=== PATIENT | female | born 1960 | race Caucasian/White ===

== ENCOUNTER 2019-02-18 07:53 | Observation (INO) ==
[2019-02-18] MEDS ORDERED: KEFZOL 1 GM/D5W 2 GM/100 ML IVPB ONE (08:21)
[2019-02-18] MEDS ORDERED: LR 1,000 ML ONE ×2 (08:21→15:02)
[2019-02-18] MEDS ORDERED: HUMULIN R SUBQ ONE (08:49)
[2019-02-18] MEDS ORDERED: HUMULIN R ONE ×2 (09:00→10:43)
[2019-02-18] MEDS ORDERED: DIPRIVAN 1% ONE (11:06)
[2019-02-18] MEDS ORDERED: XYLOCAINE-MPF 2% ONE (11:06)
[2019-02-18] MEDS ORDERED: ROBINUL ONE (11:06)
[2019-02-18] MEDS ORDERED: NS 1,000 ML ONE ×2 (12:03→12:39)
[2019-02-18] MEDS ORDERED: MARCAINE 0.25% PF/EPI 1:200,000 ONE (12:03)
[2019-02-18] MEDS ORDERED: HEPARIN ONE ×2 (12:03→12:39)
[2019-02-18] MEDS ORDERED: TORADOL ONE (13:07)
[2019-02-18] MEDS ORDERED: ZEMURON ONE (13:07)
[2019-02-18] MEDS ORDERED: OFIRMEV 1000 MG/ISOTONIC SOLN 1,000 MG/100 ML BOTTLE ONE (13:07)
[2019-02-18] MEDS ORDERED: DECADRON ONE (13:07)
[2019-02-18] MEDS ORDERED: ZOFRAN ONE (13:07)
[2019-02-18] MEDS ORDERED: EPHEDRINE ONE (13:08)
[2019-02-18] MEDS ORDERED: HEPARIN (DOSE) ONE (13:16)
[2019-02-18] MEDS ORDERED: VENTOLIN HFA ONE (13:26)
[2019-02-18] MEDS ORDERED: BRIDION ONE ×2 (13:33)
[2019-02-18 14:15] LABS: URINE SOURCE CATH
[2019-02-18 14:21] LABS: BILIRUBIN URINE NEGATIVE (NEGATIVE); BLOOD URINE SMALL (NEGATIVE); COLOR YELLOW; GLUCOSE URINE >1000 mg/dL (NEGATIVE); KETONE URINE NEGATIVE (NEGATIVE); LEUKOCYTES URINE NEGATIVE (NEGATIVE); NITRITE URINE NEGATIVE (NEGATIVE); PROTEIN URINE 600 mg/dL (NEGATIVE); SP GRAVITY URINE 1.012; TURBIDITY URINE HAZY (CLEAR); UROBILINOGEN URINE NORMAL (NORMAL)
[2019-02-18 14:22] LABS: UR EPITHELIAL CELLS >10 /HPF (<10); URINE BACTERIA NEGATIVE /HPF; URINE RBC <10 /HPF (<10); URINE WBC <10 /HPF (<10)
[2019-02-18] MEDS ORDERED: D50W SYRINGE IV ONE ×2 (14:45)
[2019-02-18] MEDS ORDERED: DILAUDID ONE (15:02)
[2019-02-18] MEDS ORDERED: PNEUMOVAX 23 IM ONE (17:15)
[2019-02-18] MEDS ORDERED: LR 1,000 ML IV SCH (17:15)
[2019-02-18] MEDS ORDERED: ZOFRAN IV PRN (17:15)
[2019-02-18] MEDS: NORCO-5 PO PRN ×2 (17:50→22:51)
[2019-02-18] MEDS: NICODERM PATCH TD SCH (18:56)
--- NOTE | 2019-02-18 20:06 | OPERATIVE NOTE ---
PROCEDURE DATE: 02/18/2019 PREOPERATIVE DIAGNOSIS: Left lower extremity peripheral vascular disease at the superficial femoral artery level. POSTOP DIAGNOSIS: Left lower extremity peripheral vascular disease at the superficial femoral artery level. PROCEDURES PERFORMED: 1. Percutaneous arteriogram of the left lower extremity. 2. Percutaneous atherectomy of the distal superficial femoral artery. SURGEON: Joel Santana MD. LIFT DRIVER: Dr. Wylie. Dr. Wylie assisted with the entirety of the case. His presence was crucial for the completion of the case. ANESTHESIA: General endotracheal. OPERATIVE FINDINGS: Short-segment disease noted just at the superficial femoral artery, passed over the femur in the distal aspect. COMPLICATIONS: There was a left groin hematoma, but no active bleeding. ESTIMATED BLOOD LOSS: 40 mL. BRIEF HISTORY: A 59-year-old female with past medical history of diabetes and smoking who had peripheral vascular disease with rest pain and claudication. It was felt she would benefit from a percutaneous intervention. The risks, benefits, and alternatives were discussed. The risks, including but not limited to bleeding, infection, risk of hematoma, risk of artery injury, risks of anesthesia, risk of inability to stent, were discussed, and all questions answered. DESCRIPTION OF PROCEDURE: After informed consent was obtained, patient was brought to the operative theater, transferred to the operative table, placed in supine position. General endotracheal anesthesia was then performed without complication. A formal time-out was then performed confirming patient, date, procedure. All were in agreement at that time to the left leg. The left leg and the right groin were prepped and draped in sterile fashion. After the time- out, we used ultrasound to identify the right common femoral vein superior to the bifurcation of the profunda and the superficial femoral artery. We were able to cannulate it under local anesthetic and ultrasound guidance, and passed a wire. We shot fluoro images, seeing the wire go all the way down to the tibial vessels. We initially placed a 6[place] sheath. Contrast study showed flow, but there was a stenosis noted at the distal superficial femoral artery. We then placed a guidewire and exchanged the 6-[place] catheter for a 7[place], and then put the arthrectomy device down, took several passes and shot a completion arteriogram which showed significant improvement in the flow. At this point, the catheter and sheath became kinked in the groin. We tried multiple passes to try to get the balloon past this, but were unable to. Myself and Dr. Wylie tried several times, but were unsuccessful. Given this we felt that we might cause more injury, and we had successfully treated the area, so we decided to remove everything and hold pressure. She was developing a hematoma in her left groin. It was not pulsatile. After attempting to place a Mynx 2 closure device, which was then unsuccessful, we removed the sheath and the wire and held pressure for 15 minutes. At the completion of the 15 minutes, there was no active bleeding. The hematoma was stable, and the patient had a sterile dressing and a pressure dressing applied. We will watch her overnight and keep her flat for 6 hours. The family was updated about the hematoma. cc: Joel Santana MD
[2019-02-18] MEDS: HUMALOG SUBQ SCH (23:17)
[2019-02-19] MEDS: HUMALOG SUBQ SCH ×3 (02:34→10:56)
[2019-02-19] MEDS: NORCO-5 PO PRN ×2 (03:23→09:36)
[2019-02-19 07:23] VITALS: BP 163/73
[2019-02-19] MEDS ORDERED: PLAVIX PO SCH (09:00)
[2019-02-19] MEDS ORDERED: ASPIRIN PO SCH (09:00)
[2019-02-19] MEDS ORDERED: NEURONTIN PO SCH (09:00)
[2019-02-19] MEDS ORDERED: PERIDEX MT SCH (09:00)
[2019-02-19] MEDS: NICODERM PATCH TD SCH (09:36)
--- NOTE | 2019-02-19 19:23 | DISCHARGE SUMMARY ---
ADMISSION DATE: 02/18/2019 DISCHARGE DATE: 02/19/2019 ADMITTING DIAGNOSIS: Ischemic left toes. DISCHARGE DIAGNOSIS: Ischemic left toes. PRINCIPAL PROCEDURE: Atherectomy of left distal superficial femoral artery per Dr. Santana on 02/18/2019. DISCHARGE DISABILITY: Full. DISCHARGE MEDICATIONS: She is to return to her home medications. Will make sure that she has prescriptions for a baby aspirin and Plavix daily. She was encouraged to quit smoking. DISCHARGE DIET: Diabetic diet. DISCHARGE DISPOSITION: She is to return to see Dr. Santana next week in our outpatient offices. HOSPITAL COURSE: Ms. Lizette Barrett is a 59-year-old white female patient Dr. Jimenes who has developed ischemic toes involving her left foot and also an open wound involving the lateral aspect of her left heel. It was noted that she had peripheral vascular disease which included her superficial femoral artery on the left and she was admitted and underwent atherectomy of her left superficial femoral artery per Dr. Santana 02/18/2019. This was complicated by left groin hematoma and she was admitted overnight for observation. On postop day 1 there was no expanding of her left groin hematoma and she had a palpable left dorsalis pedis pulse and a warm foot. She will be discharged under the care of her family with followup with Dr. Santana. She is to return to her home medications. We will add aspirin and Plavix per Dr. Santana and I have encouraged her to quit smoking. She knows to contact us with any problems. cc: MD Joel Nye MD
== END 2019-02-19 11:02 | disposition home or self-care (01) ==
LOC: OPS 07:53 → PAT 07:53 → 4N 17:04 → INTOOBSV 17:04
PROVIDERS: ADMIT Surgery; ATTEND Surgery

== ENCOUNTER 2019-05-03 10:12 | Observation (INO) ==
[2019-05-03] MEDS ORDERED: DUONEB (A & A) INH ONE (10:20)
--- NOTE | 2019-05-03 10:33 | PROVIDER DOCUMENTATION ---
HPI-General Adult - General Chief Complaint: Shortness of Breath Stated Complaint: SOB Time Seen by Provider: 05/03/19 10:18 Source: patient Allergies/Adverse Reactions: Patient Allergies Allergy/AdvReac Type Severity Reaction Status Date / Time No Known Allergies Allergy Verified 05/03/19 11:21 Home Medications: Home Medication List Medication Instructions Recorded Confirmed Last Taken Type Insulin Lispro [Humalog Kwikpen 10 - 15 unit SQ DIRECTED 09/25/18 02/15/19 04/30/19 History U-100] Aspirin 81 mg PO QHS 03/12/19 03/12/19 05/01/19 History Clopidogrel Bisulfate [Clopidogrel] 75 mg PO DAILY 03/12/19 03/12/19 05/02/19 History Collagenase Clostridium Oint 1 applicatn TOP BID 03/12/19 03/12/19 05/02/19 History [Santyl Oint] Gabapentin [Neurontin] 600 mg PO QHS 03/12/19 03/12/19 05/02/19 History Levothyroxine [Synthroid] 75 mcg PO QAM 03/12/19 03/12/19 04/12/19 History Ondansetron HCl 4 mg PO/SL Q4H PRN PRN 03/12/19 03/12/19 Unknown History Simvastatin 40 mg PO DAILY 03/12/19 03/12/19 05/02/19 History - History of Present Illness -Gen Adult Nature of Presenting Problems: This is a 59yo female who presents with CC of shortness of breath. The patient reports onset of 1-2 weeks. She has tried to use albuterol at home. She has had minimal sputum production. She does report recent hospitalization last month for COPD Location of Pain/Injury: reports: chest Onset/Duration: reports: last week (1-2 week duration) Timing: reports: still present Modifying Factors: improves with: lying down (worse with laying down) Associated Symptoms: reports: other (swelling). denies: cough, fever/chills Review of Systems - Adult - REVIEW OF SYSTEMS - ADULT Constitutional: denies: fever Eyes: denies: eye pain Ears, Nose, Mouth & Throat: reports: other (minimal moucous production) Cardiovascular: reports: other. denies: chest pain Respiratory: reports: shortness of breath. denies: excessive sputum production Gastrointestinal: denies: abdominal pain Genitourinary: denies: flank pain Musculoskeletal: reports: joint swelling Integumentary: reports: other (chronic ulcer) Neurological: denies: headache/migraines Psychiatric: denies: alcohol/drug dependence (smoker, no alcohol or drugs) Hematologic/Lymphatic: reports: other (bruising after starting plavix) Past History - Adult - PAST MEDICAL HISTORY-ADULT Review of Records: reports: Old Records Reviewed Major Childhood Illnesses: reports: denies history Cardiovascular: reports: HTN, hyperlipidemia Respiratory: reports: sleep apnea Gastrointestinal: reports: IBS, other (chronic diarrhea) Genitourinary: reports: denies history Endocrine/Immune: reports: Diabetes Other Conditions: reports: denies history - PRIOR SURGERIES/PROCEDURES Surgical/Procedure History: reports: cholecystectomy, hernia repair, other (D&C) - IMMUNIZATION STATUS Childhood Immunizations: See Nurse Assessment Flu Vaccine: See Nurse Assessment - FAMILY HISTORY Family History: cancer (pancreatic), other (CAD) - SOCIAL HISTORY Smoking: other (1ppd smoker) Substance Use: none/never Alcohol Use Frequency: never Physical Exam-General - CONSTITUTIONAL General Appearance: appears well, alert - HEAD, EARS, NOSE, MOUTH & THROAT HENMT: normocephalic/atraumatic, moist mucous membranes - NECK Neck: normal inspection - RESPIRATORY Respiratory: crackles (bilateral lower lobe crackles noted) - CARDIOVASCULAR Cardiovascular: tachycardia, other (1+ Lower extremity edema bilaterally) - GASTROINTESTINAL (ABDOMEN) Abdominal Exam: soft. negative: tenderness - SKIN Integumentary: other (ulcer noted on the left foot, no purulence, mild tenderness ot palpation) Progress - PLAN OF CARE/RESULTS Progress/Plan/Lab Results: Vital Signs - 8 hr 05/03/19 10:16 Temperature 97.8 F Pulse Rate 101 H Respiratory Rate 19 Blood Pressure 145/83 O2 Sat by Pulse Oximetry 94 L Orders Category Date Time Status Saline Loc NOW Care 05/03/19 10:18 Active CHEST-2 VIEWS [RAD] Stat Exams 05/03/19 10:19 Taken CBC WITH ELECTRONIC DIFF [HEME] Stat Lab 05/03/19 10:18 Uncollected CK PROFILE [SP CHEM] Stat Lab 05/03/19 10:18 Uncollected COMPREHENSIVE METABOLIC PANEL [CHEM] Stat Lab 05/03/19 10:18 Uncollected PRO B-NATRIURETIC PEPTIDE Stat Lab 05/03/19 10:19 Ordered TROPONIN T Stat Lab 05/03/19 10:19 Uncollected URINALYSIS W/POSS RFLX CULT [URINALYSIS] Stat Lab 05/03/19 10:19 Uncollected Albuterol 2.5MG/Ipratrop 0.5MG [Duoneb (A & A)] Med 05/03/19 10:20 Discontin ued 3 ml INH NOW ONE Aerosol Treatments Routine Oth 05/03/19 10:20 Active Aerosol Treatments Stat Oth 05/03/19 10:20 Active EKG [EKG] Stat Ther 05/03/19 10:19 Ordered Result Diagrams: 05/03/19 11:30 05/03/19 11:30 - REASSESSMENT Reassessment #1 Status: unchanged (Patient still short of breath. CXR showing pulmonary effusion. Labs showing elevated BNP and elevated glucose. 10U insulin given, and 40mg IV lasix given. Discussed with hospitalist who have accepted the patient for admission.) Departure - Departure Date of Disposition Decision: 05/03/19 Time of Disposition Decision: 14:33 DIAGNOSIS: Hyperglycemia, Shortness of breath Pulmonary edema Qualifiers: Chronicity: acute Qualified Code(s): J81.0 - Acute pulmonary edema Disposition: ADMITTED INPATIENT 09 Certified Medical Emergency: Emergent Condition: Good Referrals and Follow-Ups: Joslyn Jimenes MD [Primary Care Provider] - - Critical Care Note This patient required my direct & personal management of CC.: No Attestation - Physician/ CLOTILDE Attestation Patient care was provided by Advanced Practice Provider:: No The physician spent face to face time with patient:: Yes Advanced Practice Provider documentation review:: Supervising physician onsite and consulted in the evaluation and care of this patient. The physician did have a face to face encounter with the patient.
--- NOTE | 2019-05-03 10:39 | Diag Imaging Result Doc PS360 ---
EXAM: CHEST-2 VIEWS INDICATION: SOB TECHNIQUE: 2 views COMPARISON: 03/13/2019 FINDINGS: There is a small right pleural effusion with adjacent atelectasis and/or infiltrate. The small nodular density near the right lung apex is stable. The central vasculature appears mildly prominent suggesting mild pulmonary venous congestion. The heart appears borderline prominent. IMPRESSION: Suggestion of mild pulmonary venous congestion with a small right effusion and adjacent right basilar atelectasis and/or infiltrate. Electronically signed by Dre Delgadillo 05/03/2019 10:37 AM
--- NOTE | 2019-05-03 10:43 | EKG Report ---
Test Performed on : 05/03/2019 10:21:15 AM Test Reason : sob, chest pain Blood Pressure : / mmHG Vent. Rate : 098 BPM Atrial Rate : 098 BPM P-R Int : 146 ms QRS Dur : 092 ms QT Int : 380 ms P-R-T Axes : 042 019 081 degrees QTc Int : 485 ms Normal sinus rhythm. Cannot rule out Anterior infarct , age undetermined T wave abnormality, consider lateral ischemia Abnormal ECG When compared with ECG of 11-MAR-2019 21:22, (Unconfirmed) Minimal criteria for Anterior infarct are now present Nonspecific T wave abnormality, worse in Inferior leads Unconfirmed Result
[2019-05-03 11:41] LABS: BASO# 0.04 X1000 (0.0-0.2); BASO% 0.5 % (0.0-0.8); EOS# 0.37 X1000 (0.0-0.7); EOS% 5.1 % (0.0-10.0); HEMATOCRIT 36.3 % (37.0-47.0); HEMOGLOBIN 12.8 g/dL (12.0-16.0); LYMPH% 26.1 % (20.5-51.1); MCH 29.4 PG (27-31); MCHC 35.3 g/dL (33-37); MCV 83.4 FL (81-99); MONO# 0.38 X1000 (0.11-0.59); MONO% 5.2 % (1.7-9.3); MPV 10.3 FL (7.4-10.4); NEUT# 4.59 X1000 (1.4-6.5); NEUT% 63.1 % (42.2-75.2); PLT 221 X1000 (130-400); RBC 4.35 XMIL (4.2-5.4); RDW 13.2 % (11.5-14.5); WBC 7.28 X1000 (4.8-10.8)
[2019-05-03 12:03] LABS: AGAP 13; ALB/GLOB RATIO 1.2; ALBUMIN 3.3 g/dL (3.5-5.0); ALKALINE PHOSPHATASE 71 U/L (32-104); BUN 17 mg/dL (8-22); CALCIUM 8.8 mg/dL (8.8-10.2); CHLORIDE 102 mmol/L (98-107); CK PROFILE 60 U/L (24-173); COSMO 308; CREATININE 0.8 mg/dL (0.5-0.9); ESTIMATED GFR > 60; GOT 10 U/L (10-30); GPT 8 U/L (10-36); POTASSIUM 3.9 mmol/L (3.5-5.1); SODIUM 140 mmol/L (136-145); TCO2 25 mmol/L (25-35)
[2019-05-03 12:26] LABS: GLUCOSE 583 mg/dL (70-104)
[2019-05-03] MEDS ORDERED: HUMULIN R SUBQ ONE (12:46)
[2019-05-03 13:15] LABS: URINE SOURCE CLEAN CATCH
[2019-05-03 13:19] LABS: BILIRUBIN URINE NEGATIVE (NEGATIVE); BLOOD URINE SMALL (NEGATIVE); COLOR YELLOW; GLUCOSE URINE >1000 mg/dL (NEGATIVE); KETONE URINE NEGATIVE (NEGATIVE); LEUKOCYTES URINE NEGATIVE (NEGATIVE); NITRITE URINE NEGATIVE (NEGATIVE); PH URINE 6.5; PROTEIN URINE 600 mg/dL (NEGATIVE); SP GRAVITY URINE 1.025; TURBIDITY URINE CLEAR (CLEAR); UROBILINOGEN URINE NORMAL (NORMAL)
[2019-05-03 13:20] LABS: UR EPITHELIAL CELLS <10 /HPF (<10); URINE BACTERIA NEGATIVE /HPF; URINE RBC <10 /HPF (<10); URINE WBC <10 /HPF (<10)
[2019-05-03] MEDS ORDERED: LASIX IV ONE (14:05)
[2019-05-03] MEDS ORDERED: ZOFRAN IV PRN (14:49)
[2019-05-03] MEDS ORDERED: TYLENOL PO PRN (14:49)
[2019-05-03] MEDS: DUONEB (A & A) INH SCH ×2 (15:45→21:23)
--- NOTE | 2019-05-03 16:30 | Diag Imaging Result Doc PS360 ---
EXAM: CT ANGIOGRM PULMONARY ARTERIES 05/03/2019 HISTORY: sob TECHNIQUE: This exam was performed using automated exposure control, adjustment of mA or kV according to patient size, and/or use of iterative reconstruction technique. COMMENT: 3-D MIPS were performed. The current study is compared with the previous examination of 03/11/2019. There are bilateral pleural effusions. This was not the case on the previous study. There are no filling defects in the pulmonary arteries. The aorta is normal in caliber without evidence of dissection. There are some calcifications in the left anterior descending artery. There is compressive atelectasis in both lower lobes and the right middle lobe. There is a pulmonary nodule in the right upper lobe on image 29 measuring a centimeter in diameter. This is not changed significantly since the previous study. There are spondylotic changes present in the thoracic spine. There is an old fracture of the left fifth anterior rib. IMPRESSION: Bilateral pleural effusions. No evidence of pulmonary emboli. Bibasilar atelectasis versus pneumonia. Electronically signed by Shan Piper 05/03/2019 4:27 PM
[2019-05-03] MEDS: HUMULIN R SUBQ SCH ×2 (17:51→22:32)
[2019-05-03] MEDS: LASIX IV SCH (18:04)
--- NOTE | 2019-05-03 18:21 | HISTORY AND PHYSICAL ---
HISTORY OF PRESENT ILLNESS: Ms. Barrett is a 59-year-old, patient Dr. Joslyn Jimenes, presented and states for 2 weeks now she has had progressive shortness of breath, increased dyspnea on exertion, increased orthopnea, increased swelling in her lower extremities. She denies fever, chills. Denies any squeezing chest pain. Maybe occasional palpitation but no prolonged tachycardia that she appreciated. This is a 59-year-old female with a history of diabetes mellitus type 2, peripheral vascular disease, COPD, ongoing tobacco use, presented to the emergency department after a 2-week history of worsening shortness of breath and increased dyspnea. PAST SURGICAL HISTORY: He has had hernia repair and cholecystectomy. ALLERGIES: No known drug allergies. SOCIAL HISTORY: A 40+ pack year history of smoking. No history of alcohol or illicit drugs. FAMILY HISTORY: Positive for coronary artery disease in mother and father. REVIEW OF SYSTEMS: General: No weight gain or loss. No fever or chills that she remembers. HEENT: No change in visual or hearing acuity. Denies any sore throat. Neck: Denies any neck pain or adenopathy appreciated. Respiratory: As above. Cardiovascular: No chest pain or tachy palpitation. GI and : No gross hematuria or dysuria. Musculoskeletal/Neurologic: No focal complaints. Endocrinologic/Hematologic: No significant history. PHYSICAL EXAMINATION: GENERAL: Well-developed, well-nourished white female, alert and oriented x3. VITAL SIGNS: Temperature 98.1 degrees, pulse 90, respirations 20, blood pressure 142/64. HEENT: Pupils are equal and round. LUNGS: Clear in the upper lung hammonds. She has decreased breath sounds in both bases. IMAGING: Chest x-ray: Mild pulmonary venous congestion. Small right effusion and adjacent right basilar atelectasis or questionable infiltrate. Pulmonary arteriogram was done. CT angiogram: Bilateral pleural effusions. No evidence of pulmonary emboli. Bibasilar atelectasis versus pneumonia. In looking back, she has had an echocardiogram on 03/12/2019. Very mild mitral regurgitation. Aortic valve trileaflet, opened normally. Peak gradient of the aortic valve was 13 mmHg. Tricuspid valve with no evidence of structural abnormality. Pulmonic valve was not well demonstrated. Normal left ventricular dimension. Estimated ejection fraction was 55%. No regional wall motion abnormalities. Left atrium and right atrium and right ventricle were in normal size. No pericardial disease. Echocardiogram was done on 03/12/2019. LAB: White count 7,280, hematocrit 36, platelet count 221,000. Sodium 140, potassium 3.9, chloride 102, bicarb 25, BUN 17, creatinine 0.8. Blood sugar was 583, calcium is 8.8, AST 10, ALT was 8. ProBNP was 7,338. Troponin was 0.032 and 0.061 in sequence. Albumin is 3.3. ASSESSMENT AND PLAN: 1. Pulmonary venous hypertension. She denies any chest pain. There is an elevation in her troponin. CK was unremarkable. Her proBNP was 7,338, so we will try and diurese. We will follow serial cardiac enzymes. Check her T4, TSH, B12, and folate. Repeat another chest x- ray in the morning. 2. She has no history of left ventricular dysfunction. She had an echo not too long ago. 3. Underlying chronic obstructive pulmonary disease. Aware. 4. Bilateral small pleural effusions and some atelectasis. We will try some incentive spirometry. 5. Diabetes mellitus type 2. Sugars are high. No sign of acidosis. Put her on a sliding scale. Could not rule out pneumonia or infiltrate. So at this time I am going to put her on Lasix 40 mg q.12, put her on a sliding scale. Repeat another chest x-ray in the morning. cc: Judd Kenny MD
[2019-05-03 20:53] LABS: HEMOGLOBIN A1C 11.4 % (4.8-6.0)
[2019-05-04] MEDS: DUONEB (A & A) INH SCH ×3 (03:41→15:25)
[2019-05-04] MEDS: LASIX IV SCH (05:23)
[2019-05-04 06:24] LABS: HEMATOCRIT 33.5 % (37.0-47.0); HEMOGLOBIN 11.5 g/dL (12.0-16.0); LYMPH% 28.4 % (20.5-51.1); MCHC 34.3 g/dL (33-37); MCV 84.4 FL (81-99); MPV 10.4 FL (7.4-10.4); NEUT% 54.1 % (42.2-75.2); PLT 241 X1000 (130-400); RBC 3.97 XMIL (4.2-5.4); RDW 13.4 % (11.5-14.5); WBC 8.71 X1000 (4.8-10.8)
[2019-05-04 06:25] LABS: BASO# 0.04 X1000 (0.0-0.2); BASO% 0.5 % (0.0-0.8); EOS# 0.86 X1000 (0.0-0.7); EOS% 9.9 % (0.0-10.0); IMM GRAN# 0.02 X1000 (0.0-0.04); IMM GRAN% 0.2 % (0.0-0.5); LYMPH# 2.47 X1000 (1.2-3.4); MONO% 6.9 % (1.7-9.3); NEUT# 4.72 X1000 (1.4-6.5)
[2019-05-04 06:26] LABS: INR 1.06; PROTIME 13.9 Seconds (11.0-16.0)
[2019-05-04 06:27] LABS: PTT 26.7 Seconds (22.3-41.8)
[2019-05-04] MEDS: HUMULIN R SUBQ SCH ×2 (06:42→10:46)
[2019-05-04 07:03] LABS: FREE T4 1.02 ng/dL (0.93-1.70)
[2019-05-04 07:07] LABS: TSH 7.17 uIUmL (0.27-4.20)
[2019-05-04 07:13] LABS: AGAP 10; ALB/GLOB RATIO 1.3; ALBUMIN 2.9 g/dL (3.5-5.0); ALKALINE PHOSPHATASE 63 U/L (32-104); BUN 22 mg/dL (8-22); CALCIUM 8.2 mg/dL (8.8-10.2); CHLORIDE 97 mmol/L (98-107); COSMO 284; CREATININE 0.9 mg/dL (0.5-0.9); ESTIMATED GFR > 60; GLUCOSE 360 mg/dL (70-104); GOT 10 U/L (10-30); GPT 7 U/L (10-36); MAGNESIUM 1.6 mg/dL (1.5-2.7); SODIUM 133 mmol/L (136-145); TCO2 26 mmol/L (25-35); TOTAL BILIRUBIN 0.54 mg/dL (0.20-1.00); TOTAL PROTEIN 5.2 g/dL (6.3-8.3)
--- NOTE | 2019-05-04 07:32 | EKG Report ---
Test Performed on : 05/04/2019 07:25:00 AM Test Reason : chest pain Blood Pressure : / mmHG Vent. Rate : 078 BPM Atrial Rate : 078 BPM P-R Int : 148 ms QRS Dur : 098 ms QT Int : 376 ms P-R-T Axes : 039 018 221 degrees QTc Int : 428 ms Normal sinus rhythm. Nonspecific T wave abnormality Abnormal ECG When compared with ECG of 03-MAY-2019 10:21, (Unconfirmed) QT has shortened Confirmed by Deborah SUMMERS, Jaciel Mondragon ([id number]) on 05/04/2019 8:45:20 AM
--- NOTE | 2019-05-04 08:16 | Diag Imaging Result Doc PS360 ---
CHEST-2 VIEWS - 05/04/2019 INDICATION: copd, pulmonary venous htn. COMPARISON: 05/03/2019 FINDINGS: There has been increase in size of the small to moderate right basilar pleural effusion. Stable small left pleural effusion. Stable cardiomegaly and pulmonary vascular congestion. No significant edema. IMPRESSION: Worsening small to moderate right basilar pleural effusion. Otherwise no change. Electronically signed by Sinan Mann 05/04/2019 8:14 AM
[2019-05-04 12:49] VITALS: BP 133/57
--- NOTE | 2019-05-04 13:51 | DISCHARGE SUMMARY ---
ADMISSION DATE: 05/03/2019 DISCHARGE DATE: 05/04/2019 HISTORY OF PRESENT ILLNESS: A patient of Dr. Joslyn Jimenes. A 59-year-old who presented. States, 2 weeks, she has had progressive shortness of breath, increased dyspnea on exertion, increased orthopnea, increased swelling of the lower extremities. Denies any fevers. Denies any squeezing chest pain. Maybe occasional palpitations but no prolonged tachycardia was appreciated. PAST MEDICAL HISTORY: Has a history of diabetes mellitus type 2, peripheral vascular disease, COPD, ongoing tobacco use. HOSPITAL COURSE: Presented to the emergency department with a 2-week history of worsening shortness of breath and increased dyspnea. Admitted with pulmonary venous hypertension, which was minimal. We did diurese her a little bit. X-rays are consistent with COPD. She did have mild elevation in troponin but no evidence of chest pain. No sign of coronary ischemia. Her troponin was 0.079, her CK was 55. Chest x-ray suggested mild pulmonary venous congestion, small right effusion, adjacent right bibasilar atelectasis. Did not see any sign of infiltrates. On followup chest x-ray the next morning, there was worsening small, moderate right basilar effusion, otherwise no change. Was breathing more comfortably. EKG with poor R-wave progression but with sinus rhythm. Did not see any suspicious ST-segment changes. The patient was wanting to go home. I want her to get followup with her primary care physician and a followup chest x-ray as well to follow up on that right pleural effusion. She appears to have underlying COPD. We will discharge her on aspirin 81 mg a day, Plavix 75 mg a day, Neurontin 600 mg at bedtime. She will continue her Humalog KwikPen as she has been doing, Synthroid 75 mcg a day. She has ondansetron 4 mg sublingual q.4 hours p.r.n. nausea and simvastatin 40 mg at bedtime. I am going to put her on 40 mg of Lasix daily. I will give her some supplement of potassium of Klor-Con 40 mEq daily. She is adamant on wanting to go home. I do want her to follow up with her primary care physician, who is Dr. Joslyn Jimenes, to follow up on that pleural effusion, for followup on her chest x-ray. cc: Judd Kenny MD
== END 2019-05-04 15:54 | disposition home or self-care (01) ==
LOC: ED 10:12 → 4N 10:13 → INTOOBSV 10:13 → 4N 15:22
PROVIDERS: ATTEND Emergency Medicine

== ENCOUNTER 2019-05-26 03:04 | Inpatient (IN) ==
[2019-05-26] MEDS ORDERED: DUONEB (A & A) INH ONE (03:31)
[2019-05-26] MEDS ORDERED: TESSALON PO ONE (03:31)
[2019-05-26] MEDS ORDERED: SOLU-MEDROL IV ONE (03:31)
[2019-05-26 04:12] LABS: BASO# 0.04 X1000 (0.0-0.2); BASO% 0.5 % (0.0-0.8); EOS# 0.57 X1000 (0.0-0.7); EOS% 6.5 % (0.0-10.0); HEMATOCRIT 32.8 % (37.0-47.0); HEMOGLOBIN 11.1 g/dL (12.0-16.0); LYMPH# 1.45 X1000 (1.2-3.4); LYMPH% 16.6 % (20.5-51.1); MCH 28.8 PG (27-31); MCHC 33.8 g/dL (33-37); MONO# 0.54 X1000 (0.11-0.59); MONO% 6.2 % (1.7-9.3); NEUT# 6.16 X1000 (1.4-6.5); NEUT% 70.2 % (42.2-75.2); PLT 296 X1000 (130-400); RBC 3.86 XMIL (4.2-5.4); RDW 12.2 % (11.5-14.5); WBC 8.76 X1000 (4.8-10.8)
[2019-05-26 04:17] LABS: URINE SOURCE CLEAN CATCH
[2019-05-26 04:18] LABS: BILIRUBIN URINE NEGATIVE (NEGATIVE); BLOOD URINE SMALL (NEGATIVE); COLOR YELLOW; GLUCOSE URINE >1000 mg/dL (NEGATIVE); KETONE URINE NEGATIVE (NEGATIVE); LEUKOCYTES URINE NEGATIVE (NEGATIVE); NITRITE URINE NEGATIVE (NEGATIVE); PH URINE 6.5; PROTEIN URINE 600 mg/dL (NEGATIVE); SP GRAVITY URINE 1.026; TURBIDITY URINE CLEAR (CLEAR); UROBILINOGEN URINE NORMAL (NORMAL)
[2019-05-26 04:36] LABS: UR EPITHELIAL CELLS <10 /HPF (<10); URINE BACTERIA NEGATIVE /HPF; URINE WBC <10 /HPF (<10)
[2019-05-26 04:37] LABS: URINE CASTS NONE SEEN; URINE CRYSTALS NONE SEEN; URINE SMALL ROUND CELLS NONE SEEN; URINE YEAST PRESENT
--- NOTE | 2019-05-26 04:55 | Diag Imaging Result Doc PS360 ---
EXAM: CHEST-1 VIEW HISTORY: cough, sob TECHNIQUE: Chest single view COMPARISON: 05/20/2019 FINDINGS: Worsening right basilar infiltrate. Mild cardiomegaly with pulmonary edema. Right basilar atelectasis. IMPRESSION: Worsening right basilar infiltrates with mild pulmonary edema. Electronically signed by Rasta Murphy 05/26/2019 4:53 AM
[2019-05-26 05:04] LABS: ALB/GLOB RATIO 0.9; ALBUMIN 2.9 g/dL (3.5-5.0); CALCIUM 8.7 mg/dL (8.8-10.2); CREATININE 1.1 mg/dL (0.5-0.9); POTASSIUM 3.8 mmol/L (3.5-5.1); TOTAL BILIRUBIN 0.48 mg/dL (0.20-1.00); TOTAL PROTEIN 6.1 g/dL (6.3-8.3)
[2019-05-26] MEDS ORDERED: VANCOMYCIN 1 GM/NS 1 GM/250 ML IVPB IV ONE (05:13)
[2019-05-26] MEDS ORDERED: ZOSYN 3.375 GM in NS 50 ML IV ONE (05:13)
[2019-05-26] MEDS ORDERED: NS 1,000 ML IV ONE (05:14)
--- NOTE | 2019-05-26 05:17 | EKG Report ---
Test Performed on : 05/26/2019 03:09:57 AM Test Reason : SOB Blood Pressure : / mmHG Vent. Rate : 103 BPM Atrial Rate : 103 BPM P-R Int : 136 ms QRS Dur : 094 ms QT Int : 370 ms P-R-T Axes : 043 022 092 degrees QTc Int : 484 ms Sinus tachycardia. Cannot rule out Anterior infarct , age undetermined Abnormal ECG When compared with ECG of 20-MAY-2019 20:34, (Unconfirmed) Minimal criteria for Anterior infarct are now present ST no longer elevated in Inferior leads QT has lengthened Unconfirmed Result
[2019-05-26] MEDS ORDERED: LASIX IV ONE (05:25)
[2019-05-26] MEDS ORDERED: HUMALOG IV ONE (05:26)
--- NOTE | 2019-05-26 05:28 | PROVIDER DOCUMENTATION ---
HPI-General Adult - General Chief Complaint: Shortness of Breath Stated Complaint: SOB Time Seen by Provider: 05/26/19 03:26 Source: patient Allergies/Adverse Reactions: Patient Allergies Allergy/AdvReac Type Severity Reaction Status Date / Time No Known Allergies Allergy Verified 05/20/19 21:12 Home Medications: Home Medication List Medication Instructions Recorded Confirmed Last Taken Type Insulin Lispro [Humalog Kwikpen 10 - 15 unit SQ DIRECTED 09/25/18 05/20/19 04/30/19 History U-100] Aspirin 81 mg PO QHS 03/12/19 05/20/19 05/01/19 History 81 mg Clopidogrel Bisulfate [Clopidogrel] 75 mg PO HS 03/12/19 05/20/19 05/02/19 21:00 History 75 mg Collagenase Clostridium Oint 1 applicatn TOP DAILY 03/12/19 05/20/19 05/02/19 17 :00 History [Santyl Oint] 1 Gabapentin [Neurontin] 600 mg PO QHS 03/12/19 05/20/19 05/02/19 21:00 History 600 mg Levothyroxine [Synthroid] 75 mcg PO HS 03/12/19 05/20/19 05/02/19 21:00 History 75 mcg Ondansetron HCl 4 mg PO/SL Q4H PRN PRN 03/12/19 05/20/19 Unknown History Simvastatin 40 mg PO HS 03/12/19 05/20/19 05/02/19 21:00 History 40 mg Potassium Chloride [Klor-Con M20] 20 meq PO BID 30 Days #60 05/04/19 05/20/19 Unknown Rx tab.er.prt Furosemide [Lasix] 40 mg PO DAILY PRN 05/20/19 05/20/19 Unknown History Furosemide [Lasix] 80 mg PO DAILY #30 tab 05/21/19 Unknown Rx - History of Present Illness -Gen Adult Nature of Presenting Problems: Pt presents with cough and sob, worsening over the last 3 days, pmh of CHF and COPD, pt still smoking, pt denies f/c, pineda, cp, ap, n/v/d. Pt is lying in bed in no acute distress. Location of Pain/Injury: reports: none Pain Radiation: reports: no radiation Quality of Pain: reports: none Severity: reports: moderate Onset/Duration: reports: 3 days ago Timing: reports: still present Context/Activities at Onset: reports: none Modifying Factors: improves with: nothing Associated Symptoms: reports: cough, shortness of breath Similar Symptoms Previously?: Yes Recently seen or treated by another doctor?: No Review of Systems - Adult - REVIEW OF SYSTEMS - ADULT Constitutional: reports: no symptoms reported Eyes: reports: no symptoms reported Ears, Nose, Mouth & Throat: reports: no symptoms reported Cardiovascular: reports: no symptoms reported Respiratory: reports: see HPI Gastrointestinal: reports: no symptoms reported Genitourinary: reports: no symptoms reported Musculoskeletal: reports: no symptoms reported Integumentary: reports: no symptoms reported Neurological: reports: no symptoms reported Psychiatric: reports: no symptoms reported Endocrine: reports: no symptoms reported Hematologic/Lymphatic: reports: no symptoms reported Allergic/Immunologic: reports: no symptoms reported All Other Systems: Reviewed and Negative Past History - Adult - PAST MEDICAL HISTORY-ADULT Review of Records: reports: Old Records Reviewed, Nursing Assessment Review, Medications Reviewed, Social history reviewed & non-contributory. Major Childhood Illnesses: reports: denies history Cardiovascular: reports: HTN, hyperlipidemia Respiratory: reports: sleep apnea Gastrointestinal: reports: IBS, other (chronic diarrhea) Genitourinary: reports: denies history Musculoskeletal: reports: denies history Neurological: reports: denies history Psychiatric: reports: denies history Endocrine/Immune: reports: denies history, Diabetes Other Conditions: reports: denies history - PRIOR SURGERIES/PROCEDURES Surgical/Procedure History: reports: cholecystectomy, hernia repair, other (D&C) - IMMUNIZATION STATUS Childhood Immunizations: See Nurse Assessment Flu Vaccine: See Nurse Assessment - FAMILY HISTORY Family History: cancer (pancreatic), other (CAD) Physical Exam-General - PHYSICAL EXAM-ADULT Initial Vital Signs Reviewed: Yes - CONSTITUTIONAL General Appearance: appears well - EYES Eyes: PERRL/EOMI - HEAD, EARS, NOSE, MOUTH & THROAT HENMT: normal ENT inspection - NECK Neck: non-tender, full range of motion, normal inspection - RESPIRATORY Respiratory: no respiratory distress, no accessory muscle use, crackles - CARDIOVASCULAR Cardiovascular: regular rate, rhythm - GASTROINTESTINAL (ABDOMEN) Abdominal Exam: non tender, soft - LYMPHATIC Lymphatic: no adenopathy - MUSCULOSKELETAL Back Exam: normal inspection Extremity: normal range of motion - SKIN Integumentary: normal color - NEUROLOGIC Neurologic: grossly normal - PSYCHIATRIC Psych/Mental Status: normal mood/affect Progress - PLAN OF CARE/RESULTS Progress/Plan/Lab Results: Vital Signs - 8 hr 05/26/19 03:10 05/26/19 04:57 Temperature 98.2 F Pulse Rate 103 H 91 H Respiratory Rate 20 22 Blood Pressure 152/91 O2 Sat by Pulse Oximetry 95 94 L Laboratory Results - last 24 hr 05/26/19 05/26/19 05/26/19 03:43 03:43 03:43 WBC 8.76 RBC 3.86 L Hgb 11.1 L Hct 32.8 L MCV 85.0 MCH 28.8 MCHC 33.8 RDW Std Deviation 12.2 Plt Count 296 MPV 11.0 H Immature Gran % (Auto) 0.0 Neut % (Auto) 70.2 Lymph % (Auto) 16.6 L [place] % (Auto) 6.2 Eos % (Auto) 6.5 Baso % (Auto) 0.5 Immature Gran # (Auto) 0.00 Neut # (Auto) 6.16 Lymph # (Auto) 1.45 [place] # (Auto) 0.54 Eos # (Auto) 0.57 Baso # (Auto) 0.04 Sodium 138 Potassium 3.8 Chloride 98 Carbon Dioxide 25 Anion Gap 15 BUN 17 Creatinine 1.1 H Estimated GFR/1.73 m2 51 BUN/Creatinine Ratio 15 Glucose 564 H* Calculated Osmolality 303 Calcium 8.7 L Total Bilirubin 0.48 AST 11 ALT 8 L Alkaline Phosphatase 79 Troponin T Ifn-I-Gscfwhvqxnx Pept 4826 H Total Protein 6.1 L Albumin 2.9 L Globulin 3.2 Albumin/Globulin Ratio 0.9 Urine Source Urine Color Urine Turbidity Urine pH Ur Specific [place] Urine Protein Ur Glucose (Stick) Ur Ketones (Stick) Urine Blood Urine Nitrite Urine Bilirubin Urobilinogen Dipstick Urine Leukocytes Urine WBC (Auto) Urine RBC (Auto) U Epithel Cells (Auto) Urine Bacteria (Auto) Urine Crystals Small Round Cells Urine Casts Urine Yeast-like Cells 05/26/19 05/26/19 03:43 04:07 WBC RBC Hgb Hct MCV MCH MCHC RDW Std Deviation Plt Count MPV Immature Gran % (Auto) Neut % (Auto) Lymph % (Auto) [place] % (Auto) Eos % (Auto) Baso % (Auto) Immature Gran # (Auto) Neut # (Auto) Lymph # (Auto) [place] # (Auto) Eos # (Auto) Baso # (Auto) Sodium Potassium Chloride Carbon Dioxide Anion Gap BUN Creatinine Estimated GFR/1.73 m2 BUN/Creatinine Ratio Glucose Calculated Osmolality Calcium Total Bilirubin AST ALT Alkaline Phosphatase Troponin T 0.026 Thb-D-Ydoryomfqlb Pept Total Protein Albumin Globulin Albumin/Globulin Ratio Urine Source CLEAN CATCH Urine Color YELLOW Urine Turbidity CLEAR Urine pH 6.5 Ur Specific [place] 1.026 Urine Protein 600 A Ur Glucose (Stick) >1000 A Ur Ketones (Stick) NEGATIVE Urine Blood SMALL A Urine Nitrite NEGATIVE Urine Bilirubin NEGATIVE Urobilinogen Dipstick NORMAL Urine Leukocytes NEGATIVE Urine WBC (Auto) <10 Urine RBC (Auto) 10-20 A U Epithel Cells (Auto) <10 Urine Bacteria (Auto) NEGATIVE Urine Crystals NONE SEEN Small Round Cells NONE SEEN Urine Casts NONE SEEN Urine Yeast-like Cells PRESENT Orders Category Date Time Status cxr [CHEST-1 VIEW] [RAD] Stat Exams 05/26/19 03:31 Completed BLOOD CULTURE [BLDCUL] Stat Lab 05/26/19 03:43 Results CBC WITH ELECTRONIC DIFF [HEME] Stat Lab 05/26/19 03:43 Completed COMPREHENSIVE METABOLIC PANEL [CHEM] Stat Lab 05/26/19 03:43 Completed PRO B-NATRIURETIC PEPTIDE Stat Lab 05/26/19 03:43 Completed TROPONIN T Stat Lab 05/26/19 03:43 Completed UA NIMS W/REFLEX CULT [URINALYSIS] Stat Lab 05/26/19 04:07 Completed URINE MANUAL MICROSCOPIC [URINALYSIS] Stat Lab 05/26/19 04:07 Completed 0.9% Sodium Chloride Inj [Ns] 1,000 ml Med 05/26/19 05:14 Active IV 999 mls/hr Albuterol 2.5MG/Ipratrop 0.5MG [Duoneb (A & A)] Med 05/26/19 03:31 Discontinued 3 ml INH NOW ONE Benzonatate [Tessalon] Med 05/26/19 03:31 Discontinued 200 mg PO NOW ONE Methylprednisolone Sod Succ [Solu-Medrol] Med 05/26/19 03:31 Discontinued 125 mg IV NOW ONE Piperacillin/Tazobactam [Zosyn] 3.375 gm Med 05/26/19 05:13 Active 0.9% Sodium Chloride Inj [Ns] 50 ml IV NOW Vancomycin 1 gm/Ns Med 05/26/19 05:13 Active 1 gm in 250 ml IV NOW Aerosol Treatments Routine Oth 05/26/19 03:31 Completed Aerosol Treatments Stat Oth 05/26/19 03:31 Completed EKG [EKG] Stat Ther 05/26/19 03:05 Draft Result Diagrams: 05/26/19 03:43 05/26/19 03:43 Departure - Departure Date of Disposition Decision: 05/26/19 Time of Disposition Decision: 05:26 DIAGNOSIS: CHF (congestive heart failure) Qualifiers: Heart failure type: unspecified Heart failure chronicity: acute on chronic Qualified Code(s): I50.9 - Heart failure, unspecified Pneumonia Qualifiers: Pneumonia type: due to unspecified organism Laterality: right Lung location: lower lobe of lung Qualified Code(s): J18.1 - Lobar pneumonia, unspecified organism DKA (diabetic ketoacidoses) Qualifiers: Diabetes mellitus type: type 2 Diabetes mellitus complication detail: without coma Qualified Code(s): E11.10 - Type 2 diabetes mellitus with ketoacidosis without coma Disposition: ADMITTED INPATIENT 09 Certified Medical Emergency: Emergent Condition: Stable Referrals and Follow-Ups: Joslyn Jimenes MD [Primary Care Provider] - - Critical Care Note This patient required my direct & personal management of CC.: Yes Total Time (mins): 38 Critical Care Statement: This patient required my direct personal management to treat or rule out processes, the absence of which, could potentiallly result in sudden, clinically significant life or limb threatening deterioration. Attestation - Physician/ CLOTILDE Attestation Patient care was provided by Advanced Practice Provider:: No The physician spent face to face time with patient:: Yes Advanced Practice Provider documentation review:: Supervising physician onsite and consulted in the evaluation and care of this patient. The physician did have a face to face encounter with the patient.
[2019-05-26] MEDS ORDERED: CARDIZEM IV ONE (06:35)
[2019-05-26] MEDS ORDERED: CARDIZEM 125 MG/D5W 125 MG/125 ML IVPB IV SCH (06:45)
--- NOTE | 2019-05-26 06:51 | HISTORY AND PHYSICAL ---
CHIEF COMPLAINT: Shortness of breath and cough. HISTORY OF PRESENT ILLNESS: Ms. Barrett is a 59-year-old female who was recently admitted to our service on 05/03. She was just discharged on 05/04. She was given Lasix to take outpatient for congestive heart failure. The patient states that she forgot to take it so she has not taken it since the time of her discharge. She later confessed that she does not have a lot of energy when she takes it so she is having trouble coping with taking it. She continues to smoke almost a pack a day. She has a past medical history such as diabetes mellitus type 2, peripheral vascular disease, COPD. The patient has been counseled on smoking cessation as well as the need to change her lifestyle habits before she ends up on oxygen at home. At any rate, last night at 8:00, her shortness of breath had gotten progressively worse so she came in. She had a worsening right basilar infiltrate, mild cardiomegaly with pulmonary edema. She will be treated for hospital- acquired pneumonia and placed inpatient. PAST MEDICAL HISTORY: See HPI. PREVIOUS SURGICAL HISTORY: Hernia repair and cholecystectomy. SOCIAL HISTORY: 40 pack year smoker. She is down just below a pack a day. No alcohol or illicit drugs. FAMILY HISTORY: Positive for coronary artery disease in mother and father. Mother also had congestive heart failure and father had pancreatic cancer. ALLERGIES: No known drug allergies. HOME MEDICATIONS: 1. Lasix 40 mg p.o. daily. 2. Potassium chloride 20 mEq b.i.d. 3. Humalog sliding scale insulin. 4. Plavix 75 mg daily. 5. Aspirin 81 mg daily. 6. Santyl ointment. 7. Levothyroxine 75 mcg daily. 8. Simvastatin 40 mg daily. 9. Zofran p.r.n. 10.Neurontin 600 mg at bedtime. REVIEW OF SYSTEMS: Fourteen point review of systems conducted with the patient. Pertinent positives listed above in the HPI. She also complained of orthopnea, PND, dyspnea on exertion and at rest as well as cough which was more of a dry cough until today when she started producing sputum. All other systems were reviewed and found to be negative. PHYSICAL EXAMINATION: VITAL SIGNS: Temp 98.2 degrees, pulse 91, respirations 22, blood pressure 152/91, oxygen saturation 95% on 2 liters nasal cannula. GENERAL: 59-year-old female who looks older than her stated age lying in the ER stretcher. She is alert and oriented x3, answers all questions appropriately. HEENT: Head is atraumatic, normocephalic. Pupils equal, round and reactive to light. Extraocular eye movements intact. Sclerae anicteric. Conjunctivae mildly pale. Oral mucosa is moist. NECK: Supple. No JVD. No thyromegaly. Trachea is midline. No cervical lymphadenopathy. CARDIAC: S1, S2 appreciated. No murmurs, gallops, rubs. LUNGS: Coarse crepitations noted scattered throughout bilateral air hammonds, worse in the right. Decreased bilaterally, prolonged expiratory phase, no wheeze. Symmetric rise and fall of respirations. ABDOMEN: Soft, nondistended, nontender. Bowel sounds present in all 4 quadrants. Normoactive. No pulsatile masses. No organomegaly. EXTREMITIES: No cyanosis, clubbing or edema. 2+ pedal pulses bilaterally. GENITOURINARY: No bladder distention. The patient voids. Otherwise deferred. NEUROLOGICAL: Alert and oriented x3. No focal motor deficits. Otherwise nonfocal examination. DIAGNOSTIC DATA: Chest x-ray shows worsening right basilar infiltrate with mild pulmonary edema and mild cardiomegaly. EKG shows sinus tachycardia, rate of 103. LABORATORY DATA: WBC 8.76, hemoglobin 11.1, hematocrit 32.8, platelet count 296,000. Sodium 138, potassium 3.8, chloride 98, carbon dioxide 25, BUN 17, creatinine 1.1, glucose 564. ProBNP 4,826. Urine greater than 1000 glucose. ASSESSMENT AND PLAN: 1. CHF with exacerbation. Patient confessed that she was not taking her Lasix at home. We will start IV Lasix and I told the patient about the importance of taking her medication or she will have to keep returning to the hospital. Strict I's and O's. 2. Hospital-acquired pneumonia. We will treat Zosyn and vancomycin. Blood cultures. DuoNeb. She was given a dose of steroids in the emergency room. We will not continue steroids at this point. 3. COPD with exacerbation secondary to 1 and 2. Please see above. 4. Diabetes mellitus with hyperglycemia. She is insulin dependent. This is poorly controlled. Check hemoglobin A1c. Sliding scale insulin with fingerstick blood sugar. We will restart her long-acting insulin. 5. Hypertension. Continue home medications. 6. Hyperlipidemia. Continue home medications. Further recommendations per patient's clinical course. Dictated by RY Phan for Gladis Villalobos MD cc: RY Phan MD Kathy J. Sparacino, MD I performed and supervised exam and plan of care of this patient at bedside with [employer]. ZULEYKA
[2019-05-26] MEDS ORDERED: TYLENOL PO PRN (07:09)
[2019-05-26] MEDS ORDERED: VANCOMYCIN IV PER PHARMACY MISC SCH (07:09)
[2019-05-26] MEDS ORDERED: ZOFRAN IV PRN (07:09)
[2019-05-26] MEDS ORDERED: LANTUS INSULIN SUBQ ONE (07:09)
[2019-05-26] MEDS ORDERED: LOVENOX SUBQ SCH (07:09)
[2019-05-26] MEDS: DUONEB (A & A) INH SCH ×5 (08:00→23:25)
[2019-05-26] MEDS: HUMALOG SUBQ SCH ×7 (08:06→20:54)
[2019-05-26] MEDS: LASIX IV SCH ×2 (08:07→19:36)
--- NOTE | 2019-05-26 08:44 | EKG Report ---
Test Performed on : 05/26/2019 06:22:39 AM Test Reason : HEART RACING Blood Pressure : / mmHG Vent. Rate : 144 BPM Atrial Rate : 105 BPM P-R Int : 000 ms QRS Dur : 094 ms QT Int : 334 ms P-R-T Axes : 000 048 167 degrees QTc Int : 517 ms Atrial fibrillation. with rapid ventricular response. Cannot rule out Anterior infarct (cited on or before 26-MAY-2019) Abnormal ECG When compared with ECG of 26-MAY-2019 03:09, (Unconfirmed) Atrial fibrillation. has replaced Sinus rhythm. Unconfirmed Result
[2019-05-26] MEDS: MAXIPIME 2 GM in NS 100 ML IV SCH ×2 (09:37→19:36)
[2019-05-26] MEDS ORDERED: VANCOMYCIN 1,350 MG in NS 250 ML IV ONE (10:00)
[2019-05-26] MEDS ORDERED: LANOXIN PO ONE (10:32)
[2019-05-26] MEDS: PREDNISONE PO SCH (11:00)
[2019-05-26 11:09] LABS: ALLEN TEST NO; BE -0.5 mmoll (-3.0-3.0); BLOOD TYPE ARTERIAL; HCO3-(ACT) 24.4 mmoll (20.0-26.0); METHB 1.5 % (0.0-1.5); MODALITY CANNULA; O2(CT) 16.9 mL/dL (15.0-23.0); O2HB 91.7 % (95.0-99.0); PCO2(98.6) 34 mmHg (35-45); PO2(98.6) 64 mmHg (60-100); SAMPLE BLOOD; SAO2 94.7 % (95.0-100.0); THB 13.1 g/dL (11.5-17.4); pH(98.6) 7.44 (7.35-7.45)
[2019-05-26] MEDS ORDERED: HUMALOG SUBQ SCH (11:13)
[2019-05-26] MEDS: SANTYL OINT TOP SCH ×2 (11:22→13:54)
[2019-05-26] MEDS ORDERED: BETAPACE PO SCH (12:00)
[2019-05-26 12:37] LABS: HEMOGLOBIN A1C 12.1 % (4.8-6.0)
--- NOTE | 2019-05-26 13:20 | PROGRESS NOTE ---
DATE: 05/26/2019 SUBJECTIVE: This morning Ms. Barrett refers to still having some residual shortness of breath. She was admitted yesterday because of progressively worsening shortness of breath. Ms. Barrett was discharged from this hospital on 05/04/2019, just about 3 weeks ago, because of shortness of breath. Since then, she has been seen one time at the ER about a week ago for the same worsening shortness of breath. Upon presenting this time, she was found to be slightly tachycardic. She was saturating normal at some point, but then she became hypoxemic. A chest x-ray that was done seems to suggest worsening right basilar infiltrate with mild pulmonary edema. This morning she refers to have still shortness of breath, but seems to be doing a little better. OBJECTIVE: Vital signs: Blood pressure is 98/72, pulse of 132, respiration is 28, temperature 97.1 degrees. General: Ms. Barrett is a 59-year-old female. She is in bed, did not seem to be in any distress. Mucosa is pink and moist. Anicteric. Acyanotic. Neck: Supple. Some trace of JVD bilateral. Chest: Air entry is bilaterally reduced. There is diffuse crackles in posterior lung hammonds bilaterally. Cardiovascular: Irregularly irregular but no murmurs. Abdomen: Soft, nontender. Bowel sounds present. There is an old infraumbilical surgical scar. There is also some laparoscopic scars on anterior abdominal wall. Extremities: No pedal edema. Distal pulses are present. [employer]: Patient is awake, alert, and oriented. There is no focal neurological deficit. LABORATORY DATA: WBC is 8.79, hemoglobin is 11.1, platelet count is normal. Chemistry is also within normal range except for creatinine which is 1.1. Glucose was 564. Review of A1c from of last month was 11.4, bicarb was 25 on admission. DIAGNOSTIC STUDIES: A chest x-ray did show worsening bibasilar infiltrate with worsening pulmonary edema. A CAT scan which was done on the of last month did show bilateral pleural effusions. ASSESSMENT: 1. Dyspnea on presentation associated with hypoxemic respiratory failure. We think this is all related to pulmonary edema and pleural effusions, presumably from diastolic heart failure. The patient continues to be on supplemental oxygen and will continue using diuretic therapy. 2. Pulmonary edema with bilateral infiltrate concerning for pneumonia. Patient is on diuretic therapy and also on antimicrobial therapy. 3. Congestive heart failure, presumably with preserved ejection fraction. Patient had an echocardiogram February of this year which showed an ejection fraction of 55%. There was not any other abnormality. 4. Atrial fibrillation with rapid ventricular response. This is presumably new onset. Although Ms. Barrett refers that she has had palpitations in the past for the past one year. The patient is currently on Cardizem drip. She is still tachycardic so will give her one time dose of digoxin and consult cardiology. The patient is diabetic. She has congestive heart failure. She is also vasculopath and she is female, which makes her CHADSD2/VASC score at least 3 to 4. She definitely needs to be on anticoagulation. She was on aspirin and clopidogrel because of her vasculopath. We will discontinue the clopidogrel and add Eliquis and await for Cardiology's further recommendations on that regard. 5. History of peripheral vascular disease status post percutaneous arteriogram of the left lower extremity and percutaneous atherectomy of the distal superficial femoral. This was done on 02/18/[address] Santana. The patient is unremarkable. The patient is asymptomatic from that surgery. 6. Severe uncontrolled diabetes mellitus with presenting glucose level of 564. We are going to continue insulin management. 7. Normocytic anemia. We will check her iron status. cc: Ridge Alvarado MD
--- NOTE | 2019-05-26 14:15 | EKG Report ---
Test Performed on : 05/26/2019 2:04:32 PM Test Reason : betapace initiation Blood Pressure : / mmHG Vent. Rate : 083 BPM Atrial Rate : 241 BPM P-R Int : 000 ms QRS Dur : 096 ms QT Int : 370 ms P-R-T Axes : 000 036 207 degrees QTc Int : 434 ms Atrial fibrillation. Cannot rule out Anterior infarct (cited on or before 26-MAY-2019) Abnormal ECG When compared with ECG of 26-MAY-2019 06:22, (Unconfirmed) Vent. rate has decreased BY 61 BPM Confirmed by Abhishek Carbajal MD ([id number]) on 05/27/2019 7:00:18 AM
--- NOTE | 2019-05-26 14:15 | CARDIOLOGY CONSULTATION ---
DATE: 05/26/2019 CHIEF COMPLAINT ON PRESENTATION: Shortness of breath as well as a cough. HISTORY OF PRESENT ILLNESS: Ms. Barrett is a 59-year-old white female with a history of diabetes, as well as diastolic failure. The patient has been noncompliant with her Lasix at home. She reports that her shortness of breath has been waxing and waning, and essentially present for the last 4 months. The most recent bout got worse yesterday after she ate a sandwich from [employer]. Likely, this was an excessive sodium load. In addition, the patient continues to smoke upwards of a pack a day. This morning, she had the onset of heart racing, as well as an regular heartbeat. She was noted to be in rapid atrial fibrillation, which appears to be a new diagnosis for her. PAST MEDICAL HISTORY: Significant for: 1. Diabetes. Most recent A1c was above 11. The patient is noncompliant with multiple therapies. 2. History of hypertension. 3. Hyperlipidemia. 4. Peripheral vascular disease. 5. Diastolic heart failure. Her most recent echocardiogram was performed in 02/2019. This demonstrated an ejection fraction of 55%, otherwise relatively unremarkable study. SOCIAL HISTORY: The patient continues to smoke. No alcohol or illicit drugs. FAMILY HISTORY: Significant for coronary disease in both mother and father. REVIEW OF SYSTEMS: A 10-system review of systems is negative, except for those things mentioned in the HPI. PHYSICAL EXAMINATION: Vital Signs: She is afebrile. Most recent heart rates are in the low 100s. Blood pressure 108/70. General: She is in no acute distress. HEENT: Oropharynx is moist. Poor dentition. Eye examination shows pink conjunctivae. White sclerae. Neck: No obvious thyromegaly or thyroid tenderness. Cardiovascular: She sounds to be in an irregularly irregular rhythm. She is in rapid atrial fibrillation by telemetry monitoring. Extremities: She has no lower extremity edema. She has weakly palpable pulses in bilateral lower extremities that are warm and well perfused. Chest: Rales in the right base, as well as increased breath sounds. Chest x-ray shows a worsening right basilar infiltrate, as well as some pulmonary edema. Abdomen: Soft, nontender, nondistended. She has no obvious organomegaly. Skin: Warm and dry throughout. PERTINENT DATA: Her EKG on 05/26/2019 at 6:22 shows rapid atrial fibrillation, rate of 144. QTc on that study was 517. Her prior EKG that was reviewed by me showed sinus tachycardia, rate of 103. Her QTc on that study was 484. On 3 out of 4 of the QTc calculators, her actual corrected QTc was around 440 millisecond. Her previous EKG on 05/20/2019 had a QTc of 428, and was noted to be in sinus. Her laboratory data shows a white count of 8.7, hematocrit 32, platelet count is 296,000. Her sodium is 138, potassium 3.8, BUN 17, creatinine is 1.1, her glucose was 564. Her proBNP is 4826. Her albumin is 2.9. ASSESSMENT: Ms. Barrett is a 59-year-old female with new-onset atrial fibrillation, who presents with pneumonia as well. PLAN: I will place her on sotalol 80 mg b.i.d. Her QTc again was around 440 milliseconds by 3 out of 4 of the QTc calculations. We will check an EKG today, as well as with each dose of sotalol. She will likely need to be in the hospital for 48 hours during this dosing. This would include two doses today and two doses tomorrow. I will check an echocardiogram in the morning. TSH is currently pending, but was slightly elevated in April with a normal free T4. She is on a diltiazem infusion, and I would likely continue some sort of oral calcium channel milagros, such as diltiazem as an outpatient. She is on apixaban per the primary team, as well as aspirin with her history of peripheral vascular disease. Notably, she had a minimal troponin elevation on a previous hospitalization in early April. I would likely evaluate her with a nuclear scan, which could be done as an outpatient considering her history of tobacco use, diabetes, and peripheral vascular disease. cc: Nilson Hoang MD
[2019-05-26] MEDS ORDERED: MAGNESIUM SULFATE 2 GM/S.W.I. 2 GM/50 ML IVPB IV ONE (15:01)
--- NOTE | 2019-05-26 16:57 | EKG Report ---
Test Performed on : 05/26/2019 4:49:06 PM Test Reason : rhythm change Blood Pressure : / mmHG Vent. Rate : 062 BPM Atrial Rate : 062 BPM P-R Int : 172 ms QRS Dur : 090 ms QT Int : 474 ms P-R-T Axes : 037 031 056 degrees QTc Int : 481 ms Normal sinus rhythm. Prolonged QT Abnormal ECG When compared with ECG of 26-MAY-2019 14:04, (Unconfirmed) Sinus rhythm. has replaced Atrial fibrillation. Nonspecific T wave abnormality no longer evident in Inferior leads Confirmed by Abhishek Carbajal MD ([id number]) on 05/27/2019 7:00:44 AM
[2019-05-26] MEDS: ZOFRAN IV PRN (17:58)
[2019-05-26] MEDS: LIPITOR PO SCH (20:55)
[2019-05-26] MEDS: ELIQUIS PO SCH (20:56)
[2019-05-26] MEDS: ASPIRIN PO SCH (20:56)
[2019-05-26] MEDS: SYNTHROID PO SCH (20:56)
[2019-05-26] MEDS: NEURONTIN PO SCH (20:56)
[2019-05-26] MEDS: BETAPACE PO SCH (20:56)
[2019-05-26] MEDS ORDERED: PLAVIX PO SCH (21:00)
[2019-05-26] MEDS ORDERED: ZOCOR PO SCH (21:00)
[2019-05-26] MEDS ORDERED: SYNTHROID PO SCH (21:00)
--- NOTE | 2019-05-27 03:38 | EKG Report ---
Test Performed on : 05/26/2019 9:24:16 PM Test Reason : afib Blood Pressure : / mmHG Vent. Rate : 068 BPM Atrial Rate : 068 BPM P-R Int : 154 ms QRS Dur : 094 ms QT Int : 438 ms P-R-T Axes : 046 033 061 degrees QTc Int : 465 ms Normal sinus rhythm. Nonspecific T wave abnormality Prolonged QT Abnormal ECG When compared with ECG of 26-MAY-2019 16:49, (Unconfirmed) Nonspecific T wave abnormality, worse in Lateral leads Confirmed by Solomon SUMMERS, Abhishek Mondragon ([id number]) on 05/27/2019 7:01:05 AM
[2019-05-27 06:27] LABS: BASO# 0.01 X1000 (0.0-0.2); BASO% 0.1 % (0.0-0.8); EOS# 0.01 X1000 (0.0-0.7); EOS% 0.1 % (0.0-10.0); HEMOGLOBIN 10.7 g/dL (12.0-16.0); IMM GRAN# 0.04 X1000 (0.0-0.04); IMM GRAN% 0.3 % (0.0-0.5); LYMPH# 1.48 X1000 (1.2-3.4); LYMPH% 11.1 % (20.5-51.1); MCH 28.4 PG (27-31); MCHC 33.4 g/dL (33-37); MCV 84.9 FL (81-99); MONO# 0.57 X1000 (0.11-0.59); MONO% 4.3 % (1.7-9.3); MPV 11.3 FL (7.4-10.4); NEUT# 11.22 X1000 (1.4-6.5); NEUT% 84.1 % (42.2-75.2); PLT 351 X1000 (130-400); RBC 3.77 XMIL (4.2-5.4); RDW 12.6 % (11.5-14.5); WBC 13.33 X1000 (4.8-10.8)
[2019-05-27] MEDS: HUMALOG SUBQ SCH ×7 (06:43→21:43)
[2019-05-27 06:55] LABS: FERRITIN 462 ng/mL (13-150)
[2019-05-27 06:57] LABS: CALCIUM 9.1 mg/dL (8.8-10.2); MAGNESIUM 2.2 mg/dL (1.5-2.7); POTASSIUM 4.6 mmol/L (3.5-5.1)
--- NOTE | 2019-05-27 07:08 | EKG Report ---
Test Performed on : 05/27/2019 06:13:34 AM Test Reason : afib Blood Pressure : / mmHG Vent. Rate : 065 BPM Atrial Rate : 065 BPM P-R Int : 156 ms QRS Dur : 088 ms QT Int : 482 ms P-R-T Axes : 066 049 065 degrees QTc Int : 501 ms Normal sinus rhythm. Prolonged QT Abnormal ECG When compared with ECG of 26-MAY-2019 21:24, (Unconfirmed) Nonspecific T wave abnormality no longer evident in Lateral leads Confirmed by Solomon SUMMERS, Abhishek Mondragon ([id number]) on 05/29/2019 9:00:14 AM
[2019-05-27 07:17] LABS: IRON SATURATION 25 %; TIBC 173 ug/dL; TOTAL IRON 43 ug/dL (49-151); UNBOUND IRON 130 ug/dL (112-346)
[2019-05-27] MEDS: DUONEB (A & A) INH SCH ×5 (07:33→23:06)
[2019-05-27] MEDS: MAXIPIME 2 GM in NS 100 ML IV SCH ×2 (08:38→21:43)
[2019-05-27] MEDS: BETAPACE PO SCH (08:38)
[2019-05-27] MEDS: ELIQUIS PO SCH ×2 (08:38→21:43)
[2019-05-27] MEDS: PREDNISONE PO SCH (08:38)
[2019-05-27] MEDS: LASIX IV SCH (08:38)
[2019-05-27] MEDS ORDERED: LANTUS INSULIN SUBQ SCH (09:00)
--- NOTE | 2019-05-27 09:58 | EKG Report ---
Test Performed on : 05/27/2019 09:02:05 AM Test Reason : BETAPACE GIVEN Blood Pressure : / mmHG Vent. Rate : 062 BPM Atrial Rate : 062 BPM P-R Int : 152 ms QRS Dur : 088 ms QT Int : 480 ms P-R-T Axes : 084 063 080 degrees QTc Int : 487 ms Normal sinus rhythm. Nonspecific T wave abnormality Prolonged QT Abnormal ECG When compared with ECG of 27-MAY-2019 06:13, (Unconfirmed) No significant change was found Confirmed by Solomon SUMMERS, Abhishek Mondragon ([id number]) on 05/29/2019 9:00:28 AM
[2019-05-27] MEDS ORDERED: VANCOMYCIN 1 GM/NS 1 GM/250 ML IVPB IV SCH (10:00)
--- NOTE | 2019-05-27 10:02 | Diag Imaging Result Doc PS360 ---
EXAM: CHEST-2 VIEWS HISTORY: CHF PNA TECHNIQUE: Chest two views COMPARISON: 05/26/2019 FINDINGS: Moderate-sized right pleural effusion with small left pleural effusion. There is right basilar atelectasis and infiltrates. The heart is prominent. Mild decreased pulmonary edema. IMPRESSION: Mixed areas of improvement and worsening. Electronically signed by Rasta Murphy 05/27/2019 9:59 AM
[2019-05-27] MEDS: SANTYL OINT TOP SCH (10:58)
[2019-05-27] MEDS: FOLIC ACID PO SCH (12:42)
[2019-05-27] MEDS: ZYVOX 600 MG/D5W 600 MG/300 ML IVPB IV SCH (12:42)
--- NOTE | 2019-05-27 13:40 | ECHO REPORT ---
ORDER DATE: 05/27/2019 INTERPRETING PHYSICIAN: Dr. Kurtis Pleitez ECHOCARDIOGRAPHIC MEASUREMENTS: 1. Interventricular septum: 1.1 cm. 2. Posterior wall: 1.1 cm. 3. Diastolic diameter: 4.9 cm. 4. Left atrium: 4.0 cm. 5. Aortic root: 2.5 cm. SUMMARY OF THE 2-DIMENSIONAL IMAGIN. Aortic valve leaflets are trileaflet. 2. Mitral valve was normal. There is mitral annular calcification. 3. There is left atrial enlargement. 4. Tricuspid valve was normal. Peak velocity across the tricuspid valve was 2.5 m/sec. 5. Pulmonary artery systolic pressure of 35 to 40 mmHg. 6. There is mild mitral regurgitation. 7. Pulmonic valve was normal. 8. Left ventricular cavity size was normal. There is anteroseptal hypokinesis. Estimated ejection fraction of 40%. There is grade 2-3 diastolic dysfunction. 9. There is no aortic stenosis or regurgitation. 10. There is trace anterior echo-free space suggestive of pericardial effusion. There is no obvious intracardiac mass or thrombus seen. cc: MD Nilson Pressley MD
--- NOTE | 2019-05-27 13:46 | PROGRESS NOTE ---
DATE: 05/27/2019 SUBJECTIVE: Today Ms. Barrett refers to be doing a lot better. I saw her. She was actually off nasal cannula oxygen. OBJECTIVE: Vital signs: Blood pressure is 131/78, pulse of 63, respiration is 18, temperature is 97.5 degrees. Patient was saturating 96%. General: Ms. Barrett is a 59-year-old female. She was in bed, does not seem to be in any distress. Mucosa is pink and moist. Anicteric. Acyanotic. Neck: Supple. Chest: Air entry was bilaterally reduced. There are still some crackles in the posterior lung hammonds, but no wheezing. Cardiovascular: Regular rate and rhythm. There were no murmurs. Abdomen: Soft, distended, but nontender. There is an old infraumbilical surgical scar. There are also a few laparoscopic scars on the anterior abdominal wall. Extremities: No pedal edema. The left ankle was in sterile dressing. 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 There is no focal neurological deficit. LABORATORY DATA: WBC is 13.33, hemoglobin is 10.7, platelet count of 350,000. Chemistry is also reviewed. Glucose is down to 239. Creatinine is 3.0. Patient's iron studies are within normal range. Folate is 7.5. Patient's TSH is 1.91. Current I's and O's: Urine output was 600. She is currently negative balance of 100. The patient was able to consume about 100% of her meals. IMAGING STUDIES: A chest x-ray this morning continues to show moderate sized right pleural effusion with small left pleural effusion. The right basilar atelectasis and infiltrates. There is mild decrease in the pulmonary edema. CURRENT MEDICATIONS: Have all been reviewed. ASSESSMENT: 1. Acute hypoxemic respiratory failure on presentation, improved. We think it was due to pulmonary edema, pleural effusion with superimposed pneumonia. 2. Congestive heart failure, presumed to be due to preserved ejection fraction. 3. Atrial fibrillation with rapid ventricular response. Patient has been started on sotalol. She is currently in sinus. 4. History of peripheral vascular disease status post percutaneous arteriogram of the left lower extremity and percutaneous atherectomy of the distal superficial femoral artery. 5. Severe uncontrolled diabetes mellitus on presentation, A1c of 12.1. Patient is on insulin regimen. Glucose levels are a lot better. 6. Normocytic anemia due to anemia of chronic disease with underlying folate deficiency. 7. Acute kidney injury. Patient's creatinine has jumped from 1.1 on admission to 2.0. We are going to do urine studies. We will also order renal ultrasound. Of note, Ms. Barrett was on vancomycin, which has been discontinued, and her IV Lasix has also been switched to p.o. She did not have any contrast studies. cc: Ridge Alvarado MD
--- NOTE | 2019-05-27 15:25 | Diag Imaging Result Doc PS360 ---
US RENAL 2 (RETROPER) COMPLETE - 05/27/2019 INDICATION: zeinab/arf TECHNIQUE: COMPARISON: CT from 03/04/2019 FINDINGS: The kidneys are normal. There is no hydronephrosis. Normal renal sizes. The right kidney measures 10.5 x 5 x 5.8 cm. The left kidney measures 13.4 x 5 x 5.3 cm. The urinary bladder is collapsed. IMPRESSION: Negative exam. Electronically signed by Sinan Mann 05/27/2019 3:23 PM
[2019-05-27 18:03] LABS: UR CREAT RANDOM 55.3 mg/dL (11-20)
[2019-05-27] MEDS: LOPRESSOR PO SCH (21:42)
[2019-05-27] MEDS: NEURONTIN PO SCH (21:42)
[2019-05-27] MEDS: LIPITOR PO SCH (21:42)
[2019-05-27] MEDS: ASPIRIN PO SCH (21:42)
[2019-05-27] MEDS: SYNTHROID PO SCH (21:42)
[2019-05-28] MEDS: ZYVOX 600 MG/D5W 600 MG/300 ML IVPB IV SCH ×2 (01:09→11:58)
--- NOTE | 2019-05-28 06:25 | EKG Report ---
Test Performed on : 05/28/2019 05:53:37 AM Test Reason : afib Blood Pressure : / mmHG Vent. Rate : 063 BPM Atrial Rate : 063 BPM P-R Int : 160 ms QRS Dur : 096 ms QT Int : 444 ms P-R-T Axes : 064 038 034 degrees QTc Int : 454 ms Normal sinus rhythm. Nonspecific T wave abnormality Abnormal ECG When compared with ECG of 27-MAY-2019 09:02, (Unconfirmed) Nonspecific T wave abnormality now evident in Inferior leads Confirmed by Solomon SUMMERS, Abhishek Mondragon ([id number]) on 05/31/2019 7:39:13 AM
[2019-05-28] MEDS: HUMALOG SUBQ SCH ×7 (06:38→21:30)
[2019-05-28 07:38] LABS: CALCIUM 9.3 mg/dL (8.8-10.2); CREATININE 2.4 mg/dL (0.5-0.9); MAGNESIUM 2.3 mg/dL (1.5-2.7); POTASSIUM 4.5 mmol/L (3.5-5.1)
[2019-05-28] MEDS: DUONEB (A & A) INH SCH ×5 (07:58→22:57)
[2019-05-28] MEDS: FOLIC ACID PO SCH (08:43)
[2019-05-28] MEDS: LOPRESSOR PO SCH ×2 (08:43→20:00)
[2019-05-28] MEDS: PREDNISONE PO SCH (08:43)
[2019-05-28] MEDS: ELIQUIS PO SCH ×2 (08:43→20:01)
[2019-05-28] MEDS: LANTUS INSULIN SUBQ SCH (08:44)
[2019-05-28] MEDS: MAXIPIME 2 GM in NS 100 ML IV SCH ×2 (08:46→20:01)
[2019-05-28] MEDS: SANTYL OINT TOP SCH (08:47)
[2019-05-28] MEDS ORDERED: LASIX PO SCH (09:00)
--- NOTE | 2019-05-28 11:32 | CARDIOLOGY PROGRESS NOTE ---
DATE: 05/28/2019 CHIEF COMPLAINT: Cough, shortness of breath. SUBJECTIVE: Ms. Barrett is feeling somewhat better. She is still coughing up some purulent sputum. Her rhythm remains sinus. EKG done this morning shows normal sinus rhythm, rate is 63 beats per minute, QTC is 454 milliseconds. There is a nonspecific ST change in the precordial leads V1 and V2 with somewhat poor R wave progression, nonspecific T wave flattening and low voltage. Her chest x-ray from yesterday showed mixed areas of improvement and worsening on the moderate size right pleural effusion and small left pleural effusion. OBJECTIVE: She is not having any fever at this time. Her temperature is 98.1. Blood pressure is 140/86, respirations 18, pulse 64. She is awake, alert, in no distress. HEENT: Unremarkable. Chest: Diminished breath sounds in the right lung with dullness to percussion. There is egophony and tubular sounds at the right base consistent with atelectasis/pleural effusion/consolidation. Heart sounds are regular and rhythmic. I do not hear rub, gallop or murmur. Abdomen is nontender, soft. Extremities showed good pulses. No peripheral edema. Neurologic: Follows commands. Moves all 4 extremities. DIAGNOSTIC DATA: Blood work from this morning showed sodium 135, potassium 4.5, BUN is 50, creatinine 2.4. Troponins have been 0.026, 0.071, 0.049, and 0.051. BUN is 50, and creatinine is 2.4, indicating acute renal dysfunction. Her hemoglobin A1c was 12.1%, indicating poor control of her diabetes mellitus. Iron levels were okay. IMPRESSION: 1. The patient presents with seemingly right lower lobe pneumonia plus pleural effusion. 2. Abnormal EKG. 3. Paroxysmal atrial fibrillation. 4. Left ventricular systolic dysfunction, ejection fraction 40%. 5. Suspect coronary atherosclerosis based on extensive coronary calcification noted on CT of the chest performed previously. 6. The patient has congestive heart failure, systolic heart failure. 7. History of tobacco use. 8. Poorly controlled diabetes mellitus type 2. RECOMMENDATIONS: At this time, we will continue beta blockers as instructed by Dr. Pleitez, along with diuretics and anticoagulants. The patient really needs to quit smoking. She needs to be followed very closely by Pulmonary because she might need a bronchoscopy or a thoracentesis for diagnostic purposes at some point. This is a patient with an increased risk for pulmonary neoplasm. We will follow her along. cc: Alexander Hernandez MD
--- NOTE | 2019-05-28 15:39 | PROGRESS NOTE ---
DATE: 05/28/2019 SUBJECTIVE: This morning Ms. Barrett refers to be doing well. She did not have any complaints except that she said she was hungry and she did not get enough food. OBJECTIVE: Vitals: Blood pressure is 126/76, pulse of 59, respiration is 18, temperature 97.7 degrees, patient was saturating 95% in room air. General: Ms. Barrett 59-year-old female she was in bed no distress. Mucosa is pink and moist. Anicteric, acyanotic. Neck: Supple. Chest: Good entry bilateral. No wheezing. No rhonchi. Few crackles posterior. Cardiovascular: Regular rate and rhythm. No murmurs, no rubs, no gallops. Abdomen: Soft, nontender. Bowel sounds were present. There is an old infraumbilical surgical scar and a few laparoscopic scar on the anterior abdominal wall. Extremities: No pedal edema. The left ankle was in a sterile dressing. OFFICE NURSE: Patient was awake, alert and oriented. Patient I's and O's urine output was 1300. She is currently negative balance of 770. LABORATORY DATA: Has been reviewed, creatinine continues to go up, is currently 2.4. A renal ultrasound which was done yesterday is negative for any renal disease. ASSESSMENT: 1. Acute hypoxemic respiratory failure on presentation improved . 2. Congestive heart failure with systolic dysfunction, ejection fraction of 40% associated with anteroseptal hypokinesis. 3. Acute kidney injury. Creatinine continues to go up, patient currently does not really seems to be congestive so I will discontinue the Lasix, the vancomycin yesterday has also been discontinued. 4. Suspected ischemic heart disease. Patient echocardiogram shows anteroseptal hypokinesis which is concerning for coronary artery disease. The patient will be either stress or will have a left heart catheterization Thursday. 5. Severe uncontrolled diabetes mellitus with A1c of 12.1. Patient continues to be hyperglycemic. I have gone up on her insulin. 6. Normocytic anemia secondary to anemia of chronic disease with underlying folate deficiency. 7. History of peripheral vascular disease status post left lower extremity percutaneous atherectomy of the distal superficial femoral artery. 8. Atrial fibrillation, rapid ventricular response on presentation. Patient has been started on sotalol she is currently in sinus . So in general Ms. Barrett seems to be fairly stable. She does not look congestive any longer so I have discontinued her Lasix. Her creatinine continues to climb. Her ultrasound was unremarkable and her urine analysis seems to suggest that is intrarenal. I think this probably either when patient went into atrial fibrillation, RVR or medication related acute tubular necrosis. We going to continue to observe, continue to follow up on her renal function. We will avoid any nephrotoxin and will keep a very close eye on her hydration status. Cardiology is on board. cc: Ridge Alvarado MD MTDD
[2019-05-28] MEDS: SYNTHROID PO SCH (20:00)
[2019-05-28] MEDS: NEURONTIN PO SCH (20:01)
[2019-05-28] MEDS: LIPITOR PO SCH (20:01)
[2019-05-28] MEDS: ASPIRIN PO SCH (20:01)
--- NOTE | 2019-05-28 22:06 | EKG Report ---
Test Performed on : 05/28/2019 9:32:38 PM Test Reason : afib Blood Pressure : / mmHG Vent. Rate : 062 BPM Atrial Rate : 062 BPM P-R Int : 146 ms QRS Dur : 082 ms QT Int : 438 ms P-R-T Axes : 061 032 -30 degrees QTc Int : 444 ms Normal sinus rhythm. Nonspecific T wave abnormality Abnormal ECG When compared with ECG of 28-MAY-2019 05:53, (Unconfirmed) No significant change was found Confirmed by Solomon SUMMERS, Abhishek Mondragon ([id number]) on 05/29/2019 9:01:06 AM
[2019-05-29] MEDS: ZYVOX 600 MG/D5W 600 MG/300 ML IVPB IV SCH ×3 (00:11→23:41)
[2019-05-29] MEDS: HUMALOG SUBQ SCH ×7 (06:09→20:40)
--- NOTE | 2019-05-29 07:31 | Diag Imaging Result Doc PS360 ---
CHEST-PORTABLE - 05/29/2019 INDICATION: dyspnea COMPARISON: 05/27/2019 FINDINGS: Stable small to moderate right basilar pleural effusion. Stable cardiomegaly and pulmonary vascular congestion. There is worsening, hazy edema and possibly trace effusion at the left lung base. IMPRESSION: Worsening aeration of the left lung base. Electronically signed by Sinan Mann 05/29/2019 7:28 AM
[2019-05-29] MEDS: DUONEB (A & A) INH SCH ×5 (07:36→23:21)
[2019-05-29] MEDS: LANTUS INSULIN SUBQ SCH (09:00)
[2019-05-29 09:37] LABS: CALCIUM 8.9 mg/dL (8.8-10.2); CREATININE 2.2 mg/dL (0.5-0.9); POTASSIUM 4.2 mmol/L (3.5-5.1)
[2019-05-29] MEDS: PREDNISONE PO SCH (10:04)
[2019-05-29] MEDS: MAXIPIME 2 GM in NS 100 ML IV SCH ×2 (10:04→20:17)
[2019-05-29] MEDS: ELIQUIS PO SCH ×2 (10:04→20:17)
[2019-05-29] MEDS: FOLIC ACID PO SCH (10:04)
[2019-05-29] MEDS: LOPRESSOR PO SCH ×2 (10:04→20:17)
[2019-05-29] MEDS: SANTYL OINT TOP SCH (10:05)
--- NOTE | 2019-05-29 10:44 | PROGRESS NOTE ---
DATE: 05/29/2019 SUBJECTIVE: This morning, Ms. Barrett refers to be doing well. She says she had an accident trying to get to the restroom. Ms. Barrett is known to also have IBS and has had diarrhea all her life. OBJECTIVE: Vital Signs: Blood pressure is 117/55, pulse of 64, respirations are 16, temperature is 97.8 degrees, the patient was saturating 98%. General Examination: Ms. Barrett is a 59-year- old, female. She was in bed. She is not in any distress. HEENT: Mucosa is pink and moist. Anicteric. Acyanotic. Neck: Supple. Chest: Air entry was bilaterally reduced. There are tubular breath sounds in the right posterior lung. There are also crackles in the left. Cardiovascular: Regular rate and rhythm. No murmurs, no rubs, no gallops. GI: Abdomen is soft, nontender. There is an old infraumbilical surgical scar and a few laparoscopic scars on the anterior abdominal wall. Extremities: No pedal edema. COLLECTION SUPERVISOR: The patient is awake, alert, and oriented. Is and Os: Urine output was 875. The patient has a total negative balance of 1242. She has been tolerating her meals well. The patient's current medications have all also been reviewed and no changes. Laboratory Data: No CBC for today. Chemistry is fairly unremarkable except for creatinine of 2.2, BUN is 56. ASSESSMENT: 1. Acute hypoxemic respiratory failure on presentation, improved. 2. Congestive heart failure with systolic dysfunction, ejection fraction of 40% associated with some anteroseptal hypokinesis. Patient is being worked up for possible ischemic heart disease. Cardiology is on board. There is a plan for a stress test tomorrow and then go from there. 3. Acute kidney injury. Creatinine seems to have peaked. We will continue to follow this. Lasix and vancomycin have been discontinued. The patient is making adequate urine. 4. Severe uncontrolled diabetes mellitus on presentation with an A1c of 12.1. Patient is on insulin regimen. We will continue to titrate this for better glycemic control. 5. History of peripheral vascular disease, status post left lower extremity percutaneous atherectomy of the distal superficial femoral artery, noted. 6. Atrial fibrillation with rapid ventricular response on presentation, currently rate controlled on sotalol. 7. Normocytic anemia secondary to anemia of chronic disease. 8. Folate deficiency. We will continue to replace. PLAN: In general, I think Ms. Barrett seems to be doing well. Her creatinine seems to have peaked and it is slightly lower today. We are going to continue to follow this tomorrow. She looks euvolemic. Her Lasix and vancomycin have been discontinued. A chest x-ray continues to show some moderate right basilar pleural effusion and some congestion in the lungs. We will continue with her current antimicrobial coverage. Re-evaluate her in the morning. We will also repeat all her urine studies tomorrow morning. cc: Ridge Alvarado MD
--- NOTE | 2019-05-29 10:55 | CARDIOLOGY PROGRESS NOTE ---
DATE: 05/29/2019 CHIEF COMPLAINT: Shortness of breath, cough. SUBJECTIVE: Ms. Barrett has continued to have bouts of coughing, and she is expectorating thick brownish phlegm. Chest x-ray done today shows the presence of a persistent opacity at the right base, fluid and atelectasis. She is also having some effusion in the left base. OBJECTIVE: Vital signs: Today, blood pressure is 117/55, pulse 64, respirations 16, temperature 97.8. The patient is awake, alert, in no distress. HEENT is unremarkable. Chest shows dullness to percussion at the right base with I to E voice changes, egophony at the level of the right base, and tubular sounds. That is consistent with consolidation and effusion. The heart sounds are regular and rhythmic. I do not hear a gallop or murmur. Abdomen is nontender, soft. No masses. No hepatomegaly. Extremities show good pulses, no peripheral edema. Neurologic: Follows commands. Moves all 4 extremities. DIAGNOSTIC DATA: Blood work shows sodium 137, potassium 4.2, BUN is 56, creatinine 2.2. IMPRESSION: 1. The patient has right lower lobe pneumonia and effusion. 2. Paroxysmal atrial fibrillation. 3. Congestive heart failure, systolic dysfunction. Ejection fraction 40%. This is probably chronic. 4. The patient is likely to have significant coronary heart disease. She has extensive coronary atherosclerosis on the CT of the chest. 5. Tobacco user. 6. Poorly controlled diabetes mellitus with a hemoglobin A1c that was greater than 12%. 7. Chronic kidney disease. RECOMMENDATIONS: At this time, the patient will continue present therapy with antibiotics. Additional diagnosis is chronic kidney disease. This makes her prognosis more guarded. At some point, the patient needs to be investigated for possible neoplasm of the lung. cc: Alexander Hernandez MD
--- NOTE | 2019-05-29 12:01 | EKG Report ---
Test Performed on : 05/29/2019 10:42:58 AM Test Reason : afib Blood Pressure : / mmHG Vent. Rate : 060 BPM Atrial Rate : 060 BPM P-R Int : 148 ms QRS Dur : 088 ms QT Int : 454 ms P-R-T Axes : 058 019 -51 degrees QTc Int : 454 ms Normal sinus rhythm. Nonspecific T wave abnormality Abnormal ECG When compared with ECG of 28-MAY-2019 21:32, No significant change was found Confirmed by Solomon SUMMERS, Abhishek Mondragon ([id number]) on 05/30/2019 9:04:58 AM
[2019-05-29] MEDS: ZOFRAN IV PRN (12:08)
[2019-05-29] MEDS: ASPIRIN PO SCH (20:17)
[2019-05-29] MEDS: LIPITOR PO SCH (20:17)
[2019-05-29] MEDS: NEURONTIN PO SCH (20:17)
[2019-05-29] MEDS: SYNTHROID PO SCH (20:18)
--- NOTE | 2019-05-30 00:06 | EKG Report ---
Test Performed on : 05/29/2019 9:13:29 PM Test Reason : afib Blood Pressure : / mmHG Vent. Rate : 064 BPM Atrial Rate : 064 BPM P-R Int : 148 ms QRS Dur : 086 ms QT Int : 440 ms P-R-T Axes : 054 029 -72 degrees QTc Int : 453 ms Normal sinus rhythm. Nonspecific ST and T wave abnormality Abnormal ECG When compared with ECG of 29-MAY-2019 10:42, (Unconfirmed) No significant change was found Confirmed by Solomon SUMMERS, Abhishek Mondragon ([id number]) on 05/30/2019 9:05:00 AM
[2019-05-30] MEDS: HUMALOG SUBQ SCH ×7 (06:05→21:09)
[2019-05-30 06:13] LABS: EOS% 0.7 % (0.0-10.0); HEMATOCRIT 36.1 % (37.0-47.0); IMM GRAN# 0.08 X1000 (0.0-0.04); IMM GRAN% 0.6 % (0.0-0.5); LYMPH% 12.1 % (20.5-51.1); MCH 28.3 PG (27-31); MCHC 33.2 g/dL (33-37); MCV 85.1 FL (81-99); MONO% 6.4 % (1.7-9.3); MPV 10.7 FL (7.4-10.4); NEUT# 11.29 X1000 (1.4-6.5); NEUT% 80.2 % (42.2-75.2); PLT 409 X1000 (130-400); RBC 4.24 XMIL (4.2-5.4); RDW 12.8 % (11.5-14.5); WBC 14.07 X1000 (4.8-10.8)
[2019-05-30 06:47] LABS: ALBUMIN 2.7 g/dL (3.5-5.0); CALCIUM 9.1 mg/dL (8.8-10.2); CREATININE 2.6 mg/dL (0.5-0.9); PHOSPHORUS 4.4 mg/dL (2.7-4.5); POTASSIUM 5.5 mmol/L (3.5-5.1)
[2019-05-30] MEDS: DUONEB (A & A) INH SCH ×5 (07:43→23:30)
[2019-05-30] MEDS: FOLIC ACID PO SCH (08:14)
[2019-05-30] MEDS: ELIQUIS PO SCH ×2 (08:15→21:10)
[2019-05-30] MEDS: MAXIPIME 2 GM in NS 100 ML IV SCH ×2 (08:15→21:10)
[2019-05-30] MEDS: LANTUS INSULIN SUBQ SCH (08:16)
[2019-05-30] MEDS: LOPRESSOR PO SCH ×2 (08:16→21:10)
--- NOTE | 2019-05-30 08:53 | Diag Imaging Result Doc PS360 ---
CHEST-2 VIEWS - 05/30/2019 INDICATION: hypoxia COMPARISON: 05/29/2019 FINDINGS: There has been improved aeration of the right middle lobe. Stable significant opacification of the right lower lobe. Stable small right basilar pleural effusion. The left lung remains clear. Heart size remains top normal. Stable small nodular opacity in the right upper lobe. IMPRESSION: Improved aeration of the right lung base. Electronically signed by Sinan Mann 05/30/2019 8:51 AM
[2019-05-30] MEDS: SANTYL OINT TOP SCH (10:00)
[2019-05-30] MEDS: ZYVOX 600 MG/D5W 600 MG/300 ML IVPB IV SCH (12:45)
[2019-05-30] MEDS: LOKELMA POWDER PACKET PO SCH (12:45)
[2019-05-30] MEDS: ALBUMIN 25% IV SCH (15:07)
--- NOTE | 2019-05-30 18:51 | CARDIOLOGY PROGRESS NOTE ---
DATE: 05/30/2019 SUBJECTIVE: Ms. Barrett denied any shortness of breath or chest pain. She has had rare intermittent palpitations. OBJECTIVE: PHYSICAL EXAMINATION: Vital signs: Afebrile. Heart rate 65, blood pressure 140/73. Generally: She is in no acute distress. Cardiovascular: She sounds to be in a regular rate and rhythm. She has no murmurs. She has no S3. No lower extremity edema. Chest sounds clear bilaterally. PERTINENT DATA: White count 14, hematocrit 36, platelet count is 409,000. Sodium 136, potassium 5.5. Her BUN is 60. Creatinine is 2.6 which has steadily been rising since the . ASSESSMENT: Ms. Barrett is a 59-year-old female who had earlier some atrial fibrillation and is being treated for pneumonia and now has acute kidney insufficiency. PLAN: We will continue with Toprol for the time being. She seems to be tolerating this dose presently. She is on apixaban 5 mg b.i.d. Notably, she had a reduced ejection fraction based on echocardiogram on the 4th. Her ejection fraction on that study was 40%. She is getting a resting study today. She will need some sort of complete ischemic evaluation in the near future. We will base that on improvement in her renal function hopefully. cc: Nilson Hoang MD
--- NOTE | 2019-05-30 19:51 | PROGRESS NOTE ---
DATE: 05/30/2019 ADDENDUM REPORT: Ms. Barrett is Day 4 admission. She denies any chest pain. She still has some intermittent watery stools from her history of IBS. She has undergone a Lexiscan this morning, and we are pending the official result. I have reviewed her labs and current medication profile. OUR WORKING DIAGNOSES: 1. Acute hypoxemic respiratory failure on presentation. This is resolved. 2. Congestive heart failure with systolic dysfunction, ejection fraction of 40% associated with anteroseptal hypokinesis. This is suggestive of ischemic cardiomyopathy. The patient underwent Lexiscan myocardial scan today. We are pending the report. 3. Acute kidney injury. The patient is slightly oliguric. Presumed ATN. Creatinine continues to go up. Vancomycin has been withheld as well as the furosemide. The patient is also being given albumin, and Nephrology has been consulted. 4. Severe uncontrolled diabetes mellitus on presentation. A1c of 12.1. Patient is on insulin regimen. 5. History of peripheral vascular disease status post recent atherectomy of the distal superficial femoral artery on the left by Surgery. 6. Atrial fibrillation with rapid ventricular response on presentation. Currently rate and rhythm controlled on sotalol. 7. Normocytic anemia due to chronic disease. 8. Folic acid deficiency. So in general, Ms. Barrett underwent myocardial perfusion scan today. We waiting on the official report. She is also going to be seen by Nephrology. she is suspected to have coronary artery disease with ischemic heart disease. If the myocardial perfusion scan is positive, an angiogram will need to be done, which is probably going to compromise the kidney some more so we will follow up with further recommendations from both Cardiology and Nephrology. Please refer to the details of the progress note which was written up by the medical student. cc: Ridge Alvarado MD MTDD
--- NOTE | 2019-05-30 21:05 | NEPHROLOGY CONSULTATION ---
DATE: 05/30/2019 REASON FOR CONSULTATION: Acute kidney injury. HISTORY OF PRESENT ILLNESS: Ms. Barrett is a 59-year-old white female with a history of diabetes, hypertension, peripheral vascular disease, COPD, and ongoing tobacco use. She has baseline creatinine 1.1 on presentation. She states she came to the hospital because of shortness of breath. When asked, she stated she has been short of breath for a year and has a cough and gets cold, but denies overt chills. She states she has been losing weight progressively over a year as well. No fevers or chills. No sputum production. She states her shortness of breath finally got severe enough that she sought attention in the emergency room. She has also been complaining of dizziness. Again, on presentation her creatinine was 1.1, but has risen progressively to 2.6 today. She was treated initially with diuretic therapy and was in negative fluid balance. This strategy was adjusted in the last 24 hours such that she is now overall positive 900 mL. Despite this, her BUN and creatinine continued to rise and we were consulted. She has not received any overtly nephrotoxic medications. She received a single dose of vanc/Zosyn. She has not been hypotensive. She does have known retinopathy and peripheral neuropathy. PAST MEDICAL HISTORY: As above. HOME MEDICATIONS: Include insulin, clopidogrel, aspirin, collagenase, levothyroxine, simvastatin, gabapentin, potassium chloride, furosemide. ALLERGIES: None. SOCIAL HISTORY: As above. FAMILY HISTORY: Otherwise noncontributory. REVIEW OF SYSTEMS: Otherwise noncontributory. PHYSICAL EXAMINATION: Vital Signs: Blood pressure 149/89, heart rate 63, respirations 15, afebrile. Generally: She is a chronically ill-appearing, middle-aged woman, in no acute distress. Skin: Warm and dry. Conjunctivae are pink and moist. Pupils are equal and round. Neck: Neck veins are distended with hepatojugular reflux. PMI is difficult to palpate. Heart: Regular with S4. No S3. No murmurs. Lungs: Have equal excursion equal breath sounds. No crackles or wheezes. Abdomen: Soft, nontender. Bowel sounds present. No organomegaly or masses. Extremities: Have no edema, clubbing or cyanosis. Neurologic: Nonfocal. IMPRESSION: Acute kidney injury. Likely acute tubular necrosis. Urine FENA was greater than 1%. She does have heavy proteinuria by her initial dipstick, but I expect this is related to underlying diabetic nephropathy as opposed to some acute kidney disease. Chart review finds heavy proteinuria for 2 years. PLAN: I have reviewed her medications and no adjustments are required at this time. She has been through imaging with a renal ultrasound. No obstruction. cc: Darrel Jaime MD
[2019-05-30] MEDS: ASPIRIN PO SCH (21:10)
[2019-05-30] MEDS: SYNTHROID PO SCH (21:10)
[2019-05-30] MEDS: NEURONTIN PO SCH (21:10)
[2019-05-30] MEDS: LIPITOR PO SCH (21:10)
[2019-05-31] MEDS: ZYVOX 600 MG/D5W 600 MG/300 ML IVPB IV SCH ×2 (00:13→13:48)
[2019-05-31] MEDS: ZOFRAN IV PRN ×2 (01:26→21:34)
[2019-05-31 06:12] LABS: HEMATOCRIT 36.8 % (37.0-47.0); HEMOGLOBIN 12.3 g/dL (12.0-16.0); MCHC 33.4 g/dL (33-37); MCV 86.8 FL (81-99); MPV 10.6 FL (7.4-10.4); RBC 4.24 XMIL (4.2-5.4); RDW 13.2 % (11.5-14.5); WBC 15.8 X1000 (4.8-10.8)
[2019-05-31 06:34] LABS: ALBUMIN 3.3 g/dL (3.5-5.0)
[2019-05-31] MEDS: HUMALOG SUBQ SCH ×7 (06:56→21:35)
[2019-05-31 07:09] LABS: POTASSIUM 4.8 mmol/L (3.5-5.1)
[2019-05-31 07:20] LABS: CALCIUM 8.2 mg/dL (8.8-10.2); CREATININE 2.5 mg/dL (0.5-0.9); MAGNESIUM 1.9 mg/dL (1.5-2.7); PHOSPHORUS 4.1 mg/dL (2.7-4.5); TOTAL BILIRUBIN 0.23 mg/dL (0.20-1.00); TOTAL PROTEIN 6.1 g/dL (6.3-8.3)
[2019-05-31 07:22] LABS: ALB/GLOB RATIO 1.2
[2019-05-31] MEDS: DUONEB (A & A) INH SCH ×5 (07:50→23:37)
[2019-05-31] MEDS: ELIQUIS PO SCH ×2 (09:38→20:58)
[2019-05-31] MEDS: LOPRESSOR PO SCH ×2 (09:38→20:58)
[2019-05-31] MEDS: LANTUS INSULIN SUBQ SCH (09:38)
[2019-05-31] MEDS: FOLIC ACID PO SCH (09:38)
[2019-05-31] MEDS: MAXIPIME 2 GM in NS 100 ML IV SCH ×2 (09:38→20:58)
[2019-05-31] MEDS: LOTRIMIN 1% CREAM TOP SCH ×2 (10:13→23:07)
[2019-05-31] MEDS: ALBUMIN 25% IV SCH (10:13)
--- NOTE | 2019-05-31 10:56 | PROGRESS NOTE ---
DATE: 05/31/2019 SUBJECTIVE: The patient seems to be feeling better. She denies chest pain. They did a resting stress test that showed some abnormalities. I do not think they are going to do today anymore cardiac ischemic workup, probably tomorrow or as an outpatient. She seems to be making more urine now. Nephrology Department on board. I will just monitor. OBJECTIVE: Vital Signs: Temperature 98 degrees, pulse 66, respiratory rate 18, blood pressure 104/71, oxygen saturation 96 on room air. HEENT: Head normocephalic, no trauma. PERRLA. Neck: Supple. No JVD. No masses. Central trachea. Chest: Some crepitus at the right base, mild rales. Abdomen: Soft, nontender, nondistended. No hepatosplenomegaly. Extremities: No edema, no clubbing, no cyanosis. Neurological examination: The patient is aware, alert and oriented x3. No focal deficits. LABORATORY: WBC 15.8, hemoglobin 12.3, hematocrit 36.8, platelets 372. Sodium 139, potassium 4.8, chloride 105, bicarbonate 20. BUN 58, creatinine 2.5, glucose 225, calcium 8.2, albumin 3.3. ASSESSMENT AND PLAN: 1. Acute hypoxemic respiratory failure on presentation. This is better likely due to pulmonary edema and right lower lobe pneumonia. For now we will continue with the antibiotics. She seems to be feeling better. 2. Right lower lobe pneumonia. Continue with antibiotics. 3. Oral thrush. I have started this patient on nystatin. 4. Congestive heart failure with systolic dysfunction. It looks like her ejection fraction is around 40%, associated with anteroseptal hypokinesis. Ischemic workup has been done. She does have some changes in the resting stress test. I will wait for Cardiology recommendations. 5. Acute kidney injury. Her urine output seems to be more stable. Nephrology Department on board. I will continue with same management. I will avoid nephrotoxic medication. 6. Suspected ischemic heart disease, as above. 7. Severe uncontrolled type 2 diabetes with a hemoglobin A1c of 12.1. I explained to the patient that she needs to try to control her blood sugar. Otherwise, she will have more problems with heart disease and all the disease is related with diabetes. She seems to understand. She is getting Lantus 35 units daily; she did not receive it yesterday, so I will monitor this patient today. She is also receiving Humalog subcutaneously with food. 8. Normocytic anemia secondary to chronic disease and underlying folate deficiency. Aware. 9. History of peripheral vascular disease, status post left lower extremity percutaneous atherectomy of the distal superficial femoral artery. 10. Atrial fibrillation with rapid ventricular response on presentation. Patient has been started on sotalol. She is currently in sinus rhythm and anticoagulation. cc: Durga Donahue MD
[2019-05-31] MEDS: LOKELMA POWDER PACKET PO SCH (12:08)
[2019-05-31] MEDS: MYCOSTATIN SUSP PO SCH ×3 (13:48→20:58)
--- NOTE | 2019-05-31 16:50 | CARDIOLOGY PROGRESS NOTE ---
DATE: 05/31/2019 SUBJECTIVE: Ms. Barrett reports some fatigue today and sleepiness. She has not had any pain complaints. No breathing difficulties. OBJECTIVE: Vital signs: Afebrile. Heart rate 72, blood pressure 135/73. General: She is in no acute distress. Cardiovascular: She sounds to be in a regular rate and rhythm. No murmurs. No S3. She has no lower extremity edema. Chest: Exam sounds clear bilaterally. No increased work of breathing. Abdomen: Soft, nontender. PERTINENT DATA: Sodium is 139, potassium 4.8, BUN 58, creatinine 2.5, yesterday it was 60 and 2.6. Her potassium yesterday was 5.5. ASSESSMENT: Ms. Barrett is a 59-year-old female who presented with pneumonia and had an episode of atrial fibrillation which since has converted to sinus. She has been found to have a new reduced EF with a defect on rest scanning. In addition, she has developed acute kidney injury. PLAN: At this point, we will try to adjust medications. She is already on a beta-milagros. We will try to add in some Isordil and hydralazine in the next 24 hours. She will likely need completion of an ischemia evaluation in the near future and I would try to pursue cardiac cath for that. We would like her kidney function to recover before we do so. This potentially could be done as an outpatient. On review of Dr. Jaime's note, it appears there was a concern for possible ATN causing the acute kidney injury on an underlying diabetic nephropathy. She is not on any MALENA inhibitors or ARBs presently. She is on appropriately dosed apixaban for her atrial fibrillation. cc: Nilson Hoang MD
[2019-05-31] MEDS: SANTYL OINT TOP SCH ×2 (16:55→23:06)
[2019-05-31] MEDS: ISORDIL PO SCH (16:55)
--- NOTE | 2019-05-31 17:01 | NEPHROLOGY PROGRESS NOTE ---
DATE: 05/31/2019 Subjective: patient is lying in bed and no acute distress complains of feeling sick. Objective: vital signs 97.8 foot pressure 130/79 heart rate 68 respirations 15 99% oxygen saturation on nasal cannula at 4 L General: ill appearing white female lying in bed in no acute distress. Skin: No rash or lesions HEENT: atraumatic, normocephalic. conjunctiva pink, equal round and reactive, white clusters in oral cavity Neck: supple, JVD with positive hepatojugular reflex. Cardiovascular: Irregular with an S4, no murmur or gallop noted Lungs: Clear with Bilateral diminished bases. Abdomen: soft, nontender with normoactive bowel sounds Extremities: 2+ edema, no clubbing or cyanosis Labs: WBC 15.8, RBC 4.24, hemoglobin 12.3, hematocrit 36.8, platelet count 372, sodium 139, potassium 4.8, chloride 105, carbon dioxide 20, and 915, BUN 38, creatinine 2.5, calcium 8.2, phosphorus 4.1, magnesium 1.9, albumin 3.3, intake 300, output 200 Impression: 1. Acute kidney injury. Likely acute tubular necrosis. Modestly improved BUN and Creatinine. Continue current plan. 2. Electrolytes. In target. 3.acid base balance. In target. 4. Anemia. In target. 5. Volume status. Euvolemic on exam. cc: Darrel Jaime MD [facility]
[2019-05-31] MEDS: LIPITOR PO SCH (20:58)
[2019-05-31] MEDS: SYNTHROID PO SCH (20:58)
[2019-05-31] MEDS: ASPIRIN PO SCH (20:58)
[2019-05-31] MEDS: NEURONTIN PO SCH (20:58)
[2019-06-01] MEDS: ZYVOX 600 MG/D5W 600 MG/300 ML IVPB IV SCH ×2 (00:14→13:57)
[2019-06-01 05:58] LABS: HEMATOCRIT 34.6 % (37.0-47.0); HEMOGLOBIN 11.2 g/dL (12.0-16.0); MCH 29.3 PG (27-31); MCHC 32.4 g/dL (33-37); MCV 90.6 FL (81-99); MPV 10.4 FL (7.4-10.4); RBC 3.82 XMIL (4.2-5.4); RDW 13.5 % (11.5-14.5); WBC 20.42 X1000 (4.8-10.8)
[2019-06-01 06:17] LABS: ALBUMIN 3.4 g/dL (3.5-5.0); CALCIUM 8.9 mg/dL (8.8-10.2); CREATININE 2.4 mg/dL (0.5-0.9); PHOSPHORUS 4.5 mg/dL (2.7-4.5); POTASSIUM 4.1 mmol/L (3.5-5.1)
[2019-06-01] MEDS: HUMALOG SUBQ SCH ×6 (06:27→18:20)
[2019-06-01] MEDS: DUONEB (A & A) INH SCH ×5 (07:48→23:34)
[2019-06-01] MEDS: ELIQUIS PO SCH (09:14)
[2019-06-01] MEDS: FOLIC ACID PO SCH (09:14)
[2019-06-01] MEDS: LOPRESSOR PO SCH ×2 (09:14→21:12)
[2019-06-01] MEDS: LOTRIMIN 1% CREAM TOP SCH (09:15)
[2019-06-01] MEDS: ISORDIL PO SCH ×3 (09:15→18:17)
[2019-06-01] MEDS: LANTUS INSULIN SUBQ SCH (09:15)
[2019-06-01] MEDS: MAXIPIME 2 GM in NS 100 ML IV SCH ×2 (09:15→21:14)
[2019-06-01] MEDS: MYCOSTATIN SUSP PO SCH ×4 (09:15→21:13)
--- NOTE | 2019-06-01 09:34 | PROGRESS NOTE ---
DATE: 06/01/2019 SUBJECTIVE: This patient is complaining of generalized weakness. She is not complaining of chest pain or shortness of breath. Urine output seems to be better compared with yesterday, BUN and creatinine about the same though, blood sugar better. Leukocyte count increased but vital signs are stable, no fever, no chills, no cough at this moment. I have requested a new chest x-ray, and I will monitor the white blood cell count. She has been on antibiotics, cefepime and Zyvox, and I will continue with that. If tomorrow the white blood cell count is still high, probably will need to rotate the medications and get Infectious Disease Department on board. OBJECTIVE: Vital Signs: Temperature 98.1, pulse 75, respiratory rate 14, blood pressure 143/65, oxygen saturation 99 on 3 L of nasal cannula. HEENT: Head normocephalic. No trauma. PERRLA. Neck: Supple. No JVD. No masses. Central trachea. Chest: Some crepitus at the right base, mild rales. Abdomen: Soft, nontender, nondistended. No hepatosplenomegaly. Extremities: No edema, no clubbing, no cyanosis. Neurological examination: This patient today is alert. She is oriented x3. She does have generalized weakness but no focal deficits. LABORATORY: WBC 20.4, hemoglobin 11.2, hematocrit 34.6, platelet 230. Sodium 144, potassium 4.1, chloride 109, bicarbonate 20, BUN 58, creatinine 2.4, glucose 146, calcium 8.9, phosphorus 4.5. ASSESSMENT AND PLAN: 1. Acute hypoxemic respiratory failure on presentation, this is better, likely due to pulmonary edema and right lower lobe pneumonia. I will continue with antibiotics. White blood cell count increased but she is feeling better. 2. Right lower lobe pneumonia with elevated white blood cell count. We will monitor for now. I will get a new set of x-rays. If the white blood cell count continues to increase, probably will need to get Infectious Disease Department evaluation. 3. Oral thrush. Continue with nystatin. 4. Congestive heart failure with systolic dysfunction, ejection fraction around 40% associated with anteroseptal hypokinesis. Cardiology Department following this patient closely. Probably this patient will need a cardiac catheterization but given her kidney dysfunction they will hold it for now and probably they will do it as an outpatient. 5. Acute kidney injury. Her urine output seems to be improving, blood urea nitrogen and creatinine about the same compared with yesterday though. We will avoid nephrotoxic medications. Nephrology Department on board. Likely this is related to acute tubular necrosis. 6. Suspected ischemic heart disease, as above. 7. Severe uncontrolled type 2 diabetes with a hemoglobin A1c of 12.1. We have started this patient on Lantus and now her blood sugar seems to be more stable. We will monitor this patient closely. 8. Normocytic anemia secondary to chronic disease and underlying folate deficiency. Aware. 9. History of peripheral vascular disease, status post left lower extremity percutaneous atherectomy of the distal superficial femoral artery. 10.Atrial fibrillation with rapid ventricular response on presentation. The patient has been started on sotalol. She is currently in sinus rhythm and anticoagulation. The patient seems to be stable. White blood cell count has been increasing, today is 20. I will get a new x-ray. If the white blood cell continues to increase, probably will need to get Infectious Disease Department on board. She is not complaining of cough. She is not having fever or chills. cc: Durga Donahue MD
--- NOTE | 2019-06-01 10:36 | Diag Imaging Result Doc PS360 ---
EXAM: CHEST-2 VIEWS INDICATION: hypoxia TECHNIQUE: 2 views COMPARISON: 05/30/2019 FINDINGS: The right pleural fluid collection has increased somewhat in size during the interval and is a moderate-sized effusion now. There is increased right basilar atelectasis and/or infiltrate. The left lung is clear. Cardiac silhouette is stable. IMPRESSION: Increase in right pleural effusion and adjacent atelectasis and/or infiltrate. Electronically signed by Dre Delgadillo 06/01/2019 10:34 AM
[2019-06-01] MEDS ORDERED: LOKELMA POWDER PACKET PO ONE ×2 (12:00→14:00)
[2019-06-01] MEDS: ALBUMIN 25% IV SCH (12:11)
--- NOTE | 2019-06-01 13:43 | NEPHROLOGY PROGRESS NOTE ---
DATE: 06/01/2019 Subjective: patient lying in bed resting no acute distress complains of not feeling any better. Objective: Vital signs temperature 98.1, pulse rate 75, respirations 14, blood pressure 143/65, 99% 3L NC General: ill appearing white female lying in bed and no acute distress. Skin: no rash relations. Multiple scattered bruises to upper extremities. HEENT: atraumatic, normocephalic. Conjunctiva are pink, equal round and reactive, white clusters in oral cavity. Neck: Supple, JVD with positive Hepatojugular reflex. Cardiovascular: regular rate and rhythm with an S4, no gallop or murmur noted. Respiratory: crackles noted to interior of the right chest. Diminished bases bilaterally. Abdomen: soft nontender nondistended positive bowel sounds. Extremities: No edema, clubbing or : non observed Neurologic: drowsy, aroused to verbal stimuli, oriented to person, place, and time. Labs: WBC 20.4, RBC 3.8, hemoglobin 11.2, hematocrit 34.6, platelet count 330, sodium 144, potassium 4.1, chloride 109, carbon dioxide 20, BUN 58, creatinine 2.4, calcium 8.9, phosphorus 4.5, total protein 3.4, intake 1580, outtake 1700 Impression: Acute kidney injury likely due to acute tubular necrosis. Improved BUN and creatinine. Does not meet requirements for acute dialysis. Continue current plan. Electrolytes. In target. Acid-base balance. In target. Anemia. Stable. cc: Darrel Jaime MD [facility]
[2019-06-01] MEDS: APRESOLINE PO SCH ×2 (13:57→18:17)
[2019-06-01] MEDS: LOKELMA POWDER PACKET PO SCH (14:14)
[2019-06-01] MEDS: SANTYL OINT TOP SCH (18:35)
[2019-06-01] MEDS: CALMOSEPTINE OINTMENT TOP PRN (18:43)
[2019-06-01] MEDS: LIPITOR PO SCH (21:12)
[2019-06-01] MEDS: ASPIRIN PO SCH (21:12)
[2019-06-01] MEDS: SYNTHROID PO SCH (21:12)
[2019-06-01] MEDS: NEURONTIN PO SCH (21:12)
[2019-06-01] MEDS: LOVENOX SUBQ SCH (21:13)
[2019-06-02] MEDS: ZYVOX 600 MG/D5W 600 MG/300 ML IVPB IV SCH ×3 (02:14→23:43)
[2019-06-02] MEDS: HUMALOG SUBQ SCH ×8 (02:30→20:16)
[2019-06-02] MEDS: LOTRIMIN 1% CREAM TOP SCH ×2 (02:35→10:37)
[2019-06-02] MEDS: DUONEB (A & A) INH SCH ×5 (07:47→23:16)
--- NOTE | 2019-06-02 08:24 | Diag Imaging Result Document ---
PROCEDURE NAME: MYOCARDIAL PERFU SCAN, REST - 05/30/2019 RESTING SESTAMIBI INTERPRETATION: SUMMARY: The patient was administered 27.8 mCi of technetium-99m sestamibi, after which resting cardiac images were obtained. SPECT images were reconstructed in the short, horizontal long, and vertical long axes. Review of these images demonstrated a moderate to severe defect in uptake in the basal and mid inferolateral wall of left ventricle. Gated images demonstrate relative hypokinesis of the inferolateral wall of the left ventricle with calculated left ventricular ejection fraction 37%. CONCLUSIONS: Abnormal resting sestamibi images demonstrating moderate to severe perfusion defect in the basal and mid inferolateral wall with corresponding hypokinesis. Calculated left ventricular ejection fraction 37%. Clinical correlation recommended. cc: MD Shira Pierce PA
[2019-06-02 08:29] LABS: BASO# 0.02 X1000 (0.0-0.2); BASO% 0.1 % (0.0-0.8); EOS% 4.9 % (0.0-10.0); HEMATOCRIT 32.6 % (37.0-47.0); HEMOGLOBIN 10.7 g/dL (12.0-16.0); IMM GRAN# 0.05 X1000 (0.0-0.04); IMM GRAN% 0.3 % (0.0-0.5); LYMPH# 1.69 X1000 (1.2-3.4); LYMPH% 11.8 % (20.5-51.1); MCH 28.5 PG (27-31); MCHC 32.8 g/dL (33-37); MCV 86.7 FL (81-99); MONO# 0.68 X1000 (0.11-0.59); MONO% 4.8 % (1.7-9.3); MPV 10.5 FL (7.4-10.4); NEUT# 11.15 X1000 (1.4-6.5); NEUT% 78.1 % (42.2-75.2); PLT 302 X1000 (130-400); RBC 3.76 XMIL (4.2-5.4); RDW 13.1 % (11.5-14.5); WBC 14.29 X1000 (4.8-10.8)
[2019-06-02 08:59] LABS: ALB/GLOB RATIO 1.4; ALBUMIN 3.7 g/dL (3.5-5.0); CALCIUM 9.2 mg/dL (8.8-10.2); CALCIUM 9.3 mg/dL (8.8-10.2); CREATININE 2.4 mg/dL (0.5-0.9); PHOSPHORUS 4.5 mg/dL (2.7-4.5); PHOSPHORUS 4.7 mg/dL (2.7-4.5); POTASSIUM 3.8 mmol/L (3.5-5.1); TOTAL BILIRUBIN 0.41 mg/dL (0.20-1.00); TOTAL PROTEIN 6.3 g/dL (6.3-8.3)
[2019-06-02] MEDS: MYCOSTATIN SUSP PO SCH ×4 (10:28→20:15)
[2019-06-02] MEDS: ISORDIL PO SCH ×3 (10:28→17:27)
[2019-06-02] MEDS: FOLIC ACID PO SCH (10:28)
[2019-06-02] MEDS: LANTUS INSULIN SUBQ SCH (10:29)
[2019-06-02] MEDS: LOPRESSOR PO SCH ×2 (10:29→20:14)
[2019-06-02] MEDS: APRESOLINE PO SCH ×3 (10:29→17:25)
[2019-06-02] MEDS: MAXIPIME 2 GM in NS 100 ML IV SCH ×2 (10:36→20:15)
[2019-06-02] MEDS: SANTYL OINT TOP SCH (10:37)
--- NOTE | 2019-06-02 11:35 | NEPHROLOGY PROGRESS NOTE ---
DATE: 06/02/2019 Subjective: patient lying in bed resting, no acute distress, denies shortness of breath, chest pain, nausea and vomiting, orthopnea, changes in appetite, morning sickness, and increased weakness. Objective: Vital signs. temperature 97.6, pulse 77, respirations 19, blood pressure 140/63, 94% on room air. General: middle aged white female lying in bed in no acute distress. Skin: no rash relations. Multiple scattered bruises to upper extremities. HEENT: atraumatic, normocephalic. Conjunctiva are pink, equal round and reactive. Neck: Supple, JVD with positive Hepatojugular reflex. Cardiovascular: regular rate and rhythm with an S4, no gallop or murmur noted. Respiratory: crackles noted to upper anterior right chest. Diminished bases bilaterally. Abdomen: soft nontender nondistended, positive bowel sounds. Extremities: No edema, clubbing or cyanosis. : non observed Neurologic: alert, oriented to person, place, and time. Labs: WBC 20.4, RBC 3.8, hemoglobin 11.2, hematocrit 34.6, platelet count 330, sodium 144, potassium 4.1, chloride 109, carbon dioxide 20, BUN 58, creatinine 2.4, calcium 8.9, phosphorus 4.5, total protein 3.4, intake 1580, outtake 1700 Impression: Acute kidney injury likely due to ischemic acute tubular necrosis. Creatinine 2.4 today. No significant change. If she is otherwise ready for discharge, then she can follow up with us in the office in two weeks. Electrolytes. In target. Acid-base balance. In target. Anemia. Stable. cc: Darrel Jaime MD [facility]
--- NOTE | 2019-06-02 16:13 | PROGRESS NOTE ---
DATE: 06/02/2019 SUBJECTIVE: The patient states that she is still feeling short of breath. She also states that she feels weak and has no appetite. OBJECTIVE: Vital signs: Temperature 98 degrees, blood pressure 129/61, heart rate 78, respirations 19, O2 saturation 98% on 2 L nasal cannula. Intake and Output: Intake 2.3 L, output 300. General: This is a chronically ill-appearing elderly female sitting up in bed in no acute distress. Head: Normocephalic atraumatic. Heart: S1, S2 normal. Regular rate and rhythm. Lungs: Diminished breath sounds at the bases. No wheezing. Abdomen: Positive bowel sounds, soft, nontender, nondistended. Extremities: No edema, no cyanosis, no calf tenderness. Neurologic: The patient is alert and oriented x4. LABORATORY: Sodium 145, potassium 4, chloride 108, CO2 23, BUN 55, creatinine 2.4, glucose 150. White blood cell count 14, hemoglobin 10, hematocrit 32, platelets 302,000. AST 19, ALT 21, alkaline phosphatase 61. ASSESSMENT AND PLAN: 1. Acute hypoxemic respiratory failure. Multifactorial. The patient has heart failure, pneumonia and a pleural effusion. 2. Pneumonia. We will check a procalcitonin level. Will also continue with broad-spectrum antibiotics. So far, the blood cultures are negative. We will also order a sputum Gram stain and culture. Continue with bronchodilator therapy. Will also consult with the web methods developer. 3. Right pleural effusion. Will consult with the web methods developer since the pleural effusion has increased in size. 4. Right upper lobe lung nodule. Aware. 5. Acute kidney injury. Unchanged. Management as per the lens edger. 6. Leukocytosis. Improved. Continue with antibiotic therapy. 7. Acute systolic congestive heart failure exacerbation. The patient continues to have pulmonary edema on x-ray. We will defer to the purchaser regarding diuretic therapy. 8. Abnormal stress test. Cardiology is following for an eventual ischemic workup once the patient's renal function stabilizes. 9. Cardiomyopathy. The patient has an ejection fraction of 40%. Continue on the current cardiac medications. 10. Tobacco dependence. The patient has been counseled about smoking cessation. 11. Diabetes mellitus type 2. Continue on Lantus and sliding scale insulin. 12. Hypothyroidism. Continue on Synthroid. 13. Deep vein thrombosis prophylaxis. The patient is currently on full dose Lovenox. cc: Jacy Siddiqui MD [facility]
[2019-06-02] MEDS: CULTURELLE PO SCH (20:14)
[2019-06-02] MEDS: LIPITOR PO SCH (20:14)
[2019-06-02] MEDS: NEURONTIN PO SCH (20:14)
[2019-06-02] MEDS: SYNTHROID PO SCH (20:15)
[2019-06-02] MEDS: LOVENOX SUBQ SCH (20:15)
[2019-06-02] MEDS: ASPIRIN PO SCH (20:15)
[2019-06-03 04:50] LABS: ALLEN TEST YES; BE -2.9 mmoll (-3.0-3.0); BLOOD TYPE ARTERIAL; HCO3-(ACT) 22.6 mmoll (20.0-26.0); O2(CT) 11.9 mL/dL (15.0-23.0); O2HB 94.8 % (95.0-99.0); PCO2(98.6) 37 mmHg (35-45); PO2(98.6) 68 mmHg (60-100); SAMPLE BLOOD; SAO2 97.2 % (95.0-100.0); THB 8.9 g/dL (11.5-17.4); pH(98.6) 7.38 (7.35-7.45)
[2019-06-03 04:52] LABS: MODALITY CANNULA
[2019-06-03] MEDS: HUMALOG SUBQ SCH ×7 (06:23→20:07)
--- NOTE | 2019-06-03 06:29 | Diag Imaging Result Doc PS360 ---
EXAM: CHEST-1 VIEW HISTORY: dyspnea/pulmonary edema TECHNIQUE: Chest single view COMPARISON: 06/01/2019 FINDINGS: There is a small to moderate-sized right-sided pleural effusion with associated atelectasis. There may be an underlying infiltrate in the right base as well. Heart is mildly enlarged. Left lung remains clear. IMPRESSION: No interval improvement. Electronically signed by Rasta Murphy 06/03/2019 6:27 AM
[2019-06-03] MEDS: LOTRIMIN 1% CREAM TOP SCH ×3 (06:31→20:15)
[2019-06-03 07:31] LABS: HEMOGLOBIN 9.8 g/dL (12.0-16.0); MCH 28.7 PG (27-31); MCHC 32.7 g/dL (33-37); MCV 87.7 FL (81-99); MPV 9.9 FL (7.4-10.4); RBC 3.42 XMIL (4.2-5.4); RDW 13.3 % (11.5-14.5); WBC 13.06 X1000 (4.8-10.8)
[2019-06-03] MEDS: DUONEB (A & A) INH SCH ×5 (07:44→23:09)
[2019-06-03 08:02] LABS: ALBUMIN 3.4 g/dL (3.5-5.0); CALCIUM 8.7 mg/dL (8.8-10.2); CREATININE 2.5 mg/dL (0.5-0.9); PHOSPHORUS 3.9 mg/dL (2.7-4.5); POTASSIUM 3.9 mmol/L (3.5-5.1)
[2019-06-03] MEDS: CULTURELLE PO SCH ×2 (09:00→20:15)
[2019-06-03] MEDS: LOPRESSOR PO SCH ×2 (09:00→20:06)
[2019-06-03] MEDS: MAXIPIME 2 GM in NS 100 ML IV SCH (09:00)
[2019-06-03] MEDS: APRESOLINE PO SCH ×3 (09:00→16:21)
[2019-06-03] MEDS: FOLIC ACID PO SCH (09:00)
[2019-06-03] MEDS: MYCOSTATIN SUSP PO SCH ×4 (09:00→20:07)
[2019-06-03] MEDS: ISORDIL PO SCH ×3 (09:00→16:21)
--- NOTE | 2019-06-03 10:20 | Diag Imaging Result Doc PS360 ---
CT THORAX W/O CONTRAST - 06/03/2019 INDICATION: pneumonia/pleural effusion COMPARISON: Chest x-rays 06/03/2019 and 06/01/2019 FINDINGS: There is a small to moderate right and trace left pleural effusion. The right pleural effusion measures about 2.9 cm in depth. The left pleural effusion measures about 5 mm in depth. There is mild cardiomegaly. There is a trace pericardial effusion. There are cholecystectomy clips. No definite abnormality in the upper abdomen. There is moderate nonspecific diffuse mediastinal lymphadenopathy. The largest node is in the subcarinal fossa. This node measures about 26 x 16 mm. There is significant consolidation of the basilar portion of the right lower lobe. There is some patchy infiltrate in the right middle lobe as well. There is interstitial pulmonary edema in the lung bases. There are moderate degenerative changes of the spine. No acute or suspicious bony lesion. There is an old healing rib fracture at the anterior right fifth rib, definitely at least four weeks old. IMPRESSION: 1. Small to moderate right and trace left pleural effusions. 2. Interstitial pulmonary edema. Cardiomegaly. 3. Significant consolidation of the right lower lobe. Patchy infiltrate in the right middle lobe. 4. Nonspecific mediastinal lymphadenopathy. This exam was performed using automated exposure control, adjustment of mA or kV according to patient size, and/or use of iterative reconstruction technique Electronically signed by Sinna Mann 06/03/2019 10:17 AM
[2019-06-03] MEDS ORDERED: GAMUNEX-C 10% IV ONE (11:00)
[2019-06-03] MEDS: LANTUS INSULIN SUBQ SCH (11:32)
[2019-06-03] MEDS: SANTYL OINT TOP SCH (11:35)
[2019-06-03] MEDS: ZYVOX 600 MG/D5W 600 MG/300 ML IVPB IV SCH (14:45)
[2019-06-03] MEDS: LEVAQUIN 250 MG/D5W 250 MG/50 ML IVPB IV SCH (14:50)
[2019-06-03] MEDS: MERREM 1 GM in NS 50 ML IV SCH (14:50)
--- NOTE | 2019-06-03 15:31 | INFECTIOUS DISEASE CONSULT REP ---
DATE: 06/03/2019 CONCLUSION: The patient has a worsening of a right lung pneumonia despite receiving appropriate antibiotic therapy. The patient also has an immunoglobulin deficiency which has been treated during this admission. RECOMMENDATIONS: I have discontinued cefepime and put the patient on meropenem. I have also added Levaquin. As mentioned above, the patient already has received IVIG for her immunoglobulin deficiency. DISCUSSION: The patient has been dyspneic, especially dyspneic on exertion for the past 2 to 3 months. She is not bringing up any sputum and she has not noticed if she is coughing up any blood. Her studies thus far show a CBC with a white count of 13,060, hemoglobin 9.8, platelet count 247,000. Chest x-ray shows worsening of pulmonary edema and worsening of the patient's right lower lobe infiltrate. Renal ultrasound shows no abnormalities. Echocardiogram shows no vegetations. CT scan of the chest shows pulmonary edema, right lower lobe consolidation, and a right middle lobe infiltrate. The patient's IgG level was 448, IgA was 264. Creatinine is 2.5. GFR is 20. Arterial blood gases show a pH of 7.38, a PO2 of 68, and a pCO2 of 37. Stool for Clostridium difficile was negative. 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 She delivered 2 of her children by C- section. PAST MEDICAL HISTORY/REVIEW OF SYSTEMS: Head eyes, ears, nose and throat: She does not have any problem hearing or seeing. She is not complaining of any pain in her mouth. Neck: No stiffness. Respiratory: See present illness. GI: The patient says she has irritable bowel syndrome and she sometimes has diarrhea and other times constipation. Cardiac: No chest pain or palpitations. : No dysuria or flank pain. Bones, joints and muscles: No swollen joints and no muscle aching. Integument: No rashes. PREVIOUS HOSPITALIZATIONS AND OPERATIONS: She has had 1 labor and delivery and 2 C-sections. She also has had hernia repair twice and she also had cholecystectomy. She has had surgery on her left leg to improve the blood supply. MEDICAL HISTORY: Positive for diabetes mellitus, peripheral vascular disease, COPD due to cigarette smoking, hyperlipidemia, hypothyroidism, irritable bowel syndrome. The patient also has an immunoglobulin deficiency. INFECTIOUS DISEASE HISTORY: Positive for urinary tract infection and sinusitis. Negative for pneumonia up until this admission. FAMILY HISTORY: Positive for hypertension, myocardial infarction, stroke, coronary artery disease, congestive heart failure and pancreatic cancer. SOCIAL HISTORY: [place]/ she is a . She has dogs for a pet. She smokes cigarettes, but she does not drink alcoholic beverages or abuse drugs. 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 ALLERGIES: Her chart lists no known drug allergies. MEDICATIONS: Her medications taken at home include the following: Clopidogrel, Lasix, Neurontin, insulin, Synthroid and simvastatin. PHYSICAL EXAMINATION: Vital Signs: Temperature is 98.6 degrees, pulse 72, respirations 16, blood pressure 136/69. The patient weighs 162 pounds. General: This is a somewhat ill-appearing, middle-aged female. She is in no acute distress. Head, eyes, ears, nose, and throat: She can hear my spoken words and see near objects. I did not see any white patches in her mouth. Her sinuses were not tender. Neck: No meningismus. Thorax: No increased AP diameter of the chest. Lungs: There were right lower lobe rales; the left lung was clear. Cardiovascular: Heart rate is regular. Abdomen: Soft, nontender. Neurologic: The patient is awake. She can move her extremities. There is no tremor. Her sensation is intact to touch. Her memory as regarding her medical history was intact. Integument: No rash noted. Thank you for the consult. cc: Bong Maldonado MD
--- NOTE | 2019-06-03 16:22 | CARDIOLOGY PROGRESS NOTE ---
DATE: 06/03/2019 SUBJECTIVE: Ms. Barrett has no complaints today. She thinks her breathing has improved a little bit. PHYSICAL EXAMINATION: Vital Signs: She is afebrile. Heart rate 72, blood pressure 136/69. General: She is in no acute distress. Cardiovascular: She sounds to be in a regular rate and rhythm. She has no murmurs. She has no S3. She has no lower extremity edema. Chest Exam: Notable for diminished breath sounds in the right base with rales noted. Her chest CT demonstrates a small to moderate right and trace left pleural effusion. Significant consolidation in the right lower lobe with patchy infiltrates in the right middle lobe. LABORATORY DATA: Demonstrates white count of 13, hematocrit of 30, platelet count of 247. Her BUN and creatinine are 52 and 2.5 which has been relatively stable over the last several days. ASSESSMENT: Ms. Barrett is a 59-year-old female, who presented with a pneumonia converted into atrial fibrillation. Subsequently has been found to have a reduced ejection fraction with wall motion abnormalities, as well as acute kidney injury. PLAN: We are titrating her Isordil and hydralazine. I have increased her Isordil to 10 mg t.i.d. We will continue on the hydralazine. She is on metoprolol at 50 b.i.d. She is maintaining sinus rhythm and presently is on Lovenox once a day given that her GFR is 20. At some point, she can likely be transitioned over to apixaban, but given the appearance of her CT, I would want her on something a little bit more flexible in case some sort of procedure needs to be done such as bronchoscopy or potentially thoracentesis. She will likely need a cardiac catheterization, but this could be done as an outpatient and certainly needs to await improvement in her pneumonia, as well as renal insufficiency. cc: Nilson Hoang MD
--- NOTE | 2019-06-03 17:09 | NEPHROLOGY PROGRESS NOTE ---
DATE: 06/03/2019 SUBJECTIVE: She states she is feeling better, hoping for discharge. No shortness of breath, nausea, vomiting. OBJECTIVE: Vital Signs: Blood pressure 136/69, heart rate 72, respirations 16, afebrile. General: No acute distress. Skin: Warm and dry. Neck: Neck veins not appreciated. Heart: Regular. Lungs: Equal. No crackles. Abdomen: Soft, nontender. Bowel sounds present. Extremities: No edema. IMPRESSION: Acute kidney injury. BUN and creatinine remain roughly the same. Asymptomatic. No indication for renal replacement therapy. Okay for discharge home at any point from my perspective when it is appropriate for his primary diagnosis. cc: Darrel Jaime MD
--- NOTE | 2019-06-03 19:59 | PROGRESS NOTE ---
DATE: 06/03/2019 SUBJECTIVE: The patient is resting comfortably in bed. She states that she has slight shortness of breath. OBJECTIVE: Vital Signs: Temperature 98.1 degrees, blood pressure 139/69, heart rate 78, respirations 20, O2 saturation 97% on 2 L nasal cannula. Intake 700, output 450. General: This is a chronically ill-appearing elderly female sitting up in bed in no acute distress. Heart: S1, S2. Normal. Lungs: Coarse breath sounds in the right lung field. No wheezing. Abdomen: Positive bowel sounds. Soft, nontender, nondistended. Extremities: No edema, no cyanosis. Neurologic: The patient is alert and oriented x4. LABORATORY DATA: White blood cell count 13, hemoglobin 9.8, hematocrit 30, platelets 247,000, sodium 140, potassium 3.9, chloride 108, CO2 20, BUN 52, creatinine 2.5, glucose 186, calcium 8.7. ASSESSMENT AND PLAN: 1. Acute hypoxemic respiratory failure. Multifactorial. The patient has pneumonia and a moderate size right-sided pleural effusion. 2. Pneumonia. The patient's antibiotics have been adjusted by Dr. Maldonado. Continue with bronchodilator therapy and supplemental oxygen. 3. Right pleural effusion. We will continue to monitor closely. 4. Mediastinal lymphadenopathy. We will monitor this closely. The patient will likely need repeat imaging once her infection has resolved. We will await further recommendations from the silo painter. 5. Right upper lobe lung nodule. Aware. 6. Acute kidney injury. Stable. Nephrology is following. 7. Chronic systolic congestive heart failure. Aware. 8. Abnormal stress test. The patient will require an ischemic workup as outpatient. 9. Cardiomyopathy. Aware. Continue on the current cardiac medications. 10. Immunoglobulin deficiency. The patient received IVIG today. 11. Diabetes mellitus type 2. Continue on Lantus and sliding scale insulin. 12. Tobacco dependence. The patient has been counseled about smoking cessation. 13. Hypothyroidism. Continue on Synthroid. 14. Deep vein thrombosis prophylaxis. The patient is currently on full dose Lovenox. cc: Jacy Siddiqui MD [facility]
[2019-06-03] MEDS: LIPITOR PO SCH (20:06)
[2019-06-03] MEDS: NEURONTIN PO SCH (20:06)
[2019-06-03] MEDS: LOVENOX SUBQ SCH (20:06)
[2019-06-03] MEDS: SYNTHROID PO SCH (20:07)
[2019-06-03] MEDS: ASPIRIN PO SCH (20:07)
--- NOTE | 2019-06-03 20:30 | PULMONOLOGY CONSULTATION ---
DATE: 06/03/2019 REQUESTING CLINICIAN: Dr. Siddiqui. REASON FOR CONSULTATION: Pneumonia with mediastinal adenopathy and effusion. HISTORY OF PRESENT ILLNESS: Ms. Barrett is a 59-year-old white female with ongoing tobacco history, diabetes with poorly controlled blood glucoses and a hemoglobin A1c of 12, who presented to the hospital 05/26/2019 with shortness of breath and cough. The patient was afebrile and white blood count was normal, but she subsequently developed leukocytosis, which has persisted during this hospitalization. An echocardiogram was performed during this hospitalization, which revealed an ejection fraction of 40% with diastolic dysfunction. She did undergo a myocardial perfusion scan which confirmed an ejection fraction of 37%, along with moderate to severe perfusion defects in the basal and mid inferolateral schwarz. Her hospital course has been further complicated by atrial fibrillation with acute renal insufficiency. CT scan of the thorax performed today reveals small to moderate right-sided effusion, trace left-sided pleural effusion, pulmonary edema, cardiomegaly and infiltrates in the right lower lobe and right middle lobe. PAST MEDICAL HISTORY: Problem list: 1. COPD with ongoing tobacco use. 2. Diabetes mellitus with poor glucose control. 3. Peripheral vascular disease. 4. Ischemic heart disease as per above. 5. Dyslipidemia. 6. Hypothyroidism. SOCIAL HISTORY: The patient continues to smoke as per above. She denies alcohol use. She has not been working since November. FAMILY HISTORY: Positive for strokes, coronary artery disease, hypertension, and pancreatic cancer. REVIEW OF SYSTEMS: Notable for cough, shortness of breath and fatigue. PHYSICAL EXAMINATION: Physical exam reveals an obese white female resting comfortably in no distress. She has a slightly flat affect. She has been afebrile for the last 24 hours. Blood pressure 139/69, heart rate 78, respiratory rate 20, oxygen saturation 97% on 2 L per nasal cannula.HEENT: Pupils are equal and reactive. Oropharynx is clear. Neck is supple. Chest reveals occasional rhonchi bilaterally with decreased breath sounds, right base. Cardiac exam: S1, S2 with irregular rhythm. Abdomen is obese and soft. Extremities reveal trace edema. LABORATORY DATA: IgG level is significantly reduced at 448. Hemoglobin A1c is elevated at 12.1. White blood count 13.06, hemoglobin 9.8, platelet count 247,000. Sodium 140, potassium 3.0, chloride 108, bicarbonate 20, BUN 52, creatinine 2.5. IMPRESSION: A 59-year-old with: 1. Right middle lobe and right lower lobe pneumonia. 2. Small to moderate right-sided effusion with tiny left-sided effusion. 3. Ischemic cardiomyopathy. 4. Immunoglobulin deficiency. 5. Acute hypoxemic respiratory failure. 6. Ongoing tobacco use. DISCUSSION: A 59-year-old with problems outlined above. The patient does have a small to moderate effusion with nonspecific mediastinal adenopathy (I forgot to add mediastinal adenopathy to her problem list above). I suspect the adenopathy is related to her pneumonia. The patient will likely require a prolonged course of antibiotics, given her poorly controlled diabetes along with significant immunoglobulin deficiency. She is currently on anticoagulation and has renal insufficiency, making a thoracentesis increased risk. She currently does not have significant pleurisy to suggest current effusion represents an empyema. At this juncture, would continue to follow her pleural effusion. RECOMMENDATIONS: 1. Agree with current antibiotic regimen outlined by Dr. Bong Maldonado. 2. Agree with immunoglobulin replacement. 3. Encourage better glucose control. 4. Encourage the patient to stop smoking. 5. Initiate incentive spirometry. 6. Recommend mobilization of this patient. She should be out of the bed in a chair and moving with physical therapy. cc: Roc Garcia MD
[2019-06-04] MEDS: MERREM 1 GM in NS 50 ML IV SCH ×2 (00:33→17:01)
[2019-06-04] MEDS: ZYVOX 600 MG/D5W 600 MG/300 ML IVPB IV SCH ×2 (01:09→13:04)
[2019-06-04] MEDS: HUMALOG SUBQ SCH ×8 (06:12→21:02)
[2019-06-04 06:39] LABS: HEMATOCRIT 29.7 % (37.0-47.0); HEMOGLOBIN 9.6 g/dL (12.0-16.0); MCH 28.1 PG (27-31); MCHC 32.3 g/dL (33-37); MCV 86.8 FL (81-99); MPV 10.1 FL (7.4-10.4); RBC 3.42 XMIL (4.2-5.4); RDW 13.1 % (11.5-14.5); WBC 9.85 X1000 (4.8-10.8)
[2019-06-04 06:50] LABS: ALBUMIN 3.4 g/dL (3.5-5.0); CALCIUM 8.9 mg/dL (8.8-10.2); CREATININE 2.6 mg/dL (0.5-0.9); POTASSIUM 3.8 mmol/L (3.5-5.1)
[2019-06-04] MEDS: DUONEB (A & A) INH SCH ×5 (07:59→22:50)
[2019-06-04] MEDS: ISORDIL PO SCH ×3 (09:19→17:08)
[2019-06-04] MEDS: FOLIC ACID PO SCH (09:19)
[2019-06-04] MEDS: MYCOSTATIN SUSP PO SCH ×4 (09:19→21:00)
[2019-06-04] MEDS: CULTURELLE PO SCH ×2 (09:19→21:01)
[2019-06-04] MEDS: APRESOLINE PO SCH ×3 (09:19→17:08)
[2019-06-04] MEDS: LOPRESSOR PO SCH ×2 (09:20→21:01)
[2019-06-04] MEDS: SANTYL OINT TOP SCH (10:05)
[2019-06-04] MEDS: LANTUS INSULIN SUBQ SCH (10:05)
[2019-06-04] MEDS: LOTRIMIN 1% CREAM TOP SCH ×2 (10:05→21:02)
[2019-06-04 12:21] LABS: URINE SOURCE VOIDED
[2019-06-04 12:29] LABS: BILIRUBIN URINE NEGATIVE (NEGATIVE); BLOOD URINE MODERATE (NEGATIVE); COLOR YELLOW; GLUCOSE URINE 100 mg/dL (NEGATIVE); KETONE URINE TRACE mg/dL (NEGATIVE); LEUKOCYTES URINE NEGATIVE (NEGATIVE); NITRITE URINE NEGATIVE (NEGATIVE); PROTEIN URINE 600 mg/dL (NEGATIVE); SP GRAVITY URINE 1.014; TURBIDITY URINE HAZY (CLEAR); UROBILINOGEN URINE NORMAL (NORMAL)
[2019-06-04 12:30] LABS: UR EPITHELIAL CELLS <10 /HPF (<10); URINE BACTERIA NEGATIVE /HPF
[2019-06-04 12:40] LABS: UR CREAT RANDOM 52.1 mg/dL (11-20)
[2019-06-04 12:50] LABS: UR PROT RANDOM 482.2 mg/dL
--- NOTE | 2019-06-04 15:23 | Diag Imaging Result Doc PS360 ---
EXAM: CHEST-1 VIEW INDICATION: pneumonia/pleural effusion TECHNIQUE: One view COMPARISON: 06/03/2019 FINDINGS: The moderate-sized right pleural effusion with adjacent atelectasis and/or infiltrate is approximately stable in size. No new consolidation is identified. Cardiac silhouette is stable. IMPRESSION: Approximately stable chest. Electronically signed by Dre Delgadillo 06/04/2019 3:20 PM
[2019-06-04] MEDS: LEVAQUIN 250 MG/D5W 250 MG/50 ML IVPB IV SCH (17:08)
--- NOTE | 2019-06-04 17:19 | PULMONOLOGY PROGRESS NOTE ---
DATE: 06/04/2019 SUBJECTIVE: The patient is in bed. She reports she has not yet got out of bed today. She has not yet been initiated on incentive spirometry. OBJECTIVE: The patient has been afebrile for the last 24 hours. Blood pressure 148/73, heart rate 78, respiratory rate 20, O2 saturation 98% on 2 L per nasal cannula.HEENT: Pupils are equal and reactive. Oropharynx appears clear. Neck: Supple. Chest: Reveals decreased breath sounds right base. Cardiac: S1-S2. Abdomen: Soft. Extremities: Without edema. LABORATORIES: White blood count is 9.85, hemoglobin 9.6, platelet count 23,0000. Sodium 138, potassium 3.8, chloride 107, bicarbonate 21, BUN 50, creatinine 2.6. IMPRESSION: A 59-year-old with 1. Right middle lobe and right lower lobe pneumonia. 2. Small to moderate right-sided pleural effusion. 3. Ischemic cardiomyopathy. 4. Immunoglobulin deficiency. 5. Acute hypoxemic respiratory failure. 6. Nicotine addiction with ongoing tobacco use. RECOMMENDATIONS: 1. Continue current antibiotic regimen. Her leukocytosis is now resolved. 2. Continue to monitor and replace immunoglobulin as necessary. 3. Encourage patient to get out of bed and ambulate. 4. Initiate incentive spirometry. 5. Consider thoracentesis daily if pleural effusion increase in size, she develops significant right-sided chest pain or she has evidence of clinical decline. cc: Roc Garcia MD
--- NOTE | 2019-06-04 18:22 | PROGRESS NOTE ---
DATE: 06/04/2019 SUBJECTIVE: The patient complains of shortness of breath. She states that she feels like she has fluid on her abdomen. OBJECTIVE: Vital Signs: Temperature 98.4 degrees, blood pressure 120/54, heart rate 76, respirations 20, O2 saturation is 98% on 2 L nasal cannula. Intake 1.2 L, output 250. General: This is a chronically ill-appearing, elderly female, lying in bed in no acute distress. Head: Normocephalic, atraumatic. Heart: S1, S2 normal. Regular rate and rhythm. Lungs: Diminished breath sounds in the right lung field. No wheezing. No rales. Abdomen: Positive bowel sounds. Soft, obese. Extremities: No edema. No cyanosis. No calf tenderness. Neurologic: The patient is alert and oriented x3. LABORATORY AND DIAGNOSTIC DATA: White blood cell count 9.8, hemoglobin 9.6, hematocrit 29, platelets 230,000. Sodium 139, potassium 3.8, chloride 107, CO2 of 21, BUN 50, creatinine 2.6, glucose 176, calcium 8.9, phosphorus 4. Chest x-ray reveals a moderate-size right pleural effusion and an infiltrate. ASSESSMENT AND PLAN: 1. Acute hypoxemic respiratory failure. Multifactorial. Continue to treat the underlying conditions. 2. Right lobe pneumonia. Continue with antibiotic therapy. 3. Moderate right pleural effusion. Continue to monitor closely for improvement. 4. Mediastinal lymphadenopathy. Continue to monitor closely. The patient will likely require a repeat CT scan once her pneumonia has resolved. 5. Acute kidney injury on chronic kidney disease. The creatinine is slowly rising. Management as per the mill manager. 6. Chronic systolic congestive heart failure. Aware. 7. Abnormal stress test. The air cargo agent plans to do an ischemic workup as outpatient. 8. Immunoglobulin deficiency. The patient received IVIG yesterday. 9. Diabetes mellitus type 2. Continue on Lantus and sliding scale insulin. 10. Tobacco dependence. The patient has been counseled about smoking cessation. 11. Hypothyroidism. Continue on Synthroid. 12. Deep vein thrombosis prophylaxis. Continue on Lovenox. 13. Continue with physical therapy. cc: Jacy Siddiqui MD [facility]
[2019-06-04] MEDS: ZOFRAN IV PRN (18:27)
[2019-06-04] MEDS ORDERED: IMODIUM PO ONE (18:33)
[2019-06-04] MEDS: ASPIRIN PO SCH (21:01)
[2019-06-04] MEDS: NEURONTIN PO SCH (21:01)
[2019-06-04] MEDS: SYNTHROID PO SCH (21:01)
[2019-06-04] MEDS: LIPITOR PO SCH (21:01)
[2019-06-04] MEDS: LOVENOX SUBQ SCH (21:01)
[2019-06-05] MEDS: MERREM 1 GM in NS 50 ML IV SCH ×2 (00:34→14:16)
[2019-06-05] MEDS: ZYVOX 600 MG/D5W 600 MG/300 ML IVPB IV SCH ×2 (01:04→12:14)
[2019-06-05] MEDS: HUMALOG SUBQ SCH ×7 (06:38→20:44)
[2019-06-05 06:49] LABS: ALBUMIN 3.3 g/dL (3.5-5.0); CALCIUM 8.6 mg/dL (8.8-10.2); CREATININE 2.5 mg/dL (0.5-0.9); PHOSPHORUS 3.9 mg/dL (2.7-4.5); POTASSIUM 4.3 mmol/L (3.5-5.1)
[2019-06-05 07:01] LABS: HEMATOCRIT 28.1 % (37.0-47.0); HEMOGLOBIN 9.3 g/dL (12.0-16.0); MCH 29.1 PG (27-31); MCHC 33.1 g/dL (33-37); MCV 87.8 FL (81-99); MPV 10.1 FL (7.4-10.4); RBC 3.2 XMIL (4.2-5.4); RDW 13.1 % (11.5-14.5); WBC 9.49 X1000 (4.8-10.8)
[2019-06-05] MEDS: DUONEB (A & A) INH SCH ×5 (07:49→22:32)
[2019-06-05] MEDS: MYCOSTATIN SUSP PO SCH ×4 (08:16→20:47)
[2019-06-05] MEDS: FOLIC ACID PO SCH (08:16)
[2019-06-05] MEDS: ISORDIL PO SCH ×3 (08:16→16:10)
[2019-06-05] MEDS: APRESOLINE PO SCH ×3 (08:16→16:10)
[2019-06-05] MEDS: LOPRESSOR PO SCH ×2 (08:16→20:46)
[2019-06-05] MEDS: CULTURELLE PO SCH ×2 (08:16→20:45)
[2019-06-05] MEDS: LANTUS INSULIN SUBQ SCH (08:17)
[2019-06-05] MEDS: LOTRIMIN 1% CREAM TOP SCH ×2 (08:17→20:48)
[2019-06-05] MEDS: SANTYL OINT TOP SCH (08:17)
[2019-06-05] MEDS: LEVAQUIN 250 MG/D5W 250 MG/50 ML IVPB IV SCH (14:15)
--- NOTE | 2019-06-05 14:24 | PROGRESS NOTE ---
DATE: 06/05/2019 SUBJECTIVE: The patient states that she feels a little bit better today. No acute events noted overnight. OBJECTIVE: Vital Signs: Temperature 98.4 degrees, blood pressure 125/67, heart rate 76, respirations 18, O2 saturation is 98% on 2 L nasal cannula. Intake 540, output 750. General: This is a chronically ill-appearing, elderly female, lying in bed in no acute distress. HEENT: Head normocephalic, atraumatic. Heart: S1, S2 normal. Regular rate and rhythm. Lungs: Diminished breath sounds in the right lung field. Equal air. No wheezing. No rales. Abdomen: Positive bowel sounds. Soft, nontender, nondistended. Extremities: No edema. No cyanosis. Neurologic: The patient is alert and oriented x4. LABORATORY DATA: White blood cell count 9.4, hemoglobin 9.3, hematocrit 28, platelets 189,000. Sodium 140, potassium 4.3, chloride 106, CO2 of 21, BUN 49, creatinine 2.5, glucose 201. ASSESSMENT AND PLAN: 1. Acute hypoxemic respiratory failure. Multifactorial. Continue to treat the underlying pneumonia. 2. Right lobe pneumonia. Continue with antibiotics, bronchodilator therapy, and supplemental oxygen. 3. Moderate right pleural effusion. Continue to monitor closely. 4. Mediastinal lymphadenopathy. Aware. The patient will require repeat imaging once her infection has resolved. Pulmonary is following. 5. Acute kidney injury. Unchanged. Nephrology is following. 6. Chronic systolic congestive heart failure. Aware. 7. Abnormal stress test. The patient will likely undergo an ischemic workup as outpatient. 8. Immunoglobulin deficiency. The patient received intravenous immunoglobulin on Thursday. 9. Diabetes mellitus type 2. Continue on Lantus and sliding scale insulin. 10. Tobacco dependence. The patient has been counseled about smoking cessation. 11. Hypothyroidism. Continue on Synthroid. 12. Deep vein thrombosis prophylaxis. Continue on Lovenox. 13. Continue with physical therapy. 14. Disposition. Will order a home oxygen evaluation to see if the patient will require home oxygen. cc: Jacy Siddiqui MD [facility]
--- NOTE | 2019-06-05 17:20 | PULMONOLOGY PROGRESS NOTE ---
DATE: 06/05/2019 SUBJECTIVE: The patient is awake, alert, and conversant. She reports minimal sputum production. OBJECTIVE: Vital Signs: The patient has been afebrile for the last 24 hours. BP 125/67, heart rate 76, respiratory rate 16, oxygen saturation 98% on nasal cannula, which has been decreased to 2 L per minute. HEENT: Pupils are equal and reactive. Oropharynx appears clear. Neck: Supple. Chest: Reveals diminished breath sounds bilaterally, but more prominent at the right base. Cardiac: S1, S2. Abdomen: Soft. Extremities: Reveal trace edema. LABORATORIES: White blood count 9.49, hemoglobin 9.3, platelet count 189,000. Sodium 140, potassium 4.3, chloride 106, bicarbonate 21, BUN 49, creatinine 2.5. IMPRESSION: A 59-year-old with: 1. Right middle lobe and right lower lobe pneumonia. 2. [id number] right-sided pleural effusion. 3. Ischemic cardiomyopathy. 4. Acute hypoxemic respiratory failure. 5. Immunoglobulin deficiency status post replacement. 6. Nicotine addiction with ongoing tobacco use. PLAN: 1. Continue current antibiotic regimen. Consider oral antibiotic if okay with Infectious Disease. 2. Continue bronchodilators and bronchial hygiene and mobilize as tolerated. 3. Two-view chest x-ray tomorrow. cc: Roc Garcia MD
[2019-06-05] MEDS: ASPIRIN PO SCH (20:45)
[2019-06-05] MEDS: LIPITOR PO SCH (20:46)
[2019-06-05] MEDS: LOVENOX SUBQ SCH (20:47)
[2019-06-05] MEDS: NEURONTIN PO SCH (20:47)
[2019-06-05] MEDS: SYNTHROID PO SCH (20:47)
[2019-06-06] MEDS: MERREM 1 GM in NS 50 ML IV SCH ×2 (01:16→13:13)
[2019-06-06] MEDS: HUMALOG SUBQ SCH ×6 (06:04→16:21)
[2019-06-06] MEDS: DUONEB (A & A) INH SCH ×5 (07:46→23:10)
[2019-06-06 07:51] LABS: HEMATOCRIT 30.7 % (37.0-47.0); HEMOGLOBIN 9.7 g/dL (12.0-16.0); MCH 27.7 PG (27-31); MCHC 31.6 g/dL (33-37); MCV 87.7 FL (81-99); MPV 10.1 FL (7.4-10.4); RBC 3.5 XMIL (4.2-5.4); RDW 13.2 % (11.5-14.5); WBC 9.1 X1000 (4.8-10.8)
[2019-06-06] MEDS ORDERED: LASIX PO ONE (08:04)
[2019-06-06 08:13] LABS: ALBUMIN 3.5 g/dL (3.5-5.0); CALCIUM 9.6 mg/dL (8.8-10.2); MAGNESIUM 1.9 mg/dL (1.5-2.7); PHOSPHORUS 3.5 mg/dL (2.7-4.5); POTASSIUM 4.5 mmol/L (3.5-5.1)
--- NOTE | 2019-06-06 08:44 | NEPHROLOGY PROGRESS NOTE ---
DATE: 06/06/2019 Subjective: patient lying in bed resting. Complains of orthopnea and nausea. Objective: Vital signs. temperature 98.0, pulse 75, respiration 16, blood pressure 116/52, 02 sat 98% on 2 L nasal cannula. General: middle aged white female lying in bed in no acute distress. Skin: no rash relations. Multiple scattered bruises to upper extremities. HEENT: atraumatic, normocephalic. Conjunctiva are pink, equal round and reactive. Neck: Supple, JVD with positive Hepatojugular reflex. Cardiovascular: regular rate and rhythm, no gallop or murmur noted. Respiratory: right lower lobe diminished. Abdomen: soft nontender nondistended, positive bowel sounds. Extremities: No edema, clubbing or cyanosis. : non observed Neurologic: alert, oriented to person, place, and time. Labs: WBC 9.1, RBC 3.5, hemoglobin 9.7, hematocrit 30.7, platelet count 183, sodium 141, potassium 4.5, chloride 107, carbon dioxide 23, anion gap 11, BUN 50, creatinine 3.0, calcium 9.6, phosphorus 3.5, magnesium 1.9, albumin 3.5. Input 750/ output 500. Impression: Acute kidney injury likely due to ischemic acute tubular necrosis, baseline creatinine 1.1 with a History of heavy proteinuria likely due to diabetes. Creatinine 3.0 today. If she is discharging today, we will follow up with her in the office closely. Electrolytes. In target. Acid-base balance. In target. Anemia. Stable Volume status. Above target. We will give her a one time dose of Lasix 80 mg PO. IMPRESSION: Acute kidney injury overlying chronic kidney disease. She has stage I chronic kidney disease with heavy proteinuria at baseline. Her creatinine is up today to 3.0. I believe she has acute tubular necrosis that has been slow to resolve. She appears mildly volume expanded today and we will give a single dose of IV Lasix. If she is discharged then we will follow her carefully in the office. She does not meet criteria for dialysis. She has been counseled about the severity of her illness and slow recovery. cc: Darrel Jaime MD [facility]
[2019-06-06] MEDS ORDERED: LEVEMIR SUBQ SCH (09:00)
--- NOTE | 2019-06-06 09:40 | Diag Imaging Result Doc PS360 ---
EXAM: CHEST-2 VIEWS HISTORY: abnormal exam TECHNIQUE: Chest two views COMPARISON: 06/04/2019 FINDINGS: There is a moderate-sized right pleural effusion which remains. There are infiltrates and atelectasis in the right lung base. Pulmonary edema is less pronounced. Heart remains mildly enlarged. IMPRESSION: Mild interval improvement. Electronically signed by Rasta Murphy 06/06/2019 9:38 AM
[2019-06-06] MEDS: FOLIC ACID PO SCH (10:07)
[2019-06-06] MEDS: ISORDIL PO SCH ×3 (10:07→16:25)
[2019-06-06] MEDS: APRESOLINE PO SCH ×3 (10:07→16:24)
[2019-06-06] MEDS: LOPRESSOR PO SCH ×2 (10:07→21:19)
[2019-06-06] MEDS: CULTURELLE PO SCH ×2 (10:07→21:19)
[2019-06-06] MEDS: MYCOSTATIN SUSP PO SCH ×4 (10:07→21:19)
[2019-06-06] MEDS: LOTRIMIN 1% CREAM TOP SCH (10:10)
[2019-06-06] MEDS: SANTYL OINT TOP SCH (10:11)
[2019-06-06] MEDS: LANTUS INSULIN SUBQ SCH (10:22)
[2019-06-06] MEDS: ZYVOX 600 MG/D5W 600 MG/300 ML IVPB IV SCH ×2 (13:13)
[2019-06-06] MEDS: LEVAQUIN 250 MG/D5W 250 MG/50 ML IVPB IV SCH (13:13)
--- NOTE | 2019-06-06 14:25 | PROGRESS NOTE ---
DATE: 06/06/2019 SUBJECTIVE: This patient states that she is feeling a little bit better today. She is not complaining of shortness of breath or chest pain. Her creatinine looks a bit worse today. Nephrology Department already evaluated this patient. She received a dose of Lasix x1 today order by Nephrology Department. X-ray showed a mild interval improvement. Pulmonary Department following this patient closely as well as Infectious Disease Department. OBJECTIVE: Vital Signs: Temperature 98.3 degrees, pulse 74, respiratory rate 19, blood pressure 131/87, oxygen saturation 95% on room air. HEENT: Head normocephalic, no trauma, PERRLA. Neck: Supple. No JVD. No masses. Central trachea. Chest: Decreased breath sounds at the bases, especially in the right lung field. Some crepitus at the bases as well. Abdomen: Soft, nontender, nondistended. Positive bowel sounds. Extremities: No edema, no clubbing, no cyanosis. Neurological: The patient is alert, she is oriented x3. No focal deficits. LABORATORY: WBC 9.1, hemoglobin 9.7, hematocrit 30.7, platelets 183,000. Sodium 141, potassium 4.5, chloride 107, bicarbonate 23, BUN 50, creatinine 3, glucose 118, calcium 9.6, magnesium 1.9. ASSESSMENT AND PLAN: 1. Acute hypoxemic respiratory failure, multifactorial. Continue treating her pneumonia and pleural effusion. 2. Right lower lobe pneumonia. Continue with antibiotics, bronchodilator therapy and supplemental oxygen, Pulmonary Department on board. 3. Moderate right pleural effusion. Continue to monitor, continue with diuresis. 4. Mediastinal lymphadenopathy, aware. The patient will require repeat imaging once her infection has resolved. Pulmonary and Infectious Disease Department on board. 5. Acute kidney injury, creatinine increased from 2.5 to 3 compared with yesterday. She had received a dose of Lasix today per Nephrology Department. 1. Chronic systolic CHF, aware. Continue with same management for now. 2. Abnormal stress test. The patient will likely undergo an ischemic workup as an outpatient. 3. Immunoglobulin deficiency. This patient already received IVIG a few days ago, last 06/03/2019. 4. Type 2 diabetes. Continue with same management. 5. Tobacco abuse. This patient has been highly advised against tobacco use. I will continue with daily cessation education. 6. Hypothyroidism. Continue with Synthroid. 7. Deep vein thrombosis prophylaxis with Lovenox. 8. Generalized weakness and physical deconditioning. Continue physical therapy. cc: Durga Donahue MD
[2019-06-06] MEDS: ZOFRAN IV PRN (15:49)
--- NOTE | 2019-06-06 17:46 | INFECTIOUS DISEASE PROGRESS NO ---
DATE: 06/06/2019 PRESENT ILLNESS: Ms. Barrett is being treated for right-sided pneumonia. There is also an immunoglobulin deficiency. MEDICATIONS: She is on day 3 of Levaquin 250 mg IV every 24 hours and meropenem 1 g IV every 12 hours. The patient has received a dose of IVIG on this admission. PHYSICAL EXAMINATION: Vital Signs: Temperature is 97.7 degrees, pulse rate 80, respiratory rate 12, blood pressure 112/53, O2 saturation 99% on room air. General: Ms. Barrett is a middle-aged obese female. She is lying on her left lateral side currently in no acute distress. HEENT: Atraumatic, normocephalic. Oral mucous membranes are pink and moist. Conjunctivae are pale. Neck: Supple. Trachea is midline. Cardiovascular: Heart rate and rhythm are regular. Normal sinus rhythm on the monitor. Respiratory: Lung sounds have some bilateral rhonchi noted. Diminished in the bases. No work of breathing is noted. Abdomen: Soft, obese and nontender. Bowel sounds are active. Neurologic: She is awake, alert, oriented, and able to move around in the bed independently. Integumentary: Skin is warm and dry. LABORATORY AND X-RAY: Today her white count is 9.1, hemoglobin 9.7, platelet count 183,000. Creatinine is 3, GFR is 16. Chest x-ray today shows infiltrates and atelectasis in the right lung base with mild interval improvement. ASSESSMENT AND PLAN: Ms. Barrett is being treated for right-sided pneumonia. She is on day 3 of meropenem and Levaquin which we will continue. She has been on Zyvox previously without any improvements, and she also complains of nausea from the Zyvox.. We will discontinue Zyvox at this point. She is having intermittent issues with nausea and having to take nausea medication so we will continue the Levaquin in the IV form. The Levaquin and meropenem are both dosed based on her renal insufficiency. These plans have been discussed with and recommended by Dr. Maldonado. COMORBIDITIES: For Ms. Barrett include cigarette smoking with COPD, diabetes mellitus, peripheral vascular disease, and immunoglobulin deficiency. Dictated by RY Espana for Bong Maldonado MD cc: Bong Maldonado MD [facility]
--- NOTE | 2019-06-06 20:48 | PULMONOLOGY PROGRESS NOTE ---
DATE: 06/06/2019 SUBJECTIVE: The patient is awake, alert, and conversant. She reports she feels a little bit better. She denies significant sputum production. OBJECTIVE: Vital Signs: The patient has been afebrile for the last 24 hours. Blood pressure 112/53, heart rate 80, respiratory rate 12, oxygen saturation 99% on room air. HEENT: Pupils are equal and reactive. Oropharynx is clear. Neck: Is supple. Chest: Reveals good air entry with slight decreased breath sounds right base. Cardiac exam: S1-S2. Abdomen: Is soft. Extremities: Are without edema. LABORATORIES: Chest x-ray reveals decreased effusion and decreased infiltrate at the right base. White blood count normal at 9.1, hemoglobin 9.7, platelet count 183,000. Sodium 141, potassium 4.5, chloride 107, bicarbonate 23, BUN 50, creatinine 3.0. IMPRESSION: A 59-year-old with 1. Right middle lobe and right lower lobe pneumonia. 2. Immunoglobulin deficiency. 3. Small to moderate right-sided effusion. 4. Ischemic cardiomyopathy. 5. Nicotine addiction with ongoing tobacco use. DISCUSSION: A 59-year-old with problems outlined above. With antibiotics, bronchial hygiene, and immunoglobulin, the patient appears to be improving clinically and radiographically. PLAN: 1. Continue current antibiotic regimen. Additional management per Infectious Disease. 2. Continue bronchodilators. 3. Encourage smoking cessation. cc: Roc Garcia MD
[2019-06-06] MEDS: ASPIRIN PO SCH (21:19)
[2019-06-06] MEDS: NEURONTIN PO SCH (21:19)
[2019-06-06] MEDS: LIPITOR PO SCH (21:19)
[2019-06-06] MEDS: SYNTHROID PO SCH (21:19)
[2019-06-06] MEDS: LOVENOX SUBQ SCH (21:19)
[2019-06-07] MEDS: LOTRIMIN 1% CREAM TOP SCH ×3 (00:06→22:07)
[2019-06-07] MEDS: HUMALOG SUBQ SCH ×8 (00:06→22:09)
[2019-06-07] MEDS: MERREM 1 GM in NS 50 ML IV SCH ×2 (02:20→14:27)
[2019-06-07 07:10] LABS: BASO# 0.04 X1000 (0.0-0.2); BASO% 0.6 % (0.0-0.8); EOS# 0.56 X1000 (0.0-0.7); EOS% 8.3 % (0.0-10.0); HEMATOCRIT 28.9 % (37.0-47.0); HEMOGLOBIN 9.2 g/dL (12.0-16.0); LYMPH# 1.85 X1000 (1.2-3.4); LYMPH% 27.4 % (20.5-51.1); MCH 27.7 PG (27-31); MCHC 31.8 g/dL (33-37); MONO# 0.39 X1000 (0.11-0.59); MONO% 5.8 % (1.7-9.3); MPV 9.8 FL (7.4-10.4); NEUT# 3.92 X1000 (1.4-6.5); NEUT% 57.9 % (42.2-75.2); PLT 146 X1000 (130-400); RBC 3.32 XMIL (4.2-5.4); RDW 13.2 % (11.5-14.5); WBC 6.76 X1000 (4.8-10.8)
[2019-06-07 07:38] LABS: CALCIUM 8.9 mg/dL (8.8-10.2); CREATININE 2.9 mg/dL (0.5-0.9); POTASSIUM 4.7 mmol/L (3.5-5.1)
[2019-06-07] MEDS: DUONEB (A & A) INH SCH ×5 (08:11→23:42)
--- NOTE | 2019-06-07 09:43 | NEPHROLOGY PROGRESS NOTE ---
DATE: 06/07/2019 Subjective: patient resting in bed. Aroused to verbal stimuli. Complains of orthopnea, otherwise denies shortness of breath, nausea vomiting, change in appetite. Objective: Vital signs. Temperature 98.0, pulse 77, respirations 20, blood pressure 120/59, 02 sat 93% on 2 L nasal cannula. General: middle aged white female lying in bed in no acute distress. Skin: no rash or lesions. Multiple scattered bruises to upper extremities. HEENT: atraumatic, normocephalic. Conjunctiva are pink, equal round and reactive. Mucous membranes moist. Neck: Supple, JVD with positive Hepatojugular reflex. Cardiovascular: S1, S2, S4 appreciated. regular rate and rhythm, no murmurs or gallops. Respiratory: clear bilateral upper airways with right lower lobe diminished. Abdomen: soft nontender nondistended, positive bowel sounds. Extremities: No edema, clubbing or cyanosis. : non observed Neurologic: alert, oriented to person, place, and time. Labs: WBC 6.76, RBC 3.32, hemoglobin 9.2, hematocrit 28.9, platelet count 146, sodium 139, potassium 4.7, chloride 106, carbon dioxide 23, and I get 10, BUN 50, creatinine 2.9, estimated GFR 17, calcium 8.9. Input 480, output 800. Impression: Acute kidney injury likely due to ischemic acute tubular necrosis, baseline creatinine 1.1 with a History of heavy proteinuria likely due to diabetes. Her Creatinine has waxed and waned with a peak of 3.0. Slow to improve. Creatinine 2.9 today. If she is discharging today, we will follow up with her in the office closely. Electrolytes. In target. Acid-base balance. In target. Anemia. Stable Volume status. Above target. Minimal response to lasix yesterday. She does have a significant right pleural effusion but minimal pulmonary edema. She is in negative fluid balance today so we will hold further diuretics today. cc: Darrel Jaime MD MTDD
[2019-06-07] MEDS: ISORDIL PO SCH ×3 (10:14→18:18)
[2019-06-07] MEDS: MYCOSTATIN SUSP PO SCH ×4 (10:14→22:10)
[2019-06-07] MEDS: LOPRESSOR PO SCH ×2 (10:14→22:09)
[2019-06-07] MEDS: APRESOLINE PO SCH ×3 (10:14→18:24)
[2019-06-07] MEDS: CULTURELLE PO SCH ×2 (10:14→22:09)
[2019-06-07] MEDS: FOLIC ACID PO SCH (10:14)
[2019-06-07] MEDS: LANTUS INSULIN SUBQ SCH (10:17)
[2019-06-07] MEDS: LEVAQUIN 250 MG/D5W 250 MG/50 ML IVPB IV SCH (14:27)
[2019-06-07] MEDS: ZOFRAN IV PRN (14:41)
--- NOTE | 2019-06-07 15:12 | PROGRESS NOTE ---
DATE: 06/07/2019 SUBJECTIVE: This patient is feeling about the same compared with yesterday. She is complaining of generalized weakness. Kidney function is about the same compared with yesterday. It is documented a liter out today already. She received Lasix yesterday. OBJECTIVE: Vital Signs: Temperature 98 degrees, pulse 85, respiratory rate 18, blood pressure 133/64, oxygen saturation 92 on 2 L of nasal cannula. HEENT: Head normocephalic. No trauma. PERRLA. Neck: Supple. No JVD. No masses. Central trachea. Chest: Decreased breath sounds at the bases, especially in the right lung field. Some crepitus at the bases as well. Abdomen: Soft, nontender, nondistended. Positive bowel sounds. Extremities: No edema. No clubbing. No cyanosis. Neurological: This patient is alert. She is oriented x3. No focal deficits, but generalized weakness. LABORATORY: WBC 6.7, hemoglobin 9.2, hematocrit 28.9, platelet 146,000. Sodium 139, potassium 4.7, chloride 106, bicarbonate 23, BUN 50, creatinine 2.9, glucose 91, calcium 8.9. ASSESSMENT AND PLAN: 1. Acute hypoxemic respiratory failure, multifactorial. Continue treatment for pneumonia and pleural effusion. 2. Right lower lobe pneumonia. Continue with antibiotics per Infectious Disease Department, bronchodilator therapy, and oxygen supplementation. 3. Moderate right pleural effusion. Continue to monitor. 4. Mediastinal lymphadenopathy. Aware. The patient will require repeat imaging once her infection has resolved. Pulmonary and Infectious Disease Department on board. 5. Acute kidney injury. BUN and creatinine are about the same compared with yesterday. Nephrology Department on board. 6. Chronic systolic congestive heart failure. Aware. Continue with the same management for now. 7. Abnormal stress test. This patient will likely undergo an ischemic workup as an outpatient. 8. Immunoglobulin deficiency. She already received IVIG on 06/03/2019. 9. Type 2 diabetes. Continue with the same management. 10. Tobacco abuse. This patient has been highly advised against tobacco use. I will continue with daily cessation education. 11. Hypothyroidism. Continue with Synthroid. 12. Deep vein thrombosis prophylaxis with Lovenox. 13. Generalized weakness. Continue with physical therapy. 14. Overall this patient seems to be stable but she is still getting antibiotics and treatment by subspecialties. Once Nephrology Department, Pulmonary Department, and Infectious Disease Department are okay to send this patient home, she will be discharged. cc: Durga Donahue MD
--- NOTE | 2019-06-07 15:49 | INFECTIOUS DISEASE PROGRESS NO ---
DATE: 06/07/2019 PRESENT ILLNESS: Ms. Barrett has a right-sided pneumonia and immunoglobulin deficiency. MEDICATIONS: Today is day 4 of treatment with Levaquin 250 mg IV every 24 hours and meropenem 1 g IV every 12 hours as renally modified doses. PHYSICAL EXAMINATION: Vital Signs: Temperature is 98.1 degrees, pulse rate 85, respiratory rate 20, blood pressure 123/61, O2 saturation 96% on 2 L nasal cannula. General: This is a chronically ill-appearing, middle-aged female. She is lying in bed currently in no acute distress. HEENT: Atraumatic, normocephalic. Oral mucous membranes are pink and moist. Conjunctivae are pale. Neck: Supple. Trachea is midline. Cardiovascular: Heart rate and rhythm are regular. Normal sinus rhythm on the monitor. Respiratory: Lung sounds with some anterior wheezes in the upper lobes and bilateral rales posteriorly diminished in the bases. No current work of breathing is noted. She does complain of occasional bouts of shortness of breath with exertion. Abdomen: Soft, obese, nontender. Bowel sounds are active. Neurologic: She is awake, alert, oriented, and able to move around in the room independently. Integumentary: Skin is warm, dry and intact. LABORATORY AND X-RAY: Today her white count is 6.76, hemoglobin 9.2, platelet count 146,000. Creatinine 2.9, GFR 17. No imaging reports today. ASSESSMENT AND PLAN: Ms Barrett is being treated for pneumonia and is receiving day 4 of meropenem and Levaquin intravenous which have been renally dosed. We will continue these medications as ordered and continue the IV form of Levaquin due to patient's continued complaint of periods of nausea. We will go ahead and get some blood work and a chest x- ray in the department, in the morning. We will plan on rechecking her immunoglobulin levels in 6 to 8 weeks on an outpatient basis to determine if she will need chronic IVIG replacement. These plans have been discussed with and recommended by Dr. Maldonado. COMORBIDITIES: Include cigarette smoking with COPD, peripheral vascular disease, diabetes mellitus and an immunoglobulin deficiency. Dictated by RY Espan[place] for Bong Maldonado MD cc: Bong Maldonado MD [facility]
--- NOTE | 2019-06-07 20:07 | PULMONOLOGY PROGRESS NOTE ---
DATE: 06/07/2019 SUBJECTIVE: The patient is awake and alert. She reports she has been ambulating short distances. She has a dry cough. OBJECTIVE: The patient has been afebrile for the last 24 hours. Blood pressure 123/61, heart rate 85, respiratory rate 20, oxygen saturation 96% on 2 L per nasal cannula.HEENT: Pupils are equal and reactive. Oropharynx appears clear. Neck is supple. Chest reveals decreased breath sounds, right base. Cardiac exam: S1, S2. Abdomen is soft and obese. Extremities reveal trace edema. LABORATORY DATA: White blood count 6.76, hemoglobin 9.2, platelet count 146,000. Sodium 139, potassium 4.7, chloride 106, bicarbonate 23, BUN 50, creatinine 2.9. IMPRESSION: 1. Right middle lobe and right lower lobe pneumonia. 2. Immunoglobulin deficiency. 3. Ischemic cardiomyopathy. 4. Small to moderate right-sided effusion. 5. Nicotine addiction with ongoing tobacco use. PLAN: 1. Continue current antibiotic regimen. Consider oral outpatient regimen if clinically feasible. 2. Continue bronchodilators. 3. Encourage smoking cessation. 4. Chest x-ray tomorrow. cc: Roc Garcia MD
[2019-06-07] MEDS: LIPITOR PO SCH (22:09)
[2019-06-07] MEDS: ASPIRIN PO SCH (22:09)
[2019-06-07] MEDS: SYNTHROID PO SCH (22:09)
[2019-06-07] MEDS: LOVENOX SUBQ SCH (22:09)
[2019-06-07] MEDS: NEURONTIN PO SCH (22:09)
[2019-06-07] MEDS: SANTYL OINT TOP SCH (22:14)
[2019-06-08] MEDS: MERREM 1 GM in NS 50 ML IV SCH ×2 (00:46→14:22)
[2019-06-08] MEDS: HUMALOG SUBQ SCH ×6 (06:30→18:16)
[2019-06-08 07:30] LABS: BASO# 0.03 X1000 (0.0-0.2); BASO% 0.5 % (0.0-0.8); EOS# 0.51 X1000 (0.0-0.7); EOS% 8.9 % (0.0-10.0); HEMOGLOBIN 9.7 g/dL (12.0-16.0); LYMPH# 1.84 X1000 (1.2-3.4); LYMPH% 32.1 % (20.5-51.1); MCHC 32.3 g/dL (33-37); MCV 86.5 FL (81-99); MONO# 0.36 X1000 (0.11-0.59); MONO% 6.3 % (1.7-9.3); MPV 9.9 FL (7.4-10.4); NEUT# 2.99 X1000 (1.4-6.5); NEUT% 52.2 % (42.2-75.2); PLT 114 X1000 (130-400); RBC 3.47 XMIL (4.2-5.4); RDW 13.2 % (11.5-14.5); WBC 5.73 X1000 (4.8-10.8)
[2019-06-08] MEDS: DUONEB (A & A) INH SCH ×3 (07:50→16:41)
[2019-06-08 07:57] LABS: ALBUMIN 3.6 g/dL (3.5-5.0); CALCIUM 9.4 mg/dL (8.8-10.2); CREATININE 2.7 mg/dL (0.5-0.9); POTASSIUM 4.4 mmol/L (3.5-5.1)
--- NOTE | 2019-06-08 08:16 | Diag Imaging Result Doc PS360 ---
EXAM: CHEST-2 VIEWS INDICATION: pneumonia TECHNIQUE: 2 views COMPARISON: 06/06/2019 FINDINGS: Right pleural effusion appears slightly smaller than the previous study. This may be due to differences in inspiration, however. There is slightly better aeration of the right lung base. There is a stable right upper lobe pulmonary nodule. No new consolidation is identified. Cardiac silhouette is stable. IMPRESSION: Interval slight improvement. Electronically signed by Dre Delgadillo 06/08/2019 8:13 AM
[2019-06-08] MEDS: CULTURELLE PO SCH (08:51)
[2019-06-08] MEDS: LOPRESSOR PO SCH (08:51)
[2019-06-08] MEDS: APRESOLINE PO SCH ×3 (08:51→18:16)
[2019-06-08] MEDS: LANTUS INSULIN SUBQ SCH (08:52)
[2019-06-08] MEDS: FOLIC ACID PO SCH (08:52)
[2019-06-08] MEDS: ISORDIL PO SCH ×3 (08:52→18:16)
[2019-06-08] MEDS: LOTRIMIN 1% CREAM TOP SCH (08:52)
[2019-06-08] MEDS: MYCOSTATIN SUSP PO SCH ×3 (08:52→18:16)
[2019-06-08] MEDS: SANTYL OINT TOP SCH (08:55)
[2019-06-08] MEDS: CALMOSEPTINE OINTMENT TOP PRN (08:55)
--- NOTE | 2019-06-08 12:34 | NEPHROLOGY PROGRESS NOTE ---
DATE: 06/08/2019 TIME SEEN: 0655. SUBJECTIVE: Ms. Barrett is resting quietly in bed. States that she is feeling well today. No specific complaints. LABORATORY DATA: Sodium 143, potassium 4.4, chloride 105, CO2 of 26, BUN 52, creatinine 2.7, glucose 108, her anion gap is 12, calcium 9.4, phosphorus 4, albumin 3.6. White count 5.73, hemoglobin 9.7, hematocrit 30, platelet count 114,000. OBJECTIVE: Most Recent Vital Signs: Blood pressure 134/56, heart rate 80, respirations 18, last temp 97.6 degrees. She is on room air. Last recorded saturation 95%. She has had 0 recorded in. She has had 1000 out to void. General: This is a 59-year-old white female, resting quietly in bed. She appears chronically ill. No acute distress. Skin: Warm and dry. HEENT: Normocephalic, atraumatic. Conjunctiva is pale. She has VIVIAN. Mucous membranes are dry. Neck: Supple. Trachea midline. She has positive JVD at the 6 cm florencia. Cardiovascular: Regular rate and rhythm. S4 is present. Lungs: Clear to auscultation bilaterally. Equal excursion. She is currently on room air. Abdomen: Round, soft, nontender. Positive bowel sounds. Genitourinary: The patient has been voiding. Requested that she keep strict I's and O's with the assistance with the nurses. Extremities: She has no lower extremity edema, though she does have some swelling to her facial/neck area and to her upper thighs/mid hip region. Neurological: Alert and oriented x3. ASSESSMENT AND PLAN: 1. Acute kidney injury on chronic kidney disease stage 2. The patient does have a history of heavy proteinuria, more than likely related to her diabetes. She continues with swelling. BUN and creatinine are stable at 52, and creatinine down to 2.7 from 2.9. Continues to improve over the last several days. We have requested that she keep strict intake and output. 2. Fluid volume overload. The patient does have swelling today, possibly secondary to nephrotic range proteinuria. We will give her 200 mg of Lasix intravenously x1, and will continue to monitor with followup in our office on discharge. 3. Electrolytes and acid-base balance. These are acceptable. 4. Anemia. This is low, but stable. 5. Pneumonia. The patient remains on renal dosed antibiotics. I would like to thank you for allowing us to follow with this patient. Dictated by RY Goff for Darrel Jaime MD cc: RY Goff MD [facility]
--- NOTE | 2019-06-08 14:12 | PROGRESS NOTE ---
DATE: 06/08/2019 SUBJECTIVE: This patient is lying comfortably in bed. She feels tired, but she has been working with physical therapy. Her creatinine is a little bit better compared with yesterday. Nephrology Department will give her a dose of Lasix, 200 mg x1. She does have proteinuria and swelling. I had a conversation with Dr. Maldonado, Infectious Disease Department, and he will evaluate the x-ray today and the lab work to see if we need to continue with the same management or change the treatment. OBJECTIVE: Vital Signs: Temperature 98.1 degrees, pulse 79 respiratory rate 16, blood pressure 140/67, oxygen saturation 99 on 2 L of nasal cannula. HEENT: Head normocephalic, no trauma. PERRLA. Neck: Supple. No JVD. No masses. Central trachea. Chest: Decreased breath sounds at the bases, especially the right lung field. Some crepitus. Abdomen: Soft, nontender, nondistended. Positive bowel sounds. Extremities: Some edema. No clubbing, no cyanosis. Neurological: The patient is alert. She is oriented x3. No focal deficit, but generalized weakness. LABORATORY: WBC 5.7, hemoglobin 9.7, hematocrit 30, platelets 114,000. Sodium 143, potassium 4.4, chloride 105, bicarbonate 26, BUN 52, creatinine 2.7, glucose 108, calcium 9.4, albumin 3.6. ASSESSMENT AND PLAN: 1. Acute hypoxemic respiratory failure, multifactorial. Continue treatment for pneumonia and pleural effusion. 2. Right lower lobe pneumonia. Continue with antibiotics per Infectious Disease Department, bronchodilator therapy, and oxygen supplementation. 3. Moderate right pleural effusion. Continue to monitor. 4. Mediastinal lymphadenopathy, aware. This patient will require repeat imaging once her infection has resolved. Pulmonary Department and Infectious Disease Department on board. 5. Acute kidney injury. This seems to be a little bit better. Nephrology Department on board. She will receive 200 mg of Lasix today. 6. Chronic systolic congestive heart failure, aware. Continue with same management for now. Abnormal stress test. This patient will likely undergo an ischemic workup as an outpatient. 7. Immunoglobulin deficiency. She already received IVIG on 06/03/2019. 8. Type 2 diabetes continue with same management. 9. Tobacco abuse. This patient has been highly advised against tobacco use. I will continue with daily cessation education. 10. Hypothyroidism. Continue with Synthroid. 11. Deep vein thrombosis prophylaxis. She has been placed on Lovenox once a day by Cardiology Department. I will discuss with them because this patient has been having some thrombocytopenia, and probably we need to stop it. I will monitor this for 1 more day, but I will discuss with them. 12. Generalized weakness. Continue physical therapy. 13. Thrombocytopenia. I will discuss with Cardiology Department for the possibility of stopping Lovenox. I will monitor the platelet count closely. Overall, this patient seems to be stable, but today she will receive 200 mg of Lasix x1. Infectious Disease Department will evaluate this patient today to decide if this patient needs to continue with the same treatment or if it has to be changed. cc: Durga Donahue MD
[2019-06-08 14:18] VITALS: BP 118/59
[2019-06-08] MEDS: LEVAQUIN 250 MG/D5W 250 MG/50 ML IVPB IV SCH (14:22)
[2019-06-08] MEDS: LASIX IV ONE ×2 (15:26→15:27)
--- NOTE | 2019-06-08 15:43 | INFECTIOUS DISEASE PROGRESS NO ---
DATE: 06/08/2019 PRESENT ILLNESS: Ms. Barrett is being treated for a right-sided pneumonia and immunoglobulin deficiency. MEDICATIONS: Today is day 5 of IV Levaquin 250 mg every 24 hours and meropenem 1 g every 12 hours. These are renally modified doses. PHYSICAL EXAMINATION: Vital Signs: Temperature is 98.3 degrees, pulse rate 77, respiratory rate 16, blood pressure 118/59, O2 saturation is 97% on 2 L nasal cannula. General: This is a chronically ill-appearing, middle-aged female. She is lying in bed, currently in no acute distress. HEENT: Atraumatic, normocephalic. Oral mucous membranes are pink and moist. Conjunctivae are pale. Neck: Supple. Trachea is midline. Cardiovascular: Heart rate and rhythm are regular. Normal sinus rhythm on the monitor. Respiratory: Lung sounds are clear in the upper lobes. Diminished in the bases. No work of breathing is noted. Abdomen: Soft, obese, nontender. Bowel sounds are active. Integumentary: Skin is warm, dry, and intact. Neurologic: She is awake, alert, oriented, and able to move around independently in the room. LABORATORY AND X-RAY: Today her white count is 5.73, hemoglobin 9.7, platelet count 114,000. Creatinine is 2.7. GFR is 18. Chest x-ray done this morning shows slight interval improvement with a right pleural effusion that is slightly smaller and better aeration of the right lung base. There is no new consolidation. ASSESSMENT AND PLAN: Ms. Barrett is being treated for pneumonia and is very anxious to go home. I have talked with Dr. Jaime and he is fine with sending her home at this point, to follow up in 2 weeks with fluid restriction which I have reiterated with the patient. As far as we are concerned, we will send her home on Levaquin at a renally modified dose of 250 mg daily for 10 days and we will then see her back in the office and repeat a chest x-ray. The prescription for Levaquin has been put on the front of the patient's chart. Side effects of Levaquin including rash, diarrhea, seizure, and tendon rupture have been reviewed with the patient. We will plan on following up on her immunoglobulin levels in 6 to 8 weeks as well. She has been instructed to call for any of these. These plans have been discussed with and recommended by Dr. Maldonado. COMORBIDITIES: For Ms. Barrett include acute kidney injury on chronic kidney disease, cigarette smoking with COPD, peripheral vascular disease, diabetes mellitus, and immunoglobulin deficiency. Dictated by RY Espan[place] for Bong Maldonado MD cc: Bong Maldonado MD [facility]
--- NOTE | 2019-06-09 05:22 | DISCHARGE SUMMARY ---
ADMISSION DATE: 05/26/2019 DISCHARGE DATE: 06/08/2019 DISCHARGE DIAGNOSES: 1. Acute hypoxemic respiratory failure. 2. Right lower lobe pneumonia. 3. Mild to moderate right pleural effusion. 4. Mediastinal lymphadenopathy. 5. Acute kidney injury. 6. Chronic systolic congestive heart failure. 7. Abnormal stress test. 8. Immunoglobulin deficiency. 9. Type 2 diabetes. 10. Tobacco abuse. 11. Hypothyroidism. 12. Thrombocytopenia. 13. Generalized weakness. 14. Atrial fibrillation with rapid ventricular response. 15. Peripheral vascular disease, status post percutaneous arteriogram of the left lower extremity and percutaneous atherectomy of the distal superficial femoral. PROCEDURES PERFORMED: 1. Chest x-ray dated 05/26/2019. Impression: Worsening right basilar infiltrates with mild pulmonary edema. 2. Chest x-ray dated 05/27/2019. Impression: Mixed areas of improvement and worsening. 3. Echocardiogram dated 05/27/2019. Left ventricular cavitary size is normal. There is an anteroseptal hypokinesis. Estimated ejection fraction 40%. There is grade 2-3 diastolic dysfunction with a pulmonary artery systolic pressure of 35 to 40 mmHg. There is a trace pericardial effusion. 4. Renal ultrasound dated 05/27/2019. Impression: Negative exam. 5. Chest x-ray dated 05/29/2019. Impression: Worsening aeration of the left lung base. 6. Chest x-ray dated 05/30/2019. Impression: Improved aeration of the right lung base. Stress test dated 05/30/2019. Conclusions: Abnormal resting images demonstrating [id number] perfusion defect in the basal and mid inferolateral wall with corresponding hypokinesis, calculated left ventricular ejection fraction 37%. Clinical correlation recommended. 7. Chest x-ray dated 06/01/2019. Impression: Increase in the right pleural effusion and atelectasis and/or infiltrate. 8. Chest x-ray dated 06/03/2019. Impression: No interval improvement. 9. CT scan of the chest dated 06/03/2019. Impression: Small to moderate right and trace left pleural effusion, interstitial pulmonary edema, cardiomegaly, significant consolidation of the right lower lobe, patchy infiltrate in the right middle lobe, nonspecific mediastinal lymphadenopathy. 10. Chest x-ray dated 06/04/2019. Impression: Stable chest. No changes. 11. Chest x-ray dated 06/06/2019. Impression: Mild interval improvement. 12. Chest x-ray dated 06/08/2018. Impression: Interval to slight improvement CONSULTATIONS: 1. Cardiology Department Dr. Nilson Hoang. 2. Nephrology Department Dr. Jaime. 3. Infectious Disease Department Dr. Bong Maldonado. 4. Pulmonary Department Dr. Roc Garcia. HOSPITAL COURSE: A 59-year-old female, who was recently admitted to our service on 05/03/2019 and discharged on 05/04/2019. Now, she was readmitted on 05/26/2019. When she was discharged for the first time, she was given Lasix to take as an outpatient for CHF. As per the patient, she forgot to take it after her discharge, but then she confessed that she does not have a lot of energy when she takes the medication so she was having trouble taking it. She continues to smoke almost a pack a day. Past medical history of diabetes, peripheral vascular disease, and COPD. The patient has been counseled on smoking cessation, and also the need to change her lifestyle habits. She presented with shortness of breath and cough that has been getting worse basically since the night before admission. She has worsening right basilar infiltrate with cardiomegaly and pulmonary edema. She was admitted due to pneumonia. She had an hypoxemic respiratory failure on presentation and pulmonary edema. She was placed on antibiotics. We used diuretic therapy. Apparently, she started having also some atrial fibrillation with RVR, which we believed was new although apparently she has been having some palpitations for the past year or so. She was placed on a Cardizem drip. Also, she was placed on anticoagulation. She has a history of peripheral vascular disease status post percutaneous arteriogram of the left lower extremity and percutaneous atherectomy of the distal superficial femoral that was done on 02/18/[address] Santana. Also, her diabetes was uncontrolled with a presenting glucose level of 564. Cardiology Department was consulted. We did a new echocardiogram that showed some pericardial effusion and ejection fraction of 40%, diastolic dysfunction, and increase in the pulmonary arterial pressure. Also, we did a stress test that basically was abnormal showing [id number] perfusion defect in the basal and mid inferolateral wall with corresponding hypokinesis. The calculated left ventricular ejection fraction was 37% and, like I mentioned before, she was already placed on blood thinners. Cardiology Department readjusted her medications. Her kidney function started to deteriorate and Nephrology Department got on board. Renal ultrasound without any abnormality. Probably, this patient had an acute tubular necrosis. At this moment, she has been using diuretics which were stopped. They have been used sometimes by Nephrology Department, but nothing for a couple of days. We did a CT scan that showed small-to- moderate right pleural effusion, interstitial pulmonary edema, and significant consolidation of the right lower lobe. Pulmonary Department and Infectious Disease Department were consulted, and they have been following this patient closely. Infectious Disease Department has been taking care of the antibiotics. Also, because of this patient's weakness we started physical therapy. We suggested to send this patient to a rehab center but she wants to go home. Today, this patient is feeling better, although she is feeling tired. I discussed the case with the subspecialties. She will be discharged today, but she will need to follow up closely with all the subspecialties including Cardiology, Nephrology, Pulmonology Department and Infectious Disease Department. Likely, this patient will need to do an ischemic workup, and ischemic workup as an outpatient probably a cardiac catheterization. Nephrology Department has recommended fluid restriction at home, and this has been placed in the instructions. She will go home with antibiotics, Levaquin for 10 more days. Then, at the end of the treatment she will be seen by Dr. Maldonado as an outpatient. I personally talked to Dr. Garcia and he wants to see this patient in 7 to 10 days at the office. She will need to call for an appointment. Cardiology Department has recommended to continue with Eliquis full dose 5 mg twice a day given her age and her weight even though her kidney function is not that good. Continue with Plavix as well, but no aspirin which has been stopped. The patient seems to be stable today. We will send her home, and she needs to follow up with all of these subspecialties closely. PHYSICAL EXAMINATION: Vital Signs: Temperature 98.3 degrees, pulse 77, respiratory rate 16, blood pressure 118/59, and oxygen saturation 97% on 2 L of nasal cannula. HEENT: Head normocephalic. No trauma. PERRLA. Neck: Supple. No JVD. No masses. Central trachea. Chest: Decreased breath sounds at the right base with some crepitus and rhonchi. Abdomen: Soft, nontender, and nondistended. No hepatosplenomegaly. Extremities: No edema. No clubbing. No cyanosis. Neurological: The patient is alert and oriented x3. No focal deficits but some generalized weakness. LABORATORY: WBC 5.7, hemoglobin 9.7, hematocrit 30, and platelet count 114,000. Sodium 143, potassium 4.4, chloride 105, bicarbonate 26, BUN 52, creatinine 2.7, glucose 108, calcium 9.4, and albumin 3.6. DISCHARGE MEDICATIONS: 1. Eliquis 5 mg p.o. b.i.d. 2. Plavix 75 mg p.o. daily. 3. Santal 1 application daily. 4. Folic Acid 1 mg p.o. daily. 5. Gabapentin 200 mg p.o. at bedtime. 6. Hydralazine 10 mg p.o. t.i.d. 7. Lantus 35 units subcutaneous daily. 8. Isosorbide dinitrate 10 mg p.o. t.i.d. 9. Culturelle 1 tablet p.o. b.i.d. 10. Levofloxacin 250 mg p.o. daily. 11. Levothyroxine 75 mcg p.o. at bedtime. 12. Metoprolol 50 mg p.o. b.i.d. 13. Simvastatin 40 mg p.o. at bedtime. TIME SPENT: Time discharging this patient 40 minutes. cc: Durga Donahue MD
== END 2019-06-08 18:18 | disposition home health service (06) | DRG 291 ==
LOC: ED 03:04 → SUATTDRO 05:44 → 2N 05:44 → 3N 06-01 10:31
PROVIDERS: ATTEND Internal Medicine

== ENCOUNTER 2019-06-24 10:59 | Inpatient (IN) ==
[2019-06-24] MEDS ORDERED: ZOFRAN IV ONE (11:13)
[2019-06-24] MEDS ORDERED: NS 1,000 ML IV ONE (11:13)
[2019-06-24 11:36] LABS: BASO# 0.06 X1000 (0.0-0.2); BASO% 0.7 % (0.0-0.8); EOS# 1.02 X1000 (0.0-0.7); EOS% 11.7 % (0.0-10.0); HEMATOCRIT 30.7 % (37.0-47.0); IMM GRAN# 0.03 X1000 (0.0-0.04); IMM GRAN% 0.3 % (0.0-0.5); LYMPH# 1.56 X1000 (1.2-3.4); LYMPH% 17.9 % (20.5-51.1); MCH 27.7 PG (27-31); MCHC 32.6 g/dL (33-37); MONO# 0.51 X1000 (0.11-0.59); MONO% 5.8 % (1.7-9.3); MPV 9.8 FL (7.4-10.4); NEUT# 5.55 X1000 (1.4-6.5); NEUT% 63.6 % (42.2-75.2); PLT 332 X1000 (130-400); RBC 3.61 XMIL (4.2-5.4); WBC 8.73 X1000 (4.8-10.8)
[2019-06-24 11:44] LABS: URINE SOURCE CLEAN CATCH
[2019-06-24 11:47] LABS: BILIRUBIN URINE NEGATIVE (NEGATIVE); BLOOD URINE SMALL (NEGATIVE); COLOR YELLOW; GLUCOSE URINE 300 mg/dL (NEGATIVE); KETONE URINE NEGATIVE (NEGATIVE); LEUKOCYTES URINE LARGE (NEGATIVE); NITRITE URINE NEGATIVE (NEGATIVE); PH URINE 6.5; PROTEIN URINE 300 mg/dL (NEGATIVE); SP GRAVITY URINE 1.009; TURBIDITY URINE TURBID (CLEAR); UROBILINOGEN URINE NORMAL (NORMAL)
[2019-06-24 11:54] LABS: ALB/GLOB RATIO 1.2; ALBUMIN 3.1 g/dL (3.5-5.0); CALCIUM 8.4 mg/dL (8.8-10.2); CREATININE 1.8 mg/dL (0.5-0.9); MAGNESIUM 1.3 mg/dL (1.5-2.7); POTASSIUM 3.3 mmol/L (3.5-5.1); TOTAL BILIRUBIN 0.86 mg/dL (0.20-1.00); TOTAL PROTEIN 5.7 g/dL (6.3-8.3)
[2019-06-24 11:59] LABS: UR EPITHELIAL CELLS <10 /HPF (<10); URINE BACTERIA 4+ /HPF; URINE WBC TNTC /HPF (<10)
[2019-06-24 12:00] LABS: URINE YEAST PRESENT
[2019-06-24] MEDS ORDERED: POTASSIUM CHLORIDE 10% LIQUID PO ONE (13:34)
[2019-06-24] MEDS ORDERED: MAGNESIUM SULFATE 4 GM/S.W.I. 4 GM/100 ML IVPB IV ONE (13:34)
[2019-06-24] MEDS ORDERED: ROCEPHIN 1 GM in NS 50 ML IV ONE (13:34)
[2019-06-24] MEDS ORDERED: TYLENOL PO PRN (14:45)
[2019-06-24] MEDS: APRESOLINE PO SCH (16:36)
[2019-06-24] MEDS: ISORDIL PO SCH (16:36)
[2019-06-24] MEDS: NS 1,000 ML IV SCH (16:36)
[2019-06-24] MEDS: ZOFRAN IV PRN ×2 (17:19→22:10)
--- NOTE | 2019-06-24 18:06 | HISTORY AND PHYSICAL ---
PRIMARY CARE PROVIDER: RY Cristina. Insurance Commissioner,Dr. Nilson Hoang. Infectious Disease, Dr. Bong Maldonado. CHIEF COMPLAINT: Nausea, vomiting, diarrhea, and weakness. HISTORY OF PRESENT ILLNESS: Ms. Barrett is a 59-year-old female who was recently admitted to our service on 05/26/2019 and discharged on 06/08/2019 for acute hypoxemic respiratory failure and a right lower lobe pneumonia and right pleural effusion, who came into the ED stating she has been having nausea, vomiting, alternating constipation and diarrhea since her discharge. She reports that she is trying to take her home medications, but does not take them regularly. She also reports that she is not taking half the medications that she was discharged on, nor is she taking them at the correct times. Workup in the ED showed hypomagnesium, hypokalemia and acute kidney injury and urinary tract infection for which she will be admitted to the hospital and do a social service physical therapy for possible rehab placement. I do think it is important to note that over 2 years ago she lost both her and her father. She may have some depression issues going on and may need started on some kind a antidepressant or speak with Bashir Delatorre for evaluation and recommendations. PAST MEDICAL HISTORY: 1. Diabetes mellitus type 2. 2. Peripheral vascular disease. 3. COPD. 4. Tobacco use. 5. Systolic congestive heart failure. 6. Immunoglobulin deficiency. 7. Diabetes mellitus type 2. 8. Hypothyroidism. 9. Atrial fibrillation. 10. Peripheral vascular disease. PAST SURGICAL HISTORY: 1. Percutaneous arteriogram of the left lower extremity with percutaneous arthrectomy and distal superficial femoral. 2. Hernia repair. 3. Cholecystectomy. SOCIAL HISTORY: Forty pack year smoking history. No alcohol or illicit drug use. She lives with her son and [id number]. FAMILY HISTORY: Positive for coronary artery disease in mother and father. Mother also had congestive heart failure and a father with pancreatic cancer. ALLERGIES: No known drug allergies. HOME MEDICATIONS: The last known home medications that she was discharged on: 1. Eliquis 5 mg p.o. b.i.d. 2. Plavix 75 mg p.o. b.i.d. 3. Santal 1 application topical daily. 4. Folic acid 1 mg p.o. daily. 5. Gabapentin 200 mg p.o. at bedtime. 6. Hydralazine 10 mg p.o. t.i.d. 7. Lantus subcu daily. 8. Isosorbide dinitrate 10 mg p.o. t.i.d. 9. Culturelle 1 tablet p.o. b.i.d. 10. Levothyroxine 75 mcg p.o. at bedtime. 11. Metoprolol 50 mg p.o. b.i.d. 12. Simvastatin 40 mg p.o. at bedtime. REVIEW OF SYSTEMS: Twelve-point review of systems completely negative except for those mentioned in HPI. PHYSICAL EXAMINATION: VITAL SIGNS: Temperature is 98 degrees, heart rate 73, respirations 18, blood pressure 147/73, O2 is 98% on room air. GENERAL: Ms. Barrett is a 59-year-old female who looks chronically ill and older than her stated age, lying in the ER stretcher in no acute distress. HEENT: Atraumatic, normocephalic. PERRL. NECK: Supple. Trachea midline. No JVD noted. CARDIOVASCULAR: S1, S2 appreciated. No murmurs, gallops, or rubs noted. RESPIRATORY: Lung sounds clear bilaterally. ABDOMEN: Soft, nontender, nondistended. Positive bowel sounds 4 quadrants. EXTREMITIES: No clubbing, no cyanosis. NEUROLOGIC: She is awake, alert, oriented. No focal deficits noted. DIAGNOSTIC DATA: White count 8, hemoglobin and hematocrit 10 and 30, platelet count is 332,000. Sodium 142, potassium 3.2, BUN 20, creatinine 1.8, blood glucose is 282, amylase 16, lipase 12. Urine 4+ bacteria, too numerous to count WBCs, large leukocytes, negative for nitrites. ASSESSMENT AND PLAN: 1. Urinary tract infection. We will continue with IV Rocephin. 2. Hypomagnesium, hypokalemia. We will replenish electrolytes and recheck at 1700 hours. 3. Acute kidney injury. We will continue with gentle hydration. 4. Nausea, vomiting, and diarrhea. We will continue with antiemetics. 5. Generalized weakness and physical deconditioning. We will consult Physical therapy as well as Animal Ecologist for possible rehab placement. 6. Chronic systolic congestive heart failure, does not appear to be in exacerbation at this time. We will continue with home medications. 7. Hypothyroidism. Continue Synthroid. 8. Atrial fibrillation history. 9. Chronic obstructive pulmonary disease. Continue p.r.n. bronchodilators. 10. Tobacco use and abuse. Will need continued education on smoking cessation as well as the means to quit. 11. Further recommendation to follow physician evaluation, laboratory and diagnostic data. Dictated by RY Morgan for Jacy Siddiqui MD cc: MD Tereso Bolanos CRNP
[2019-06-24 18:32] LABS: MAGNESIUM 1.2 mg/dL (1.5-2.7); POTASSIUM 3.2 mmol/L (3.5-5.1)
[2019-06-24] MEDS ORDERED: SYNTHROID PO SCH (21:00)
[2019-06-24] MEDS: NEURONTIN PO SCH (22:11)
[2019-06-24] MEDS: LOPRESSOR PO SCH (22:11)
[2019-06-24] MEDS: CULTURELLE PO SCH (22:11)
[2019-06-24] MEDS: ELIQUIS PO SCH (22:11)
[2019-06-24] MEDS: ZOCOR PO SCH (22:12)
[2019-06-24] MEDS: LOTRIMIN 1% CREAM TOP SCH (22:15)
[2019-06-25] MEDS: NS 1,000 ML IV SCH (06:09)
[2019-06-25 07:59] LABS: BASO# 0.04 X1000 (0.0-0.2); BASO% 0.5 % (0.0-0.8); EOS# 1.38 X1000 (0.0-0.7); EOS% 17.6 % (0.0-10.0); HEMATOCRIT 29.5 % (37.0-47.0); HEMOGLOBIN 9.2 g/dL (12.0-16.0); LYMPH# 2.36 X1000 (1.2-3.4); LYMPH% 30.1 % (20.5-51.1); MCH 27.1 PG (27-31); MCHC 31.2 g/dL (33-37); MONO# 0.62 X1000 (0.11-0.59); MONO% 7.9 % (1.7-9.3); NEUT# 3.43 X1000 (1.4-6.5); NEUT% 43.9 % (42.2-75.2); PLT 303 X1000 (130-400); RBC 3.39 XMIL (4.2-5.4); RDW 14.4 % (11.5-14.5); WBC 7.83 X1000 (4.8-10.8)
[2019-06-25 08:23] LABS: ALB/GLOB RATIO 1.1; ALBUMIN 2.9 g/dL (3.5-5.0); CALCIUM 7.8 mg/dL (8.8-10.2); CREATININE 1.9 mg/dL (0.5-0.9); MAGNESIUM 1.3 mg/dL (1.5-2.7); POTASSIUM 3.4 mmol/L (3.5-5.1); TOTAL BILIRUBIN 0.93 mg/dL (0.20-1.00); TOTAL PROTEIN 5.5 g/dL (6.3-8.3)
[2019-06-25] MEDS: D5W 1,000 ML IV SCH ×2 (09:37→22:26)
[2019-06-25] MEDS: LOTRIMIN 1% CREAM TOP SCH ×2 (09:39→22:33)
[2019-06-25] MEDS: ISORDIL PO SCH ×3 (09:40→17:42)
[2019-06-25] MEDS: LOPRESSOR PO SCH ×2 (09:40→22:25)
[2019-06-25] MEDS: FOLIC ACID PO SCH (09:40)
[2019-06-25] MEDS: APRESOLINE PO SCH ×3 (09:40→17:42)
[2019-06-25] MEDS: CULTURELLE PO SCH ×2 (09:40→22:25)
[2019-06-25] MEDS: LANTUS INSULIN SUBQ SCH (09:42)
[2019-06-25] MEDS: ELIQUIS PO SCH ×2 (09:42→22:26)
[2019-06-25] MEDS: PLAVIX PO SCH (09:42)
[2019-06-25] MEDS: SANTYL OINT TOP SCH (11:48)
[2019-06-25] MEDS: ROCEPHIN 1 GM in NS 50 ML IV SCH (13:32)
[2019-06-25] MEDS ORDERED: CALMOSEPTINE OINTMENT TOP PRN (13:52)
[2019-06-25] MEDS: ZOFRAN IV PRN ×2 (15:10→21:20)
[2019-06-25] MEDS: HUMULIN R SUBQ SCH ×2 (15:46→22:26)
[2019-06-25] MEDS ORDERED: KLOR-CON PO ONE (18:14)
[2019-06-25] MEDS ORDERED: MAGNESIUM SULFATE 4 GM/S.W.I. 4 GM/100 ML IVPB IV ONE (18:14)
[2019-06-25] MEDS ORDERED: SODIUM CHLORIDE 0.9% INJ SCH (18:30)
--- NOTE | 2019-06-25 18:40 | PROGRESS NOTE ---
DATE: 06/25/2019 SUBJECTIVE: The patient is resting comfortably in bed. She complains of nausea, but no vomiting. She also reports intermittent episodes of diarrhea. OBJECTIVE: Vital Signs: Temperature 98 degrees, blood pressure 131/61, heart rate 70, respirations 19, O2 saturation is 99% on room air. General: This is an elderly female sitting up in bed in no acute distress. Heart: S1, S2 normal. Regular rate and rhythm. Lungs: Equal air entry bilaterally. No wheezing. No rales. Abdomen: Positive bowel sounds. Soft, nontender, nondistended. Extremities: No edema. No cyanosis. Neurologic: The patient is alert and oriented x3. LABORATORY DATA: Sodium 148, potassium 3.4, chloride 108, CO2 of 27, BUN 16, creatinine 1.9, glucose 130, magnesium 1.3. ASSESSMENT AND PLAN: 1. Nausea with abdominal pain and diarrhea. The patient may have gastroenteritis. We will continue with gentle IV fluid hydration and will replace the patient's electrolytes. 2. Urinary tract infection. Continue on Rocephin. We will await the results of the urine culture. 3. Hypomagnesemia. We will replace the patient's magnesium. 4. Hypokalemia. We will replace the patient's potassium. 5. Hypernatremia. We will switch the patient to D5W and monitor closely. 6. Diabetes mellitus type 2. The patient is on sliding-scale insulin. 7. Chronic kidney disease. Stable. We will continue to monitor closely while hospitalized. 8. Chronic systolic congestive heart failure. We will monitor the patient's volume status closely. 9. Deep vein thrombosis prophylaxis. We will start the patient on heparin. cc: Jacy Siddiqui MD [facility]
[2019-06-25] MEDS: ZOCOR PO SCH (22:25)
[2019-06-25] MEDS: NEURONTIN PO SCH (22:26)
[2019-06-26] MEDS: PROTONIX IV SCH (06:19)
[2019-06-26] MEDS: SYNTHROID PO SCH (06:20)
[2019-06-26] MEDS: HUMULIN R SUBQ SCH ×4 (07:10→21:28)
[2019-06-26 08:06] LABS: HEMATOCRIT 28.6 % (37.0-47.0); HEMOGLOBIN 9.2 g/dL (12.0-16.0); MCH 27.8 PG (27-31); MCHC 32.2 g/dL (33-37); MCV 86.4 FL (81-99); MPV 9.8 FL (7.4-10.4); RBC 3.31 XMIL (4.2-5.4); RDW 14.4 % (11.5-14.5); WBC 7.48 X1000 (4.8-10.8)
[2019-06-26 08:24] LABS: ALBUMIN 2.9 g/dL (3.5-5.0); CALCIUM 8.3 mg/dL (8.8-10.2); CREATININE 2.1 mg/dL (0.5-0.9); POTASSIUM 4.1 mmol/L (3.5-5.1)
[2019-06-26] MEDS: LANTUS INSULIN SUBQ SCH (08:48)
[2019-06-26] MEDS: FOLIC ACID PO SCH (08:49)
[2019-06-26] MEDS: APRESOLINE PO SCH (08:49)
[2019-06-26] MEDS: CULTURELLE PO SCH ×2 (08:49→21:26)
[2019-06-26] MEDS: LOPRESSOR PO SCH ×2 (08:50→21:26)
[2019-06-26] MEDS: ELIQUIS PO SCH ×2 (08:50→21:26)
[2019-06-26] MEDS: ISORDIL PO SCH ×3 (08:51→18:57)
[2019-06-26] MEDS: PLAVIX PO SCH (08:52)
[2019-06-26] MEDS: SANTYL OINT TOP SCH (09:23)
[2019-06-26] MEDS: LOTRIMIN 1% CREAM TOP SCH ×2 (09:23→22:08)
[2019-06-26] MEDS: ZOFRAN IV PRN (09:23)
--- NOTE | 2019-06-26 09:40 | Diag Imaging Result Doc PS360 ---
EXAM: ABDOMEN FLAT/UPRIGHT 06/26/2019 HISTORY: abdominal pain/nausea TECHNIQUE: AP portable flat and upright COMMENT: There is some stool and gas in the colon without evidence of dilatation. There is some retained gastric contents. There has been previous cholecystectomy. The small bowel is not distended. There is no evidence of organomegaly or mass. There is apparent pleural effusion on the right and the possibility of atelectasis or pneumonia in the right lower lobe cannot be excluded. IMPRESSION: Nonspecific abdomen. Right lower lobe atelectasis versus pneumonia with pleural effusion. Electronically signed by Shan Piper 06/26/2019 9:37 AM
[2019-06-26] MEDS: NS 1,000 ML IV SCH ×2 (12:19→23:52)
[2019-06-26 12:54] LABS: UR CREAT RANDOM 55.9 mg/dL (11-20); UR PROT RANDOM 238.2 mg/dL
[2019-06-26] MEDS: ANTIVERT PO SCH ×2 (14:49→18:57)
[2019-06-26] MEDS: ROCEPHIN 1 GM in NS 50 ML IV SCH (14:49)
--- NOTE | 2019-06-26 16:25 | Diag Imaging Result Doc PS360 ---
EXAM: CT HEAD W/O CONTRAST 06/26/2019 HISTORY: encephalopathy/vertigo TECHNIQUE: This exam was performed using automated exposure control, adjustment of mA or kV according to patient size, and/or use of iterative reconstruction technique. COMMENT: There are lucencies present in the posterior right cerebellar hemisphere. There is a small lacune in the left caudate nucleus. There is no evidence of mass effect or bleed. No abnormal extra-axial fluid collections are present. The calvarium is intact. The paranasal sinuses are clear. There are no previous studies available for comparison. IMPRESSION: Subacute or chronic infarctions in the right cerebellar hemisphere. Left caudate lacunar lesion. Electronically signed by Shan Piper 06/26/2019 4:22 PM
--- NOTE | 2019-06-26 16:45 | Diag Imaging Result Doc PS360 ---
EXAM: CT THORAX W/O CONTRAST 06/26/2019 HISTORY: pneumonia TECHNIQUE: This exam was performed using automated exposure control, adjustment of mA or kV according to patient size, and/or use of iterative reconstruction technique. COMMENT: The current study is compared with the previous examination of 06/03/2019. There are bilateral pleural effusions which were also present previously with the right being larger than the left. There is a small pericardial effusion which is also similar in appearance. There is some subcutaneous edema which was present previously as well. There is considerable atelectasis in the right lower lobe. The possibility of pneumonia cannot be excluded. There is less apparent atelectasis in the right middle and upper lobes compared to the previous exam. The nodule in the right upper lobe which was present previously is again noted measuring almost 10 mm in AP dimension. This has not changed significantly. There is some improvement in the atelectasis in the left lower lobe as well. There is aorticopulmonary window and paratracheal adenopathy which is stable in appearance. The appearance of the visualized skeleton is unchanged. IMPRESSION: Slightly improved atelectasis as described. Large right pleural effusion with atelectasis versus pneumonia in the right lower lobe. Electronically signed by Shan Piper 06/26/2019 4:43 PM
[2019-06-26] MEDS ORDERED: ASPIRIN PO SCH (17:15)
--- NOTE | 2019-06-26 17:58 | PROGRESS NOTE ---
DATE: 06/26/2019 SUBJECTIVE: The patient complains of a vertigo sensation whenever she stands. She feels like the room is spinning and then she starts to feel nauseated. OBJECTIVE: Vital Signs: Temperature 97.9 degrees, blood pressure 121/61, heart rate 86, respirations 17, O2 saturation is 96% on room air. General: This is a chronically ill-appearing, elderly female lying in bed, in no acute distress. Heart: S1, S2. Normal. Lungs: Diminished breath sounds in the right lung field. No wheezing. No rales. Abdomen: Positive bowel sounds. Soft, nontender, nondistended. Extremities: No edema. No cyanosis. Neurologic: The patient is alert and oriented x3. The patient is off balance when trying to ambulate. LABS: White blood cell count 7.4, hemoglobin 9.2, hematocrit 28, platelets 292,000. Sodium 137, potassium 4.1, chloride 103, CO2 23, BUN 20, creatinine 2.1, glucose 167, phosphorus 4, magnesium 2.3, albumin 2.9. IMAGIN. Head CT shows a subacute or chronic infarction in the right cerebellar hemisphere. Left caudate lacunar infarct lesion. 2. Chest CT shows improved atelectasis. Large right pleural effusion with atelectasis versus pneumonia in the right lower lobe. ASSESSMENT AND PLAN: 1. Subacute infarct involving the right cerebellar hemisphere. This may explain why the patient is dizzy and having balance issues. The patient is already on Plavix, Eliquis and a statin. We will consult with the neurologist for further recommendations. We will also consult with physical therapy. Will also order a carotid doppler. 2. Abdominal pain with nausea. The abdominal x-ray was unremarkable. The patient reports that she has IBS. Will consult with GI. Continue with IV fluids. 3. Urinary tract infection secondary to Escherichia coli. Continue on Rocephin. 4. Hypothyroidism. Continue on Synthroid. 5. Insulin-dependent diabetes mellitus. Continue on Lantus and sliding scale insulin. 6. IRIS on Chronic kidney disease. The BUN and Cr are rising. The FENa is less than 1. We will continue with gentle IV fluid hydration. 7. Right pleural effusion. Stable. 8. Right upper lobe nodule. Aware. The patient will need to follow up with a pulmonary physician as outpatient to follow the nodule. 9. Mediastinal lymphadenopathy. Aware. Continue to follow. 10. Cardiomyopathy with EF of 40%. Aware. 11. Deep vein thrombosis prophylaxis. The patient is on Eliquis. cc: Jacy Siddiqui MD MTDD
[2019-06-26] MEDS: NEURONTIN PO SCH (21:26)
[2019-06-26] MEDS: LIPITOR PO SCH (21:27)
[2019-06-27] MEDS: HUMULIN R SUBQ SCH ×4 (06:09→21:37)
[2019-06-27] MEDS: PROTONIX IV SCH (06:10)
[2019-06-27] MEDS: SYNTHROID PO SCH (06:10)
[2019-06-27 07:45] LABS: HEMATOCRIT 26.3 % (37.0-47.0); HEMOGLOBIN 8.5 g/dL (12.0-16.0); MCH 28.2 PG (27-31); MCHC 32.3 g/dL (33-37); MCV 87.4 FL (81-99); MPV 10.3 FL (7.4-10.4); RBC 3.01 XMIL (4.2-5.4); RDW 14.4 % (11.5-14.5); WBC 7.72 X1000 (4.8-10.8)
[2019-06-27 07:56] LABS: CHOLESTEROL 109 mg/dL (0-200); HDL 28 mg/dL (45-65); LDL 52 mg/dL; TRIGLYCERIDES 145 mg/dL (35-135); VLDL 29 mg/dL
[2019-06-27 08:02] LABS: ALBUMIN 2.9 g/dL (3.5-5.0); CALCIUM 8.3 mg/dL (8.8-10.2); CREATININE 2.2 mg/dL (0.5-0.9); PHOSPHORUS 4.3 mg/dL (2.7-4.5); POTASSIUM 4.7 mmol/L (3.5-5.1)
[2019-06-27] MEDS: LANTUS INSULIN SUBQ SCH (09:30)
[2019-06-27] MEDS: FOLIC ACID PO SCH (09:30)
[2019-06-27] MEDS: ANTIVERT PO SCH ×3 (09:30→17:36)
[2019-06-27] MEDS: ISORDIL PO SCH ×3 (09:30→17:36)
[2019-06-27] MEDS: ELIQUIS PO SCH ×2 (09:30→21:37)
[2019-06-27] MEDS: CULTURELLE PO SCH ×2 (09:30→21:37)
[2019-06-27] MEDS: LOPRESSOR PO SCH ×2 (09:31→21:37)
[2019-06-27] MEDS: PLAVIX PO SCH (09:31)
[2019-06-27] MEDS: LOTRIMIN 1% CREAM TOP SCH ×2 (09:31→21:37)
[2019-06-27] MEDS: SANTYL OINT TOP SCH (11:58)
--- NOTE | 2019-06-27 12:06 | Diag Imaging Result Doc PS360 ---
MRI BRAIN W/O CONTRAST - 06/27/2019 INDICATION: Acute CVA COMPARISON: Head CT 06/26/2019 FINDINGS: There is multifocal increased signal in the right cerebellar hemisphere on the T2 and FLAIR weighted images. This is somewhat dark on the T1-weighted images. These areas are bright on the diffusion images, but there is no corresponding hypointense signal on the ADC map. No intracranial mass or hemorrhage. Tiny old lacunar in the left caudate head. Remainder of the brain remains normal. IMPRESSION: Questionable restricted diffusion within the right cerebellar hemisphere. Extensive edema of the cerebellum here. The differential diagnosis includes recent stroke, or cerebritis. Recommend MRI brain with contrast only for further evaluation. Electronically signed by Sinan Mann 06/27/2019 12:04 PM
[2019-06-27] MEDS: ROCEPHIN 1 GM in NS 50 ML IV SCH (13:46)
[2019-06-27] MEDS: NS 1,000 ML IV SCH (13:48)
--- NOTE | 2019-06-27 14:33 | GASTROENTEROLOGY CONSULTATION ---
DATE: 06/27/2019 REASON FOR CONSULT: Abdominal pain and nausea. HISTORY OF PRESENT ILLNESS: Ms. Barrett 59-year-old female was admitted recently to the hospital on May 26 and was discharged on June 08 for acute hypoxemic respiratory failure and right lower lobe pneumonia with right pleural effusion. She presented to the ER on Thursday morning with nausea, vomiting, and complained that whatever she eats makes her throws up. She had dizziness, but denied any fever,chills, or shortness of breath. She mentioned feeling constipated and did not have a bowel movement since Thursday, but last night she had some soft liquid bowel movements. She had denied noticing any blood in the stools or in her emesis. PAST MEDICAL HISTORY: Diabetes type 2, peripheral vascular disease, COPD, congestive heart failure, history of tobacco use, immunoglobulin deficiency, hypothyroidism, atrial fibrillation. PAST SURGICAL HISTORY: Two C sections, gallbladder surgery, hernia repair, and percutaneous arteriogram of the left lower extremity with percutaneous atherectomy with distal superficial hernia. ALLERGIES: No known drug allergies. SOCIAL HISTORY: She has denied any alcohol or illicit drug use. She is a . She has 3 kids. Lives with her son. She mentioned that she was smoking in the past more than a pack a day. Now she has reduced less than a half pack per day. FAMILY HISTORY: Father had pancreatic cancer and CAD, mother had congestive heart failure and CAD. HOME MEDICATIONS: Synthroid 75 mcg daily, simvastatin 40 mg at bedtime, Neurontin 600 mg at bedtime, hydralazine 10 mg 3 times a day, isosorbide 10 mg 3 times a day, Lopressor 50 mg twice a day, Eliquis 5 mg twice a day, folic acid 1 mg daily, Lantus 35 units subcutaneous daily, and Santyl ointment 1 application daily. REVIEW OF SYSTEMS: As per HPI. Otherwise, 12 point review of system is negative. PHYSICAL EXAMINATION: Vital Signs: Temperature 97.9 degrees, pulse 67, respirations 16, blood pressure 104/47, oxygen saturation 97% on room air. The patient's weight is 150 pounds. BMI is 33.8 kg/m2. General: She is alert, oriented x3, and in no acute distress. HEENT: Pale conjunctivae. No icterus. PERRL. Neck: Supple. Lungs: Clear to auscultation in the anterior hammonds. Cardiovascular: Regular rate and rhythm. Abdomen: Soft, obese, nontender, distended. Active bowel sounds in all 4 quadrants. Extremities: No clubbing. No cyanosis. No edema. Pedal pulses 2+, present bilaterally. Neurologic: She is alert oriented x3. Nonfocal. Cranial nerves 2-12 grossly intact. LABORATORY: WBC 7.72, RBC 3.01, hemoglobin 8.5, hematocrit 26.3, platelet count 262,000. Sodium 140, potassium 4.7, chloride 106, carbon dioxide 24, anion gap 10, BUN 25, creatinine 2.2, calcium 8.3, phosphorus 4.3. Urinalysis on 06/2019 showed protein, glucose, leukocytes, large amount, small amount of blood in the urine. C-diff toxin assay was negative, Urine culture showed E-coli and gram negative greta. A brain MRI showed that there is questionable restricted diffusion within the right cerebral hemisphere, extensive edema of the cerebellum. Differential diagnosis would include recent stroke or cerebritis. Recommended MRI of the brain with contrast for further evaluation. Chest CT showed slightly improved atelectasis, large right pleural effusions and atelectasis versus pneumonia in the right lower lobe. Head CT showed subacute or chronic infarctions of the right cerebral hemisphere, left caudate lacunar lesions. Abdominal x-ray showed nonspecific abdomen, right lower lobe atelectasis, and pneumonia with pleural effusions. IMPRESSIONS: 1. Abdominal pain. 2. Nausea, vomiting. 3. Anemia. 4. Diabetes. 5. Cardiomegaly. 6. Cerebrovascular accident. 7. Dizziness. 8. Obesity BMI 33.8 kg/m2 PLAN: The patient is currently on Eliquis and Plavix, so we will hold off doing the EGD but if the symptoms continue, we will plan to do an EGD either inpatient or outpatient. She will need to hold antiplatelet agents and anticoagulation for few days before the procedure. The patient is on Protonix 40 mg IV daily. She is receiving IV fluids, 75 ml/hr of normal saline. She is on antibiotic Maxipine. Her diabetes is managed by insulin Humulin and Lantus per PCP. The patient is also on Culturelle 1 mg p.o. daily, antiemetic, Zofran for her nausea and vomiting. Patient's H & H was 8.5 and 26.3. We will continue to monitor her CBC, BMP, We will continue to follow the plan of care per PCP and ID. Counseled to quit smoking, trying to keep good control of diabetes and trying to loose weight. This plan was discussed with Dr. Rose. Thank you for your consult. Please call us with any further questions or concerns. Dictated by RY Melo for Kyler Rose MD cc: Kyler Rose MD I have seen and examined the patient myself and I agree with the above plan of care. I have discussed the above plan of care with the patient and all questions were answered. Please call us with any further questions. ZULEYKA
--- NOTE | 2019-06-27 16:40 | CONSULTATION ---
DATE OF CONSULTATION: 06/27/2019 HISTORY OF PRESENT ILLNESS: Ms. Barrett is 59 years old and she reports feeling dizzy with unsteady gait, tendency to fall, bumping into things, mostly towards her left. This has been going on for a few weeks and may be improved in recent days. She has not had unconsciousness, altered awareness, significant headache. She has not noticed definite vision disturbance. Past history is remarkable for hypertension, diabetes mellitus, dyslipidemia, cigarette smoking. She reports she stopped smoking cigarettes when she had pneumonia a few weeks ago. She admits she does not take her prescribed medicines as directed on a regular basis. Workup includes imaging. Noncontrast CT showed evidence of right cerebellar and left caudate infarction. Brain MRI without contrast today shows some restricted diffusion without definite ADC correlate in the right cerebellar hemisphere. Lab has showed blood sugars 100 to 200s. She has mild hypocalcemia, and she had hypomagnesemia, which has corrected. Creatinine is up to 2.2 and BUN 25 today. She has been afebrile. Heart rate has ranged 60s to 80s. Systolic blood pressures were initially 140s to 150s, recently 100 to 120s. PHYSICAL EXAMINATION: On exam, Ms. Barrett is awake, alert, attentive. She seems appropriate. Speech is not dysarthric. Language function is intact on bedside testing. Memory is good. Head and neck are unremarkable. She has full visual hammonds tested grossly by confrontational finger counting. Extraocular movements are full. Facial motility is symmetric. Gag is intact. Tongue is midline. Hearing seems good. Shoulder shrug is equal. She has good power symmetrically in the arms and legs. Limb tone is symmetric. She did well on [id number] testing with the left hand and had a little bit of trouble with right [id number]-prdd. She did well on clwe-jq-rhot testing bilaterally. She has a stocking pattern of sensory loss to pinprick and light touch testing. Responses on proprioception testing at the great toe MTP joint were a little bit more equivocal on the right than the left. Reflexes are trace at the ankles, 1+ symmetrically at the wrists. Plantar response is silent bilaterally. I did not test her gait. IMPRESSION: 1. Imaging evidence of subacute right cerebellar infarction with minimal right hemiataxia as the only clinical finding. 2. She has clinical evidence of peripheral neuropathy, presumed diabetic neuropathy. 3. Risk factors for cerebrovascular ischemic problems including hypertension, dyslipidemia, diabetes mellitus, and cigarette smoking. 4. Admitted history of medical noncompliance. PLAN: I encouraged her to stay off cigarettes, to take her medicines as directed, and to be aggressive with management of her risk factors. Although this is a posterior circulation event, I think it would be reasonable to obtain a carotid ultrasound for completeness. In light of her relatively young age, echocardiogram would also be reasonable, but neither carotid or cardiac echocardiogram is urgent. I do not think we need to add antiplatelet medicine to her Eliquis. Physical therapy may provide some benefit. Thanks for asking Neurology to see Ms. Barrett. cc: MD ZULEYKA Paiz III
[2019-06-27] MEDS: MAXIPIME 1 GM in NS 50 ML IV SCH (17:36)
--- NOTE | 2019-06-27 18:22 | Diag Imaging Result Doc PS360 ---
US RENAL 2 (RETROPER) COMPLETE - 06/27/2019 INDICATION: acute kidney injury on ckd TECHNIQUE: COMPARISON: 05/27/2019 FINDINGS: The kidneys and urinary bladder are normal. Renal sizes remain normal. IMPRESSION: Negative exam. Electronically signed by Sinan Mann 06/27/2019 6:20 PM
[2019-06-27] MEDS: LIPITOR PO SCH (21:37)
[2019-06-27] MEDS: NEURONTIN PO SCH (21:37)
[2019-06-28] MEDS: MAXIPIME 1 GM in NS 50 ML IV SCH ×2 (04:45→17:15)
--- NOTE | 2019-06-28 05:17 | PROGRESS NOTE ---
DATE: 06/27/2019 SUBJECTIVE: The patient states that she is still having diarrhea. She states that she feels dizzy when she tries to stand up and walk. OBJECTIVE: Vital Signs: Temperature 98.2 degrees, blood pressure 121/65, heart rate 67, respirations 14, O2 saturation 97% on room air. Intake 1.3 L, output 600. General: This is a chronically ill-appearing, elderly female sitting at the edge of the bed in no acute distress. Heart: S1, S2 normal. Regular rate and rhythm. Lungs: Clear to auscultation bilaterally. Diminished breath sounds in the right lung field. Abdomen: Positive bowel sounds. Soft, nontender, nondistended. Extremities: No edema, no cyanosis, no calf tenderness. Neurologic: The patient is alert and oriented x4. LABS: White blood cell count 7.7, hemoglobin 8.5, hematocrit 26, platelets 262,000. Sodium 140, potassium 4.7, chloride 106, CO2 24, BUN 25, creatinine 2.2, glucose 156, albumin 2.9. Brain MRI reveals right cerebellar stroke. ASSESSMENT AND PLAN: 1. Subacute right cerebellar infarction. A carotid duplex study has been done. Will await the results. Will continue with physical therapy and occupational therapy. The patient is on Eliquis and Lipitor. 2. Acute kidney injury on chronic kidney disease. The patient's BUN and creatinine are slowly rising. The patient remains on intravenous fluids. Will await further recommendations from the pipeline superintendent. We will avoid nephrotoxic agents. 3. Urinary tract infection, secondary to Escherichia coli. Continue with antibiotic therapy. 4. Paratracheal adenopathy. Aware. 5. Large right pleural effusion. The patient is not requiring supplemental oxygen and she denies having any shortness of breath. We will continue to monitor this closely. 6. Possible right lower lobe pneumonia. The patient is currently on antibiotic therapy. We will order a chest x-ray to be done tomorrow. 7. Abdominal pain with diarrhea. Stool for Clostridium difficile has been checked and it is negative. GI is following. 8. Cardiomyopathy. Aware. We will monitor the patient's volume status closely. 9. Right upper lobe lung nodule. Aware. The patient will follow up as outpatient. 10. Insulin-dependent diabetes mellitus. Continue on Lantus and sliding scale insulin. 11. Hypothyroidism. Continue on Synthroid. 12. Deep vein thrombosis prophylaxis. The patient is currently on Eliquis. cc: Jacy Siddiqui MD MTDD
[2019-06-28] MEDS: NS 1,000 ML IV SCH ×2 (06:06→17:15)
[2019-06-28] MEDS: HUMULIN R SUBQ SCH ×3 (06:07→16:17)
[2019-06-28] MEDS ORDERED: INSULIN PEN NEEDLES ONE (06:36)
[2019-06-28] MEDS: SYNTHROID PO SCH (06:39)
[2019-06-28] MEDS: PROTONIX IV SCH (06:39)
[2019-06-28 07:05] LABS: BASO# 0.06 X1000 (0.0-0.2); BASO% 0.8 % (0.0-0.8); EOS# 1.25 X1000 (0.0-0.7); EOS% 16.8 % (0.0-10.0); HEMATOCRIT 28.8 % (37.0-47.0); HEMOGLOBIN 8.8 g/dL (12.0-16.0); IMM GRAN# 0.02 X1000 (0.0-0.04); IMM GRAN% 0.3 % (0.0-0.5); LYMPH# 2.33 X1000 (1.2-3.4); LYMPH% 31.4 % (20.5-51.1); MCH 27.1 PG (27-31); MCHC 30.6 g/dL (33-37); MCV 88.6 FL (81-99); MONO# 0.68 X1000 (0.11-0.59); MONO% 9.2 % (1.7-9.3); MPV 10.3 FL (7.4-10.4); NEUT# 3.09 X1000 (1.4-6.5); NEUT% 41.5 % (42.2-75.2); PLT 268 X1000 (130-400); RBC 3.25 XMIL (4.2-5.4); RDW 14.3 % (11.5-14.5); WBC 7.43 X1000 (4.8-10.8)
[2019-06-28 07:28] LABS: CALCIUM 8.2 mg/dL (8.8-10.2); PHOSPHORUS 4.3 mg/dL (2.7-4.5); POTASSIUM 5.3 mmol/L (3.5-5.1)
--- NOTE | 2019-06-28 09:25 | PROGRESS NOTE ---
DATE: 06/28/2019 Ms. Barrett said she had a pretty good night. She presented with nausea, vomiting, diarrhea, and weakness. This was on 06/24/2019. She is followed by RY Cristina, log getter is Dr. Nilson Hoang, and infectious disease is Dr. Maldonado. A 59-year-old who was recently admitted to our service on 05/26/2019 and discharged on 06/08/2019 for acute hypoxemic respiratory failure, right lower lobe pneumonia, and right pleural effusion. She came to the emergency room stating she has been having nausea, vomiting, alternating with constipation and diarrhea since discharge. She was trying to take her home medications but did not take them regularly. Reports not taking half the medications she was discharged on and not at the correct times. In the emergency room, she had hypomagnesemia, hypokalemia, and acute kidney injury, a urinary tract infection for which she was admitted to the hospital, and social service for possible rehab placement. Over 2 years ago, she lost both her and her father, and had some depression. Was at [facility] for a time. PAST MEDICAL HISTORY: 1. Diabetes mellitus type 2. 2. Peripheral vascular disease. 3. COPD. 4. Tobacco use. 5. Systolic congestive heart failure. 6. Immunoglobulin deficiency. 7. Diabetes mellitus type 2. 8. Hypothyroidism. 9. Atrial fibrillation. PAST SURGICAL HISTORY: 1. Percutaneous arteriogram of the left lower extremity, percutaneous arthrectomy of the distal superficial femoral. 2. Hernia repair. 3. Cholecystectomy. PROBLEM LIST: 1. Admitted with urinary tract infection and started on IV Rocephin. 2. Hypomagnesemia and hypokalemia, supplemented both magnesium and potassium. 3. Acute kidney injury. Continue IV hydration. 4. Nausea, vomiting, and diarrhea, treated with antiemetics and fluid. 5. General weakness, physical deconditioning. Looking for help with physical therapy and rehab placement. 6. Chronic systolic congestive heart failure. She did not appear to be in exacerbation when she was admitted. 7. Hypothyroidism. Continued her Synthroid. 8. Atrial fibrillation. 9. COPD. OBJECTIVE: Today on exam, she says she is breathing better. Feels comfortable. Temperature 98.6 degrees, pulse 70, respirations 16, blood pressure 109/52. Pupils are equal and round. Lungs are clear in all lung hammonds. Cardiovascular Examination: Regular rhythm and rate without murmur or S3. Abdomen is soft. Skin is warm and dry. Urine output is 1200 mL. Blood sugar 110, 158, and 80. ASSESSMENT AND PLAN: 1. Dr. Singh had evaluated. [place] imaging evidence of subacute right cerebellar infarction with minimal right hemiataxia. She has clinical evidence of peripheral neuropathy. Suspect this is diabetic neuropathy and of course risk factors for cerebrovascular ischemia, hypertension, dyslipidemia, diabetes mellitus, and cigarettes. Continue current therapy, occupational therapy. She is on Eliquis and Lipitor. Carotid duplex study has been done. I do not know if it has been read yet. 2. Acute kidney injury on top of chronic kidney disease. BUN and creatinine are slowly rising. Continue intravenous fluids. Creatinine was 2.0, BUN was 29 today which is slightly higher than yesterday. 3. Urinary tract infection, Escherichia coli, on ceftriaxone. 4. Peritracheal adenopathy. Aware. 5. Large right pleural effusion. Continue supplemental oxygen. Denies feeling short of breath. 6. Possible right lower lobe pneumonia, currently on antibiotics. Followup chest x-ray. I think she is getting an x-ray today. 7. Abdominal pain and diarrhea. Stool for Clostridium difficile was checked and it was negative. Gastroenterology is following. 8. Cardiomyopathy with systolic congestive heart failure. 9. Right upper lobe lung nodule. Follow up with a recheck as an outpatient. 10. Diabetes mellitus type 2. Put on insulin. Insulin-dependent. 11. Hypothyroidism. Continue present Synthroid. cc: Judd Kenny MD
--- NOTE | 2019-06-28 09:28 | Diag Imaging Result Doc PS360 ---
CHEST-2 VIEWS - 06/28/2019 INDICATION: pneumonia/pleural effusion COMPARISON: 06/12/2019 FINDINGS: There is a small to moderate right basilar pleural effusion. There is cardiomegaly and pulmonary vascular congestion. There is some infiltrate in the right lung base as well. IMPRESSION: Overall little change from prior. Electronically signed by Sinan Mann 06/28/2019 9:26 AM
[2019-06-28] MEDS: LANTUS INSULIN SUBQ SCH ×2 (09:45→11:14)
[2019-06-28] MEDS: CULTURELLE PO SCH ×2 (09:45→21:23)
[2019-06-28] MEDS: LOPRESSOR PO SCH ×2 (09:45→21:23)
[2019-06-28] MEDS: ISORDIL PO SCH ×3 (09:45→17:15)
[2019-06-28] MEDS: ANTIVERT PO SCH ×3 (09:45→17:15)
[2019-06-28] MEDS: PLAVIX PO SCH (09:45)
[2019-06-28] MEDS: ELIQUIS PO SCH ×2 (09:45→21:23)
[2019-06-28] MEDS: FOLIC ACID PO SCH (09:45)
[2019-06-28] MEDS: LOTRIMIN 1% CREAM TOP SCH ×2 (09:46→21:44)
[2019-06-28] MEDS: SANTYL OINT TOP SCH (09:46)
[2019-06-28 13:51] LABS: URINE SOURCE CLEAN CATCH
[2019-06-28 13:55] LABS: BILIRUBIN URINE NEGATIVE (NEGATIVE); BLOOD URINE NEGATIVE (NEGATIVE); COLOR STRAW; GLUCOSE URINE TRACE mg/dL (NEGATIVE); KETONE URINE NEGATIVE (NEGATIVE); LEUKOCYTES URINE NEGATIVE (NEGATIVE); NITRITE URINE NEGATIVE (NEGATIVE); PROTEIN URINE 200 mg/dL (NEGATIVE); SP GRAVITY URINE 1.009; TURBIDITY URINE CLEAR (CLEAR); UR EPITHELIAL CELLS <10 /HPF (<10); URINE BACTERIA NEGATIVE /HPF; URINE RBC <10 /HPF (<10); URINE WBC <10 /HPF (<10); UROBILINOGEN URINE NORMAL (NORMAL)
[2019-06-28 14:09] LABS: UR CREAT RANDOM 32.1 mg/dL (11-20); UR PROT RANDOM 136.3 mg/dL
--- NOTE | 2019-06-28 19:09 | GASTROENTEROLOGY PROGRESS NOTE ---
DATE: 06/28/2019 SUBJECTIVE: Ms. Barrett is a 59-year-old female, who was resting in bed, family at the bedside. She said she had vomited yesterday, but today, she denied any nausea, vomiting or abdominal pain. OBJECTIVE: Vital Signs: Temperature 98.2 degrees, pulse 69, respirations 20, blood pressure 123/64, oxygen saturation 98% on room air. The patient's weight is 150 pounds, BMI is 33.8 kg/m2. General: She is alert, oriented x3, and in no acute distress. HEENT: Pale conjunctivae. No icterus. Neck: Supple. Lungs: Clear to auscultation in the anterior hammonds. Cardiovascular: Regular rate and rhythm. Abdomen: Soft, obese, nontender, nondistended. Active bowel sounds heard in all 4 quadrants. Extremities: No clubbing no cyanosis, edema. Pedal pulses 2+ present bilaterally. Neurologic: She is alert, oriented x3. DIAGNOSTIC STUDIES: WBC is 7.43, RBC 3.25, hemoglobin 8.8, hematocrit 28.8, platelet count is 288,000. Sodium 144, potassium 5.3, chloride 110, carbon dioxide 26, anion gap 8, BUN 29, creatinine 2.0. Chest x-ray showed overall little changes from the prior. Renal ultrasound showed negative exam. IMPRESSION AND PLAN: 1. Abdominal pain. 2. Nausea/vomiting. 3. Anemia. 4. UTI 5. CVA PLAN: The patient is currently on Eliquis and Plavix. We will hold off doing the EGD, but if the symptoms worsen, we will plan to do an EGD either inpatient or outpatient. She will need to hold anticoagulants and antiplatelet agents for a few days before the procedure. The patient is on Protonix IV daily. She is receiving IV fluids 75 mL/h. She is also on antibiotic Maxipime. Her diabetes is managed by insulin, Humulin and Lantus per PCP. The patient is also on Culturelle daily, antiemetic Zofran for nausea and vomiting. Today her hemoglobin was 8.8 and hematocrit 28.8. It has been trending upward slightly. We will continue to monitor her CBCs and BMPs and follow the plan of care per PCP. The patient would need to follow up with Dr. Monroy when she is discharged from the hospital. We have discussed the risks of smoking and advised patient to quit smoking, to monitor and control her diabetes. We have also discussed the risk of obesity and advised her to lose weight and follow a healthy diet plan. This plan was discussed with Dr. Ramesh. Please call us for any further questions or concerns. Dictated by RY Melo for Vick Ramesh MD Physician Attestation I have seen and examined the patient. I have discussed and reviewed the the note by Shira RAZA and agree with findings and plan as documented. In brief, Ms. Peters is a 59 year old woman with h/o PUD (diagnosed 09/[address] Monroy) who presented with N/V, abdominal pain found to have E coli UTI and CVA. She denies ongoing N/V, abdominal pain. No constipation, diarrhea, rectal bleeding, or melena. Recommend continue PPI once daily. Will sign off. Patient should follow-up with Dr. Monroy 1-2 weeks after discharge. [facility]
[2019-06-28] MEDS: NEURONTIN PO SCH (21:23)
[2019-06-28] MEDS: LIPITOR PO SCH (21:23)
[2019-06-29] MEDS: HUMULIN R SUBQ SCH ×5 (03:43→20:49)
[2019-06-29] MEDS: NS 1,000 ML IV SCH (03:44)
[2019-06-29] MEDS: MAXIPIME 1 GM in NS 50 ML IV SCH ×2 (03:44→18:02)
[2019-06-29] MEDS: PROTONIX IV SCH (06:14)
[2019-06-29] MEDS: SYNTHROID PO SCH (06:15)
[2019-06-29 07:54] LABS: BASO# 0.05 X1000 (0.0-0.2); BASO% 0.7 % (0.0-0.8); EOS# 1.21 X1000 (0.0-0.7); EOS% 16.3 % (0.0-10.0); HEMATOCRIT 28.4 % (37.0-47.0); HEMOGLOBIN 8.8 g/dL (12.0-16.0); IMM GRAN# 0.02 X1000 (0.0-0.04); IMM GRAN% 0.3 % (0.0-0.5); LYMPH# 2.07 X1000 (1.2-3.4); LYMPH% 27.9 % (20.5-51.1); MCH 27.4 PG (27-31); MCV 88.5 FL (81-99); MONO# 0.52 X1000 (0.11-0.59); MPV 10.6 FL (7.4-10.4); NEUT# 3.55 X1000 (1.4-6.5); NEUT% 47.8 % (42.2-75.2); PLT 242 X1000 (130-400); RBC 3.21 XMIL (4.2-5.4); RDW 14.2 % (11.5-14.5); WBC 7.42 X1000 (4.8-10.8)
[2019-06-29] MEDS: FOLIC ACID PO SCH (10:03)
[2019-06-29] MEDS: ISORDIL PO SCH ×3 (10:03→18:03)
[2019-06-29] MEDS: SANTYL OINT TOP SCH (10:03)
[2019-06-29] MEDS: LOPRESSOR PO SCH ×2 (10:03→20:49)
[2019-06-29] MEDS: ELIQUIS PO SCH ×2 (10:03→20:49)
[2019-06-29] MEDS: CULTURELLE PO SCH ×2 (10:03→20:49)
[2019-06-29] MEDS: ANTIVERT PO SCH ×3 (10:03→18:03)
[2019-06-29] MEDS: PLAVIX PO SCH (10:03)
[2019-06-29] MEDS: LOTRIMIN 1% CREAM TOP SCH ×2 (10:04→20:50)
[2019-06-29] MEDS: LANTUS INSULIN SUBQ SCH (10:04)
--- NOTE | 2019-06-29 10:18 | PROGRESS NOTE ---
DATE: 06/29/2019 Ms. Barrett reports she is still pretty weak. She would like to try and go to rehab. OBJECTIVE: Vital Signs: She remains afebrile, temperature 98.6 degrees, pulse 70, respirations 20, blood pressure 130/67. HEENT: Pupils are equal and round. Lungs: Are clear in all lung hammonds. Cardiovascular: Regular rhythm and rate without murmur or S3. Abdomen: Is soft. Skin: Is warm and dry. Urine output is 3500 mL. ASSESSMENT AND PLAN: 1. Abdominal pain, nausea and vomiting. She is currently on Eliquis and Plavix, so holding off on doing the EGD, but if symptoms worsen the plan is EGD as an outpatient. Would need to hold anticoagulants for a few days. The patient is on Protonix IV, getting IV fluids. She is on antibiotic, Maxipime. 2. Admitted with urinary tract infection, on Maxipime at this time. 3. Hypomagnesemia, hypokalemia, has been supplemented. 4. Acute kidney injury. Continue IV hydration. 5. General weakness and deconditioning. 6. Congestive heart failure. Her volume status appears to have improved, her compensation improved and she is wanting to go to rehab. She has a history of paroxysmal atrial fibrillation and has a history of hypothyroidism. So continue current medications. She is getting physical therapy and we will look to see if we can find a rehab bed for her. cc: Judd Kenny MD
--- NOTE | 2019-06-29 14:33 | NEPHROLOGY PROGRESS NOTE ---
DATE: 06/29/2019 Chief complaint: I was bouncing off the schwarz at home. HPI: Mrs. Barrett is a 59-year-old female with a past medical history of diabetes, hypertension, peripheral vascular disease, and chronic kidney disease. She was recently hospitalized for pneumonia, acute kidney injury, and acute hypoxemic respiratory failure. She has been home for about a week when she developed worsening shortness of breath and syncope. She admits to not taking her home medications. In ED workup she had hypomagnesemia, hypokalemia, bacteria in her urine, and evidence of acute kidney injury. She was admitted for evaluation and has been in the hospital for four days. During this time her creatinine has gone from 1.8 on admission to a max of 2.2. She denies fever, chills, nausea and vomiting, or chest pain at this time. Past medical history: diabetes mellitus type two, peripheral vascular disease, COPD, systolic congestive heart failure, immunoglobulin deficiency, hypothyroidism, atrial fibrillation, peripheral vascular disease. Past surgical history: percutaneous arteriogram of the left lower extremity with percutaneous atherectomy and distal superficial femoral, hernia repair, cholecystectomy. Social history: she lives with her son and [id number], she has a 40 pack year smoking history. Denies any alcohol or illicit drug use. Family history: Mother was positive for congestive heart failure and coronary artery disease and father had coronary artery disease and pancreatic cancer. Allergies: none Home medications: Eliquis, Plavix, folic acid, gabapentin, hydralazine, Lantus, isosorbide, culturelle, levothyroxine, metoprolol, Simvastatin. Review of systems: neurological: Denies altered mental status and confusion. Eyes: denies blurriness, dryness, or change in visual acuity. ENT: denies tinnitus or change in hearing but positive for syncope. Integumentary: denies color change, rash or itch. Respiratory: admits to shortness of breath on exertion, denies orthopnea. Denies productive cough. Cardiovascular: denies palpitations or chest pain. GI: denies constipation and feelings of fullness, decreased appetite, or nausea or vomiting. Denies abdominal distention. : denies any color change amount or odor in urine. Endocrine: denies excessive thirst or hunger. Musculoskeletal: denies any extremity pain or general malaise. Labs: WBC 7.43, hemoglobin 8.8, hematocrit 28.8, platelet count to 68, sodium 144, potassium 5.3, chloride 110, carbon dioxide 26, and I get eight, BUN 29, creatinine 2.0, calcium 8.2, magnesium 4.3, intake 1060, output 600. urine electrolytes: osmolality 209, creatinine 55.9, total protein to 38.2, sodium 31. Imaging: CT thorax without contrast shows impression of slightly improved atelectasis as described, large right pleural effusion with atelectasis versus pneumonia in the right lower lobe. MRI brain without contrast impression questionable restricted diffusion within the right cerebellar hemisphere. Extensive Edema of the cerebellum. Differential diagnosis include recent stroke, or cerebritis. Normal renal ultrasound. Physical exam: Vitals. Temperature 98.6, pulse 71, respirations 16, blood pressure 109/52, 02 sat 98% on room air. General: Chronic ill female lying in bed in no acute distress HEENT: Normocephalic, atraumatic. Trachea midline. Pupils equal and reactive to light. Coated tongue. Skin: warm, dry and intact. Yeast rash noted to breast folds. Neck: Supple, No JVD appreciated. Cardiovascular: S1, S2, no murmurs or gallops. Respiratory: right anterior crackles Abdomen: soft, obese, non tender, non distended. Bowel sounds present. No organomegaly. : non-inspected. Extremities: no clubbing or cyanosis. 1+ pitting Edema to bilateral lower extremities with trace upper edema. Neurological: alert and oriented to person, place, and place. Assessment and plan: Acute on chronic kidney disease. Likely related to recent acute tubular necrosis. Baseline creatinine around 1, but she was discharged with a creatinine of 1.7 from previous injury last month. Yesterday it was down to 2.0. Encouraged 2-3 quart oral intake. Urine electrolytes on 06/26 have FeNa score of 0.85%. We discontinued IVF based on exam. Electrolytes and acid base balance. Stable. Anemia. Stable cc: Darrel Jaime MD MTDD
--- NOTE | 2019-06-29 15:42 | Carotid Study ---
DATE: 06/27/2019 REFERRING PHYSICIAN: Jacy Siddiqui MD READING PHYSICIAN: Dr. Miranda. 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 INDICATIONS: History of carotid stenosis and dizziness. FINDINGS: There is no significant plaque, elevated velocities, or turbulent flow in either carotid system. There is antegrade 3 per flow bilaterally. INTERPRETATION: Normal carotid imaging study. The percent stenosis is 0 to 39 percent bilaterally. cc: MD Jacy Lou MD
[2019-06-29] MEDS: NEURONTIN PO SCH (20:49)
[2019-06-29] MEDS: LIPITOR PO SCH (20:50)
[2019-06-29] MEDS: DUONEB (A & A) INH PRN (22:54)
[2019-06-30] MEDS: DUONEB (A & A) INH PRN (03:10)
[2019-06-30] MEDS: MAXIPIME 1 GM in NS 50 ML IV SCH ×2 (05:07→16:38)
[2019-06-30] MEDS: HUMULIN R SUBQ SCH ×4 (06:08→20:23)
[2019-06-30] MEDS: SYNTHROID PO SCH (06:25)
[2019-06-30] MEDS: PROTONIX IV SCH (06:25)
[2019-06-30 07:34] LABS: HEMATOCRIT 30.8 % (37.0-47.0); HEMOGLOBIN 9.7 g/dL (12.0-16.0); MCH 27.9 PG (27-31); MCHC 31.5 g/dL (33-37); MCV 88.5 FL (81-99); MPV 10.7 FL (7.4-10.4); RBC 3.48 XMIL (4.2-5.4); RDW 14.4 % (11.5-14.5); WBC 10.94 X1000 (4.8-10.8)
--- NOTE | 2019-06-30 07:37 | Diag Imaging Result Doc PS360 ---
EXAM: CHEST-PORTABLE 06/30/2019 HISTORY: SOB TECHNIQUE: AP pelvis at 0038 COMMENT: There is a large pleural effusion on the right. There is alveolar opacification of the mid and lower lung field on the right and interstitial opacity is present in the left lower lung field. This is worse than on 06/28/2019. IMPRESSION: Worsening pulmonary edema and right pleural effusion. The possibility of pneumonia in the right middle and lower lobes cannot be excluded. Electronically signed by Shan Piper 06/30/2019 7:35 AM
[2019-06-30 07:54] LABS: ALBUMIN 3.7 g/dL (3.5-5.0); CALCIUM 9.4 mg/dL (8.8-10.2); CREATININE 1.8 mg/dL (0.5-0.9); PHOSPHORUS 4.2 mg/dL (2.7-4.5); POTASSIUM 4.7 mmol/L (3.5-5.1)
[2019-06-30] MEDS: LANTUS INSULIN SUBQ SCH (10:11)
[2019-06-30] MEDS: ANTIVERT PO SCH ×3 (10:12→16:38)
[2019-06-30] MEDS: FOLIC ACID PO SCH (10:13)
[2019-06-30] MEDS: ELIQUIS PO SCH ×2 (10:13→20:40)
[2019-06-30] MEDS: CULTURELLE PO SCH ×2 (10:13→20:40)
[2019-06-30] MEDS: ICAR-C PO SCH ×2 (10:14→20:40)
[2019-06-30] MEDS: LOPRESSOR PO SCH ×2 (10:14→20:40)
[2019-06-30] MEDS: ISORDIL PO SCH ×3 (10:14→16:38)
[2019-06-30] MEDS: PLAVIX PO SCH (10:15)
[2019-06-30] MEDS: SANTYL OINT TOP SCH (10:15)
[2019-06-30] MEDS: LOTRIMIN 1% CREAM TOP SCH ×2 (10:15→20:40)
[2019-06-30] MEDS: LASIX IV SCH ×2 (11:46→23:44)
[2019-06-30] MEDS: MIRALAX PO SCH ×2 (13:26→20:41)
--- NOTE | 2019-06-30 14:44 | NEPHROLOGY PROGRESS NOTE ---
DATE: 06/30/2019 Subjective: patient sitting up at the side of the bed. Complains of severe nausea and shortness of breath. Voice is having a restless night due to shortness of breath. Denies chest pain, fever, chills, and vomiting. Objective: vitals. Temperature 98.0, pulse 90, respirations 28, blood pressure 127/76, 02 sat 94% on 3 L nasal cannula. General: Chronic ill female lying in bed in no acute distress HEENT: Normocephalic, atraumatic. Trachea midline. Pupils equal and reactive to light. Coated tongue. Skin: pale, warm, dry and intact. Yeast rash noted to breast folds. Neck: Supple, No JVD appreciated. Cardiovascular: S1, S2, no murmurs or gallops. Respiratory: posterior right coarse crackle with a diminished right base. Abdomen: soft, obese, non tender, non distended. Bowel sounds present. No organomegaly. : non-inspected. Extremities: no clubbing or cyanosis. Trace edema to bilateral upper and lower extremities. Neurological: alert and oriented to person, place, and place. Labs: WBC 10.94, hemoglobin 9.7, hematocrit 30.8, platelet count to 73, sodium 142, potassium 4.7, chloride 105, carbon dioxide 22, anion gap 15, BUN 32, creatinine 1.8, intake 582, output 3800. Pulmonary edema. Impression: Acute on chronic kidney disease. Likely acute tubular necrosis. Creatinine improving, today it is 1.8. Shortness of breath. CHF based on exam and chest X-ray. We will order Lasix 40mg q12 and monitor her labs. Electrolytes and acid base balance. Stable. Anemia. Stable cc: Darrel Jaime MD [facility]
--- NOTE | 2019-06-30 16:43 | PROGRESS NOTE ---
DATE: 06/30/2019 SUBJECTIVE: Ms. Barrett said she does not feel good today, just a little bit nauseated, feels puny, not much appetite, and a hard time keeping food down. OBJECTIVE: Vital signs: Temp 98.2 degrees, pulse 72, respirations 20, blood pressure 111/56. HEENT: Pupils are equal and round. Lungs: Clear in all lung hammonds. Cardiovascular: Regular rhythm and rate without murmur or S3. Abdomen: Soft. Skin: Warm and dry. Urine output is 4,200 mL. LAB: Today hematocrit 30, hemoglobin 9.7, sodium 142, potassium 4.7, chloride 105, bicarb 22, BUN 32, creatinine 1.8. ASSESSMENT AND PLAN: 1. Acute on chronic kidney disease, likely acute tubular necrosis. Creatinine improved a little bit. She is short of breath. Based on exam, she has some pulmonary venous hypertension, so Lasix 40 mg q.12 has been ordered. Continue to follow electrolytes and acid base, which are stable at this point. Her chest x-ray showed worsening pulmonary edema and right pleural effusion. 2. Admitted with urinary tract infection. On Maxipime at this time. 3. Hypomagnesemia and hypokalemia have been supplemented. 4. Acute kidney injury. Continue IV hydration. 5. General weakness, deconditioning. 6. Pulmonary venous hypertension, congestive heart failure. The patient is getting Protonix IV. We have cut down the fluids. She is on Culturelle. Continue her Protonix. REVIEW OF ORDERS/MEDICATION: Lipitor 40 mg at bedtime, Neurontin 600 mg at bedtime, Tylenol 650 mg q.6 hours p.r.n., Eliquis 5 mg p.o. b.i.d., Plavix 75 mg a day, clotrimazole 1% topically b.i.d., folic acid 1 mg p.o. daily, Lasix 40 mg q.12, insulin glargine 15 units subcutaneous daily, iron carbonyl ascorbic acid 1 b.i.d., isosorbide dinitrate 10 mg t.i.d., lactobacillus rhamnosus 1 b.i.d., Synthroid 75 mcg a day, cefepime or Maxipime 1 g IV q.12, Antivert 12.5 mg p.o. t.i.d., Lopressor 50 mg b.i.d., Protonix 40 mg IV q.24 hours, MiraLAX [address] a day[address] Ramesh wants to hold off on doing an EGD, maybe as an outpatient as the patient is on anticoagulant and antiplatelet agents and the need to be off of this for a couple days for the procedure. So, continue present regimen. cc: Judd Kenny MD
--- NOTE | 2019-06-30 18:53 | GASTROENTEROLOGY PROGRESS NOTE ---
DATE: 06/30/2019 ATTENDING PHYSICIAN: Dr. Judd Kenny. PRIMARY CARE DOCTOR: R[facility] Cristina. SUBJECTIVE: Patient resting in bed. She complains of having abdominal discomfort and persistent nausea and having hard stools. She passed a hard stool today. OBJECTIVE: Vital Signs: Temperature 98, pulse of 90, respiratory rate 20, blood pressure 127/76, saturating 94% on 3 nasal cannula. Body weight of 156 pounds. BMI of 33.8 kg. General Appearance: Ms. Barrett is lying in bed in mild abdominal discomfort and having some nausea. HEENT: Positive pallor. No icterus. Neck: Supple. Abdomen: Protuberant. Mild distention noted. No rebound or guarding. Extremities: No cyanosis, clubbing. Neurologic: Alert, awake, oriented x3. LABS: Hemoglobin and hematocrit are 9.7 and 30.8, white count 10.94, platelet count of 273. Sodium is 140, potassium 4.7, chloride 105, bicarb 22, anion gap 15, BUN of 32, creatinine 1.8, glucose of 189. Calcium is 9.4, phosphorus 4.2, albumin 2.7. C difficile toxin and antigen from June 27 were negative. Urine culture showed E coli. IMPRESSION AND PLAN: 1. Abdominal pain. 2. Constipation. 3. Mild abdominal distention. 4. Nausea, persistent. 5. Anemia. 6. Urinary tract infection. 7. Cerebrovascular accident. RECOMMENDATIONS: 1. She is currently on Plavix and Eliquis for her history of CVA, so we will hold off on any kind of endoscopic intervention. Because of the constipation, I will start her on MiraLAX twice daily and hold for more than 3 bowel movements in 24 hours. She is continuing on Zofran as needed for nausea and vomiting. She has anemia. This needs to be investigated as an outpatient. She will need endoscopy and colonoscopy, once she can be safely off Eliquis and Plavix. She will follow with Dr. Monroy as an outpatient. 2. She is on Protonix once daily for GI prophylaxis and having persistent anemia and nausea. She is on cefepime for UTI. She has hypothyroidism. She is on levothyroxine. 3. We will sign off for now, and she will follow up with Dr. Monroy as outpatient. The above plan of care was discussed with the patient and all questions answered. Please call us with any further questions. cc: MD Kvng Devine MD Eric Crampsey, CRNP MTDD
[2019-06-30] MEDS: NEURONTIN PO SCH (20:40)
[2019-06-30] MEDS: LIPITOR PO SCH (20:40)
[2019-07-01] MEDS: MAXIPIME 1 GM in NS 50 ML IV SCH ×2 (03:44→16:43)
[2019-07-01] MEDS: HUMULIN R SUBQ SCH ×4 (06:23→21:48)
[2019-07-01] MEDS: PROTONIX IV SCH (06:24)
[2019-07-01] MEDS: SYNTHROID PO SCH (06:24)
[2019-07-01 08:22] LABS: CALCIUM 8.6 mg/dL (8.8-10.2); CREATININE 1.7 mg/dL (0.5-0.9); PHOSPHORUS 4.4 mg/dL (2.7-4.5); POTASSIUM 4.3 mmol/L (3.5-5.1)
--- NOTE | 2019-07-01 09:44 | PROGRESS NOTE ---
DATE: 07/01/2019 SUBJECTIVE: Ms. Barrett feels better today. She ate almost all of her breakfast. She was complaining of lower abdominal pain and shortness of breath yesterday. Did not see any objective evidence of shortness of breath and lungs were clear. This morning, lungs are clear. OBJECTIVE: Vital Signs: Temperature 98.5 degrees, pulse 63, respirations 19, blood pressure 123/60. HEENT: Pupils are equal and round. Lungs: Clear in all lung hammonds. Cardiovascular: Regular rate without murmur or S3. LABORATORY DATA: Blood sugars last three: 411, 140, 160. ASSESSMENT AND PLAN: 1. Acute on chronic kidney disease, likely acute tubular necrosis. Her labs from this morning, creatinine has come down to 1.7, so seems to be improving. Sodium 143, potassium 4.3, chloride 106 BUN 36, creatinine 1.7. 2. She has a history of cerebrovascular accident, is on Plavix and Eliquis. At this point, no plans for endoscopic intervention but may pursue as an outpatient. 3. History of cerebrovascular accident. No new neurologic changes. Plan is to get her catheter out and ambulate. At the present time, she is on cefepime 1 g IV q.12. Urine culture with Escherichia coli sensitive to cefepime has extended spectrum beta lactamase producing organism. So, continue cefepime. Clostridium difficile for antigen and for toxin was negative, so plan to ambulate and appears to be improving. cc: Judd Kenny MD
[2019-07-01] MEDS: MIRALAX PO SCH ×2 (10:22→21:45)
[2019-07-01] MEDS: CULTURELLE PO SCH ×2 (10:23→21:44)
[2019-07-01] MEDS: ICAR-C PO SCH ×2 (10:23→21:44)
[2019-07-01] MEDS: ISORDIL PO SCH ×3 (10:23→16:43)
[2019-07-01] MEDS: LOPRESSOR PO SCH ×2 (10:23→21:44)
[2019-07-01] MEDS: ELIQUIS PO SCH ×2 (10:24→21:44)
[2019-07-01] MEDS: LANTUS INSULIN SUBQ SCH (10:24)
[2019-07-01] MEDS: FOLIC ACID PO SCH (10:24)
[2019-07-01] MEDS: ANTIVERT PO SCH ×3 (10:24→16:43)
[2019-07-01] MEDS: PLAVIX PO SCH (10:28)
[2019-07-01] MEDS: LOTRIMIN 1% CREAM TOP SCH ×2 (10:28→21:45)
[2019-07-01] MEDS: SANTYL OINT TOP SCH (10:29)
[2019-07-01] MEDS: LASIX IV SCH (12:14)
--- NOTE | 2019-07-01 20:39 | NEPHROLOGY PROGRESS NOTE ---
DATE: 07/01/2019 SUBJECTIVE: She feels much better today. Sitting up in the chair. Shortness of breath has resolved. OBJECTIVE: Vital Signs: Blood pressure 128/72, heart rate 68, respirations 19, afebrile. Intake and output are incomplete. General: No acute distress. Skin: Warm and dry. Neck: Neck veins are not appreciated. Heart: Regular. Lungs: Equal. No wheezes today. Abdomen: Soft, nontender. Bowel sounds present. Extremities: No edema. IMPRESSION: Shortness of breath and wheezing. Chest x-ray suggested pulmonary edema. She was treated with diuretics on yesterday with improvement in her symptoms. I will continue her furosemide through the day today and then discontinue it. Reassess in the morning. cc: Darrel Jaime MD
[2019-07-01] MEDS: NEURONTIN PO SCH (21:44)
[2019-07-01] MEDS: LIPITOR PO SCH (21:44)
[2019-07-02] MEDS: PROTONIX IV SCH (06:03)
[2019-07-02] MEDS: LASIX IV SCH (06:03)
[2019-07-02] MEDS: MAXIPIME 1 GM in NS 50 ML IV SCH ×2 (06:03→17:57)
[2019-07-02] MEDS: HUMULIN R SUBQ SCH ×4 (06:04→21:10)
[2019-07-02] MEDS: SYNTHROID PO SCH (06:04)
[2019-07-02 07:18] LABS: CALCIUM 8.6 mg/dL (8.8-10.2); CREATININE 1.7 mg/dL (0.5-0.9); PHOSPHORUS 4.9 mg/dL (2.7-4.5); POTASSIUM 4.4 mmol/L (3.5-5.1)
[2019-07-02] MEDS: MIRALAX PO SCH ×2 (08:19→21:10)
[2019-07-02] MEDS: ISORDIL PO SCH ×3 (08:19→17:59)
[2019-07-02] MEDS: CULTURELLE PO SCH ×2 (08:19→21:11)
[2019-07-02] MEDS: ICAR-C PO SCH ×2 (08:19→21:11)
[2019-07-02] MEDS: LOPRESSOR PO SCH ×2 (08:19→21:11)
[2019-07-02] MEDS: LANTUS INSULIN SUBQ SCH (08:19)
[2019-07-02] MEDS: FOLIC ACID PO SCH (08:19)
[2019-07-02] MEDS: ELIQUIS PO SCH ×2 (08:19→21:11)
[2019-07-02] MEDS: PLAVIX PO SCH (08:19)
[2019-07-02] MEDS: ANTIVERT PO SCH ×3 (08:19→17:59)
[2019-07-02] MEDS: LOTRIMIN 1% CREAM TOP SCH ×2 (08:19→21:11)
[2019-07-02] MEDS: SANTYL OINT TOP SCH (08:20)
--- NOTE | 2019-07-02 10:03 | PROGRESS NOTE ---
DATE: 07/02/2019 Ms. Barrett is doing better, breathing is better. No pain. Dizziness is improved. OBJECTIVE: Vital Signs: Temp 98.1 degrees, pulse 66, respirations 14, blood pressure 117/57. HEENT: Pupils are equal and round. Lungs: Are clear in all lung hammonds. Cardiovascular: Regular rhythm and rate without murmur or S3. Abdomen: Is soft. Skin: Is warm and dry. Urine output is 1000 mL. ASSESSMENT AND PLAN: 1. Shortness of breath with wheezing. The chest x-ray suggested pulmonary edema. She has been getting diuretics and she is doing better, feeling better. Her kidney function has improved. Creatinine is down to 1.7 which is same as yesterday. Continue to diurese. 2. Diabetes mellitus type 2. Sugars under good control. 3. History of cerebrovascular accident. Hematocrit 30, hemoglobin 9.7. Review of current orders: She is on Neurontin 600 mg at bedtime, Eliquis 5 mg b.i.d., Plavix 75 mg a day, folic acid 1 mg daily, Lasix 40 mg IV q.12 continue that, iron carbonyl 1 b.i.d., Isordil 10 mg t.i.d., Synthroid 75 mcg daily, cefepime 1 g IV q.12, Lopressor 50 mg b.i.d., Protonix 40 mg IV q.24 hours, Protonix 40 mg IV q.24 hours, MiraLAX 17 g twice a day. cc: Judd Kenny MD
[2019-07-02] MEDS: LIPITOR PO SCH (21:11)
[2019-07-02] MEDS: NEURONTIN PO SCH (21:11)
[2019-07-03] MEDS: MAXIPIME 1 GM in NS 50 ML IV SCH ×2 (04:02→15:48)
[2019-07-03] MEDS: HUMULIN R SUBQ SCH ×4 (06:20→21:02)
[2019-07-03 07:24] LABS: ALBUMIN 3.1 g/dL (3.5-5.0); CREATININE 1.7 mg/dL (0.5-0.9); PHOSPHORUS 4.5 mg/dL (2.7-4.5); POTASSIUM 4.4 mmol/L (3.5-5.1)
[2019-07-03] MEDS: ELIQUIS PO SCH ×2 (09:12→21:03)
[2019-07-03] MEDS: ISORDIL PO SCH ×3 (09:12→18:15)
[2019-07-03] MEDS: FOLIC ACID PO SCH (09:12)
[2019-07-03] MEDS: SYNTHROID PO SCH (09:12)
[2019-07-03] MEDS: CULTURELLE PO SCH ×2 (09:12→21:03)
[2019-07-03] MEDS: MIRALAX PO SCH ×2 (09:12→21:01)
[2019-07-03] MEDS: ANTIVERT PO SCH ×3 (09:12→18:15)
[2019-07-03] MEDS: LOPRESSOR PO SCH ×2 (09:12→21:03)
[2019-07-03] MEDS: PROTONIX IV SCH (09:12)
[2019-07-03] MEDS: LOTRIMIN 1% CREAM TOP SCH (09:13)
[2019-07-03] MEDS: LANTUS INSULIN SUBQ SCH (09:13)
[2019-07-03] MEDS: SANTYL OINT TOP SCH (09:13)
[2019-07-03] MEDS: PLAVIX PO SCH (09:13)
[2019-07-03] MEDS: ICAR-C PO SCH ×2 (09:13→21:03)
[2019-07-03 13:05] LABS: CALCIUM 9.3 mg/dL (8.8-10.2)
--- NOTE | 2019-07-03 13:05 | PROGRESS NOTE ---
DATE: 07/03/2019 SUBJECTIVE: Ms. Barrett is feeling better. Breathing is comfortable. She is still having some vertigo but she would like to try and go home tomorrow. I think she would like to get home health. She was not approved for inpatient rehab. She is able to ambulate in the [place]men and doing fairly well. She is eating well. Her bowels are moving. OBJECTIVE: Temperature 98.2 degrees pulse 69, respirations 19, blood pressure 135/63. Pupils are equal and round. Lungs are clear in all lung hammonds. Cardiovascular Examination: Regular rhythm and rate without murmur or S3. Blood sugars 179, 189, 233. ASSESSMENT AND PLAN: 1. Shortness of breath with wheezing. X-ray suggested pulmonary edema. She is doing much better and has diuresed. Her kidney function is improving. 2. Acute kidney injury, suspect acute tubular necrosis. Creatinine has slowly dwindled down. It is down to 1.7. It stable. Originally, creatinine when she came in was 2.2. 3. Diabetes mellitus type 2. Sugar is under good control. 4. History of cerebrovascular accident. I do not see any new neurologic event. 5. Sounds like she has benign positional vertigo. She would like to go with home health and try and go home tomorrow. cc: Judd Kenny MD
[2019-07-03] MEDS: LIPITOR PO SCH (21:03)
[2019-07-03] MEDS: NEURONTIN PO SCH (21:03)
[2019-07-04] MEDS: HUMULIN R SUBQ SCH (05:40)
[2019-07-04 08:05] VITALS: BP 128/62
[2019-07-04 08:52] LABS: ALBUMIN 3.3 g/dL (3.5-5.0); CREATININE 1.5 mg/dL (0.5-0.9); PHOSPHORUS 4.2 mg/dL (2.7-4.5); POTASSIUM 4.2 mmol/L (3.5-5.1)
[2019-07-04] MEDS: SYNTHROID PO SCH (09:44)
[2019-07-04] MEDS: LOTRIMIN 1% CREAM TOP SCH (09:45)
[2019-07-04] MEDS: FOLIC ACID PO SCH (09:46)
[2019-07-04] MEDS: ANTIVERT PO SCH (09:46)
[2019-07-04] MEDS: CULTURELLE PO SCH (09:46)
[2019-07-04] MEDS: ELIQUIS PO SCH (09:47)
[2019-07-04] MEDS: MAXIPIME 1 GM in NS 50 ML IV SCH (09:47)
[2019-07-04] MEDS: ICAR-C PO SCH (09:47)
[2019-07-04] MEDS: MIRALAX PO SCH (09:47)
[2019-07-04] MEDS: LOPRESSOR PO SCH (09:47)
[2019-07-04] MEDS: LANTUS INSULIN SUBQ SCH (09:47)
[2019-07-04] MEDS: PLAVIX PO SCH (09:48)
[2019-07-04] MEDS: ISORDIL PO SCH (09:48)
[2019-07-04] MEDS: SANTYL OINT TOP SCH (09:49)
[2019-07-04] MEDS: PROTONIX IV SCH (09:49)
--- NOTE | 2019-07-04 11:05 | DISCHARGE SUMMARY ---
ADMISSION DATE: 06/24/2019 DISCHARGE DATE: 07/04/2019 HISTORY OF PRESENT ILLNESS: She is followed by R[facility] Cristina. This is a 59-year-old, female who was recently admitted to our service on 05/26/2019 and discharged on 06/08/2019 for acute hypoxemic respiratory failure, right lower lobe pneumonia, right pleural effusion. Came in the emergency room stating she has been nauseated, vomiting, and alternating constipation and diarrhea since her discharge. She reports she is trying to take her home medications but does not take them regularly, not having half her medications at discharge nor was she taking them at the correct times. In the emergency room, she had low magnesium, low potassium, acute kidney injury for which she is admitted to the hospital and appeared she had acute tubular necrosis. PAST MEDICAL HISTORY: 1. Diabetes mellitus type 2. 2. Peripheral vascular disease. 3. COPD. 4. Tobacco use. 5. Congestive heart failure. 6. Immunoglobulin deficiency. 7. Diabetes mellitus type 2. 8. Hypothyroidism. 9. Atrial fibrillation. 10. Peripheral vascular disease. ADMISSION DIAGNOSES: 1. Suspected urinary tract infection. 2. Low magnesium and potassium. 3. Acute kidney injury. 4. Nausea and vomiting. HOSPITAL COURSE: She was given some fluid, corrected the volume, and given potassium and magnesium. Dr. Jaime was following. [place] she had acute tubular necrosis. She also has a history of underlying atrial fibrillation and hypothyroidism. She showed steady improvement in renal function. Creatinine came down and it came down to 1.5 on the day of discharge. When she was admitted, she had a creatinine I think of 2 so felt she could go home. DISCHARGE MEDICATIONS: She will be on Lipitor 40 mg at bedtime, Plavix 75 mg a day. She takes Lotrimin cream, folic acid 1 mg daily, Neurontin 600 mg at bedtime, Lantus insulin 15 units daily, iron and vitamin C which is Icar-C 1 twice a day, Isordil 10 mg t.i.d., Culturelle 1 twice a day, Synthroid 75 mcg p.o. q.a.m., Antivert 12.5 mg t.i.d., Lopressor 50 mg b.i.d., MiraLAX 17 g a day, and Protonix 40 mg p.o. once a day. She will get followup with her primary care, which is RY Cristina. cc: Judd Kenny MD
--- NOTE | 2019-07-04 11:22 | NEPHROLOGY PROGRESS NOTE ---
DATE: 07/04/2019 Subjective: pt awake lying in bed. Complaints of dizziness when walking but says she is going home today. Objective: vitals. Temperature 98.5, pulse 67, respirations 18, blood pressure 129/63, 02 sat 98% on 2 L nasal cannula. General: Chronic ill female lying in bed in no acute distress HEENT: Normocephalic, atraumatic. Trachea midline. Pupils equal and reactive to light. Coated tongue. Skin: pale, warm, dry and intact. Yeast rash improved in bilateral breast folds. Neck: Supple, JVD with hepatojugular reflux Cardiovascular: S1, S2, no murmurs or gallops. Respiratory: scattered coarse rhonchi anteriorly Abdomen: soft, obese, non tender, non distended. Bowel sounds present. No organomegaly. : non-inspected. Extremities: no clubbing or cyanosis. Trace edema to bilateral upper and lower extremities. Neurological: alert and oriented to person, place, and place. Labs: sodium 140, potassium 4.2, chloride 101, carbon dioxide 25, anion gap 14, BUN 41, creatinine 1.5, intake 360, output 0. Impression: 1. Acute on chronic kidney disease. Likely acute tubular necrosis. Creatinine improving, Going home today. Will follow up in the office. 2. Electrolytes and acid base balance. Stable. 3. Anemia. Stable 4. Medications reviewed. cc: Darrel Jaime MD MTDD
[2019-07-05] MEDS ORDERED: PROTONIX PO SCH (07:00)
== END 2019-07-04 12:07 | disposition home health service (06) | DRG 682 ==
LOC: SUPCPDRO → ED 10:59 → EDIPHOLD 11:00 → SUATTDRO 11:00 → 3N 16:15
PROVIDERS: ATTEND Emergency Medicine

== ENCOUNTER 2019-09-29 11:55 | Inpatient (IN) ==
[2019-09-29] MEDS ORDERED: NS 1,000 ML IV ONE (12:26)
--- NOTE | 2019-09-29 12:55 | Diag Imaging Result Doc PS360 ---
CHEST-PORTABLE - 09/29/2019 INDICATION: WEAK COMPARISON: 08/16/2019 FINDINGS: There is a dense focal alveolar infiltrate in the lateral left midlung. There is cardiomegaly and pulmonary vascular congestion. The pulmonary vascularity is also rather indistinct suggesting mild interstitial pulmonary edema. There is a moderate right basilar pleural effusion, which has probably increased slightly since prior. No left-sided pleural effusion. IMPRESSION: 1. Congestive heart failure. 2. Slight increase in a chronic right basilar pleural effusion. 3. Focal infiltrate compatible with pneumonia in the left midlung. Electronically signed by Sinan Mann 09/29/2019 12:53 PM
[2019-09-29 12:56] LABS: BASO# 0.02 X1000 (0.0-0.2); BASO% 0.1 % (0.0-0.8); HEMATOCRIT 35.4 % (37.0-47.0); HEMOGLOBIN 11.4 g/dL (12.0-16.0); IMM GRAN# 0.08 X1000 (0.0-0.04); IMM GRAN% 0.5 % (0.0-0.5); LYMPH# 1.16 X1000 (1.2-3.4); LYMPH% 6.5 % (20.5-51.1); MCH 27.6 PG (27-31); MCHC 32.2 g/dL (33-37); MCV 85.7 FL (81-99); MONO# 1.12 X1000 (0.11-0.59); MONO% 6.3 % (1.7-9.3); MPV 11.3 FL (7.4-10.4); NEUT# 15.37 X1000 (1.4-6.5); NEUT% 86.6 % (42.2-75.2); PLT 223 X1000 (130-400); RBC 4.13 XMIL (4.2-5.4); RDW 14.2 % (11.5-14.5); WBC 17.75 X1000 (4.8-10.8)
[2019-09-29 13:17] LABS: AGAP 18; ALB/GLOB RATIO 0.7; ALBUMIN 2.7 g/dL (3.5-5.0); ALKALINE PHOSPHATASE 64 U/L (32-104); BUN 31 mg/dL (8-22); CALCIUM 8.8 mg/dL (8.8-10.2); CHLORIDE 94 mmol/L (98-107); COSMO 297; CREATININE 2.2 mg/dL (0.5-0.9); ESTIMATED GFR 23; GLUCOSE 394 mg/dL (70-104); GOT 16 U/L (10-30); GPT 13 U/L (10-36); POTASSIUM 3.4 mmol/L (3.5-5.1); SODIUM 137 mmol/L (136-145); TCO2 25 mmol/L (25-35); TOTAL BILIRUBIN 1.94 mg/dL (0.20-1.00); TOTAL PROTEIN 6.8 g/dL (6.3-8.3)
[2019-09-29 13:35] LABS: ALLEN TEST YES; BE 3.9 mmoll (-3.0-3.0); BLOOD TYPE ARTERIAL; HCO3-(ACT) 27.9 mmoll (20.0-26.0); METHB 1.1 % (0.0-1.5); MODALITY CANNULA; O2(CT) 13.5 mL/dL (15.0-23.0); O2HB 91.2 % (95.0-99.0); PCO2(98.6) 37 mmHg (35-45); PO2(98.6) 58 mmHg (60-100); SAMPLE BLOOD; SAO2 94.7 % (95.0-100.0); THB 10.5 g/dL (11.5-17.4); pH(98.6) 7.48 (7.35-7.45)
[2019-09-29 13:36] LABS: URINE SOURCE CATH
[2019-09-29 13:45] LABS: BILIRUBIN URINE SMALL (NEGATIVE); BLOOD URINE MODERATE (NEGATIVE); COLOR YELLOW; GLUCOSE URINE >1000 mg/dL (NEGATIVE); KETONE URINE TRACE mg/dL (NEGATIVE); LEUKOCYTES URINE NEGATIVE (NEGATIVE); NITRITE URINE NEGATIVE (NEGATIVE); PH URINE 6.5; PROTEIN URINE >600 mg/dL (NEGATIVE); SP GRAVITY URINE 1.029; TURBIDITY URINE HAZY (CLEAR); UROBILINOGEN URINE NORMAL (NORMAL)
[2019-09-29 13:48] LABS: ACETONE SERUM NEGATIVE (NEGATIVE)
[2019-09-29 13:48] LABS: UR EPITHELIAL CELLS >10 /HPF (<10); URINE BACTERIA NEGATIVE /HPF; URINE WBC 20-40 /HPF (<10)
[2019-09-29] MEDS ORDERED: ROCEPHIN 1 GM in NS 50 ML IV ONE (13:53)
[2019-09-29 13:54] LABS: URINE CASTS GRANULAR PRESENT
[2019-09-29] MEDS ORDERED: HUMULIN R SUBQ ONE (13:54)
[2019-09-29] MEDS ORDERED: TYLENOL PO PRN (14:20)
[2019-09-29 14:49] LABS: INR 1.48; PROTIME 18.2 Seconds (11.0-16.0)
--- NOTE | 2019-09-29 15:04 | EKG Report ---
Test Performed on : 09/29/2019 2:00:43 PM Test Reason : WEAK Blood Pressure : / mmHG Vent. Rate : 093 BPM Atrial Rate : 093 BPM P-R Int : 136 ms QRS Dur : 092 ms QT Int : 366 ms P-R-T Axes : 045 019 -41 degrees QTc Int : 455 ms Normal sinus rhythm. Low voltage QRS Cannot rule out Anterior infarct (cited on or before 11-JUN-2019) Abnormal ECG When compared with ECG of 16-AUG-2019 11:59, (Unconfirmed) Nonspecific T wave abnormality, worse in Lateral leads Unconfirmed Result
[2019-09-29] MEDS ORDERED: LASIX IV ONE (15:56)
[2019-09-29] MEDS: HUMALOG SUBQ SCH ×2 (16:14→21:01)
[2019-09-29 17:28] LABS: UR CREAT RANDOM 121.2 mg/dL (11-20)
[2019-09-29] MEDS: MAXIPIME 1 GM in NS 50 ML IV SCH (17:39)
[2019-09-29] MEDS: NS 1,000 ML IV SCH (17:43)
[2019-09-29] MEDS: ZYVOX 600 MG/D5W 600 MG/300 ML IVPB IV SCH (17:48)
[2019-09-29 19:34] LABS: BASO# 0.02 X1000 (0.0-0.2); BASO% 0.1 % (0.0-0.8); EOS# 0.01 X1000 (0.0-0.7); EOS% 0.1 % (0.0-10.0); HEMATOCRIT 30.6 % (37.0-47.0); HEMOGLOBIN 9.8 g/dL (12.0-16.0); IMM GRAN# 0.07 X1000 (0.0-0.04); IMM GRAN% 0.4 % (0.0-0.5); LYMPH% 8.2 % (20.5-51.1); MCH 27.8 PG (27-31); MCV 86.7 FL (81-99); MONO% 5.8 % (1.7-9.3); MPV 10.8 FL (7.4-10.4); NEUT# 14.62 X1000 (1.4-6.5); NEUT% 85.4 % (42.2-75.2); PLT 213 X1000 (130-400); RBC 3.53 XMIL (4.2-5.4); RDW 14.1 % (11.5-14.5); WBC 17.12 X1000 (4.8-10.8)
[2019-09-29 19:39] LABS: BANDS 2 % (0-1); LYMPHS 8 % (21-51); MONO 1 % (1-9); SEGS 89 % (42-75)
--- NOTE | 2019-09-29 20:01 | HISTORY AND PHYSICAL ---
ADDENDUM: SUBJECTIVE: I have seen and examined Ms. Barrett today in the emergency room. There was no family member at the bedside at the time of the encounter. Ms. Peters tells me that she has generalized weakness, extreme fatigue. She can barely help herself to sit up and she has tendency to be falling down and that is the main reason why she came to the hospital and this started about 4 days ago. Just about a week ago, she had seen her medical case manager and she was doing well. Ms. Barrett also follows up with Dr. Jaime, a road grader operator. She came to the emergency room today, was evaluated, and found to be slightly borderline blood pressure slightly elevated. Otherwise, her vitals for the most part looks fairly stable. PHYSICAL EXAM: HEENT: She looks remarkably dry on the mucous membrane. NECK: I did not see any JVD on the neck exam. CHEST: Air entry was bilaterally reduced. There was more dullness to percussion on the right posterior lung hammonds. There is some wet crackles on the left. CARDIOVASCULAR: Regular rate and rhythm. ABDOMEN: Soft. EXTREMITIES: Some trace edema on the right lower extremity. I did not see anything on the left. TELEGRAPH SERVICE RATER: Patient was awake, alert, and oriented. She looks remarkably weak and feeble. DIAGNOSTIC STUDIES: Her EKG this morning that was done today shows normal sinus rhythm, left normal axis, poor R-wave progression. No ST or T-waves abnormality. A chest x- ray shows congestive heart failure, slight increase on chronic right basilar effusion, focal infiltrate compatible with pneumonia. LABORATORY DATA: Has also been reviewed. WBC is up to 17.75, hemoglobin is 11.4, platelet count of 223,000. Chemistry is also reviewed. The patient is alkalotic with pH 7.48, pCO2 is 37, PaO2 of 58, bicarb is 25, lactate is 1.8. It was 2.7 early on. ASSESSMENT: 1. Generalized weakness with physical deconditioning, presumably from worsening underlying both cardiac and renal chronic disease; however, an acute infection cannot be completely ruled out. 2. Left focal mid lung infiltrate concerning for pneumonia. We started the patient on cefepime with Zyvox. 3. Clinical volume depletion. The patient's chest x-ray shows some congestion and she does have some mild edema on the right lower extremity. However, she looks remarkably dry otherwise. I do not see any congestion signs on her physical exams. I think she is probably third- spacing and she is currently remarkably intravascular depleted. We are going to gently hydrate her overnight and reassess her. 4. Acute on chronic renal failure. Creatinine is up to 2.2. Ms. Barrett tells me that her urine output has been remarkably reduced. I presume it is part of her generalized clinical volume depletion. We will see how it plays out over overnight. 5. Severe uncontrolled diabetes mellitus. The patient will be started on insulin regimen. 6. Hypomagnesemia. 7. Mildly elevated troponins. The patient denies any chest pain. I presume this is from hypoexcretion in a patient with renal disease versus demand mismatch. 8. History of coronary artery disease. Patient follows up with Dr. Nilson Hoang. 9. History of congestive heart failure, presumably from ischemic heart disease. PLAN: So, in general, we will withhold on her diuretics. We will admit her to PVC, strict intake and output. Gently hydrate her overnight. Re-evaluate her in the morning. Hopefully, get Cardiology and Nephrology to see her if still needed. Please refer to the details of the history and physical that has been dictated by the INSURANCE AGENCY OWNER in the chart. I have also discussed my findings and the plan with Ms. Barrett. cc: MD ZULEYKA Nieves
[2019-09-29] MEDS: LOPRESSOR PO SCH (20:59)
[2019-09-29] MEDS: LANTUS INSULIN SUBQ SCH (20:59)
[2019-09-29] MEDS: ZOCOR PO SCH (22:51)
[2019-09-29] MEDS: CULTURELLE PO SCH (22:51)
--- NOTE | 2019-09-29 23:58 | HISTORY AND PHYSICAL ---
PRIMARY CARE PROVIDER: RY Cristina CHIEF COMPLAINT: Weakness x4 days, productive cough. HISTORY OF PRESENT ILLNESS: Ms. Barrett is a 59-year-old female with past medical history of type 2 diabetes, peripheral vascular disease, COPD, tobacco use, systolic congestive heart failure, immunoglobulin deficiency, diabetes mellitus type 2, hypothyroidism, atrial fibrillation and peripheral vascular disease. She reports that she has been feeling weak for the past 4 days. She has had a productive cough with greenish sputum, wheezing this morning, no appetite. She reports a 10 to 15-pound weight gain in the last 2-3 weeks. Her urination has slowed. She voids about 3 times per day. She has been too weak to check her blood sugars or take any of her medications over these last 4 days, really too weak to sit up on her own. She reports an increase in her right lower extremity edema over the past 3 weeks as well. She did report that she was around her grandchildren who were diagnosed with type A flu last week; however, she denies any fever, chills, chest pain, shortness of breath, nausea, vomiting or diarrhea. Workup in the ED revealed an elevated white count, positive lactate. Chest x-ray revealed congestive heart failure and a slight increase in her chronic right basilar pleural effusion and a focal infiltrate compatible with pneumonia in the left midlung. She was given a 1 L fluid bolus, started on IV Rocephin. Given her history of heart failure, a proBNP was checked along with a troponin that was elevated. Her proBNP was greater than 35,000. She was given 1 dose of IV Lasix. She does have fine crackles in her right bases, although clinically she does appear to be dehydrated. She will gently be hydrated overnight. We will monitor closely on PVC for further treatment and evaluation. PAST MEDICAL HISTORY: Per HPI. PAST SURGICAL HISTORY: Percutaneous arteriogram of the left lower extremity with percutaneous atherectomy in distal superficial femoral; hernia repair; cholecystectomy. SOCIAL HISTORY: Forty-pack year history of smoking. No alcohol or illicit drug use. She lives with her son and [id number]. FAMILY HISTORY: Positive for coronary artery disease in mother and father. Mother also had congestive heart failure. Father with pancreatic cancer. ALLERGIES: No known drug allergies. MEDICATIONS: Home medications are being compiled. REVIEW OF SYSTEMS: Twelve-point review of systems completed and negative except for those mentioned in HPI. PHYSICAL EXAMINATION: VITAL SIGNS: Temperature 99.6 degrees, heart rate 95, respiratory rate 17, blood pressure 139/87, O2 is 92% on 2 L nasal cannula. GENERAL: Ms. Barrett is an ill-appearing 59-year-old female who is sitting up in the bed in no acute distress. HEENT: Atraumatic, normocephalic. PERRL. Mucous membranes are dry. NECK: Supple. Trachea midline. CARDIOVASCULAR: S1, S2 appreciated. No murmurs, gallops or rubs noted. PULMONARY: There are crackles in the left bases. Did not appreciate any rales or rhonchi. ABDOMEN: Soft, nontender, nondistended. There was some edema to her right lower extremity. There was no edema on her left lower extremity. NEUROLOGIC: No focal deficits noted. DIAGNOSTIC DATA: Chest x-ray shows congestive heart failure; increase in right pleural effusion and focal infiltrate in the mid left lung compatible with pneumonia. LABORATORY DATA: Pertinent: WBC 17, hemoglobin 11, platelet count is 223,000. Chemistry: Sodium 137, potassium 3.4, BUN 31, creatinine 2.2, blood glucose is 394, magnesium 1.3, total bilirubin 1.94. Troponin 122. ProBNP was greater than 35,000. Initial lactate was 2.7, repeat 1.8. Urinalysis was negative for bacteria, negative for nitrites, does show greater than 600 urine protein, which has been relevant on her urine studies. ASSESSMENT AND PLAN: 1. Left midlung pneumonia. The patient was initially given antibiotic with intravenous Rocephin. We will continue with cefepime and Zyvox, bronchodilators and aggressive pulmonary toilet. 2. Generalized weakness and physical deconditioning secondary to acute illness with pneumonia, as well as her underlying chronic conditions. 3. [id number] renal failure. She does report a decrease in her urine output. We will gently hydrate her overnight. She did receive a 1 L bolus. 4. Elevated troponins. We will continue to trend. The patient denies any chest pain. 5. Congestive heart failure history, [id number]. Her proBNP was greater than 35,000. Chest x-ray is evident of congestive heart failure and increase in her right pleural effusion. Intravenous Lasix 60 mg was given. She also had right lower extremity edema and reported weight gain of 10-15 pounds over the last 3 weeks. We will have to be careful with a balancing act of fluid volume overload and her clinical volume depletion. 6. Clinical fluid volume depletion. Patient does look dehydrated, so again we will gently hydrate her overnight, watch her for any fluid volume overload. She had been taken off her home Lasix by Nephrology; however, she states she does continue to take it at home on her own when she starts to gain weight, but she has not had it in several days per her report. 7. Hypomagnesemia. We will continue to monitor. 8. Hypokalemia. Continue to monitor. 9. Diabetes mellitus type 2 with hyperglycemia. We will continue on sliding scale with pattern blood sugars. 10. Chronic obstructive pulmonary disease, without exacerbation. 11. Further recommendation to follow physician evaluation, laboratory and diagnostic data. Dictated by RY Morgan for Ridge Alvarado MD cc: MD Tereso Nieves CRNP Peter Johnson, MD Reginald D. Gladish, MD
[2019-09-30] MEDS ORDERED: LEVOPHED 8 MG in D5 1/2 NS 250 ML IV SCH (01:30)
[2019-09-30] MEDS: MAXIPIME 1 GM in NS 50 ML IV SCH ×2 (05:25→17:22)
[2019-09-30] MEDS: ZYVOX 600 MG/D5W 600 MG/300 ML IVPB IV SCH ×2 (06:30→17:23)
--- NOTE | 2019-09-30 06:41 | Diag Imaging Result Doc PS360 ---
CHEST-PORTABLE - 09/30/2019 INDICATION: pna/chf/pl effusion COMPARISON: 09/29/2019 FINDINGS: There has been slight decrease in the density of the focal infiltrate in the lateral left lung compatible with pneumonia. Stable significant cardiomegaly and pulmonary vascular congestion. Stable small to moderate right pleural effusion. IMPRESSION: Minimal improvement from prior. Electronically signed by Sinan Mann 09/30/2019 6:39 AM
--- NOTE | 2019-09-30 07:50 | EKG Report ---
Test Performed on : 09/30/2019 07:34:08 AM Test Reason : Heart Failure Admission Blood Pressure : / mmHG Vent. Rate : 068 BPM Atrial Rate : 068 BPM P-R Int : 120 ms QRS Dur : 088 ms QT Int : 414 ms P-R-T Axes : 051 046 -17 degrees QTc Int : 440 ms Normal sinus rhythm. Low voltage QRS Cannot rule out Anterior infarct (cited on or before 11-JUN-2019) Abnormal ECG When compared with ECG of 29-SEP-2019 14:00, (Unconfirmed) Nonspecific T wave abnormality now evident in Anterior leads Nonspecific T wave abnormality no longer evident in Lateral leads Confirmed by Kwame SUMMERS, Parrish Cotter ([id number]) on 09/30/2019 4:36:02 PM
[2019-09-30] MEDS: APRESOLINE PO SCH ×3 (09:00→17:18)
[2019-09-30] MEDS: PLAVIX PO SCH (09:00)
[2019-09-30] MEDS: LOPRESSOR PO SCH ×2 (09:00→20:24)
[2019-09-30] MEDS: LANTUS INSULIN SUBQ SCH ×3 (09:00→20:22)
[2019-09-30 09:11] LABS: BASO# 0.03 X1000 (0.0-0.2); BASO% 0.2 % (0.0-0.8); EOS# 0.32 X1000 (0.0-0.7); EOS% 1.7 % (0.0-10.0); HEMATOCRIT 35.2 % (37.0-47.0); HEMOGLOBIN 11.1 g/dL (12.0-16.0); IMM GRAN# 0.05 X1000 (0.0-0.04); IMM GRAN% 0.3 % (0.0-0.5); LYMPH# 2.12 X1000 (1.2-3.4); LYMPH% 11.3 % (20.5-51.1); MCH 27.3 PG (27-31); MCHC 31.5 g/dL (33-37); MCV 86.7 FL (81-99); MONO# 1.04 X1000 (0.11-0.59); MONO% 5.5 % (1.7-9.3); MPV 10.8 FL (7.4-10.4); NEUT# 15.22 X1000 (1.4-6.5); PLT 316 X1000 (130-400); RBC 4.06 XMIL (4.2-5.4); RDW 14.2 % (11.5-14.5); WBC 18.78 X1000 (4.8-10.8)
[2019-09-30 09:28] LABS: ALB/GLOB RATIO 0.6; ALBUMIN 2.2 g/dL (3.5-5.0); CREATININE 2.5 mg/dL (0.5-0.9); POTASSIUM 3.5 mmol/L (3.5-5.1); TOTAL BILIRUBIN 0.69 mg/dL (0.20-1.00); TOTAL PROTEIN 5.9 g/dL (6.3-8.3)
[2019-09-30] MEDS: HUMALOG SUBQ SCH ×4 (09:51→20:21)
[2019-09-30] MEDS: SYNTHROID PO SCH (09:53)
[2019-09-30] MEDS: ASPIRIN EC PO SCH (09:53)
[2019-09-30] MEDS: ISORDIL PO SCH ×3 (09:58→17:23)
[2019-09-30] MEDS: CULTURELLE PO SCH ×2 (13:02→20:21)
[2019-09-30] MEDS: NS 1,000 ML IV SCH (13:49)
[2019-09-30] MEDS ORDERED: ALBUMIN 25% IV ONE (15:56)
--- NOTE | 2019-09-30 19:27 | PROGRESS NOTE ---
DATE: 09/30/2019 SUBJECTIVE: Today, Ms. Barrett refers to be doing a little better. She said she feels slightly stronger, but she still does not have enough strength to pull herself up. She has been fairly hypotensive for most part of the day. She was started on low dose norepinephrine drip last night. OBJECTIVE: Vital signs: Blood pressure is 97/56, pulse of 64, respirations 15, temperature is 97.6 degrees. General: Ms. Barrett is a 59-year-old female. She is in bed, no distress. HEENT: Mucosa is pink and moist. Anicteric. Acyanotic. Neck: Supple. Chest: Air entry was bilaterally reduced. There are some crackles in the posterior lung hammonds. Dullness to percussion on the right posterior lung field. Cardiovascular: Regular rate and rhythm. No murmurs, no rubs, no gallops. GI: Abdomen is soft. It is distended. There is no tenderness. No hepatosplenomegaly. Mild edema in the lateral aspect of the abdominal wall. Extremities: Some trace pedal edema. SPACE SYSTEMS OPERATIONS CRAFTSMAN: Patient is awake, alert. LABORATORY DATA: WBC is 18.74, hemoglobin is 11.1, platelet count of 314,000. Chemistry is also reviewed. BUN is 41, creatinine is 2.5, sodium is 135. Albumin is low at 2.2. Chest x-ray this morning showed minimal improvement from prior. There is a density of the focal infiltrate in the left lower lobe or lower lung which is compatible with pneumonia. ASSESSMENT: 1. Generalized weakness with physical deconditioning. 2. Left focal mid lung infiltrate, concerning for pneumonia. Patient is on antimicrobial coverage. Cultures have been done which are still pending. 3. Clinical volume depletion, improved. 4. Acute on chronic renal failure. Creatinine is up to 2.5. We are going to continue with the gentle fluids. We will also add albumin overnight. 5. Severe uncontrolled diabetes mellitus. The patient's A1c was 12.1 from last year. We are going to check on this tomorrow. Her chemistry does not suggest any diabetic ketoacidosis. 6. Hypomagnesemia. We will continue to replace. 7. Mildly elevated troponins. Patient denies any chest pain. This is presumed to be demand mismatch versus poor filtration. 8. History of coronary artery disease. 9. History of congestive heart failure, ejection fraction of 40% on an echocardiogram done in May 2019, with anteroseptal hypokinesis concerning for ischemic cardiomyopathy. 10. Hypotension. Etiology is unclear. The patient looks fairly stable for her to be running these low pressures. She is on vasopressors and antibiotics for possible infectious cause. However, I think adrenal insufficiency could also potentially be a cause, so we will do a stim test. Since her albumin is already low, I think if we do just Cortisol, we are going to be falsely low, so we will do a stim test in the morning and put her on steroids if needed. 11. Protein-calorie malnutrition. cc: Ridge Alvarado MD
[2019-09-30] MEDS: DUONEB (A & A) INH PRN (19:55)
[2019-09-30] MEDS: ZOCOR PO SCH (20:21)
[2019-10-01] MEDS: MAXIPIME 1 GM in NS 50 ML IV SCH ×3 (04:46→18:13)
[2019-10-01] MEDS: ZYVOX 600 MG/D5W 600 MG/300 ML IVPB IV SCH ×2 (06:10→21:50)
[2019-10-01] MEDS: SYNTHROID PO SCH (06:10)
[2019-10-01] MEDS: HUMALOG SUBQ SCH ×4 (06:17→21:45)
[2019-10-01 07:28] LABS: ALBUMIN 2.9 g/dL (3.5-5.0); CALCIUM 8.2 mg/dL (8.8-10.2); CREATININE 2.3 mg/dL (0.5-0.9); PHOSPHORUS 3.9 mg/dL (2.7-4.5); POTASSIUM 3.1 mmol/L (3.5-5.1)
[2019-10-01] MEDS ORDERED: ALBUMIN 25% IV ONE (07:58)
[2019-10-01] MEDS ORDERED: CORTROSYN IV ONE (08:00)
[2019-10-01] MEDS: ZOFRAN IV PRN ×2 (08:18→13:26)
[2019-10-01 08:26] LABS: HEMATOCRIT 29.9 % (37.0-47.0); HEMOGLOBIN 9.5 g/dL (12.0-16.0); MCH 27.9 PG (27-31); MCHC 31.8 g/dL (33-37); MCV 87.7 FL (81-99); MPV 11.4 FL (7.4-10.4); RBC 3.41 XMIL (4.2-5.4); RDW 14.1 % (11.5-14.5); WBC 10.46 X1000 (4.8-10.8)
[2019-10-01 09:20] LABS: HEMOGLOBIN A1C 9.7 % (4.8-6.0)
[2019-10-01] MEDS: ASPIRIN EC PO SCH (10:15)
[2019-10-01] MEDS: APRESOLINE PO SCH ×3 (10:15→16:43)
[2019-10-01] MEDS: CULTURELLE PO SCH ×2 (10:15→21:51)
[2019-10-01] MEDS: PLAVIX PO SCH (10:15)
[2019-10-01] MEDS: LASIX IV SCH ×2 (10:15→21:51)
[2019-10-01] MEDS: LOPRESSOR PO SCH ×2 (10:15→21:51)
[2019-10-01] MEDS: ISORDIL PO SCH ×4 (10:15→16:43)
[2019-10-01] MEDS: LANTUS INSULIN SUBQ SCH ×2 (10:16→21:51)
--- NOTE | 2019-10-01 10:36 | Diag Imaging Result Doc PS360 ---
EXAM: CHEST-PORTABLE HISTORY: dyspnea TECHNIQUE: Single view COMPARISON: 09/30/2019 FINDINGS: Poor inspiratory effort. There are bilateral infiltrates and atelectasis. These are more prominent in the left lung base than they were on the prior study. There is vascular distention. Small left pleural effusion with small to moderate-sized right pleural effusion. IMPRESSION: Interval worsening Electronically signed by Rasta Murphy 10/01/2019 10:33 AM
[2019-10-01] MEDS ORDERED: KLOR-CON PO ONE (12:01)
--- NOTE | 2019-10-01 13:26 | PROGRESS NOTE ---
DATE: 10/01/2019 SUBJECTIVE: I have seen and examined Ms. Peters today. Ms. Peters refers to be doing a lot better. She feels stronger. She says her glucose bottomed out last night but it has gotten better. Says her breathing is also improved. OBJECTIVE: Vital signs: Blood pressure is 123/61, pulse of 79, respirations 20, temperature is 98.1. General: Ms. Peters is a 59-year-old female. She was in bed. She did not seem to be in any cardiopulmonary distress. HEENT: Mucosa is pink and moist. Anicteric. Acyanotic. Neck: Supple. Chest: Air entry was bilaterally reduced. Some crackles posteriorly. Dullness to percussion to the right posterior lung field. Cardiovascular: Regular rate and rhythm. There are no murmurs, no rubs, no gallops. Gastrointestinal: Abdomen was soft, nontender. Bowel sounds present. There is no hepatosplenomegaly. Extremities: About 1+ pedal edema. There is edema more so on the lateral aspect of the abdominal wall. Central nervous system: Patient is awake, alert, and oriented. LABORATORY DATA: Chemistry shows potassium of 3.1, creatinine is down to 2.3. TSH is 12.10, which is high. ASSESSMENT: 1. Generalized weakness with physical deconditioning. Physical Therapy has been consulted. 2. Left focal mid lung infiltrate secondary to pneumonia. The patient is on antimicrobial coverage. 3. Acute on chronic renal failure. Creatinine seems to be trending slowly down this morning. 4. Severe uncontrolled diabetes mellitus with presenting A1c of 12.1, from last year. We are pending the repeat for this morning. Glucose went down early this morning, so unsure if it is because she is not having enough caloric intake or she is probably too much on her insulin. 5. Electrolyte abnormality including hypomagnesemia and hypokalemia. We will continue to address. 6. History of coronary artery disease with mildly elevated troponins on presentation. 7. Fluid overload, presumably due to congestive heart failure, ejection fraction of 40% on echo in 2019, associated with anteroseptal hypokinesis concerning for ischemic cardiomyopathy. The patient has been started on her home medications and now that she looks intravascularly repleted, we will start her on albumin with Lasix. 8. Hypotension, resolved. The patient has been off the Levophed since yesterday, 4:30 in the afternoon. 9. Protein calorie malnutrition. Continue with nutritional supplement. 10. Uncontrolled hypothyroidism. TSH is above 12. We have increased the patient's thyroid supplement. PLAN: In general, I think Ms. Peters is fairly stable. She is pending a cosyntropin test this morning. I think she is stable enough to be transferred to the medical floor and continue with her therapy. cc: Ridge Alvarado MD
[2019-10-01] MEDS: ZOCOR PO SCH (21:52)
[2019-10-01] MEDS: DUONEB (A & A) INH PRN (22:16)
[2019-10-02] MEDS: HUMALOG SUBQ SCH ×4 (06:44→21:59)
[2019-10-02] MEDS: MAXIPIME 1 GM in NS 50 ML IV SCH ×3 (06:44→16:45)
[2019-10-02] MEDS: SYNTHROID PO SCH (07:47)
[2019-10-02] MEDS: ZOFRAN IV PRN (08:04)
[2019-10-02 08:27] LABS: ALBUMIN 3.1 g/dL (3.5-5.0); CALCIUM 9.1 mg/dL (8.8-10.2); CREATININE 2.3 mg/dL (0.5-0.9); PHOSPHORUS 3.7 mg/dL (2.7-4.5); POTASSIUM 3.7 mmol/L (3.5-5.1)
[2019-10-02] MEDS: PLAVIX PO SCH (09:48)
[2019-10-02] MEDS: ISORDIL PO SCH ×3 (09:48→16:40)
[2019-10-02] MEDS: LOPRESSOR PO SCH ×2 (09:48→21:58)
[2019-10-02] MEDS: LASIX IV SCH ×2 (09:48→21:58)
[2019-10-02] MEDS: APRESOLINE PO SCH ×5 (09:48→16:38)
[2019-10-02] MEDS: ASPIRIN EC PO SCH (09:48)
[2019-10-02] MEDS: ZYVOX 600 MG/D5W 600 MG/300 ML IVPB IV SCH ×2 (09:48→21:58)
[2019-10-02] MEDS: CULTURELLE PO SCH ×2 (09:48→21:58)
--- NOTE | 2019-10-02 10:36 | Diag Imaging Result Doc PS360 ---
EXAM: CHEST-2 VIEWS 10/02/2019 HISTORY: hypoxia TECHNIQUE: AP and lateral chest COMMENT: There are bilateral pleural effusions more so on the right than the left. There is cardiomegaly. There is alveolar opacity throughout the left lung particularly in the lower lobe and posterior portions of the upper lobe. There is dense alveolar opacification of the right lower lobe. The lungs are better expanded than on 10/01/2019, however otherwise are has been no appreciable change. IMPRESSION: Pulmonary edema and/or pneumonia with bilateral pleural effusions, worse on the right than the left. Electronically signed by Shan Piper 10/02/2019 10:34 AM
[2019-10-02] MEDS: LANTUS INSULIN SUBQ SCH ×2 (11:41→21:59)
--- NOTE | 2019-10-02 12:59 | PROGRESS NOTE ---
DATE: 10/02/2019 SUBJECTIVE: I have seen and examined Ms. Bauer today. Ms. Bauer refers to be feeling slightly better in terms of the breathing, however, yesterday she was kind of nauseated. She was given Zofran. She got better. This morning, she also refers to be nauseated. Her blood pressures have been fairly stable for the past 24 hours, as well as her glucose. OBJECTIVE: Vital signs: Blood pressure is currently 121/70, pulse of 70, respirations 15, temperature 97.9 degrees. The patient is saturating 98%. General: Ms. Barrett is a 59-year-old female. She is in bed. Not seemingly distressed. HEENT: Mucosa is pink and moist. Anicteric. Acyanotic. Neck: Supple with positive JVD. Chest: Air entry is bilaterally reduced. Crackles in the posterior lung hammonds bilaterally. There is some dullness to percussion note on the right posterior lung field. Cardiovascular: Regular rate and rhythm. There is no murmurs. No rubs. No gallops. Gastrointestinal: Abdomen is soft, minimally tender in the right upper quadrant with positive hepatojugular reflux. Extremities: 1+ pedal edema more so on the right lower extremity than the left. Central Nervous System: Patient is awake, alert, oriented. There is no focal deficit. LABORATORY DATA: Chemistry is reviewed. Creatinine is 2.3, glucose is 91. IMAGING STUDIES: No imaging studies today. ASSESSMENT: 1. Generalized weakness and deconditioning on presentation. 2. Left focal mid lung infiltrate secondary to pneumonia. Patient is on the patient is on cefepime with Zyvox. Today is day 3 on antimicrobial therapy. 3. Acute on chronic renal failure. Creatinine remains fairly stable. 4. Severe uncontrolled diabetes mellitus with a presenting A1c of 9.7. We will continue with insulin regimen. 5. Fluid overload secondary to congestive heart failure with ejection fraction of 40% on recent echocardiogram, associated with anteroseptal hypokinesis. The patient continues to be on diuretic therapy. 6. History of coronary artery disease with mildly elevated troponins on presentation concerning for non- STEMI; however, a demand mismatch could also be explaining. The fact that the patient also has a compromised renal function could also explain elevated troponin. We are going to repeat this today. We will also going to repeat an EKG. If the troponin continues to be going up in the face of the patient being nauseated, we will get Cardiology to evaluate her. 7. History of ischemic cardiomyopathy. 8. Hypothyroidism with extremely elevated TSH consistent with inadequate supplementation. The patient's thyroid medications has been uptitrated. 9. Protein calorie malnutrition. We will continue with nutritional supplement. 10. Transient hypotension during the hospital course improved. PLAN: In general, Ms. Barrett refers to be doing a lot better from the breathing standpoint. However, there is still residual shortness of breath and patient is nauseated. We are pending a chest x-ray this morning to see if the fluid is getting any better. We are going to get a repeat troponin and EKG. If the troponins continue to trend up, we will treat the patient for a non- STEMI and get Cardiology to evaluate her. Ms. Barrett has an echocardiogram from May 2019, as well as stress test in 2018, which both were abnormal concerning for ischemic cardiomyopathy. In the face of troponin elevation, I think it would be reasonable to get Cardiology to evaluate her during the hospital course. cc: Ridge Alvarado MD
[2019-10-02] MEDS ORDERED: XYLOCAINE-MPF 1% INJ ONE (13:12)
--- NOTE | 2019-10-02 14:22 | Diag Imaging Result Doc PS360 ---
EXAM: CHEST-PORTABLE 10/02/2019 HISTORY: post thoracentesis right side TECHNIQUE: AP portable with inspiration and expiration at 1409 COMMENT: There is no evidence of pneumothorax. There is apparent loculated pleural fluid on the right. There is enlargement of the cardiomediastinal silhouette. There is ill-defined opacity in the left upper lobe and left lower lobe. This is similar in appearance to the previous study at 1027. IMPRESSION: No evidence of pneumothorax. Electronically signed by Shan Piper 10/02/2019 2:20 PM
[2019-10-02 15:03] LABS: AMYLASE BODY FLUID 6 U/L; GLUCOSE BODY FLUID 109 mg/dL; LDH BODY FLUID 105 U/L; TOTAL PROT BODY FLUID 1.5 g/dL
[2019-10-02 15:15] LABS: BODY FLUID SOURCE PLEURAL FLUID; SPECIMEN PLEURAL FLUID; WBC BF 149 /cumm
[2019-10-02 15:53] LABS: POLYS 48 %
[2019-10-02 15:54] LABS: MONOS 52 %
--- NOTE | 2019-10-02 17:09 | EKG Report ---
Test Performed on : 10/02/2019 11:54:42 AM Test Reason : SOB Blood Pressure : / mmHG Vent. Rate : 072 BPM Atrial Rate : 072 BPM P-R Int : 152 ms QRS Dur : 080 ms QT Int : 418 ms P-R-T Axes : 036 008 016 degrees QTc Int : 457 ms Normal sinus rhythm. Nonspecific T wave abnormality Abnormal ECG When compared with ECG of 30-SEP-2019 07:34, Nonspecific T wave abnormality now evident in Lateral leads Confirmed by Parrish Puente MD ([id number]) on 10/03/2019 4:14:51 PM
[2019-10-02 17:33] LABS: TOTAL PROTEIN 6.4 g/dL (6.3-8.3)
--- NOTE | 2019-10-02 21:13 | OPERATIVE NOTE ---
PROCEDURE DATE: 10/02/2019 HISTORY OF PRESENT ILLNESS: Ms. Barrett is being treated for pneumonia and has bilateral pleural effusion, worse on the right side than the left. She continued to be symptomatic and it was deemed necessary to sample the fluid mainly for diagnostic purposes, but also to help her breathe a lot better. The indication for the procedure as well as complications including, but not limited to, bleeding, infection, possible pneumothorax were all discussed with Ms. Barrett and she consented to proceed. TYPE OF PROCEDURE: Right-side thoracentesis. PROCEDURE IN DETAIL: Ms. Barrett was placed on a sitting position, bent over with the hands extended over the dining table. The right hemithorax was prepped was initially visualized under ultrasound. The deepest pocket was noted. There was a florencia on the skin done by the farmworker poultry for the area where the deepest pocket was found. Subsequently the skin was prepped in the regular fashion patient 1% lidocaine was used as a local anesthetic agent. Subsequently, a small niche was done on the skin. The thoracentesis needle was slowly advanced into the pleural space. Very minimum was obtained on negative aspiration. The needle was removed and the automobile service station attendant was advanced. However, there was resistance so this was removed. Another attempt was made, however, very minimal fluid was obtained. Ms. Barrett did complain of pain, so we aborted the procedure. A maximum of just about 3-4 mL of peritoneal fluid, clear looking, was obtained. This was sent for analysis. Ms. Barrett remained stable after the attempted thoracentesis. A chest x-ray has been ordered to follow up after the attempted thoracentesis to rule out any complications. cc: Ridge Alvarado MD MTDD
--- NOTE | 2019-10-02 21:28 | PROGRESS NOTE ---
DATE: 10/02/2019 SUBJECTIVE: The result of the very little pleural fluid analysis is back. The chemistry is significant for a transudative fluid, which is predominantly lymphocytic. Culture still pending. A repeat chest x-ray after the procedure does not show any evidence of pneumothorax. ASSESSMENT: Transudative pleural effusion, most likely secondary to underlying congestive heart failure. cc: Ridge Alvarado MD
[2019-10-02] MEDS: ZOCOR PO SCH (21:58)
[2019-10-03] MEDS: SYNTHROID PO SCH (06:11)
[2019-10-03] MEDS: MAXIPIME 1 GM in NS 50 ML IV SCH ×2 (06:11→21:13)
[2019-10-03] MEDS: HUMALOG SUBQ SCH ×4 (06:12→21:14)
[2019-10-03 06:45] LABS: BASO# 0.03 X1000 (0.0-0.2); BASO% 0.3 % (0.0-0.8); EOS# 0.71 X1000 (0.0-0.7); EOS% 6.7 % (0.0-10.0); HEMATOCRIT 30.7 % (37.0-47.0); HEMOGLOBIN 9.5 g/dL (12.0-16.0); LYMPH# 1.49 X1000 (1.2-3.4); LYMPH% 14.1 % (20.5-51.1); MCH 27.1 PG (27-31); MCHC 30.9 g/dL (33-37); MCV 87.5 FL (81-99); MONO# 1.08 X1000 (0.11-0.59); MONO% 10.2 % (1.7-9.3); MPV 10.9 FL (7.4-10.4); NEUT# 7.26 X1000 (1.4-6.5); NEUT% 68.7 % (42.2-75.2); PLT 230 X1000 (130-400); RBC 3.51 XMIL (4.2-5.4); RDW 13.8 % (11.5-14.5); WBC 10.57 X1000 (4.8-10.8)
[2019-10-03 07:32] LABS: CALCIUM 8.9 mg/dL (8.8-10.2); CREATININE 2.1 mg/dL (0.5-0.9); MAGNESIUM 1.6 mg/dL (1.5-2.7); PHOSPHORUS 3.7 mg/dL (2.7-4.5); POTASSIUM 3.7 mmol/L (3.5-5.1)
--- NOTE | 2019-10-03 07:34 | Diag Imaging Result Doc PS360 ---
EXAM: CHEST-2 VIEWS INDICATION: hypoxia TECHNIQUE: 2 views COMPARISON: 10/02/2019 FINDINGS: The loculated effusion at the right lung base is approximately stable. There is probably also trace effusion on the left that is unchanged. Ill-defined airspace opacity in the left upper lobe and left lower lobe is unchanged. No new consolidation is identified. Cardiac silhouette is stable. IMPRESSION: Stable chest. Electronically signed by Dre Delgadillo 10/03/2019 7:31 AM
[2019-10-03] MEDS: ZYVOX 600 MG/D5W 600 MG/300 ML IVPB IV SCH ×2 (08:17→21:13)
[2019-10-03] MEDS: CULTURELLE PO SCH ×2 (08:17→21:14)
[2019-10-03] MEDS: ISORDIL PO SCH ×3 (08:18→16:16)
[2019-10-03] MEDS: APRESOLINE PO SCH ×3 (08:18→16:01)
[2019-10-03] MEDS: LOPRESSOR PO SCH ×2 (08:18→21:14)
[2019-10-03] MEDS: ASPIRIN EC PO SCH (08:18)
[2019-10-03] MEDS: LANTUS INSULIN SUBQ SCH ×2 (08:19→21:14)
[2019-10-03] MEDS: LASIX IV SCH ×3 (08:19→21:14)
[2019-10-03] MEDS: PLAVIX PO SCH (08:19)
[2019-10-03] MEDS ORDERED: LASIX IV ONE (10:26)
--- NOTE | 2019-10-03 10:47 | EKG Report ---
Test Performed on : 10/03/2019 09:47:23 AM Test Reason : dyspnea Blood Pressure : / mmHG Vent. Rate : 068 BPM Atrial Rate : 068 BPM P-R Int : 136 ms QRS Dur : 092 ms QT Int : 418 ms P-R-T Axes : 063 061 063 degrees QTc Int : 444 ms Normal sinus rhythm. Nonspecific T wave abnormality Abnormal ECG When compared with ECG of 02-OCT-2019 11:54, (Unconfirmed) No significant change was found Confirmed by Parrish Puente MD ([id number]) on 10/03/2019 4:15:28 PM
--- NOTE | 2019-10-03 12:35 | CONSULTATION ---
DATE OF CONSULTATION: 10/03/2019 IMPRESSION: 1. Very mild nonspecific elevation in troponin in the setting of congestive heart failure and chronic kidney disease. Doubt acute coronary syndrome. I suspect this is probably secondary to some degree of supply demand mismatch from a coronary standpoint and chronic kidney disease. However, I do suspect that she does have significant coronary atherosclerosis given coronary risk profile, moderate left ventricular dysfunction, and previous abnormalities noted on resting myocardial perfusion study. She continues without any significant angina, but very well may not have much chest discomfort given the chronicity of her diabetes and potential for silent ischemia. 2. Persistent tendency for congestive heart failure with right pleural effusion and peripheral edema, as well as elevated central venous pressure based on exam. 3. Cardiomyopathy with left ventricular ejection fraction around 35% to 40%, possibly ischemic in nature. 4. Chronic kidney disease with creatinine of 2.2 and history of nephrotic syndrome, probably related to diabetic nephropathy. 5. Peripheral vascular disease. 6. Chronic cigarette use. 7. Obstructive sleep apnea with recent poor compliance with continuous positive airway pressure. 8. Chronic obstructive pulmonary disease. 9. Hypothyroidism. 10. Paroxysmal atrial fibrillation. RECOMMENDATIONS: 1. Diurese with IV Lasix. 2. Consider repeat ultrasound-guided thoracentesis of right pleural effusion, which appears to be significant. This was discussed with the patient, and she is willing to allow Radiology to try and drain her right pleural effusion. 3. Repeat echocardiography. 4. Ultimately, patient to be put back on Eliquis following thoracentesis. 5. The patient ultimately would benefit from coronary angiography once her CHF has been stabilized. She is also suspected of having possible superimposed pneumonia. HISTORY: This 59-year-old, white female with past history of moderate cardiomyopathy, CHF, obesity, obstructive sleep apnea, type 2 diabetes mellitus, peripheral vascular disease, COPD, chronic cigarette use, paroxysmal atrial fibrillation, and hypothyroidism was admitted several days ago with progressive dyspnea as well as cough. She has also had increasing peripheral edema. She has been found to have evidence of volume overload with bilateral pleural effusions, right greater than left. She is also suspected of having possible associated pneumonia. She has been started on IV Lasix, but her diuretic response has been somewhat limited. She has also been started on antibiotics parenterally. Thoracentesis was attempted yesterday unsuccessfully. She has not had any angina. She describes some infrequent atypical chest discomfort. Her troponins were very mildly elevated, in nonspecific range, prompting Cardiology consultation. She was evaluated last fall for congestive heart failure. She was found to have moderate cardiomyopathy. Resting myocardial perfusion study demonstrated inferolateral defect. She has not had coronary angiography. She has chronic kidney disease with creatinine of 2.2, and records indicate nephrotic syndrome. PAST MEDICAL HISTORY: 1. Moderate cardiomyopathy, possibly ischemic. 2. Peripheral vascular disease. 3. Obesity. 4. Obstructive sleep apnea. 5. Diabetes mellitus type 2. 6. Peripheral vascular disease. 7. Paroxysmal atrial fibrillation. 8. Obstructive sleep apnea. 9. Hypothyroidism. 10. COPD. 11. Immunoglobulin deficiency, unspecified. PAST SURGICAL HISTORY: Includes previous percutaneous intervention on peripheral artery disease, hernia repair, and cholecystectomy. ALLERGIES: She has no known drug allergies. MEDICATIONS PRIOR TO ADMISSION: As listed. SOCIAL HISTORY: She has a [id number] history of smoking. She denies alcohol or illicit drug use. FAMILY HISTORY: Positive for coronary disease, CHF, and pancreatic cancer. REVIEW OF SYSTEMS: Pulmonary: Noteworthy for dyspnea as well as cough, which has been minimally productive of [id number] sputum. Gastrointestinal: Negative. Constitutional: The patient is unaware of any fever. The remainder of the review of systems is negative/noncontributory with 14 total systems reviewed. PHYSICAL EXAMINATION: General: An obese, middle-aged, white female in no distress, on supplemental oxygen per nasal cannula. Vital Signs: Blood pressure 116/89, heart rate 71, with ECG monitor showing sinus rhythm, oxygen saturation 99% to 100% on nasal cannula oxygen at 3 L/minute. HEENT: Extraocular movements intact. Mucous membranes are moist. Neck: Supple. Elevated central venous pressure suggested based on inspection of neck veins. There are no carotid bruits. Chest: Auscultation of the chest reveals diminished breath sounds at the bases, particularly in the right base. Cardiac: Regular rate and rhythm without appreciable murmur or gallop. Abdomen: Soft. Bowel sounds are normal. Extremities: Demonstrate 1+ to 2+ pretibial edema. Neurologic: She is alert and fully oriented. Speech is fluent. She moves all 4 extremities equally well. Skin: Warm and dry. Psychiatric: Mood is appropriate. LABORATORY AND DIAGNOSTIC DATA: Laboratory data includes a white blood cell count of 10.57, hematocrit 30.7, hemoglobin 9.5, platelet count 230,000. Sodium 142, potassium 3.7, chloride 102, carbon dioxide 28, BUN 40, creatinine 2.1, glucose 118. Initial troponin T 150, with followup troponin T's of 153, 140, and 149. Albumin 3.0. TSH 12.1. EKG demonstrates sinus rhythm and nonspecific T-wave abnormality. cc: Wilian Damian MD
--- NOTE | 2019-10-03 12:41 | Diag Imaging Result Doc PS360 ---
CT THORAX W/O CONTRAST - 10/03/2019 INDICATION: pleural effusion COMPARISON: 06/26/2019 FINDINGS: There are moderate bilateral pleural effusions. These measure about 4 cm in depth on the right side and about 2.3 cm on the left. There is dense focal infiltrate in the left upper lobe. There is significant collapse of both lower lobes. There is a stable ulnar nodule in the right upper lobe. This measures 9.9 mm. There is diffuse mediastinal lymphadenopathy, stable to slightly worsened from prior. There is cardiomegaly. There is a moderate pericardial effusion. This has increased in size since prior. There is worsening body wall edema. There is trace ascites in the upper abdomen. Cholecystectomy clips. There are moderate degenerative changes of the spine. No acute or suspicious bony lesion. IMPRESSION: 1. Worsening pleural effusions, pericardial effusion, body wall edema, ascites, and diffuse mediastinal lymphadenopathy. 2. Cardiomegaly. 3. Left upper lobe infiltrate compatible with pneumonia. 4. Stable right upper lobe pulmonary nodule. This exam was performed using automated exposure control, adjustment of mA or kV according to patient size, and/or use of iterative reconstruction technique Electronically signed by Sinan Mann 10/03/2019 12:38 PM
--- NOTE | 2019-10-03 12:58 | Diag Imaging Result Doc PS360 ---
EXAM: US THORACENTESIS W/IMAGE GUIDE INDICATION: right pleural effusion, significant TECHNIQUE: COMPARISON: None. FINDINGS: Risks, benefits, and alternatives were discussed with the patient and informed consent was obtained. The patient was prepped and draped in sterile fashion and local anesthesia was achieved with 1% lidocaine solution. Using ultrasound guidance, a large bore catheter was inserted into the right pleural space and 1200 mL of dark evelia fluid was aspirated. There were no known complications. A chest radiograph is to follow. IMPRESSION: Technically successful ultrasound-guided right thoracentesis. Electronically signed by Dre Delgadillo 10/03/2019 12:56 PM
--- NOTE | 2019-10-03 13:02 | Diag Imaging Result Doc PS360 ---
EXAM: CHEST-2 VIEWS INDICATION: POST THORA TECHNIQUE: 2 views COMPARISON: 10/03/2019 FINDINGS: There is no evidence of pneumothorax status post right thoracentesis. The amount of pleural fluid on the right has significantly decreased as result of the thoracentesis. There is better aeration of the right lung base. Otherwise, the chest is stable. IMPRESSION: No evidence of pneumothorax status post right thoracentesis. Electronically signed by Dre Delgadillo 10/03/2019 1:00 PM
[2019-10-03 14:25] LABS: BODY FLUID SOURCE PLEURAL FLUID; PH BODY FLUID 7; SPECIMEN PLEURAL FLUID; WBC BF 131 /cumm
[2019-10-03 14:29] LABS: MONOS 22 %; POLYS 78 %
[2019-10-03 14:54] LABS: AMYLASE BODY FLUID 6 U/L; GLUCOSE BODY FLUID 141 mg/dL; LDH BODY FLUID 58 U/L; TOTAL PROT BODY FLUID 1.6 g/dL
[2019-10-03] MEDS: DUONEB (A & A) INH PRN (17:29)
--- NOTE | 2019-10-03 18:33 | PROGRESS NOTE ---
DATE: 10/03/2019 SUBJECTIVE: This morning Ms. Barrett refers to be doing well. Still has some shortness of breath and was on nasal cannula. She underwent an attempted thoracentesis done yesterday, which was unsuccessful, so she is pending ultrasound-guided by IR today. OBJECTIVE: Vital signs: Blood pressure is 129/68, pulse of 63, respirations 16, temperature 98.2 degrees. General: Ms. Barrett is a 59-year-old female. She is in bed in mild respiratory distress. HEENT: Mucosa is pink and moist. Anicteric. Acyanotic. Neck: Supple. There is positive JVD. Chest: Air entry is bilaterally reduced. There is posterior and inspiratory crackles. There is also dullness to percussion on the right posterior lung field. Cardiovascular: Regular rate and rhythm. No murmurs, no rubs, no gallops. GI: Abdomen is soft, nontender. Bowel sounds present. Mild positive hepatojugular reflux. Extremities: 1+ pedal edema, more on the right than the left. REIMBURSEMENT COORDINATOR: Patient is awake, alert, and oriented. LABORATORY DATA: WBC is down to 10.57, hemoglobin is 9.5, platelet count of 230,000. Chemistry is also reviewed. Creatinine is down to 2.1. Troponin is still slightly elevated. ProB is 27,000. ASSESSMENT: 1. Generalized weakness and deconditioning on presentation presumably due to underlying heart disease and pneumonia. 2. Left focal mid lung infiltrate concerning for pneumonia. The patient is on cefepime with Zyvox. Today is day 4 on antimicrobial coverage. A repeat CT scan of the chest continues to show pneumonia on the left mid lung. 3. Acute on chronic renal failure. Creatinine is trending slowly down. 4. Diabetes mellitus with presenting A1c of 9.7. We will continue with insulin regimen. 5. Hypoxemic failure, most likely due to a combination of pulmonary edema and pneumonia. Patient is on supplemental oxygen. 6. Fluid overload secondary to congestive heart failure, ejection fraction of 40% with some wall motion abnormality. The patient is on diuretic therapy. Cardiology has been consulted. 7. History of coronary artery disease with elevated troponins on presentation concerning for non- ST elevation myocardial infarction. 8. Ischemic cardiomyopathy. 9. Hypothyroidism with extremely elevated TSH on presentation concerning for inadequate supplementation. The patient's thyroid medications have been increased. 10. Protein-calorie malnutrition. We will continue with nutritional supplement. PLAN: So in general, I think Ms. Barrett is doing fair. Still remains with residual shortness of breath. She just came from undergoing a right-sided thoracentesis. Repeat chest x-ray seems to suggest improvement. We are waiting on the fluid analysis. The previous one that we had seems to suggest a transudative fluid. We will, however, wait on the fluid analysis on this time. The patient is being seen by Cardiology and we have also consulted Pulmonary Medicine today. Disposition depends on the rest of her hospital course. cc: Ridge Alvarado MD MTDD
[2019-10-03] MEDS: ZOCOR PO SCH (21:14)
[2019-10-04] MEDS: SYNTHROID PO SCH (06:00)
[2019-10-04] MEDS: HUMALOG SUBQ SCH ×4 (06:01→21:32)
[2019-10-04 06:48] LABS: HEMATOCRIT 28.8 % (37.0-47.0); HEMOGLOBIN 9.1 g/dL (12.0-16.0); MCH 27.7 PG (27-31); MCHC 31.6 g/dL (33-37); MCV 87.5 FL (81-99); RBC 3.29 XMIL (4.2-5.4); RDW 13.8 % (11.5-14.5); WBC 12.26 X1000 (4.8-10.8)
[2019-10-04 08:00] LABS: ALBUMIN 2.7 g/dL (3.5-5.0); CALCIUM 8.8 mg/dL (8.8-10.2); CREATININE 2.1 mg/dL (0.5-0.9); PHOSPHORUS 3.8 mg/dL (2.7-4.5); POTASSIUM 3.2 mmol/L (3.5-5.1)
--- NOTE | 2019-10-04 08:04 | Diag Imaging Result Doc PS360 ---
EXAM: CHEST-2 VIEWS HISTORY: CHF TECHNIQUE: Two views COMPARISON: 10/03/2019 FINDINGS: The heart remains enlarged. There are xvolj-fr-[id number] sized bilateral pleural effusions. There is lower lobe pneumonia and atelectasis. Central vascular distention. Findings are more prominent than on the prior exam. IMPRESSION: Interval worsening Electronically signed by Rasta Murphy 10/04/2019 8:01 AM
--- NOTE | 2019-10-04 08:24 | PULMONOLOGY CONSULTATION ---
DATE: 10/03/2019 REQUESTING CLINICIAN: Dr. Alvarado REASON FOR CONSULTATION: Loculated pleural effusion. HISTORY OF PRESENT ILLNESS: Ms. Barrett is a 59-year-old white female with a 46-[id number]-[id number] history for tobacco (nonsmoker x1 year) with poorly controlled diabetes mellitus, chronic kidney disease followed by Dr. Jaime, history of diastolic heart failure, who presented to the emergency room with increased cough, increasing shortness of breath, and generalized weakness. She reports she discontinued her Lasix because it was effecting her creatinine. She had a chest x- ray which reveals a generous cardiac silhouette, along with increased right-sided pleural effusion compared to July, along with focal infiltrate on the left. CT scan of the thorax was performed earlier today, which reveals a moderate right-sided pleural effusion with a trace left- sided pleural effusion and no significant infiltrate on the right. Initial attempt to perform thoracentesis was unsuccessful. Repeat thoracenteses were performed by the radiologist who removed 1200 mL of dark evelia fluid. The patient reports her shortness of breath improved following the thoracentesis. PAST MEDICAL HISTORY: 1. Poorly controlled diabetes mellitus. Most recent hemoglobin A1c is 9.7. 2. Chronic renal insufficiency. 3. Systolic heart failure with an ejection fraction of 35% to 40%. 4. Peripheral vascular disease. 5. Obstructive sleep apnea with noncompliance to CPAP device. 6. Hypothyroidism. 7. Paroxysmal atrial fibrillation. REVIEW OF SYSTEMS: Notable for generalized weakness, shortness of breath, and a dry cough. She denies fevers, chills, or significant sputum production. FAMILY HISTORY: Noncontributory to current presentation. PHYSICAL EXAMINATION: General: Reveals an obese white female resting comfortably and in no distress. Vital Signs: Blood pressure 125/60, heart rate 70, respiratory rate 18, oxygen saturation 95% on 3 liters per nasal cannula. HEENT: Pupils are equal and reactive. Oropharynx appears clear. Neck: Supple. Chest: Reveals crackles in both lung bases. Cardiac: S1-S2. Abdomen: Soft. Extremities: Reveal trace to 1+ peripheral edema. LABORATORIES: Pleural fluid reveals a pH of 7, white blood count of 131, total protein of 1.6, glucose 141, LDH 58. IMPRESSION: A 59-year-old with: 1. Chronic hypoxemic respiratory failure. 2. Obstructive sleep apnea with noncompliance to CPAP. 3. Systolic heart failure. 4. Transudative pleural effusion. 5. Chronic renal insufficiency. RECOMMENDATIONS: 1. I agree with diuresis as you are doing. 2. Continue to maintain oxygen saturation greater than 90%. 3. Encourage compliance with CPAP when she returns home. 4. Agree with plans for echocardiogram and possible cardiac catheterization given her young age. cc: Roc Garcia MD
[2019-10-04] MEDS: ZYVOX 600 MG/D5W 600 MG/300 ML IVPB IV SCH ×2 (08:56→21:33)
[2019-10-04] MEDS: MAXIPIME 1 GM in NS 50 ML IV SCH ×2 (08:57→21:30)
[2019-10-04] MEDS: ISORDIL PO SCH ×3 (08:57→16:25)
[2019-10-04] MEDS: LASIX IV SCH ×2 (08:57→21:32)
[2019-10-04] MEDS: APRESOLINE PO SCH ×3 (08:57→16:21)
[2019-10-04] MEDS: ASPIRIN EC PO SCH (08:57)
[2019-10-04] MEDS: CULTURELLE PO SCH ×2 (08:57→21:31)
[2019-10-04] MEDS: LOPRESSOR PO SCH ×2 (08:57→21:32)
[2019-10-04] MEDS: LANTUS INSULIN SUBQ SCH ×2 (08:58→21:32)
--- NOTE | 2019-10-04 17:13 | Extremity Venous Study ---
PROCEDURE NAME: Venous U/S Right Leg - 10/03/2019 REQUESTING PHYSICIAN: Dr. Alvarado. SAMPLE PATTERNMAKER: [place]. INDICATIONS: Edema, right leg. EQUIPMENT: [employer] Vivid E9 ultrasound system with a 9 L-D transducer. FINDINGS: Images of the right lower extremity venous systems were obtained in both sagittal and transverse planes. Doppler was used to evaluate veins for spontaneity, phasicity, respiratory excursion, and digital augmentation. RESULTS: Normal venous compression. Normal venous flow. No obvious superficial or deep venous thrombosis noted. There is fluid noted in the soft tissue in the thigh and in the calf on the right side. INTERPRETATION: Fluid noted in the soft tissue on the right thigh and calf. I would recommend handling this clinically. The venous aspect of this study is essentially normal. cc: MD Ridge Hernández MD
--- NOTE | 2019-10-04 19:39 | PROGRESS NOTE ---
DATE: 10/04/2019 SUBJECTIVE: Patient has no major complaints. Breathing is a little bit better. OBJECTIVE: Blood pressure 139/61, heart rate of 67, respiratory rate 16, temperature 97.6 degrees, 97% on 3 L.Cardiovascular: Regular rate and rhythm. Pulmonary: Bilateral breath sounds clear to auscultation. GI: Soft, nontender, nondistended. Bowel sounds are positive. LABORATORY DATA: White count is 12, hemoglobin and hematocrit 9 and 28, platelets of 228,000. Potassium is 3.2, creatinine is 2.1. PROBLEM LIST: 1. Pneumonia left midlung. Patient currently on cefepime and Zyvox day 5. 2. Acute on chronic renal failure is stabilizing. 3. Type 2 diabetes. Blood sugars are improving slowly, mostly below 200. 4. Hypokalemia. We will supplement and continue to monitor. 5. Fluid overload. Seems to be doing a bit better. Ejection fraction around 40% with wall motion abnormality. Waiting on cardiology input. DISPOSITION: Pending his current workup and continue to follow closely. cc: Satnam Juarez MD
--- NOTE | 2019-10-04 21:15 | PROGRESS NOTE ---
DATE: 10/04/2019 SUBJECTIVE: The patient had right-sided thoracentesis yesterday, removing 1.2 L of evelia fluid that proved to be transudative. She reports that she felt considerably better after having this done; however, she had some tendency for shortness of breath when lying down which reemerged. There has been no chest pain. She presently denies shortness of breath on nasal cannula oxygen. OBJECTIVE: Vital Signs: Blood pressure 142/65, heart rate 69, oxygen saturation 99% on nasal cannula oxygen at 3 L/minute. Neck: Jugular venous distention is present, suggesting moderate elevation of central venous pressure. Chest: Auscultation of the chest reveals diminished breath sounds at the bases, right greater than left. Cardiac Exam: Reveals a regular rate and rhythm without appreciable murmur or gallop. Extremities: Demonstrate 1 to 2+ low pretibial edema. LABORATORY DATA: Includes a white blood cell count of 12.26, hematocrit of 28.8, hemoglobin of 9.1, platelet count of 228. Sodium 138, potassium 3.2, chloride 97, carbon dioxide 29, BUN 39, creatinine 2.1 glucose 130, albumin 2.7. Repeat chest x-ray this morning shows reemergence of moderate size right-sided pleural effusion and small left-sided pleural effusion. Lower lobe atelectasis also demonstrated. IMPRESSION: 1. Recent very mild nonspecific elevation in troponin in setting of congestive heart failure and chronic kidney disease. Probably more related to supply-demand mismatch and chronic kidney disease. Doubt acute coronary syndrome; however, she probably does have significant coronary disease based on previous evaluation. 2. Persistent tendency for congestive heart failure with pleural effusions and peripheral edema. 3. Cardiomyopathy with left ejection fraction of 35% to 40%, possibly ischemic. 4. Chronic kidney disease with creatinine of 2.2 and associated nephrotic syndrome probably related to diabetic nephropathy. 5. Peripheral vascular disease. 6. Chronic cigarette use. 7. Obstructive sleep apnea. Poor compliance with CPAP. 8. Chronic obstructive pulmonary disease. 9. Hypothyroidism. 10. Paroxysmal atrial fibrillation. RECOMMENDATIONS: 1. Will continue diuresis with IV Lasix. 2. Followup repeat echocardiography. 3. Ultimately, once patient is clinically improved from the standpoint of volume overload, consideration should be given to diagnostic coronary angiography. cc: Wilian Damian MD
[2019-10-04] MEDS: ZOCOR PO SCH (21:31)
[2019-10-05 06:21] LABS: BASO# 0.03 X1000 (0.0-0.2); BASO% 0.3 % (0.0-0.8); EOS# 0.93 X1000 (0.0-0.7); EOS% 8.3 % (0.0-10.0); HEMATOCRIT 28.7 % (37.0-47.0); HEMOGLOBIN 8.9 g/dL (12.0-16.0); IMM GRAN# 0.04 X1000 (0.0-0.04); IMM GRAN% 0.4 % (0.0-0.5); LYMPH# 1.66 X1000 (1.2-3.4); LYMPH% 14.8 % (20.5-51.1); MCH 26.7 PG (27-31); MCV 86.2 FL (81-99); MONO# 1.04 X1000 (0.11-0.59); MONO% 9.2 % (1.7-9.3); MPV 10.4 FL (7.4-10.4); NEUT# 7.55 X1000 (1.4-6.5); PLT 244 X1000 (130-400); RBC 3.33 XMIL (4.2-5.4); RDW 13.6 % (11.5-14.5); WBC 11.25 X1000 (4.8-10.8)
[2019-10-05] MEDS: SYNTHROID PO SCH (06:42)
[2019-10-05] MEDS: HUMALOG SUBQ SCH ×4 (06:45→21:23)
[2019-10-05 06:50] LABS: CALCIUM 8.5 mg/dL (8.8-10.2); CREATININE 1.9 mg/dL (0.5-0.9); POTASSIUM 3.1 mmol/L (3.5-5.1)
--- NOTE | 2019-10-05 06:55 | PULMONOLOGY PROGRESS NOTE ---
DATE: 10/04/2019 SUBJECTIVE: The patient is awake, alert, and conversant. She reports her breathing has slightly improved compared to yesterday but she does have dyspnea with any exertion. OBJECTIVE: She appears to have a negative fluid balance for the last 24 hours. Blood pressure 139/61, heart rate 67, respiratory rate 16, oxygen saturation 97% on 3 L. HEENT: Pupils are equal and reactive. Oropharynx appears clear. Neck is supple. Chest reveals diminished breath sounds, both lung bases. Cardiac Examination: S1, S2. Abdomen is obese and soft. Extremities reveal trace to 1+ peripheral edema. Laboratories: Chest x-ray reveals cardiomegaly with bilateral pleural effusions. Central vascular distention is slightly more prominent. IMPRESSION: A 59-year-old with: 1. Systolic heart failure. 2. Obstructive sleep apnea with noncompliance to CPAP. 3. Chronic hypoxemic respiratory failure. 4. Transudative pleural effusions. 5. Chronic renal insufficiency. PLAN: 1. Continue diuresis as tolerated. 2. Continue oxygen to maintain saturation greater than 90%. 3. Encourage CPAP compliance. 4. Anticipate cardiac catheterization. cc: Roc Garcia MD
[2019-10-05] MEDS: ZYVOX 600 MG/D5W 600 MG/300 ML IVPB IV SCH (09:11)
[2019-10-05] MEDS: MAXIPIME 1 GM in NS 50 ML IV SCH ×2 (09:12→21:04)
[2019-10-05] MEDS: ASPIRIN EC PO SCH (09:12)
[2019-10-05] MEDS: LASIX IV SCH ×2 (09:12→18:13)
[2019-10-05] MEDS: APRESOLINE PO SCH ×4 (09:12→16:06)
[2019-10-05] MEDS: LOPRESSOR PO SCH ×2 (09:12→21:06)
[2019-10-05] MEDS: CULTURELLE PO SCH ×2 (09:12→21:06)
[2019-10-05] MEDS: ISORDIL PO SCH ×3 (09:12→17:11)
[2019-10-05] MEDS: LANTUS INSULIN SUBQ SCH ×2 (09:13→21:06)
[2019-10-05] MEDS ORDERED: CALMOSEPTINE OINTMENT TOP PRN (15:14)
[2019-10-05] MEDS ORDERED: DIFLUCAN PO ONE (16:22)
--- NOTE | 2019-10-05 20:12 | PROGRESS NOTE ---
DATE: 10/05/2019 SUBJECTIVE: The patient has no major complaints except for some diarrhea. OBJECTIVE: 128/62, heart rate 71, respiratory rate of 19, temperature 97.9 degrees. Cardiovascular: Regular rate and rhythm.Pulmonary: Bilateral breath sounds, clear to auscultation. GI: Soft, nondistended. Bowel sounds. Nontender. LABORATORY DATA: White count 11, hemoglobin and hematocrit 8 and 28, platelets 244,000. Potassium is 3.1, creatinine 1.9, sugar 201. ASSESSMENT AND PLAN: 1. Pneumonia. Continue cefepime and Zyvox. This is day 6. Continue pulmonary toilet. Pulmonary is following. 2. Dfifm-sv-aikmswx failure. Stable creatinine. 3. Type 2 diabetes. We will continue blood sugar: we will continue. 4. Hypokalemia. We will supplement and follow while on diuretics. 5. Volume overload, acute systolic congestive heart failure. We will continue diuretics and follow closely. 6. Disposition pending clinical status. I think she is probably safe to go to the floor, though. Cardiology is looking at coronary angiography, at their discretion. cc: Satnam Juarez MD [facility]
--- NOTE | 2019-10-05 20:48 | PROGRESS NOTE ---
DATE: 10/05/2019 SUBJECTIVE: Patient denies chest discomfort or shortness of breath. On supplemental oxygen per nasal cannula. She has not gotten out of bed very much but has sat up on the side of the bed some. She continues to diurese with current IV Lasix. OBJECTIVE: Vital Signs: Blood pressure 120/62, heart rate 71, oxygen saturation 96% on nasal cannula oxygen. Neck: Jugular venous distention is evident consistent with elevated central venous pressure. Chest: Auscultation of the chest reveals diminished breath sounds in the left base posteriorly. There was some inspiratory coarse crackles in the right base posteriorly. Cardiac: Reveals a regular rate and rhythm without appreciable murmur or gallop. Extremities: Demonstrate mild pretibial edema bilaterally. LABORATORY DATA: Includes a white blood cell count 11.25, hematocrit 28.7, hemoglobin 8.9, platelet count 244,000, sodium 137, potassium 3.1, chloride 95, carbon dioxide 30, creatinine 36, creatinine 1.9, glucose 123, recent albumin 2.7. IMPRESSION: 1. Acute on chronic systolic heart failure with bilateral pleural effusions right greater than left, and peripheral edema. 2. Cardiomyopathy with left ejection fraction 35 to 40%. Possible ischemic cardiomyopathy suggested. 3. Chronic kidney disease with creatinine around 2.0 and associated nephrotic syndrome probably related to diabetic nephropathy. 4. Peripheral vascular disease. 5. Chronic cigarette use. 6. Diabetes mellitus. 7. Chronic obstructive pulmonary disease. 8. Hypothyroidism. 9. Paroxysmal atrial fibrillation. RECOMMENDATIONS: 1. Continue to diurese with IV Lasix and gently increased dose. 2. Follow up limited repeat echocardiography. 3. Repeat PA and lateral chest x-ray in a.m. 4. Incentive spirometry. 5. Ultimately patient to be considered for cardiac catheterization/diagnostic coronary angiography once she is improved from the standpoint of her volume overload. cc: Wilian Damian MD
[2019-10-05] MEDS: ZOFRAN IV PRN (21:06)
[2019-10-05] MEDS: ZOCOR PO SCH (21:06)
[2019-10-05] MEDS: ZYVOX PO SCH (21:22)
[2019-10-06] MEDS: SYNTHROID PO SCH ×2 (05:32→07:47)
[2019-10-06] MEDS: LASIX IV SCH ×2 (05:32→14:09)
[2019-10-06] MEDS: HUMALOG SUBQ SCH ×4 (06:49→20:11)
[2019-10-06 07:19] LABS: BASO# 0.03 X1000 (0.0-0.2); BASO% 0.4 % (0.0-0.8); EOS# 0.75 X1000 (0.0-0.7); EOS% 9.1 % (0.0-10.0); HEMATOCRIT 30.5 % (37.0-47.0); HEMOGLOBIN 9.7 g/dL (12.0-16.0); IMM GRAN# 0.03 X1000 (0.0-0.04); IMM GRAN% 0.4 % (0.0-0.5); LYMPH# 1.63 X1000 (1.2-3.4); LYMPH% 19.9 % (20.5-51.1); MCH 27.2 PG (27-31); MCHC 31.8 g/dL (33-37); MCV 85.4 FL (81-99); MONO# 0.77 X1000 (0.11-0.59); MONO% 9.4 % (1.7-9.3); MPV 10.3 FL (7.4-10.4); NEUT# 4.99 X1000 (1.4-6.5); NEUT% 60.8 % (42.2-75.2); PLT 281 X1000 (130-400); RBC 3.57 XMIL (4.2-5.4); RDW 13.6 % (11.5-14.5)
--- NOTE | 2019-10-06 07:55 | PULMONOLOGY PROGRESS NOTE ---
DATE: 10/05/2019 SUBJECTIVE: The patient is awake and alert. She reports that she is fatigued. She has had some dyspnea during the day. Intake and output is reported as negative. OBJECTIVE: Vital Signs: Blood pressure 148/62, heart rate 75, respiratory rate 21 oxygen saturation 98% on 3 L per nasal cannula. HEENT: Pupils are equal and reactive. Oropharynx appears clear. Neck: Supple. Chest: Reveals diminished breath sounds both lung bases. Cardiac: S1-S2. Abdomen: Soft. Extremities: Reveal trace edema. LABORATORY DATA: White blood count 11.25, hemoglobin 8.9, platelet count 244,000. Sodium 137, potassium 3.1, chloride 95, bicarbonate 30, BUN 36, creatinine 1.9, glucose 197. IMPRESSION: A 59-year-old with 1. Systolic heart failure. 2. Obstructive sleep apnea with noncompliance to her CPAP. 3. Chronic hypoxemic respiratory failure. 4. Transudative pleural effusions consistent with heart failure. 5. Chronic renal insufficiency. PLAN: 1. Encourage CPAP compliance at bedtime and p.r.n. 2. Continue oxygen to maintain saturation greater than 90%. 3. Continue diuresis as tolerated. 4. Cardiac catheterization being considered with clinical improvement. cc: Roc Garcia MD
[2019-10-06 08:01] LABS: CALCIUM 8.9 mg/dL (8.8-10.2); CREATININE 1.9 mg/dL (0.5-0.9); POTASSIUM 2.9 mmol/L (3.5-5.1)
--- NOTE | 2019-10-06 08:30 | Diag Imaging Result Doc PS360 ---
CHEST-2 VIEWS - 10/06/2019 INDICATION: CHF, bilateral pleural effusions, diuresing COMPARISON: 10/04/2019 FINDINGS: There is perhaps slight improvement in the diffuse pulmonary vascular congestion. Stable severe cardiomegaly. Stable rather large bilateral pleural effusions. IMPRESSION: Slight improvement in the diffuse pulmonary vascular congestion. Electronically signed by Sinan Mann 10/06/2019 8:28 AM
--- NOTE | 2019-10-06 08:35 | ECHO REPORT ---
ORDER DATE: 10/05/2019 INTERPRETING PHYSICIAN: Alexander Hernandez MD. INDICATIONS: Pericardial effusion, cardiomyopathy. M-MODE MEASUREMENTS: Left ventricle end diastole: 5.2 cm. Left ventricle end systole: 4.2 cm. Posterior wall: 0.7 cm. Interventricular septum: 0.7 cm. Left atrium: 4.1 cm. Aortic diameter: 2.2 cm. SUMMARY OF 2-DIMENSIONAL IMAGIN. The left ventricular chamber appears to be mild to moderately enlarged. The global left ventricular systolic function appears to be at the lower limits of normal estimated at 50% to 55%. I do not see any definite wall motion abnormality. 2. The right ventricle appears to be grossly unremarkable. There is a moderate circumferential pericardial effusion. On the subcostal views, there is a hint in the direction of late indentation of the right ventricular free wall at the end of diastole suggesting elevation of the intrapericardial pressure. 3. The aortic valve shows sclerosis of the cusps. 4. The left atrium is moderately enlarged. 5. The right atrium is mildly enlarged. 6. The tricuspid valve shows mild degree of regurgitation. The tricuspid valve shows also mild degree of regurgitation. 7. Pulse wave Doppler of mitral inflow shows "normal" E/A ratio. 8. Tissue Doppler was not carried out. 9. The inspiratory maneuvers do not suggest any definite indication of interventricular dependence. 10.At least, the inflow of the mitral valve does not change significantly. 11.The inferior vena cava is slightly enlarged with decreased respiratory variation and tricuspid valve shows mild degree of regurgitation with a pulmonary pressure of 46 mmHg. I do not see evidence of mass and no thrombus. There is dense calcification of mitral annulus. SUMMARY: This study shows: 1. Left ventricular chamber moderately enlarged with left ventricular systolic function at the lower limits of normal, ejection fraction probably in the neighborhood of 55%. 2. Calcification of mitral annulus. 3. Circumferential pericardial effusion of moderate degree with a question of indentation of the right ventricular free wall at the end of diastole. That is only seen in 1 particular view, is not consistent. 4. There is mild tricuspid and mitral regurgitation. Clinical correlation is strongly recommended. Suggest a followup echocardiogram in the next 48-72 hours. cc: MD Wilian Braden MD
[2019-10-06] MEDS: ZOFRAN IV PRN (09:02)
[2019-10-06] MEDS: LOPRESSOR PO SCH ×2 (09:20→20:11)
[2019-10-06] MEDS: ISORDIL PO SCH ×3 (09:20→17:46)
[2019-10-06] MEDS: ZYVOX PO SCH ×2 (09:20→20:10)
[2019-10-06] MEDS: CULTURELLE PO SCH ×2 (09:20→20:11)
[2019-10-06] MEDS: MAXIPIME 1 GM in NS 50 ML IV SCH ×2 (09:20→20:10)
[2019-10-06] MEDS: LANTUS INSULIN SUBQ SCH ×2 (09:20→20:11)
[2019-10-06] MEDS: APRESOLINE PO SCH ×3 (09:20→17:46)
[2019-10-06] MEDS: ASPIRIN EC PO SCH (09:20)
[2019-10-06] MEDS: DUONEB (A & A) INH PRN ×2 (12:25→21:50)
[2019-10-06] MEDS ORDERED: MICRO-K PO ONE (13:02)
[2019-10-06] MEDS ORDERED: KLOR-CON PO ONE (13:15)
[2019-10-06] MEDS ORDERED: ALBUMIN 25% IV ONE (14:00)
--- NOTE | 2019-10-06 18:24 | PROGRESS NOTE ---
DATE: 10/06/2019 SUBJECTIVE: Patient relates some mild shortness of breath. She has had some cough productive of "milky" sputum. There has been no chest pain. OBJECTIVE: Blood pressure 140/63, heart rate 67, oxygen saturation 95-97% on nasal cannula oxygen at 2 L/minute.Neck: Jugular venous pressure appears to be mildly elevated based on inspection of neck veins. Lungs: Auscultation of the chest reveals some diminished breath sounds at bases bilaterally. Cardiac Exam: Reveals a regular rate and rhythm without appreciable murmur or gallop. Extremities: Demonstrate very mild edema. IMAGING: PA and lateral chest x-ray shows bilateral pleural effusions, slowly retreating. LABORATORY DATA: Includes a white blood cell count 8.2, hematocrit 30.5, hemoglobin 9.7, platelet count 281,000. Sodium 141, potassium 2.9, chloride 95, carbon dioxide 31, creatinine 32, BUN 1.9, glucose 171. IMPRESSION: 1. Acute on chronic systolic heart failure with bilateral pleural effusions and peripheral edema. 2. Cardiomyopathy with left ventricular ejection fraction 35-40%, possibly ischemic in nature. 3. Chronic kidney disease with creatinine around 2.0 and associated nephrotic syndrome probably related to diabetic nephropathy. 4. Peripheral vascular disease. 5. Chronic cigarette use. 6. Diabetes mellitus type 2. 7. Chronic obstructive pulmonary disease. 8. Hypothyroidism. 9. Paroxysmal atrial fibrillation. RECOMMENDATIONS: 1. Continue to diurese with IV Lasix and gently increase dose. 2. Ultimately patient to be considered for cardiac catheterization/diagnostic coronary angiography once she has improved from the standpoint of her volume overload. cc: Wilian Damian MD
--- NOTE | 2019-10-06 18:30 | PROGRESS NOTE ---
DATE: 10/06/2019 SUBJECTIVE: Patient has no major complaints. OBJECTIVE: Blood pressure 140/63, heart rate 69, respiratory rate 18, temperature 98.2 degrees.Cardiovascular: Regular rate and rhythm. Pulmonary: Bilateral breath sounds clear to auscultation. GI: Abdomen soft, nontender, nondistended. Bowel sounds are positive. IMAGING/DATA: Her chest x-ray looks unchanged. She has bilateral lower lobe infiltrates which per the chest x-ray today looks better. In's and out's indicate 81 and 40 out total, she is negative about 1.4 L. She has been negative. She has put out about 1,850-2,400, so she is making decent urine overall, negative for the last several days. PROBLEM LIST: 1. Pneumonia. She is on cefepime, Zyvox day 7 and probably continue a 10-day course. 2. Acute on chronic renal failure. Her kidney function is holding right around 2. 3. Type 2 diabetes. We will continue to monitor blood sugars. Continue regular medications. 4. Hypokalemia. We will supplement and follow while on diuretics. 5. Congestive heart failure. Her most recent echo showed an intact EF, so this could be now diastolic. It had been low previously in the 40% range based on an echocardiogram in May. What concerns me a little bit more is low voltage EKG and pericardial effusion. If we cannot diuresis this off, if there is a necessity do anything more complicated, she certainly does not have evidence of hemodynamic instability. We will let Cardiology decide about that, and they are planning to do cardiac catheterization when she is diuresed, I would imagine probably by the first of the week. 6. Disposition. Pending cardiac input, again, by the beginning of the week. cc: Satnam Juarez MD
[2019-10-06] MEDS: ZOCOR PO SCH (20:10)
[2019-10-06] MEDS: KLOR-CON PO SCH (20:11)
--- NOTE | 2019-10-06 21:49 | PULMONOLOGY PROGRESS NOTE ---
DATE: 10/06/2019 SUBJECTIVE: The patient is awake and alert. She continues to have shortness of breath with limited exertion. OBJECTIVE: Vital Signs: The patient has been afebrile for the last 24 hours. Blood pressure 137/67, heart rate 80, respiratory rate 17, oxygen saturation 97% on 2 L per nasal cannula. HEENT: Pupils are equal and reactive. Oropharynx appears clear. Neck: Supple. Chest: Reveals diminished breath sounds both lung bases. Cardiac: S1-S2. Abdomen: Soft. Extremities: Reveal trace edema. LABORATORIES: Chest x-ray reveals cardiomegaly, bilateral effusions with slight decrease in vascular congestion. IMPRESSION: A 59-year-old with: 1. Systolic heart failure. 2. Obstructive sleep apnea. 3. Chronic hypoxemic respiratory failure. 4. Transudative pleural effusions. 5. Chronic renal insufficiency. PLAN: 1. Continue CPAP. 2. Maintain oxygen saturation greater than 90%. 3. Continue diuresis. 4. Obtain decubitus chest films tomorrow to better quantify pleural effusions. 5. Cardiac catheterization pending clinical improvement. cc: Roc Garcia MD
[2019-10-07] MEDS: LASIX IV SCH ×2 (01:59→12:14)
[2019-10-07] MEDS: SYNTHROID PO SCH (06:19)
[2019-10-07] MEDS: HUMALOG SUBQ SCH ×4 (06:48→21:45)
[2019-10-07 06:53] LABS: BASO# 0.02 X1000 (0.0-0.2); BASO% 0.2 % (0.0-0.8); EOS# 0.72 X1000 (0.0-0.7); EOS% 8.8 % (0.0-10.0); HEMATOCRIT 30.9 % (37.0-47.0); HEMOGLOBIN 9.4 g/dL (12.0-16.0); IMM GRAN# 0.02 X1000 (0.0-0.04); IMM GRAN% 0.2 % (0.0-0.5); LYMPH# 1.33 X1000 (1.2-3.4); LYMPH% 16.2 % (20.5-51.1); MCH 26.4 PG (27-31); MCHC 30.4 g/dL (33-37); MCV 86.8 FL (81-99); MONO# 0.59 X1000 (0.11-0.59); MONO% 7.2 % (1.7-9.3); MPV 9.8 FL (7.4-10.4); NEUT# 5.54 X1000 (1.4-6.5); NEUT% 67.4 % (42.2-75.2); PLT 254 X1000 (130-400); RBC 3.56 XMIL (4.2-5.4); RDW 13.6 % (11.5-14.5); WBC 8.22 X1000 (4.8-10.8)
[2019-10-07 07:20] LABS: CALCIUM 8.9 mg/dL (8.8-10.2); POTASSIUM 3.4 mmol/L (3.5-5.1)
[2019-10-07] MEDS: KLOR-CON PO SCH ×2 (09:01→21:44)
[2019-10-07] MEDS: CULTURELLE PO SCH ×2 (09:01→21:44)
[2019-10-07] MEDS: LOPRESSOR PO SCH ×2 (09:01→21:44)
[2019-10-07] MEDS: APRESOLINE PO SCH ×3 (09:01→16:47)
[2019-10-07] MEDS: ISORDIL PO SCH ×3 (09:01→16:47)
[2019-10-07] MEDS: ZYVOX PO SCH ×2 (09:01→21:44)
[2019-10-07] MEDS: ASPIRIN EC PO SCH (09:01)
[2019-10-07] MEDS: LANTUS INSULIN SUBQ SCH ×2 (09:02→21:44)
[2019-10-07] MEDS: MAXIPIME 1 GM in NS 50 ML IV SCH ×2 (09:02→21:43)
[2019-10-07] MEDS ORDERED: KLOR-CON PO ONE (09:33)
[2019-10-07] MEDS: NORCO-7.5 PO PRN ×2 (10:04→16:47)
--- NOTE | 2019-10-07 14:12 | PROGRESS NOTE ---
DATE: 10/07/2019 SUBJECTIVE: Patient relates some shortness of breath on supplemental oxygen. She also relates some anxiety. There has been no chest pain. OBJECTIVE: Blood pressure 130/60, heart rate 71. Oxygen saturation 95% on nasal cannula oxygen. Jugular venous pressure appears to be normal based on inspection.Neck: Jugular venous pressure appears to be normal based on inspection of the neck veins. Chest: Auscultation of the chest reveals diminished breath sounds in the bases bilaterally. Cardiac Exam: Reveals a regular rate and rhythm without appreciable murmur or gallop. Extremities: Demonstrate trace edema. LABORATORY DATA: Includes a white blood cell count 8.22 hematocrit 30.9, hemoglobin 9.4, platelet count 254,000. Sodium 143, potassium 3.4, chloride 96, carbon dioxide 33, BUN 30, creatinine 2.0, glucose 210. Limited followup echocardiography reports left ventricular ejection fraction of 50 to 55 percent. Moderate pericardial effusion reported along with pleural effusions. Appearance of inferior vena cava suggested elevated central venous pressure. IMPRESSION: 1. Acute on chronic systolic heart failure with bilateral pleural effusions. 2. Cardiomyopathy. Previous left ventricular ejection fraction 35 - 40%. More recent echocardiography indicates left ventricular ejection fraction of at least 50%. Underlying coronary atherosclerosis suspected. 3. Chronic kidney disease with creatinine around 2, associated nephrotic syndrome and probably related to diabetic nephropathy. 4. Peripheral vascular disease. 5. Chronic cigarette use. 6. Diabetes mellitus. 7. Chronic obstructive pulmonary disease. 8. Hypothyroidism. 9. Paroxysmal atrial fibrillation. RECOMMENDATIONS: 1. Continue to diurese with intravenous Lasix but it at a more gentle rate. 2. Repeat echocardiography Thursday to followup pericardial effusion. cc: Wilian Damian MD
--- NOTE | 2019-10-07 15:43 | PROGRESS NOTE ---
DATE: 10/07/2019 SUBJECTIVE: Patient has no major complaints. I saw her standing up looking out the window. OBJECTIVE: Blood pressure 130/60, heart rate of 71, respiratory rate 19, temperature 97.8 degrees, 95% on 3 L.Cardiovascular: Regular rate and rhythm. Pulmonary: Bilateral breath sounds, clear to auscultation. GI: Soft, nontender, nondistended. Bowel sounds are positive. LABORATORY DATA: White count 8, hemoglobin and hematocrit 9 and 40, platelets 254,000. Potassium 3.4, creatinine of 2, sugar 210. PROBLEM LIST: 1. Pneumonia. She is on cefepime and Zyvox day 8. Will finish a 10-day course unless Pulmonary feels different. 2. Acute on chronic renal failure. Kidney function is stable. Her creatinine is around 2. Her GFR is 4, stage 4. 3. Congestive heart failure exacerbation, appears to be doing okay. 4. Type 2 diabetes. Her blood sugars are still not completely under control. She is on glargine insulin 60 units a day and that is it. 5. Hypokalemia. We will continue supplement and follow. DISPOSITION: Pending her clinical status, and also Cardiology is evaluating for her left heart catheterization, possibly Thursday. cc: Satnam Juarez MD
[2019-10-07] MEDS: DUONEB (A & A) INH PRN (21:37)
[2019-10-07] MEDS: ZOCOR PO SCH (21:44)
--- NOTE | 2019-10-07 22:24 | PULMONOLOGY PROGRESS NOTE ---
DATE: 10/07/2019 SUBJECTIVE: The patient is awake and alert. She reports profound fatigue. She cannot lie flat and therefore could not perform the decubitus x-ray films requested earlier this morning. OBJECTIVE: BP 144/72, heart rate 71, respiratory rate 21, oxygen saturation 98% on 3 L per nasal cannula. HEENT: Pupils are equal and reactive. Oropharynx appears clear. Neck: Supple. Chest: Diminished breath sounds in both lung bases. Cardiac: S1-S2. Abdomen: Soft. Extremities: Peripheral edema 1+. LABORATORY DATA: Sodium 143, potassium 3.4, chloride 96, bicarbonate 33, BUN 30, creatinine 2.0. IMPRESSION: 1. A 59-year-old with echocardiogram most consistent with diastolic heart failure. 2. Pericardial effusion. 3. Obstructive sleep apnea. 4. Transudative pleural effusions. 5. Chronic hypoxemic respiratory failure. 6. Chronic renal insufficiency. PLAN: 1. Continue to cycle BiPAP at bedtime and p.r.n. 2. Continue diuresis as tolerated. 3. Followup chest x-ray tomorrow. 4. Anticipate cardiac catheterization pending clinical improvement. 5. Follow up pericardial effusion on Thursday to ensure she is not developing tamponade. cc: Roc Garcia MD
[2019-10-08] MEDS: NORCO-7.5 PO PRN ×4 (00:28→21:12)
[2019-10-08] MEDS: LASIX IV SCH ×2 (00:28→12:17)
[2019-10-08 05:53] LABS: BASO# 0.05 X1000 (0.0-0.2); BASO% 0.5 % (0.0-0.8); EOS# 0.92 X1000 (0.0-0.7); EOS% 8.6 % (0.0-10.0); HEMATOCRIT 31.7 % (37.0-47.0); HEMOGLOBIN 9.6 g/dL (12.0-16.0); IMM GRAN# 0.02 X1000 (0.0-0.04); IMM GRAN% 0.2 % (0.0-0.5); LYMPH# 1.92 X1000 (1.2-3.4); LYMPH% 17.9 % (20.5-51.1); MCH 26.6 PG (27-31); MCHC 30.3 g/dL (33-37); MCV 87.8 FL (81-99); MONO# 0.68 X1000 (0.11-0.59); MONO% 6.3 % (1.7-9.3); MPV 9.6 FL (7.4-10.4); NEUT# 7.12 X1000 (1.4-6.5); NEUT% 66.5 % (42.2-75.2); PLT 267 X1000 (130-400); RBC 3.61 XMIL (4.2-5.4); RDW 13.8 % (11.5-14.5); WBC 10.71 X1000 (4.8-10.8)
[2019-10-08 06:14] LABS: CALCIUM 9.1 mg/dL (8.8-10.2); CREATININE 2.1 mg/dL (0.5-0.9); POTASSIUM 3.7 mmol/L (3.5-5.1)
[2019-10-08] MEDS: HUMALOG SUBQ SCH ×4 (06:21→21:13)
[2019-10-08] MEDS: SYNTHROID PO SCH (06:52)
[2019-10-08] MEDS: ISORDIL PO SCH ×3 (08:29→17:23)
[2019-10-08] MEDS: ZYVOX PO SCH ×2 (08:29→21:12)
[2019-10-08] MEDS: LOPRESSOR PO SCH ×2 (08:29→21:13)
[2019-10-08] MEDS: ASPIRIN EC PO SCH (08:29)
[2019-10-08] MEDS: CULTURELLE PO SCH ×2 (08:29→21:12)
[2019-10-08] MEDS: LANTUS INSULIN SUBQ SCH ×3 (08:29→21:14)
[2019-10-08] MEDS: KLOR-CON PO SCH ×2 (08:29→21:12)
[2019-10-08] MEDS: APRESOLINE PO SCH ×3 (08:29→17:23)
[2019-10-08] MEDS: MAXIPIME 1 GM in NS 50 ML IV SCH ×2 (08:30→21:14)
--- NOTE | 2019-10-08 14:18 | PROGRESS NOTE ---
DATE: 10/08/2019 SUBJECTIVE: Patient progressively feeling better. She denies shortness of breath or chest discomfort on supplemental oxygen per nasal cannula. OBJECTIVE: Vital Signs: Blood pressure 142/68, heart rate 76, oxygen saturation 96% on nasal cannula oxygen. Jugular venous pressure appears to be normal based on inspection of neck veins. Auscultation of chest reveals diminished breath sounds at bases bilaterally. Cardiac: A regular rate and rhythm without appreciable murmur or gallop. Extremities: Demonstrate trace edema. LABORATORY DATA: Includes a white blood cell count 10.71, hematocrit 31.7, hemoglobin 9.6, platelet count 267,000, sodium 143, potassium 3.7, chloride 96, carbon dioxide 35, BUN 31, creatinine 2.1, glucose 145. IMPRESSION: 1. Acute on chronic heart failure with bilateral pleural effusions improved with diuresis. 2. Cardiomyopathy. Previous left ventricular ejection fraction 35 to 40% with most recent echocardiography indicating left ventricular ejection fraction is 50%. Underlying coronary atherosclerosis suspected. 3. Chronic kidney disease with creatinine around 2.0 and associated nephrotic syndrome probably due to diabetic nephropathy. 4. Peripheral vascular disease. 5. Chronic cigarette use. 6. Diabetes mellitus. 7. Chronic obstructive pulmonary disease. 8. Hypothyroidism. 9. Paroxysmal atrial fibrillation. RECOMMENDATIONS: 1. Continue diuresis at current rate. 2. Followup PA and lateral chest x-ray tomorrow. cc: Wilian Damian MD
--- NOTE | 2019-10-08 14:40 | Diag Imaging Result Doc PS360 ---
EXAM: CHEST-PORTABLE HISTORY: dyspnea TECHNIQUE: Single view COMPARISON: 10/06/2019 FINDINGS: There is a moderate to large left pleural effusion. There is a small to moderate-sized right pleural effusion. There are bilateral infiltrates and basilar atelectasis. Findings are more prominent on the left than they were on the prior study. Heart remains enlarged. IMPRESSION: Interval worsening Electronically signed by Rasta Murphy 10/08/2019 2:37 PM
[2019-10-08] MEDS ORDERED: ZAROXOLYN PO ONE (15:44)
--- NOTE | 2019-10-08 17:29 | PROGRESS NOTE ---
DATE: 10/08/2019 SUBJECTIVE: The patient is still short winded with exertion, but she is still getting up and around. OBJECTIVE: vital signs: Blood pressure is 144/75, heart rate 73, respiratory rate 20, temperature degrees 98.2 degrees, and 97% on 3 L. Cardiovascular: Regular rate and rhythm. Pulmonary: Has diminished lung sounds on both sides. Gastrointestinal: Soft, nontender, nondistended. Bowel sounds are positive. LABORATORIES: White count 10, hemoglobin and hematocrit 9 and 31, platelets 267,000. BUN and creatinine 31 and 2.1. Sugar 179. PROBLEM LIST: 1. Pneumonia. She is on cefepime and Zyvox. This will be day 9 of 10 and we will follow. 2. Acute on chronic renal failure. She is stage IV, but stable despite aggressive diuresis. 3. Acute congestive heart failure exacerbation, diastolic. We will continue diuretics. Dr. Damian is titrating up on her Lasix. I have added metolazone and we will follow. Despite this though her x-rays still continue to look worse and she has an expanding effusion on the left side which I agree with she probably will need thoracentesis. She had thoracentesis already on the right side. We will give her some albumin today. It is 2.7. We probably should also rule out nephrotic syndrome since she has got chronic renal failure. Start collecting her protein here. 4. Hypokalemia. We will supplement and follow. DISPOSITION: Pending her clinical status. Since she is still awaiting left heart catheterization, we will monitor her in the PVC unit. cc: Satnam Juarez MD
--- NOTE | 2019-10-08 18:24 | PULMONOLOGY PROGRESS NOTE ---
DATE: 10/08/2019 SUBJECTIVE: The patient is awake, alert, and conversant. She reports her breathing is doing well unless she tries to ambulate. OBJECTIVE: BP 144/75, heart rate 73, respiratory rate 20, oxygen saturation 97% on 3 L per nasal cannula. HEENT: Pupils are equal and reactive. Oropharynx appears clear. Neck: Supple. Chest: Diminished breath sounds left greater than right base. Cardiac: S1-S2. Abdomen: Soft. Extremities: Without edema. LABORATORY AND DIAGNOSTIC DATA: Chest x-ray reveals increasing left greater than right pleural effusion. White blood count 10.71, hemoglobin 9.6, platelet count 267,000. IMPRESSION: A 59-year-old with: 1. Diastolic heart failure. 2. Pericardial effusion. 3. Obstructive sleep apnea. 4. Increasing pleural effusions which have been transudative in the past. 5. Chronic hypoxemic respiratory failure. 6. Chronic renal insufficiency. DISCUSSION: A 59-year-old with problems outlined above. Her output appears to be greater than intake for the last several days, but she is having increasing effusions. PLAN: 1. Agree with increasing diuretics as outlined by Dr. Damian. 2. Cycle BiPAP at bedtime and p.r.n. 3. Follow up echocardiogram on Thursday, to evaluate pericardial effusion. 4. Consider repeat thoracentesis focusing in the left hemithorax. cc: Roc Garcia MD
[2019-10-08] MEDS: ZOCOR PO SCH (21:12)
[2019-10-09] MEDS: LASIX IV SCH ×2 (00:05→13:50)
[2019-10-09] MEDS: SYNTHROID PO SCH (06:27)
[2019-10-09] MEDS: HUMALOG SUBQ SCH ×5 (06:33→20:29)
[2019-10-09 06:48] LABS: BASO# 0.04 X1000 (0.0-0.2); BASO% 0.3 % (0.0-0.8); EOS# 0.95 X1000 (0.0-0.7); EOS% 7.7 % (0.0-10.0); HEMATOCRIT 31.2 % (37.0-47.0); HEMOGLOBIN 9.5 g/dL (12.0-16.0); IMM GRAN# 0.03 X1000 (0.0-0.04); IMM GRAN% 0.2 % (0.0-0.5); LYMPH# 1.83 X1000 (1.2-3.4); LYMPH% 14.9 % (20.5-51.1); MCH 26.9 PG (27-31); MCHC 30.4 g/dL (33-37); MCV 88.4 FL (81-99); MONO# 0.95 X1000 (0.11-0.59); MONO% 7.7 % (1.7-9.3); MPV 9.6 FL (7.4-10.4); NEUT% 69.2 % (42.2-75.2); PLT 227 X1000 (130-400); RBC 3.53 XMIL (4.2-5.4); RDW 13.7 % (11.5-14.5)
[2019-10-09 07:21] LABS: CALCIUM 9.3 mg/dL (8.8-10.2); CREATININE 2.3 mg/dL (0.5-0.9); POTASSIUM 4.5 mmol/L (3.5-5.1)
[2019-10-09] MEDS: ASPIRIN EC PO SCH (08:18)
[2019-10-09] MEDS: MAXIPIME 1 GM in NS 50 ML IV SCH ×2 (08:18→20:24)
[2019-10-09] MEDS: APRESOLINE PO SCH ×3 (08:18→17:08)
[2019-10-09] MEDS: ISORDIL PO SCH ×3 (08:19→17:08)
[2019-10-09] MEDS: KLOR-CON PO SCH ×2 (08:19→20:24)
[2019-10-09] MEDS: LANTUS INSULIN SUBQ SCH ×3 (08:19→21:27)
[2019-10-09] MEDS: ZYVOX PO SCH ×2 (08:19→20:24)
[2019-10-09] MEDS: CULTURELLE PO SCH ×2 (08:19→20:24)
[2019-10-09] MEDS: LOPRESSOR PO SCH ×2 (08:19→20:24)
[2019-10-09] MEDS: NORCO-7.5 PO PRN ×2 (09:29→20:37)
--- NOTE | 2019-10-09 11:27 | Diag Imaging Result Doc PS360 ---
EXAM: CHEST-2 VIEWS 10/09/2019 HISTORY: CHF/pleural effusions TECHNIQUE: Two views the chest COMMENT: There is a large left pleural effusion as there was on 10/08/2019. This may be slightly larger. There is a smaller effusion on the right which was also present previously. There is compressive atelectasis of most of the left lung and a good portion of the right lower lobe. There is apparent cardiomegaly. IMPRESSION: Bilateral pleural effusions slightly increased in size since 10/08/2019. Bilateral atelectasis plus minus pneumonia particularly on the left. Electronically signed by Shan Piper 10/09/2019 11:25 AM
[2019-10-09] MEDS: ZOFRAN IV PRN (13:05)
--- NOTE | 2019-10-09 13:47 | PROGRESS NOTE ---
DATE: 10/09/2019 SUBJECTIVE: Patient denies shortness of breath on supplemental oxygen. She had some nausea and vomiting after eating lunch today. There has been no chest pain. OBJECTIVE: Blood pressure 143/70, heart rate 72, oxygen saturation 95% on nasal cannula oxygen. Jugular venous pressure appears to be normal based on inspection of the neck veins. Auscultation of the chest reveals diminished breath sounds on the left at least usp up and diminished breath sounds in the right base. Cardiac Examination: Reveals a regular rate and rhythm without appreciable murmur or gallop. Extremities: Without edema. Laboratory Data: Includes a white blood cell count of 12.3, hematocrit 31.2, hemoglobin 9.5, platelet count 227,000. Sodium 140, potassium 4.5, chloride 92, carbon dioxide 36, BUN 34, creatinine 2.3, glucose 134. Chest x-ray shows large left pleural effusion and some right pleural effusion as well. IMPRESSION: 1. Acute on chronic heart failure with bilateral pleural effusions. Patient accumulating more left pleural effusion in the last several days. 2. Cardiomyopathy with previous left ventricular ejection fraction of 35-40% on echocardiography several months ago and most recent echocardiography showing left ventricular ejection fraction of 50%. Underlying coronary atherosclerosis is suspected. 3. Chronic kidney disease with associated nephrotic syndrome probably related to diabetic nephropathy. 4. Peripheral vascular disease. 5. Chronic cigarette use. 6. Diabetes mellitus. 7. Chronic obstructive pulmonary disease. 8. Hypothyroidism. 9. Paroxysmal atrial fibrillation. RECOMMENDATIONS: 1. Continue diuresis with IV Lasix q.12. 2. Favor pursuit of left-sided thoracentesis. This was discussed with the patient. She is willing to go through with this tomorrow. cc: Wilian Damian MD
--- NOTE | 2019-10-09 16:34 | PROGRESS NOTE ---
DATE: 10/09/2019 SUBJECTIVE: The patient has no major complaints. OBJECTIVE: Vital Signs: Blood pressure is 143/70, heart rate of 72, respiratory rate 18, temperature 98.5 degrees, 95% on 3 L. Cardiovascular: Regular rate and rhythm. Pulmonary: Bilateral breath sounds clear to auscultation. Diminished at the left and right bases. GI: Soft, nontender, nondistended. Bowel sounds are positive. LABORATORY DATA: White count 12, hemoglobin and hematocrit 9 and 31, platelets 227,000. BUN and creatinine 34 and 2.3, which is where she has been, maybe a little bit higher. Magnesium was 1.5. PROBLEM LIST: 1. Pneumonia. She is on cefepime and Zyvox which we will be day 10 . I guess we will discuss with Pulmonary about discharging them after today. 2. Acute on chronic renal failure, stage 4, stable. We will continue to monitor while on diuretics. 3. Acute diastolic heart failure exacerbation. She is getting Lasix and metolazone. Cardiology is following aggressively, ruling out nephrotic syndrome. 4. Large left-sided pleural effusion. We will plan for thoracentesis tomorrow and fluid analysis. 5. Hypokalemia. We will supplement and follow. DISPOSITION: Pending. Still on a cardiac unit because she is awaiting heart catheterization when she stabilizes. cc: Satnam Juarez MD
--- NOTE | 2019-10-09 18:25 | PULMONOLOGY PROGRESS NOTE ---
DATE: 10/09/2019 SUBJECTIVE: The patient is awake and alert. She is sitting on the side of the bed. She reports her breathing is doing well as long as she is upright, but she gets more short of breath when she lies back. OBJECTIVE: Vital Signs: The patient has been afebrile for the last 24 hours. Blood pressure 128/57, heart rate 70, respiratory rate 16, oxygen saturation 96% on 3 L per nasal cannula. HEENT: Pupils are equal and reactive. Oropharynx appears clear. Neck: Supple. Chest: Reveals significant decreased breath sounds left base. Cardiac exam: S1, S2. Abdomen: Soft. Extremities: Reveal decreasing edema. LABORATORIES: BUN is 34 and slightly increased, creatinine is 2.3 and slightly increased from yesterday. Chest x-ray reveals continued increase in pleural effusion. Pleural effusion on the left is significantly larger than on the right. There is cardiomegaly. IMPRESSION: A 59-year-old with apparent diuresis but continued increase in pleural effusion. Her peripheral fluid appears to be decreasing, but her left-sided pleural effusion is increasing. 1. Diastolic heart failure. 2. Pericardial effusion. 3. Increasing pleural effusions. 4. Chronic renal insufficiency. 5. Chronic hypoxemic respiratory failure. PLAN: 1. Agree with thoracentesis as outlined per Dr. Juarez. 2. Would await post chest x-ray results. If she has no evidence of significant consolidation, I agree with Dr. Juarez's plans to discontinue antibiotics. 3. Follow up echocardiogram for pericardial effusion tomorrow. 4. Cycle BiPAP at bedtime and p.r.n. cc: Roc Garcia MD
[2019-10-09] MEDS: ZOCOR PO SCH (20:24)
[2019-10-09 21:34] LABS: UR PROTEIN 267.8 mg/dL
[2019-10-10] MEDS: LASIX IV SCH ×2 (00:59→13:34)
[2019-10-10] MEDS: SYNTHROID PO SCH (06:02)
[2019-10-10 07:04] LABS: BASO# 0.03 X1000 (0.0-0.2); BASO% 0.2 % (0.0-0.8); EOS# 0.71 X1000 (0.0-0.7); EOS% 5.9 % (0.0-10.0); HEMATOCRIT 30.6 % (37.0-47.0); HEMOGLOBIN 9.4 g/dL (12.0-16.0); IMM GRAN# 0.03 X1000 (0.0-0.04); IMM GRAN% 0.2 % (0.0-0.5); LYMPH# 1.74 X1000 (1.2-3.4); LYMPH% 14.4 % (20.5-51.1); MCH 26.8 PG (27-31); MCHC 30.7 g/dL (33-37); MCV 87.2 FL (81-99); MONO% 5.8 % (1.7-9.3); MPV 9.4 FL (7.4-10.4); NEUT# 8.89 X1000 (1.4-6.5); NEUT% 73.5 % (42.2-75.2); PLT 208 X1000 (130-400); RBC 3.51 XMIL (4.2-5.4); RDW 13.5 % (11.5-14.5)
[2019-10-10] MEDS: HUMALOG SUBQ SCH ×4 (07:06→20:58)
[2019-10-10 07:34] LABS: CALCIUM 9.1 mg/dL (8.8-10.2); CREATININE 2.3 mg/dL (0.5-0.9); MAGNESIUM 1.5 mg/dL (1.5-2.7); POTASSIUM 3.7 mmol/L (3.5-5.1)
[2019-10-10] MEDS: MAXIPIME 1 GM in NS 50 ML IV SCH ×2 (08:53→20:58)
[2019-10-10] MEDS ORDERED: ATIVAN IV ONE (09:06)
[2019-10-10] MEDS: LANTUS INSULIN SUBQ SCH ×2 (09:08→20:59)
[2019-10-10] MEDS: CULTURELLE PO SCH ×2 (09:25→20:59)
[2019-10-10] MEDS: ZYVOX PO SCH ×2 (09:25→20:59)
[2019-10-10] MEDS: ISORDIL PO SCH ×2 (09:25→13:34)
[2019-10-10] MEDS: ASPIRIN EC PO SCH (09:25)
[2019-10-10] MEDS: LOPRESSOR PO SCH ×2 (09:25→20:59)
[2019-10-10] MEDS: KLOR-CON PO SCH ×2 (09:25→20:59)
[2019-10-10] MEDS: APRESOLINE PO SCH ×2 (09:25→13:34)
--- NOTE | 2019-10-10 10:50 | Diag Imaging Result Doc PS360 ---
CHEST-2 VIEWS - 10/10/2019 INDICATION: POST THORA COMPARISON: 10/09/2019 FINDINGS: There has been successful drainage of the left basilar pleural effusion. There is some residual infiltrate in the left lung base. No pneumothorax. Stable right basilar infiltrate and small right pleural effusion. Stable significant cardiomegaly and pulmonary vascular congestion. IMPRESSION: Successful drainage of left basilar pleural effusion. No complication. Electronically signed by Sinan Mann 10/10/2019 10:48 AM
--- NOTE | 2019-10-10 11:02 | Diag Imaging Result Doc PS360 ---
US THORACENTESIS W/IMAGE GUIDE - 10/10/2019 INDICATION: pleural effusion TECHNIQUE: The risks and benefits of the procedure were discussed with the patient. All questions were answered. Written and verbal informed consent was obtained. Overlying skin was prepped and draped in sterile fashion. Anesthesia was achieved with injection of 10 cc of 1% lidocaine. COMPARISON: Chest x-ray 10/09/2019 FINDINGS: 1.2 L was successfully removed from the left lung base. The patient reported no symptoms from the procedure. Follow-up chest x-rays demonstrated no pneumothorax. IMPRESSION: Successful and uncomplicated ultrasound-guided left thoracentesis. Electronically signed by Sinan Mann 10/10/2019 10:59 AM
[2019-10-10] MEDS: DUONEB (A & A) INH PRN ×2 (11:28→16:18)
[2019-10-10 13:50] LABS: BODY FLUID SOURCE PLEURAL FLUID; SPECIMEN PLEURAL FLUID; WBC BF 1171 /cumm
[2019-10-10 13:51] LABS: MONOS 26 %; POLYS 74 %
--- NOTE | 2019-10-10 14:16 | PROGRESS NOTE ---
DATE: 10/10/2019 SUBJECTIVE: Patient had left-sided thoracentesis this morning removing 1.2 L of pleural fluid. She denies shortness of breath or chest discomfort on supplemental oxygen per nasal cannula. OBJECTIVE: Vital Signs: Blood pressure 134/63, heart rate 80, oxygen saturation 95% on nasal cannula oxygen. Neck: Jugular venous pressure appears to be normal based on inspection of the neck veins. Chest: Auscultation of the chest reveals diminished breath sounds at bases bilaterally. Cardiac Exam: Reveals a regular rate and rhythm without appreciable murmur or gallop. Extremities: Demonstrate trace edema. LABORATORY DATA: Includes a white blood cell count 12.1, hematocrit 30.6, hemoglobin 9.4, platelet count 208. Sodium 142, potassium 3.7, chloride 94, carbon dioxide 34. BUN 36, creatinine 2.3, glucose 158. Recent 24-hour urine demonstrates protein of 267.8 in 24 hours, 5557 mg in the last 24 hours. IMPRESSION: 1. Acute on chronic congestive heart failure with bilateral pleural effusions. The patient slowly improved with diuresis and has required right thoracentesis and now left thoracentesis. Suspect nephrotic syndrome playing a significant role. 2. Cardiomyopathy. Previous left ventricular ejection fraction 35 to 40 percent on echocardiography several months ago with more recent echocardiography indicating left ventricular ejection fraction of at least 50%. Underlying coronary atherosclerosis suspected. 3. Chronic kidney disease with associated nephrotic syndrome due to diabetic nephropathy. 4. Peripheral vascular disease. 5. Chronic cigarette use. 6. Diabetes mellitus. 7. Chronic obstructive pulmonary disease. 8. Hypothyroidism. 9. Paroxysmal atrial fibrillation. RECOMMENDATIONS: 1. Continue diuresis with IV Lasix. 2. Nephrology consultation. cc: Wilian Damian MD
[2019-10-10 14:24] LABS: AMYLASE BODY FLUID 11 U/L; GLUCOSE BODY FLUID 145 mg/dL; LDH BODY FLUID 241 U/L; TOTAL PROT BODY FLUID 3.8 g/dL
--- NOTE | 2019-10-10 16:58 | PROGRESS NOTE ---
DATE: 10/10/2019 SUBJECTIVE: The patient seems weak, tired, but overall doing okay. OBJECTIVE: Vital Signs: Blood pressure 134/63, heart rate of 80, respiratory 14, temperature 97.6 degrees, 95% on 3 L. Cardiovascular: Regular rate and rhythm. Pulmonary: Bilateral breath sounds clear to auscultation. Gastrointestinal: Abdomen soft, nontender, nondistended. Bowel sounds are positive. LABORATORY DATA: White count is 12, hemoglobin and hematocrit 9 and 30, platelets 208,000. BUN and creatinine of 36 and 2.3. Her urine total protein is 5557. Her pleural fluid analysis is more consistent with exudative more than the previous ones. Total protein is low at 3.8, but I do not think her total protein is very high at 6.4, so more than half. Her LDH is 241, but the white blood cell count is 1171 with shift 74% segs. This is certainly not an empyema but again, more consistent with exudative. PROBLEM LIST: 1. Pneumonia. She is on cefepime and Zyvox. We will continue for today. If okay to stop antibiotics by tomorrow, we will see how she does. 2. Acute on chronic renal failure stage 4, but she has a new problem, which is nephrotic syndrome which is probably why she has not been diuresing very well because she has nephrotic syndrome, so Nephrology has been consulted. I am going to go ahead and start an MALENA inhibitor. We will monitor her potassium and creatinine while she is here just to help with the proteinuria, I am going to go ahead and give her some albumin in addition to her current diuretics and we will go from there. 3. Diastolic heart failure. We will continue treatment. Awaiting cardiac cath. It will also be helpful to have Nephrology assist us with her renal failure in the setting of needing IV dye. 4. Type 2 diabetes, aware. Continue medications. DISPOSITION: Pending clinical status. I agree with Nephrology consult. cc: Satnam Juarez MD
[2019-10-10] MEDS: ALBUMIN 25% IV SCH (17:02)
[2019-10-10] MEDS: PRINIVIL PO SCH (17:04)
--- NOTE | 2019-10-10 17:50 | ECHO REPORT ---
ORDER DATE: 10/10/2019 2D ECHOCARDIOGRAM: MEASUREMENTS: 1. Interventricular septum 1.2. 2. Left ventricular posterior wall 1.2. 3. Diastolic diameter 5.6. 4. Left atrium 4.3. 5. Aorta 2.5. SUMMARY: 1. This is a limited study to evaluate left ventricular systolic function and pericardial effusion. 2. Normal left ventricular cavity size. 3. There is inferior wall and inferoseptal hypokinesis. 4. Estimated ejection fraction of 40%. 5. Aortic valve leaflets are trileaflet. 6. Mitral valve is normal. 7. Tricuspid valve is normal. 8. There is small to moderate pericardial effusion anteriorly and small posteriorly. 9. There is no evidence of tamponade. cc: MD Wilian Pressley MD
[2019-10-10] MEDS: NORCO-7.5 PO PRN (20:59)
[2019-10-10] MEDS: ZOCOR PO SCH (20:59)
[2019-10-11] MEDS: ALBUMIN 25% IV SCH ×2 (03:15→16:44)
[2019-10-11] MEDS: HUMALOG SUBQ SCH ×4 (06:21→21:47)
[2019-10-11] MEDS: LASIX IV SCH (06:22)
[2019-10-11] MEDS: SYNTHROID PO SCH (06:22)
--- NOTE | 2019-10-11 07:02 | Diag Imaging Result Doc PS360 ---
EXAM: CHEST-PORTABLE HISTORY: abnormal exam TECHNIQUE: Single view COMPARISON: 10/10/2019 FINDINGS: The heart remains enlarged. There are small pleural effusions which are similar to the prior exam. There are infiltrates and atelectasis in the mid and lower lungs. No pneumothoraces. IMPRESSION: No interval improvement. Electronically signed by Rasta Murphy 10/11/2019 6:55 AM
--- NOTE | 2019-10-11 07:04 | PULMONOLOGY PROGRESS NOTE ---
DATE: 10/10/2019 SUBJECTIVE: The patient has undergone ultrasound-guided thoracentesis of the left hemithorax. She does not remember going down for the procedure, and asked how it went. OBJECTIVE: Vital Signs: The patient has been afebrile for the last 24 hours, blood pressure 131/52, heart rate 85, respiratory rate 20, oxygen saturation 98% on 3 L per nasal cannula. HEENT: Pupils are equal and reactive. Oropharynx appears clear. Neck: Supple. Chest: Diminished breath sounds in both lung bases. Cardiac: S1, S2. Abdomen: Soft. Extremities: Without edema. IMAGING AND LABORATORY DATA: White blood count 12.1, hemoglobin 9.4. Pleural fluid reveals a pH of 7.0, white blood count 1171, with a total protein of 3.8. Echocardiogram reveals an ejection fraction of 40%, with a [id number] pericardial effusion, without evidence of tamponade. IMPRESSION: A 59-year-old with: 1. Combined diastolic and systolic heart failure. 2. Stable pericardial effusions. 3. Bilateral pleural effusions, improved with thoracentesis. 4. Chronic hypoxemic respiratory failure. 5. Atelectasis right lung base associated with pleural effusion. 6. Hypoxemic respiratory failure. PLAN: 1. Continue bronchial hygiene. 2. Consider discontinuing antibiotics. She has received a full course. 3. Consider cardiac catheterization pending clinical improvement. cc: Roc Garcia MD MTD
[2019-10-11 07:42] LABS: ALBUMIN 3.3 g/dL (3.5-5.0); CREATININE 2.8 mg/dL (0.5-0.9); PHOSPHORUS 4.9 mg/dL (2.7-4.5); POTASSIUM 3.5 mmol/L (3.5-5.1)
[2019-10-11 07:46] LABS: BASO# 0.04 X1000 (0.0-0.2); BASO% 0.4 % (0.0-0.8); EOS# 0.62 X1000 (0.0-0.7); EOS% 5.9 % (0.0-10.0); HEMATOCRIT 27.6 % (37.0-47.0); HEMOGLOBIN 8.5 g/dL (12.0-16.0); IMM GRAN# 0.02 X1000 (0.0-0.04); IMM GRAN% 0.2 % (0.0-0.5); LYMPH# 1.53 X1000 (1.2-3.4); LYMPH% 14.6 % (20.5-51.1); MCH 26.6 PG (27-31); MCHC 30.8 g/dL (33-37); MCV 86.5 FL (81-99); MONO# 0.73 X1000 (0.11-0.59); MPV 9.8 FL (7.4-10.4); NEUT# 7.55 X1000 (1.4-6.5); NEUT% 71.9 % (42.2-75.2); PLT 184 X1000 (130-400); RBC 3.19 XMIL (4.2-5.4); RDW 13.3 % (11.5-14.5); WBC 10.49 X1000 (4.8-10.8)
[2019-10-11 07:52] LABS: CHOLESTEROL 87 mg/dL (0-200); HDL 30 mg/dL (45-65); LDL 35 mg/dL; TRIGLYCERIDES 108 mg/dL (35-135); VLDL 22 mg/dL
[2019-10-11] MEDS: ASPIRIN EC PO SCH (08:18)
[2019-10-11] MEDS: KLOR-CON PO SCH ×2 (08:18→20:39)
[2019-10-11] MEDS: LOPRESSOR PO SCH ×2 (08:18→20:39)
[2019-10-11] MEDS: CULTURELLE PO SCH ×2 (08:18→20:39)
[2019-10-11] MEDS: ZYVOX PO SCH ×2 (08:18→20:40)
[2019-10-11] MEDS: LANTUS INSULIN SUBQ SCH ×2 (08:19→08:20)
[2019-10-11] MEDS: MAXIPIME 1 GM in NS 50 ML IV SCH ×2 (08:19→20:39)
[2019-10-11] MEDS: PRINIVIL PO SCH (08:19)
[2019-10-11] MEDS: NORCO-7.5 PO PRN ×2 (08:27→20:40)
[2019-10-11] MEDS: DUONEB (A & A) INH PRN (09:46)
--- NOTE | 2019-10-11 12:14 | PROGRESS NOTE ---
DATE: 10/11/2019 SUBJECTIVE: Patient denies shortness of breath or chest discomfort, on supplemental oxygen per nasal cannula. Is and Os reflect continued diuresis. OBJECTIVE: Vital Signs: Blood pressure 129/55, heart rate 75, oxygen saturation 98% on nasal cannula oxygen. Jugular venous pressure estimated to be around 10 based on inspection of neck veins. Auscultation of the chest reveals diminished breath sounds at the bases bilaterally. Cardiac Examination: Reveals a regular rate and rhythm without appreciable murmur or gallop. Extremities are without edema. Laboratory Data: Includes a white blood cell count of 10.49, hematocrit 27.6, hemoglobin 8.5, platelet count 184,000. Sodium 141, potassium 3.5, chloride 90, carbon dioxide 37, BUN 40, creatinine 2.8, glucose 227, albumin 3.3. Chest x-ray shows bilateral pleural effusions in the bases. IMPRESSION: 1. Congestive heart failure, multifactorial, associated with bilateral pleural effusions. 2. Cardiomyopathy. Most recent echocardiography indicates left ventricular ejection fraction around 40%. Underlying coronary atherosclerosis suspected. 3. Chronic kidney disease with nephrotic syndrome due to diabetic nephropathy. 4. Peripheral vascular disease. 5. Chronic diuretic use. 6. Diabetes mellitus. 7. Chronic obstructive pulmonary disease. 8. Hypothyroidism. 9. Paroxysmal atrial fibrillation. RECOMMENDATIONS: 1. Continue diuresis with IV Lasix. 2. Nephrology consultation. cc: Wilian Damian MD
--- NOTE | 2019-10-11 15:08 | NEPHROLOGY CONSULTATION ---
DATE: 10/11/2019 REASON FOR ADMISSION: Increased work of breathing. REASON FOR CONSULT: Chronic kidney disease stage 4 with assistance with nephrotic syndrome, medical management. CONSULTING PHYSICIAN: Dr. Juarez. HISTORY OF PRESENT ILLNESS: Ms. Barrett is a 59-year-old, white female who is known to our services for previous hospitalizations for acute kidney injury. The patient was last seen by our practice on 06/29/2019. At that time, she had acute kidney injury secondary to ATN with fluid volume deficit. During this hospital stay, the patient's BUN and creatinine are just slightly above her baseline of 1.8 to 2. She is a 40 pack per year smoker with nonsmoking x1 year. She has poorly controlled diabetes mellitus type 2 with a noted A1c of 9.7 on previous dictation. She has chronic renal insufficiency, CKD stage 3B, baseline creatinine of 2, diastolic heart failure, followed by cardiology with noted noncompliance of her medications. She was admitted to the hospital with increased work of breathing, generalized weakness. Reported she had stopped taking her Lasix prior to her admission due to her creatinine being elevated. Chest x- ray on admission showed cardiomegaly with increased right-sided pleural effusions. CT scan of the thorax was performed which showed right-sided pleural effusions with trace left-sided pleural effusions. No significant infiltrate on the right. They had attempted to perform a thoracentesis, which was unsuccessful. Repeat thoracentesis per radiology removed 1200 mL of dark evelia fluid. Pulmonology had been consulted secondary to her increased work of breathing and her thoracentesis with pleural effusions. Cardiology is on the case secondary to her cardiomyopathy and low ejection fraction with history of heart failure. At this time, she states that she is very, very weak. She denies any chest pain, increased work of breathing with any exertion. She denies nausea or vomiting. No diarrhea. Poor appetite. No fever or chills during this hospital stay. PAST MEDICAL HISTORY: Diabetes mellitus type 2, noted poorly controlled with an A1c of 9.7 on the chart. Chronic renal insufficiency with noted baseline creatinine of 2, creatinine now of 2.8. Systolic heart failure with an ejection fraction on her previous echocardiogram on 10/05/2019 showing pericardial effusions, ejection fraction of 35 to 40 percent. Peripheral vascular disease, COPD, immunoglobulin deficiency, hypothyroidism, atrial fibrillation, peripheral vascular disease. PREVIOUS SURGICAL HISTORY: Percutaneous arteriogram. She has had a thoracentesis x2 during this hospital stay. She has had a percutaneous atherectomy, distal superficial femoral hernia repair, cholecystectomy. SOCIAL HISTORY: She lives with her son and [id number]. She is a 40 pack per year smoker. Denies over the last year smoking. Denies any history of alcohol or illicit drug use. FAMILY HISTORY: Mother was positive for congestive heart failure and coronary artery disease. Father had coronary artery disease and pancreatic cancer. States son is fairly well. ALLERGIES: Listed as no known drug allergies. HOME MEDICATIONS: Plavix, folic acid, gabapentin, hydralazine, Lantus, isosorbide, Culturelle, levothyroxine, metoprolol, simvastatin. REVIEW OF SYSTEMS: Times 10 with pertinent positives listed above in the HPI. VITAL SIGNS: Temperature 97.6 degrees, blood pressure 120/59, heart rate 80, respirations 18. She is on 3 L nasal cannula. Last recorded saturation 100%. She has had 720 in. She has had 1000 out. She is in a -6.5 L fluid balance. LABORATORY DATA: Sodium 141, potassium 3.5, chloride is 90, CO2 is 37, BUN 40, creatinine down to 2.8, glucose 227, anion gap of 14, calcium 9, phosphorus 4.9, albumin 3.3. White count 10.49, hemoglobin 8.5, hematocrit 27.6, with a platelet count of 184,000. The patient had a 24 hour urine total proteinuria of 5.5 g. Chest x-ray this a.m. shows small pleural effusions with infiltrates and atelectasis in the mid and lower lungs. Previous echocardiogram completed on 10/05/2019 shows pericardial effusion with cardiomyopathy and an ejection fraction of 50%. The patient is diagnosed with sepsis. She continues on cefepime and Zyvox renally dosed. PHYSICAL EXAMINATION: General: This is a 59-year-old, white female. She appears chronically ill. She is in no acute distress. Her skin is warm and dry. HEENT: Normocephalic, atraumatic. Conjunctivae are pale. She has VIVIAN. Mucous membranes are dry. Neck: Supple. Trachea midline. No evidence of JVD, though she has positive hepatojugular reflex. Cardiovascular: Regular rate and rhythm. She has a soft gallop. Lungs: Clear to auscultation anterior, though diminished breath sounds posterior. Remains on O2 support. Abdomen: Distended. Positive bowel sounds. Genitourinary: Not inspected. Patient has adequate urine output documented along with thoracentesis results. Neurological: She is alert and oriented x3, though very weak in response. ASSESSMENT AND PLAN: 1. Acute kidney injury on chronic kidney disease stage 3B. Baseline creatinine is 2. The patient's creatinine is at 2.8, slightly elevated from 2.3 yesterday. BUN of 40, though she did have a thoracentesis yesterday. She has adequate urine output documented. She remains in a 6.5 L negative fluid balance. She is in need of continued diuresing secondary to her heart failure and in need of a possible right heart catheterization. 2. Proteinuria. Patient has nephrotic range proteinuria of 5.5 g on a 24 hour urine. She has been started on lisinopril. She is currently receiving albumin 50 g x3 days with diuresis per primary care. We are in agreement with this treatment at this time. 3. Electrolytes and acid-base balance. These are stable. 4. Anemia. This is low but stable. 5. Fluid volume overload. Discussed with Larry. Hold diuretics for now. I would like to thank you for allowing us to follow with this patient. Dictated by YR Goff for Darrel Jaime MD Face to face encounter, data reviewed, discussed with Zachary Erickson on 10/11/19. I agree with the above assessment and plan of care. cc: RY Goff MD [facility]
--- NOTE | 2019-10-11 15:33 | Diag Imaging Result Doc PS360 ---
EXAM: CT THORAX W/O CONTRAST 10/11/2019 HISTORY: lung mass TECHNIQUE: This exam was performed using automated exposure control, adjustment of mA or kV according to patient size, and/or use of iterative reconstruction technique. COMMENT: The current study is compared with 10/03/2019. There is a moderate-sized pleural effusion on the right and a small effusion on the left. The left effusion is considerably smaller than it was on the previous study. There is some lesser degree of diminished mental the right effusion. There is an apparent pericardial effusion which measures almost 9 mm in thickness posteriorly. This was also present at the time the previous study. There continues to be considerable atelectasis in the right lower lobe and to a lesser extent the right middle lobe. There has been considerable improvement with regard to the compressive atelectasis in the lingula and left lower lobe. There has been no significant change in the nodule in the right upper lobe on image 35 which was present on image 27 at the time the previous study. There is some apparent loculated fluid within the fissure on the left. The patchy left upper lobe alveolar and groundglass opacity which was present previously has improved considerably with the exception of the inferior lingula where there appears to be somewhat worsened atelectasis. The regional skeleton is stable in appearance. IMPRESSION: 1. Improved left pleural effusion and left basilar passive atelectasis. 2. Improved left upper lobe pneumonia. 3. Stable right upper lobe pulmonary nodule. Electronically signed by Shan Piper 10/11/2019 3:31 PM
--- NOTE | 2019-10-11 15:50 | PROGRESS NOTE ---
DATE: 10/11/2019 SUBJECTIVE: The patient has no major complaints. She looks better to me today, not as sick and having issues. OBJECTIVE: Vital Signs: Blood pressure 134/64, heart rate 83, respiratory rate 17, temperature 98.3, and 100% on 3 L. Cardiovascular: Regular rate and rhythm. Pulmonary: Bilateral breath sounds clear to auscultation. GI: Abdomen is soft, nontender, and nondistended. Bowel sounds are positive. White count is 10, hemoglobin and hematocrit 8 and 27, and platelets 184. Basic was okay. BUN and creatinine of 40 and 2.8 which is an increase. Calcium is up a bit. Albumin is 3.3. Her pleural fluid to me is more consistent with an exudative effusion. Her white count is fairly high. So, the pleural fluid protein/serum protein ratio is greater than 0.5. Total protein is 3.8 but her last total protein was around 6. So that is 1 criteria. Her white count has jumped up to 11.71 with 74% segs; pH is about the same. Glucose and all of that is about the same. LDH is up to 241. The fluid ratio is not there but the pleural fluid LDH is greater than two-thirds the upper limits of the laboratory normal. So our LDH criteria here is up to 214 so I think the criteria shows exudative which presumably that is related to parapneumonic causes. We will follow. Cultures are therefore negative. PROBLEM LIST: 1. Pneumonia. She is on cefepime and Zyvox. It is not clear that her pneumonia has resolved and I have left her on the antibiotics. We will get Pulmonary to weigh in on that. Dr. Jaime is concerned that this not all fluid and this may be indeed pneumonia. I have ordered a chest CT and a procalcitonin level. 2. Acute on chronic renal failure with nephrotic syndrome. Per Dr. Jaime she has had nephrotic range proteinuria for a while and that is probably shy she is not responding well to diuretics. He is concerned about continuing the diuretics right now just because her renal function got worse. He is concerned about dye exposure causing issues. 3. Diastolic heart failure. We will continue to follow. Appears to be compensated. 4. Wall motion abnormalities. She may need further evaluation with cardiac catheterization. At this point we are just going to monitor her because we do not want her renal function to deteriorate. I did add an MALENA inhibitor yesterday which I think we will probably have to stop. We cut down on the diuretics and I have held her MALENA inhibitor for right now just because her renal function got worse. We will continue to follow. cc: Satnam Juarez MD
[2019-10-11 17:12] LABS: URINE SOURCE VOIDED
[2019-10-11 17:17] LABS: BILIRUBIN URINE NEGATIVE (NEGATIVE); BLOOD URINE SMALL (NEGATIVE); COLOR YELLOW; GLUCOSE URINE TRACE mg/dL (NEGATIVE); KETONE URINE NEGATIVE (NEGATIVE); LEUKOCYTES URINE NEGATIVE (NEGATIVE); NITRITE URINE NEGATIVE (NEGATIVE); PH URINE 6.5; PROTEIN URINE 300 mg/dL (NEGATIVE); SP GRAVITY URINE 1.014; TURBIDITY URINE CLEAR (CLEAR); UROBILINOGEN URINE NORMAL (NORMAL)
[2019-10-11 17:22] LABS: UR EPITHELIAL CELLS <10 /HPF (<10); URINE BACTERIA NEGATIVE /HPF; URINE WBC <10 /HPF (<10)
[2019-10-11 17:25] LABS: URINE CASTS GRANULAR PRESENT
[2019-10-11] MEDS: ZOCOR PO SCH (20:39)
[2019-10-12] MEDS: LANTUS INSULIN SUBQ SCH ×3 (01:35→20:42)
--- NOTE | 2019-10-12 04:36 | PULMONOLOGY PROGRESS NOTE ---
DATE: 10/11/2019 SUBJECTIVE: The patient is awake and alert. She reports she has some left lower quadrant pain. She denies dyspnea. OBJECTIVE: Vital Signs: The patient has been afebrile for the last 24 hours. Blood pressure 125/62, heart rate 76, respiratory rate 18, and oxygen saturation 100% on 3 L per nasal cannula. HEENT: Pupils are equal and reactive. Oropharynx appears clear. Neck: Supple. Respirations: Chest reveals decreased breath sounds in both lung bases. Cardiovascular: S1-S2 with intermittent S3. Abdomen: Soft. Extremities: Without edema. LABORATORIES: CT scan of the thorax is reviewed. There has been significant improvement on the left with an effusion that is significantly smaller. Pericardial effusion is unchanged. Atelectasis and small to moderate effusion noted on the right. White blood count 10.49, hemoglobin 8.5, and platelet count 184,000. Sodium 141, potassium 3.5, chloride 90, bicarbonate 37, BUN 40, and creatinine 2.8. IMPRESSION: A 59-year-old with: 1. Combined diastolic and systolic heart failure. 2. Stable pericardial effusions. 3. Bilateral pleural effusions, improved with thoracentesis. 4. Chronic hypoxemic respiratory failure. 5. Atelectasis right lung base associated with pleural effusion. 6. Hypoxemic respiratory failure. PLAN: 1. Continue bronchial hygiene. 2. Consider discontinuing antibiotics. She has received a full course. 3. Consider cardiac catheterization pending clinical improvement. cc: Roc Garcia MD
[2019-10-12 06:10] LABS: BASO# 0.04 X1000 (0.0-0.2); BASO% 0.4 % (0.0-0.8); EOS# 0.82 X1000 (0.0-0.7); EOS% 7.3 % (0.0-10.0); HEMATOCRIT 29.3 % (37.0-47.0); IMM GRAN# 0.03 X1000 (0.0-0.04); IMM GRAN% 0.3 % (0.0-0.5); LYMPH# 1.99 X1000 (1.2-3.4); LYMPH% 17.7 % (20.5-51.1); MCH 26.9 PG (27-31); MCHC 30.7 g/dL (33-37); MCV 87.5 FL (81-99); MONO# 0.73 X1000 (0.11-0.59); MONO% 6.5 % (1.7-9.3); MPV 9.6 FL (7.4-10.4); NEUT# 7.61 X1000 (1.4-6.5); NEUT% 67.8 % (42.2-75.2); PLT 170 X1000 (130-400); RBC 3.35 XMIL (4.2-5.4); RDW 13.3 % (11.5-14.5); WBC 11.22 X1000 (4.8-10.8)
[2019-10-12] MEDS: SYNTHROID PO SCH (06:27)
[2019-10-12] MEDS: HUMALOG SUBQ SCH ×4 (06:27→20:41)
[2019-10-12 07:03] LABS: ALBUMIN 3.5 g/dL (3.5-5.0); CALCIUM 9.1 mg/dL (8.8-10.2); CREATININE 3.1 mg/dL (0.5-0.9); PHOSPHORUS 4.5 mg/dL (2.7-4.5); POTASSIUM 3.8 mmol/L (3.5-5.1)
[2019-10-12] MEDS: MAXIPIME 1 GM in NS 50 ML IV SCH (08:08)
[2019-10-12] MEDS: NORCO-7.5 PO PRN ×2 (08:09→20:43)
[2019-10-12] MEDS: KLOR-CON PO SCH ×2 (08:10→20:44)
[2019-10-12] MEDS: ZYVOX PO SCH (08:10)
[2019-10-12] MEDS: CULTURELLE PO SCH ×2 (08:10→20:43)
[2019-10-12] MEDS: ASPIRIN EC PO SCH (08:10)
[2019-10-12] MEDS: LOPRESSOR PO SCH ×2 (08:10→20:43)
[2019-10-12] MEDS ORDERED: LASIX IV SCH (09:00)
--- NOTE | 2019-10-12 10:40 | NEPHROLOGY PROGRESS NOTE ---
DATE: 10/12/2019 Date Seen: 10/12/2019 Time Seen: 0630 SUBJECTIVE: Ms. Barrett is resting quietly. She is sitting up on the side of the bed. She states that she feels like her breathing has improved slightly in the last day. Denies chest pain. OBJECTIVE: Vital Signs: Temperature 98.2 degrees, blood pressure 120/54, heart rate 78 respirations 16. She is on 3 L nasal cannula. Last recorded saturation 100%. She has had 800 in. She has had 400 out to void. She continues in a -6 L fluid balance. LABORATORY DATA: Sodium is 142, potassium is 3.8. Her chlorides are 92, CO2 of 38. Her BUN is 47 with a creatinine of 3.1, glucose of 175. The patient has an anion gap of 12. Her calcium is 9.1, phosphorus is 4.5, albumin of 3.5. White count 11.22, hemoglobin is down to 9, hematocrit 29.3 with a platelet count of 170,000. PHYSICAL EXAMINATION: General: This is a 59-year-old white female. She is sitting up on the side of the bed. She appears chronically ill. She is in no acute distress. Skin: Warm and dry. HEENT: Normocephalic, atraumatic. Conjunctiva is pale pink. She is PERRL. Mucous membranes are moist. Neck: Supple, trachea midline no evidence of JVD in the upright position. Cardiovascular: She is regular rate and rhythm. She has a soft gallop. Lungs: Clear to auscultation bilaterally. Equal excursion. She is on O2. Abdomen: Large, round, soft, nontender. Positive bowel sounds. Genitourinary: Not inspected. Patient has adequate urine output documented. Neurological: She is alert and oriented x3. Appears weak. ASSESSMENT AND PLAN: 1. Acute kidney injury on chronic kidney disease stage 3B. Patient's baseline creatinine is 1.8 to 2. Her creatinine and BUN have continued to slowly elevate over the last 48 to 72 hours. She remains on Lasix along with albumin. She also had metolazone added on Thursday. Change may more than likely be a diuretic effect. She remains in a -6 L fluid balance. We will continue to monitor and follow. 2. Proteinuria. Patient is nephrotic range proteinuria of 5.5 g on a 24 hour urine. She remains on lisinopril. 3. Electrolytes and acid-base balance. These are acceptable. 4. Anemia this is low but stable. 5. Fluid volume overload. They have discussed with Dr. Juarez in regards with holding her metolazone and her Lasix over the next 24 hours and monitor her electrolyte status and her BUN and creatinine. I would like to thank you for allowing us to follow with this patient. Dictated by RY Goff for Darrel Jaime MD Face to face encounter, data reviewed, discussed with Zachary Erickson on 10/12/19. I agree with the above assessment and plan of care. cc: RY Goff MD [facility]
--- NOTE | 2019-10-12 15:16 | PROGRESS NOTE ---
DATE: 10/12/2019 SUBJECTIVE: The patient has no major complaints. Her breathing is okay. She is complaining of pain in her kidneys. OBJECTIVE: Vital signs: Blood pressure 117/55, heart rate 72, respiratory rate 14, temperature 97.9 degrees, 100% on 3 L. Cardiovascular: Regular rate and rhythm. Pulmonary: Bilateral breath sounds. Clear to auscultation. GI: Soft, nontender, nondistended. Bowel sounds are positive. LABORATORY DATA: White count 11, hemoglobin and hematocrit 9 and 29, platelets 170,000, creatinine 3.1, glucose 175. PROBLEM LIST: Pneumonia. She is on cefepime and Zyvox but I think Pulmonary has stated she has gotten her course of antibiotics, so I think we are going to go ahead and stop those because I think she has gotten enough. CT does not clearly show pneumonia. Her procalcitonin level is elevated, mildly but elevated, but that may be multifactorial. cc: Satnam Juarez MD
--- NOTE | 2019-10-12 15:46 | PROGRESS NOTE ---
DATE: 10/12/2019 ADDENDUM REPORT Other issue besides her nephrotic syndrome is some wall hypokinesis. We are deciding about a cardiac cath. Dr. Jaime, I think, is concerned about her renal function, especially with it deteriorating a bit since diuretics so we will stop diuretics per their recommendation. I will discuss with Dr. Damian, so I am not overriding him; this is per Nephrology, and they would like to hold off on doing a catheterization at this time based on her kidney function. We are probably getting to a point where we can consider discharge, so we will need to discuss with all her physicians and decide about appropriateness of discharge. Of course, at this point, I think the most concerning thing is her rise in kidney function which had been steady, and now it has kind of gone up again. I have stopped her lisinopril because of the renal dysfunction and I have stopped her Lasix. We are just going to kind of see how her numbers look tomorrow off of nothing. Albumin may be of assistance in this category. cc: Satnam Juarez MD
[2019-10-12] MEDS: ZOFRAN IV PRN (19:07)
[2019-10-12] MEDS: ZOCOR PO SCH (20:43)
--- NOTE | 2019-10-12 22:41 | PULMONOLOGY PROGRESS NOTE ---
DATE: 10/12/2019 SUBJECTIVE: The patient is awake and alert. She has had marginal performance on the incentive spirometry, which has been encouraged at each visit. She is fatigued but without specific complaints. OBJECTIVE: Vital Signs: The patient has been afebrile for the last 24 hours. Blood pressure 117/55, heart rate 72, respiratory rate 14, oxygen saturation 100% on 3 L per nasal cannula. HEENT: Pupils are equal and reactive. Oropharynx appears clear. Neck: Supple. Chest: Reveals diminished breath sounds, right greater than left base. Cardiac exam: S1, S2. Abdomen: Soft. Extremities: Without edema. LABORATORY DATA: Sodium 142, potassium 3.8, chloride 92, bicarbonate 38, BUN 47, creatinine 3.1, glucose 175. White blood count 11.22, hemoglobin 9.0. IMPRESSION: A 59-year-old with: 1. Diastolic and systolic heart failure. 2. Pericardial effusion, which has been stable on follow up echocardiogram. 3. Bilateral pleural effusions. 4. Chronic hypoxemic respiratory failure. PLAN: 1. Continue bronchial hygiene. 2. Agree with discontinuation of antibiotics. 3. Follow up chest x-ray tomorrow. cc: Roc Garcia MD
[2019-10-13 06:28] LABS: BASO# 0.05 X1000 (0.0-0.2); BASO% 0.5 % (0.0-0.8); EOS# 0.87 X1000 (0.0-0.7); EOS% 8.4 % (0.0-10.0); HEMATOCRIT 30.1 % (37.0-47.0); HEMOGLOBIN 9.2 g/dL (12.0-16.0); LYMPH# 2.11 X1000 (1.2-3.4); LYMPH% 20.4 % (20.5-51.1); MCH 26.6 PG (27-31); MCHC 30.6 g/dL (33-37); MONO# 0.65 X1000 (0.11-0.59); MONO% 6.3 % (1.7-9.3); MPV 9.6 FL (7.4-10.4); NEUT# 6.67 X1000 (1.4-6.5); NEUT% 64.4 % (42.2-75.2); PLT 151 X1000 (130-400); RBC 3.46 XMIL (4.2-5.4); RDW 13.5 % (11.5-14.5); WBC 10.35 X1000 (4.8-10.8)
[2019-10-13] MEDS: HUMALOG SUBQ SCH ×4 (07:07→20:30)
[2019-10-13] MEDS: SYNTHROID PO SCH (07:07)
[2019-10-13 07:12] LABS: ALBUMIN 3.3 g/dL (3.5-5.0); CALCIUM 9.3 mg/dL (8.8-10.2); CREATININE 3.8 mg/dL (0.5-0.9); PHOSPHORUS 4.7 mg/dL (2.7-4.5); POTASSIUM 4.3 mmol/L (3.5-5.1)
[2019-10-13] MEDS: LOPRESSOR PO SCH ×2 (08:01→20:34)
[2019-10-13] MEDS: KLOR-CON PO SCH ×2 (08:01→20:34)
[2019-10-13] MEDS: ASPIRIN EC PO SCH (08:01)
[2019-10-13] MEDS: CULTURELLE PO SCH ×2 (08:01→20:34)
[2019-10-13] MEDS: LANTUS INSULIN SUBQ SCH ×2 (08:03→20:34)
--- NOTE | 2019-10-13 10:22 | Diag Imaging Result Doc PS360 ---
CHEST-2 VIEWS - 10/13/2019 INDICATION: abnormal exam COMPARISON: 10/11/2019 FINDINGS: Stable cardiomegaly. Stable small bilateral pleural effusions. Stable patchy atelectasis or infiltrates in both lung bases. No new infiltrates. No significant pulmonary edema. No pneumothorax. IMPRESSION: No change from prior. Electronically signed by Sinan Mann 10/13/2019 10:20 AM
[2019-10-13] MEDS: ZOFRAN IV PRN (11:24)
--- NOTE | 2019-10-13 13:43 | PROVIDER PROGRESS NOTE ---
Progress Note Subjective: She voices pain to her left side. She denies any uremic complaints. Objective: temperature 98.5, pulse 73, respiration 16, blood pressure 124/52, O2 sat 100% on 3 L nasal cannula. General: chronically ill White female lying in bed in no acute distress. HEENT: normocephalic, atraumatic, pupils equal and reactive, mucous membranes moist. Skin: warm and dry Neck: supple, no JVD, positive hepatojugular reflux Cardiovascular: S1S2, regular rate and rhythm. No murmur or gallop. Respiratory: lungs clear with equal air entry anteriorly Abdomen: soft, nontender, nondistended. Bowel sounds present. : not inspected, getting up to bedside commode Extremities: no clubbing, cyanosis, or edema Neurological: alert and oriented to person place and time. Labs: WBC 10.35, hemoglobin 9.2, hematocrit 30.1, platelet count 151, sodium 142, potassium 4.3, chloride 94, carbon dioxide 34, BUN 54, creatinine 3.8. Intake 832, output 600. Impression: Acute kidney injury on chronic kidney disease stage IIIB. Her BUN and creatinine are elevated at BUN 54 and creatinine 3.8. She does have granular cast present suggesting acute tubular necrosis. We will continue to hold diuretics and anticipate her renal labs to plateau. Blood pressure. In goal Fluid volume. Euvolemic. Anemia. Stable. Electrolytes and acid base balance. Stable. Nutrition. Adequate. Ambulation. We will order PT. Medication review. No changes.
[2019-10-13] MEDS: ALBUMIN 25% IV SCH (17:36)
--- NOTE | 2019-10-13 17:41 | CARDIOLOGY PROGRESS NOTE ---
DATE: 10/13/2019 SUBJECTIVE: Patient denies shortness of breath or chest discomfort, on supplemental oxygen per nasal cannula. OBJECTIVE: Blood pressure 112/57, heart rate 79, oxygen saturation 93 to 100 percent on nasal cannula oxygen.Neck: Jugular venous distention is not appreciated. Chest: Auscultation reveals diminished breath sounds in the bases. Cardiac: Regular rate and rhythm without appreciable murmur or gallop. Extremities: Without edema. LABORATORY DATA: Includes a white blood cell count of 10.35, hematocrit 30.1, hemoglobin 9.2, platelet count 151,000. Sodium 142, potassium 4.3, chloride 94, carbon dioxide 34, BUN 54, creatinine 3.8, glucose 152, albumin 3.3. IMPRESSION: 1. Congestive heart failure, multifactorial, with associated bilateral pleural effusions. 2. Cardiomyopathy with left ventricular ejection fraction ranging from 40 to 50 percent. Underlying coronary atherosclerosis suspected. 3. Acute on chronic kidney disease in the setting of diabetic nephropathy, nephrotic syndrome, and recent diuresis, as well as pneumonia. 4. Peripheral vascular disease. 5. Chronic cigarette use. 6. Diabetes mellitus. 7. Chronic obstructive pulmonary disease. 8. Hypothyroidism. 9. Paroxysmal atrial fibrillation. RECOMMENDATIONS: Continue to hold diuretic therapy and monitor renal function. cc: Wilian Damian MD
--- NOTE | 2019-10-13 18:28 | PROGRESS NOTE ---
DATE: 10/13/2019 SUBJECTIVE: The patient has no major complaints. OBJECTIVE: Blood pressure is 126/61, heart rate of 83, respiratory rate of 16, temperature 99.1 degrees, 100% on 3 L.Cardiovascular: Regular rate and rhythm. Pulmonary: Bilateral breath sounds clear to auscultation. GI: Soft, nontender, nondistended. Bowel sounds are positive. LABORATORY: White count is 10, hemoglobin and hematocrit 9 and 30 platelets 151. BUN and creatinine 54 and 3.8, glucose is 206. I see that she has she has had an A1c. She has had an A1c it is 9.7, which is not good at all. PROBLEM LIST: 1. Pneumonia. She has completed a course of antibiotics. Her CT does not clearly show persistent pneumonia. Her white count is normal. No fever. She does have a mild elevation in her procalcitonin level. At this point, I have stopped antibiotics because she has completed a 2 week course and we will follow. 2. Nephrotic syndrome with anasarca. We stopped diuretics because she had a bump in her creatinine. She had a very decent urine output. I am going to give her a little bit of albumin today, but we are not giving her any further diuretic, holding MALENA inhibitor for right now, although I think she will need something for her proteinuria long-term. 3. A little bit of wall motion abnormality. At this point she appears stable with her creatinine rising, it is probably not safe to pursue left heart catheterization, so I think that is off the table at least for the time being unless she has some sort of ischemia that is obvious. She has had a perfusion defect before. Alternatively, can consider a stress test just to evaluate for gross abnormality, but of course, that will not rule out balance ischemia. 4. Anemia. Appears to be stable. DISPOSITION: I think once her kidney function stabilizes, I think we will probably be able to get her to the home as long as we watch her carefully. cc: Satnam Juarez MD
[2019-10-13] MEDS: ZOCOR PO SCH (20:34)
[2019-10-13] MEDS: NORCO-7.5 PO PRN (20:36)
[2019-10-14] MEDS: ALBUMIN 25% IV SCH (04:10)
--- NOTE | 2019-10-14 04:32 | PULMONOLOGY PROGRESS NOTE ---
DATE: 10/13/2019 SUBJECTIVE: The patient is slightly anxious with anticipation of transferring to another floor. OBJECTIVE: Vital Signs: The patient has been afebrile for the last 24 hours. BP 127/62, heart rate 88, respiratory rate 12, oxygen saturation 100% on 3 L per nasal cannula. HEENT: Pupils are equal and reactive. Oropharynx appears clear. Neck: Supple. Chest: Reveals decreased breath sounds at the right base with crackles at the left base. Cardiac: S1-S2. Abdomen: Soft. Extremities: Without edema. LABORATORIES: Chest x-ray reveals cardiomegaly with atelectasis at the left base with effusion at the right base. White blood count 10.35, hemoglobin 9.2, platelet count 151,000. Sodium 142, potassium 4.3, chloride 94, bicarbonate 34, BUN 54, creatinine 3.8. IMPRESSION: 1. A 59-year-old with diastolic and systolic heart failure. 2. Bilateral effusions status post thoracentesis. 3. Small pericardial effusion. 4. Chronic hypoxemic respiratory failure. 5. Acute on chronic renal failure. PLAN: 1. Agree with stopping antibiotics as outlined by Dr. Juarez. She has completed a full course. 2. Encourage bronchial hygiene. The patient is not motivated to perform her incentive spirometry. 3. Agree with holding antibiotics given worsening renal function. cc: Roc Garcia MD
[2019-10-14 06:11] LABS: BASO# 0.05 X1000 (0.0-0.2); BASO% 0.6 % (0.0-0.8); EOS# 0.72 X1000 (0.0-0.7); EOS% 9.1 % (0.0-10.0); HEMATOCRIT 26.7 % (37.0-47.0); HEMOGLOBIN 8.3 g/dL (12.0-16.0); LYMPH# 1.74 X1000 (1.2-3.4); LYMPH% 22.1 % (20.5-51.1); MCHC 31.1 g/dL (33-37); MONO# 0.74 X1000 (0.11-0.59); MONO% 9.4 % (1.7-9.3); NEUT# 4.64 X1000 (1.4-6.5); NEUT% 58.8 % (42.2-75.2); PLT 118 X1000 (130-400); RBC 3.07 XMIL (4.2-5.4); RDW 13.2 % (11.5-14.5); WBC 7.89 X1000 (4.8-10.8)
[2019-10-14] MEDS: SYNTHROID PO SCH (06:15)
[2019-10-14] MEDS: HUMALOG SUBQ SCH ×4 (06:18→20:07)
[2019-10-14 06:30] LABS: ALBUMIN 3.6 g/dL (3.5-5.0); CALCIUM 9.4 mg/dL (8.8-10.2); CREATININE 4.2 mg/dL (0.5-0.9); PHOSPHORUS 4.9 mg/dL (2.7-4.5); POTASSIUM 4.4 mmol/L (3.5-5.1)
[2019-10-14] MEDS: NORCO-7.5 PO PRN (06:41)
[2019-10-14] MEDS: ASPIRIN EC PO SCH (08:16)
[2019-10-14] MEDS: LOPRESSOR PO SCH ×2 (08:17→20:08)
[2019-10-14] MEDS: CULTURELLE PO SCH ×2 (08:17→20:08)
[2019-10-14] MEDS: KLOR-CON PO SCH ×2 (08:17→20:08)
[2019-10-14] MEDS: LANTUS INSULIN SUBQ SCH ×2 (08:18→20:07)
[2019-10-14] MEDS: ZOFRAN IV PRN ×2 (09:09→18:02)
[2019-10-14 13:07] LABS: UR CREAT RANDOM 68.6 mg/dL (11-20); UR SODIUM 54 mmoll
[2019-10-14 13:26] LABS: UR PROT RANDOM > 600.0 mg/dL
--- NOTE | 2019-10-14 14:45 | NEPHROLOGY PROGRESS NOTE ---
DATE: 10/14/2019 SUBJECTIVE: She has not been out of bed much. She is very weak. Shortness of breath with exertion only. OBJECTIVE: Vital Signs: Blood pressure 132/66, heart rate 84, respirations 12, afebrile. O2 saturation 100% on 3 L nasal cannula. Intake and output incomplete. General: On physical exam, pale, chronically ill-appearing in no acute distress. Skin: Warm and dry. Eyes: Conjunctivae are pink. Neck: Neck veins are distended with hepatojugular reflux. Heart: Regular. No gallops. Lungs: Equal. No crackles or wheezes anteriorly. Abdomen: Soft, nontender. Bowel sounds present. Extremities: With no edema, clubbing or cyanosis. IMPRESSION: Acute kidney injury. BUN and creatinine continue to rise. Likely some degree of acute tubular necrosis overlying her diabetic nephropathy. Her exam is somewhat ambiguous with regard to volume status. Specifically, she has neck vein distention with hepatojugular reflux, but no edema. Her pulmonary effusions have not recurred. No pulmonary edema. I encouraged her to increase her oral intake to some degree. No other changes. cc: Darrel Jaime MD
--- NOTE | 2019-10-14 18:06 | PROGRESS NOTE ---
DATE: 10/14/2019 SUBJECTIVE: She is sitting up in bed. She seems to be doing okay. No major complaints. OBJECTIVE: Blood pressure is 131/69, heart rate of 81, respiratory rate 17, temperature 97.9 degrees, 97% on 3 L.Cardiovascular: Regular rate and rhythm. Pulmonary: Bilateral breath sounds clear to auscultation. GI: Soft, nontender, nondistended. Bowel sounds are positive. LABORATORY DATA: White count 7, hemoglobin and hematocrit 8 and 26, platelets of 118,000 which that has been a drop. BUN and creatinine are up to 60 and 4.2 and that is without diuretics I believe, her kidney function is getting worse without diuretics. She got albumin yesterday. PROBLEM LIST: 1. Pneumonia. She has completed course of antibiotics. White count is normal. Chest x-ray is stable. Continue to follow. 2. Nephrotic syndrome with anasarca. We stopped diuretics because of worsening renal function which continues to get worse so we are going to monitor her off of nephrotoxic medications. 3. Possible coronary artery disease wall motion abnormality, at this point with her creatinine rising we are not pursuing cardiac catheterization. She has no signs of ischemia at this point. Consider stress test or noninvasive imaging as an outpatient. 4. Anemia. That has slowly kind of dropped. She has been this low before so will kind of keep an eye on it. I am not sure if that is related to fluid retention. 5. Disposition. Again we are kind of waiting for her kidney function to stabilize which has not happened so will continue to monitor. Appreciate input from Nephrology, Cardiology and Pulmonology. cc: Satnam Juarez MD
--- NOTE | 2019-10-14 18:46 | PROVIDER PROGRESS NOTE ---
Progress Note Dr. Burnham Progress Note/Pulmonary and or critical care Subjective: The patient is lying in bed on NC 3L with no acute distress noted. Her lunch is at the bedside and it looks like she barely touches it. She states she has no appetite. She complains of nasal dryness with nasal bleeding from the NC. She states she is generally feeling better, but still tired and weak. Objective: Vital Signs: T 97.9 (no fever in last 24 hours), HI 81, RR 17, BP 131/69 and SaO2 97% on NC 3L. Physical Examination: General: Lying in bed with no acute distress noted. HEENT: Normocephalic. Trachea midline. Mucosa pink and moist. Pupils equal round reactive to light. Chest: Even and unlabored. Symmetrical excursion. Diminished breathing sounds bilaterally with right greater than left. CVS: Regular rate and rhythm with S1 and S2 appreciated. Abdomen: Soft. Nondistended. Nontender. Bowel sounds present in all 4 quadrants. Extremities: No pedal edema. Neuro: Awake and alert. Speech fluent. Follow commands. Labs and Radiology: Laboratory Results 10/13/19 10/14/19 10/14/19 20:29 05:38 05:38 WBC 7.89 RBC 3.07 L Hgb 8.3 L Hct 26.7 L MCV 87.0 MCH 27.0 MCHC 31.1 L RDW Std Deviation 13.2 Plt Count 118 L MPV 10.0 Immature Gran % (Auto) 0.0 Neut % (Auto) 58.8 Lymph % (Auto) 22.1 Dickenson % (Auto) 9.4 H Eos % (Auto) 9.1 Baso % (Auto) 0.6 Immature Gran # (Auto) 0.00 Neut # (Auto) 4.64 Lymph # (Auto) 1.74 Dickenson # (Auto) 0.74 H Eos # (Auto) 0.72 H Baso # (Auto) 0.05 Sodium 143 Potassium 4.4 Chloride 95 L Carbon Dioxide 34 Anion Gap 14 BUN 60 H Creatinine 4.2 H Estimated GFR/1.73 m2 11 BUN/Creatinine Ratio 14 Glucose 161 H POC Glucose 151 H Calculated Osmolality 305 Calcium 9.4 Phosphorus 4.9 H Albumin 3.6 Ur Random Creatinine U Random Total Protein Ur Random Sodium 10/14/19 10/14/19 10/14/19 06:18 10:26 10:57 WBC RBC Hgb Hct MCV MCH MCHC RDW Std Deviation Plt Count MPV Immature Gran % (Auto) Neut % (Auto) Lymph % (Auto) Dickenson % (Auto) Eos % (Auto) Baso % (Auto) Immature Gran # (Auto) Neut # (Auto) Lymph # (Auto) Dickenson # (Auto) Eos # (Auto) Baso # (Auto) Sodium Potassium Chloride Carbon Dioxide Anion Gap BUN Creatinine Estimated GFR/1.73 m2 BUN/Creatinine Ratio Glucose POC Glucose 169 H 214 H Calculated Osmolality Calcium Phosphorus Albumin Ur Random Creatinine 68.6 H U Random Total Protein > 600.0 Ur Random Sodium 54 10/14/19 15:48 WBC RBC Hgb Hct MCV MCH MCHC RDW Std Deviation Plt Count MPV Immature Gran % (Auto) Neut % (Auto) Lymph % (Auto) Dickenson % (Auto) Eos % (Auto) Baso % (Auto) Immature Gran # (Auto) Neut # (Auto) Lymph # (Auto) Dickenson # (Auto) Eos # (Auto) Baso # (Auto) Sodium Potassium Chloride Carbon Dioxide Anion Gap BUN Creatinine Estimated GFR/1.73 m2 BUN/Creatinine Ratio Glucose POC Glucose 140 H Calculated Osmolality Calcium Phosphorus Albumin Ur Random Creatinine U Random Total Protein Ur Random Sodium Assessment: Chronic hypoxemic respiratory failure. Start home oxygen therapy last July. Congestive heart failure, diastolic and systolic. Small pericardial effusion, stable on FU echocardiogram. Bilateral pleural effusions. s/p thoracentesis on 10/02/19. Acute on chronic renal failure. Worsening today. Plan: Supplemental oxygen. Bronchodilators. DVT prophylaxis Physical therapy.
[2019-10-14] MEDS: ZOCOR PO SCH (20:08)
[2019-10-14] MEDS: DUONEB (A & A) INH PRN (22:25)
[2019-10-15] MEDS: HUMALOG SUBQ SCH ×4 (06:35→20:46)
[2019-10-15] MEDS: SYNTHROID PO SCH (06:42)
--- NOTE | 2019-10-15 07:19 | Diag Imaging Result Doc PS360 ---
EXAM: CHEST-1 VIEW HISTORY: SOB TECHNIQUE: Single view COMPARISON: 10/13/2019 FINDINGS: The heart is enlarged. There are small bilateral pleural effusions with basilar atelectasis and underlying infiltrates. Mild central vascular prominence. IMPRESSION: No interval improvement Electronically signed by Rasta Murphy 10/15/2019 7:16 AM
[2019-10-15 07:26] LABS: BASO# 0.04 X1000 (0.0-0.2); BASO% 0.5 % (0.0-0.8); EOS% 8.9 % (0.0-10.0); HEMATOCRIT 29.2 % (37.0-47.0); HEMOGLOBIN 9.2 g/dL (12.0-16.0); LYMPH# 1.51 X1000 (1.2-3.4); LYMPH% 19.2 % (20.5-51.1); MCH 26.9 PG (27-31); MCHC 31.5 g/dL (33-37); MCV 85.4 FL (81-99); MONO# 0.29 X1000 (0.11-0.59); MONO% 3.7 % (1.7-9.3); MPV 10.2 FL (7.4-10.4); NEUT# 5.32 X1000 (1.4-6.5); NEUT% 67.7 % (42.2-75.2); PLT 113 X1000 (130-400); RBC 3.42 XMIL (4.2-5.4); RDW 13.2 % (11.5-14.5); WBC 7.86 X1000 (4.8-10.8)
[2019-10-15 07:50] LABS: CALCIUM 9.8 mg/dL (8.8-10.2); CREATININE 4.6 mg/dL (0.5-0.9); PHOSPHORUS 5.4 mg/dL (2.7-4.5); POTASSIUM 4.6 mmol/L (3.5-5.1)
[2019-10-15] MEDS: ASPIRIN EC PO SCH (09:44)
[2019-10-15] MEDS: KLOR-CON PO SCH ×2 (09:44→20:45)
[2019-10-15] MEDS: LOPRESSOR PO SCH ×2 (09:44→20:45)
[2019-10-15] MEDS: CULTURELLE PO SCH ×2 (09:44→20:45)
[2019-10-15] MEDS: LANTUS INSULIN SUBQ SCH ×3 (09:45→20:49)
--- NOTE | 2019-10-15 14:03 | PROGRESS NOTE ---
DATE: 10/15/2019 INTERVAL HISTORY: The patient's dyspnea is essentially resolved at this point. No acute events overnight. No new complaints. REVIEW OF SYSTEMS: Twelve point review of systems negative except as per interval history. LABORATORY DATA: WBC 7.8, hemoglobin 9.2, hematocrit 29.2, platelets 113,000. Sodium 140, potassium 4.6, BUN 65, creatinine 4.6, glucose 140 to 201. Phosphorus 5.4, albumin 4.0. VITAL SIGNS: T-max 98.2 degrees, pulse 79, respirations 20, blood pressure 127/58, O2 saturation 100% on 2 L by nasal cannula. PHYSICAL EXAMINATION: General: No acute distress. Vital signs: As above. HEENT: Normocephalic, atraumatic. Moist mucous membranes. No cervical adenopathy. Cardiovascular: Regular rate and rhythm. No murmurs noted. Pulmonary: Essentially clear to auscultation bilaterally. Abdomen: Soft, nontender, nondistended. Bowel sounds positive. Extremities: Peripheral pulses intact. No clubbing or cyanosis. Trace edema bilaterally. Neurologic: Cranial nerves grossly intact. No focal deficits identified. Psychiatric: Normal mood and affect. Awake, alert, oriented x3. ASSESSMENT AND PLAN: 1. Acute kidney injury, nephrotic syndrome. Has been off diuretics but kidney function continues to worsen. Likely some degree of acute tubular necrosis. Nephrology following and monitoring. No urgent need for dialysis currently, but if she continues to head in the current direction, she may end up there. 2. Pneumonia, essentially resolved at this point. Patient is status post course of antibiotics. Monitor. 3. Possible acute on chronic diastolic congestive heart failure. The patient with echo a few years ago showing pretty significant diastolic heart failure. More recent echocardiogram showing borderline EF of 40 to 50. Some minimal vascular congestion on chest x-ray which is stable but essentially resolved at this point. 4. Paroxysmal atrial fibrillation. Normal sinus rhythm currently. 5. Chronic obstructive pulmonary disease. No wheezing or other signs of exacerbation at this point. 6. Hypothyroidism. Continue home Synthroid. 7. Diabetes mellitus, acceptable control on current regimen. 8. Coronary artery disease. Continue aspirin and statin. 9. Disposition. It is primarily her kidney functions holding her in the hospital at this point. As above, no urgent need for dialysis but may end up needing dialysis in the near future if her kidney function does not improve.
[2019-10-15] MEDS: DUONEB (A & A) INH PRN (16:20)
--- NOTE | 2019-10-15 18:59 | PROVIDER PROGRESS NOTE ---
Progress Note Dr. Burnham Progress Note/Pulmonary and or critical care Subjective: The patient is lying in bed on NC 2L with no acute distress noted. She appears very weak. She states that she wants to do more, but she just cannot. Her appetite stays poor. Objective: Vital Signs: T 98.1 (no fever in last 24 hours), SC 82, RR 20, BP 126/59 and SaO2 100% on NC 2L. Physical Examination: General: Lying in bed with no acute distress noted, but appears very weak. HEENT: Normocephalic. Trachea midline. Mucosa pink and moist. Pupils equal round reactive to light. Chest: Even and unlabored. Symmetrical excursion. Diminished breathing sounds bilaterally with right greater than left. CVS: Regular rate and rhythm with S1 and S2 appreciated. Abdomen: Soft. Nondistended. Nontender. Bowel sounds present in all 4 quadrants. Extremities: No pedal edema. Neuro: Awake and alert. Speech fluent. Follow commands. Weakness present. Labs and Radiology: Laboratory Results 10/14/19 10/15/19 10/15/19 19:29 05:25 06:50 WBC RBC Hgb Hct MCV MCH MCHC RDW Std Deviation Plt Count MPV Immature Gran % (Auto) Neut % (Auto) Lymph % (Auto) [place] % (Auto) Eos % (Auto) Baso % (Auto) Immature Gran # (Auto) Neut # (Auto) Lymph # (Auto) [place] # (Auto) Eos # (Auto) Baso # (Auto) Sodium 140 Potassium 4.6 Chloride 94 L Carbon Dioxide 32 Anion Gap 14 BUN 65 H Creatinine 4.6 H Estimated GFR/1.73 m2 10 BUN/Creatinine Ratio 14 Glucose 175 H POC Glucose 181 H 201 H Calculated Osmolality 302 Calcium 9.8 Phosphorus 5.4 H Albumin 4.0 10/15/19 10/15/19 10/15/19 06:50 10:58 16:11 WBC 7.86 RBC 3.42 L Hgb 9.2 L Hct 29.2 L MCV 85.4 MCH 26.9 L MCHC 31.5 L RDW Std Deviation 13.2 Plt Count 113 L MPV 10.2 Immature Gran % (Auto) 0.0 Neut % (Auto) 67.7 Lymph % (Auto) 19.2 L [place] % (Auto) 3.7 Eos % (Auto) 8.9 Baso % (Auto) 0.5 Immature Gran # (Auto) 0.00 Neut # (Auto) 5.32 Lymph # (Auto) 1.51 [place] # (Auto) 0.29 Eos # (Auto) 0.70 Baso # (Auto) 0.04 Sodium Potassium Chloride Carbon Dioxide Anion Gap BUN Creatinine Estimated GFR/1.73 m2 BUN/Creatinine Ratio Glucose POC Glucose 177 H 175 H Calculated Osmolality Calcium Phosphorus Albumin Assessment: Chronic hypoxemic respiratory failure. Start home oxygen therapy last July. Patient has been weaning oxygen down to 2L from 3L yesterday with no difficulty. Congestive heart failure, diastolic and systolic. Small pericardial effusion, stable on FU echocardiogram. Bilateral pleural effusions with basilar atelectasis and underlying infiltrates. s/p thoracentesis on 10/02/19. CXR today shows no interval improvement. Acute on chronic renal failure. Continuously worsening today. Dr. Jaime on board. Plan: Supplemental oxygen. We continue to wean oxygen as tolerated. Bronchodilators. DVT prophylaxis Physical therapy. We will add incentive spirometer. We encourage patient to use it routinely.
[2019-10-15] MEDS: NORCO-7.5 PO PRN (20:45)
[2019-10-15] MEDS: ZOCOR PO SCH (20:45)
[2019-10-16] MEDS: HUMALOG SUBQ SCH ×4 (06:55→21:11)
[2019-10-16] MEDS: SYNTHROID PO SCH (06:55)
[2019-10-16] MEDS: ASPIRIN EC PO SCH (09:26)
[2019-10-16] MEDS: CULTURELLE PO SCH ×2 (09:26→21:10)
[2019-10-16] MEDS: LOPRESSOR PO SCH ×2 (09:26→21:10)
[2019-10-16] MEDS: KLOR-CON PO SCH ×2 (09:26→21:06)
[2019-10-16] MEDS: LANTUS INSULIN SUBQ SCH ×2 (11:06→21:06)
--- NOTE | 2019-10-16 12:30 | CARDIOLOGY PROGRESS NOTE ---
DATE: 10/16/2019 CHIEF COMPLAINT: Shortness of breath. SUBJECTIVE: Ms. Barrett is generally feeling better. She is still having issues with back pain. She is on oxygen. Her telemetry indicates sinus rhythm. OBJECTIVE: Blood pressure is 127/67, pulse 71, respirations 16, temperature 97.9. She is awake, alert, oriented, no distress. HEENT is normal. Chest with diminished breath sounds, especially at the right base with some rhonchi and some crepitans. Heart sounds are regular and rhythmic. I do not hear a gallop. She does have a systolic murmur 2/6 over the tricuspid area. Abdomen is nontender. Extremities showed decreased pulses. No edema. Neurologic: Follows commands, moves all 4 extremities. DIAGNOSTIC DATA: Her blood work from yesterday showed sodium 140, potassium 4.6, BUN is 65, creatinine 4.6. Hemoglobin 9.2, white cell count 7860. IMPRESSION: 1. The patient is with chronic systolic heart failure. This is both systolic and diastolic. 2. Acute on chronic kidney disease. 3. Tobacco user with chronic obstructive pulmonary disease. 4. Diabetes mellitus. 5. Peripheral vascular disease. 6. Coronary atherosclerosis: extensive coronary calcification noted on CT of chest and abnormal resting nuclear MPI in the past. RECOMMENDATIONS: The patient is advised to quit smoking and follow current medical therapy as advised by Dr. Bolton. We will continue to monitor her course. LHC would be reasonable if never done before except that her kidney function will not tolerate the IV contrast and may precipitate need for permanent dialysis. cc: Alexander Hernandez MD MTDD
--- NOTE | 2019-10-16 13:52 | PROGRESS NOTE ---
DATE: 10/16/2019 INTERVAL HISTORY: Patient's respiratory status remains stable. No new complaints, no acute events overnight. REVIEW OF SYSTEMS: Twelve point review of systems negative except as per interval history. LABS: Pending. VITALS: T-max 98.2 degrees, pulse 73, respirations 20, blood pressure 132/65, O2 saturation 100% on 3 L by nasal cannula. PHYSICAL EXAM: General: No acute distress. Vitals as above. HEENT: Normocephalic, atraumatic. Moist mucous membranes. No cervical adenopathy. Cardiovascular: Regular rate and rhythm. No murmurs noted. Pulmonary: Essentially clear to auscultation bilaterally at this point. Abdomen: Soft, nontender, nondistended, bowel sounds positive. Extremities: Peripheral pulses intact. No clubbing or cyanosis. Neurologic: Cranial nerves grossly intact. Mild global weakness but no focal deficits. Psychiatric: Normal mood and affect, asleep but easily arousable, oriented x3. ASSESSMENT AND PLAN: 1. Acute kidney injury, nephrotic syndrome. Off diuretics but kidney function has continued to worsen. Creatinine today pending currently. Nephrology following. Hopefully her kidney function will start to turn around over the next 24-48 hours but if it does not then may end up needing dialysis. 2. Pneumonia, patient status post course of antibiotics and pneumonia resolved. 3. Possible acute on chronic diastolic congestive heart failure. Patient with echocardiogram a few years ago showing pretty significant diastolic heart failure. Most recent echocardiogram showing borderline ejection fraction 40 to 50. Minimal vascular congestion on chest x-ray which appears to be chronic but acute portion appears to be resolved at this point. 4. Paroxysmal atrial fibrillation normal sinus rhythm currently. 5. Chronic obstructive pulmonary disease. No wheezing or other sign of exacerbation at this time. 6. Hypothyroidism, continue Synthroid. 7. Diabetes mellitus reasonable control on current regimen. 8. Coronary artery disease, continue aspirin and statin. 9. Disposition. Her kidney function is really the what is holding her in hospital at this point and if kidney function continues to worsen then may end up on dialysis in the next few days and if it begins to turn around then can likely be discharged home.
[2019-10-16 14:28] LABS: ALBUMIN 3.8 g/dL (3.5-5.0); CALCIUM 9.7 mg/dL (8.8-10.2); CREATININE 5.2 mg/dL (0.5-0.9); PHOSPHORUS 4.9 mg/dL (2.7-4.5); POTASSIUM 5.8 mmol/L (3.5-5.1)
[2019-10-16 15:23] LABS: URINE SOURCE CLEAN CATCH
[2019-10-16 15:26] LABS: BILIRUBIN URINE NEGATIVE (NEGATIVE); BLOOD URINE MODERATE (NEGATIVE); COLOR YELLOW; GLUCOSE URINE 200 mg/dL (NEGATIVE); KETONE URINE NEGATIVE (NEGATIVE); LEUKOCYTES URINE TRACE (NEGATIVE); NITRITE URINE NEGATIVE (NEGATIVE); PH URINE 6.5; PROTEIN URINE >600 mg/dL (NEGATIVE); SP GRAVITY URINE 1.018; TURBIDITY URINE HAZY (CLEAR); UROBILINOGEN URINE NORMAL (NORMAL)
[2019-10-16 15:30] LABS: UR EPITHELIAL CELLS >10 /HPF (<10); URINE BACTERIA NEGATIVE /HPF; URINE RBC TNTC /HPF (<10); URINE WBC TNTC /HPF (<10)
[2019-10-16 15:40] LABS: URINE CASTS GRANULAR PRESENT; URINE CRYSTALS NONE SEEN; URINE SMALL ROUND CELLS TRANS PRESENT; URINE YEAST PRESENT
[2019-10-16] MEDS: ZOFRAN IV PRN (17:14)
--- NOTE | 2019-10-16 17:20 | PROVIDER PROGRESS NOTE ---
Progress Note Dr. Burnham Progress Note/Pulmonary and or critical care Subjective: The patient is lying in bed on NC 3L with no acute distress noted. She states that she is feeling a little bit better. She apparently had a good lunch. There is some stool noted on the floor next the bedside commode. She states she may have some bowel incontinence. Objective: Vital Signs: T 97.9 (no fever in last 24 hours), IN 71, RR 16, BP 127/67 and SaO2 100% on NC 3L. Physical Examination: General: Lying in bed with no acute distress noted, but appears weak and depressive. HEENT: Normocephalic. Trachea midline. Mucosa pink and moist. Pupils equal round reactive to light. Chest: Even and unlabored. Symmetrical excursion. Mild inspiratory crackles at the right base. CVS: Regular rate and rhythm with S1 and S2 appreciated. Abdomen: Soft. Nondistended. Nontender. Bowel sounds present in all 4 quadrants. Extremities: No pedal edema. Neuro: Awake and alert. Speech fluent. Follow commands. Weakness present. Labs and Radiology: Assessment: Chronic hypoxemic respiratory failure. Stable. Patient has been weaning oxygen down to 2L from 3L yesterday with no difficulty. Congestive heart failure, diastolic and systolic. Small pericardial effusion, stable on FU echocardiogram. Bilateral pleural effusions with basilar atelectasis and underlying infiltrates. s/p thoracentesis on 10/02/19. Acute on chronic renal failure. Worsening. Dr. Jaime on board. Plan: Supplemental oxygen. Bronchodilators. DVT prophylaxis Physical therapy. We encourage patient to use incentive spirometer routinely. Follow up CXR tomorrow. seen in ICU 35 minutes.
[2019-10-16] MEDS: LOKELMA POWDER PACKET PO SCH (18:30)
[2019-10-16] MEDS: NORCO-7.5 PO PRN (21:09)
[2019-10-16] MEDS: ELIQUIS PO SCH (21:10)
[2019-10-16] MEDS: ZOCOR PO SCH (21:10)
[2019-10-17] MEDS: HUMALOG SUBQ SCH ×3 (06:34→21:28)
[2019-10-17] MEDS: SYNTHROID PO SCH (06:34)
[2019-10-17 07:28] LABS: BASO# 0.07 X1000 (0.0-0.2); BASO% 0.9 % (0.0-0.8); EOS# 0.59 X1000 (0.0-0.7); EOS% 7.9 % (0.0-10.0); HEMATOCRIT 25.2 % (37.0-47.0); HEMOGLOBIN 7.7 g/dL (12.0-16.0); IMM GRAN# 0.02 X1000 (0.0-0.04); IMM GRAN% 0.3 % (0.0-0.5); LYMPH# 1.88 X1000 (1.2-3.4); LYMPH% 25.2 % (20.5-51.1); MCH 26.4 PG (27-31); MCHC 30.6 g/dL (33-37); MCV 86.3 FL (81-99); MONO# 0.86 X1000 (0.11-0.59); MONO% 11.5 % (1.7-9.3); MPV 10.9 FL (7.4-10.4); NEUT# 4.04 X1000 (1.4-6.5); NEUT% 54.2 % (42.2-75.2); PLT 83 X1000 (130-400); RBC 2.92 XMIL (4.2-5.4); RDW 12.9 % (11.5-14.5); WBC 7.46 X1000 (4.8-10.8)
[2019-10-17] MEDS: ZOFRAN IV PRN ×2 (07:30→15:59)
--- NOTE | 2019-10-17 07:33 | Diag Imaging Result Doc PS360 ---
CHEST-1 VIEW - 10/17/2019 INDICATION: SOB COMPARISON: 10/15/2019 FINDINGS: Stable cardiomegaly and pulmonary vascular congestion. Stable small bilateral pleural effusions. Stable bilateral infiltrates. IMPRESSION: No change from prior. Electronically signed by Sinan Mann 10/17/2019 7:31 AM
[2019-10-17 07:52] LABS: ALBUMIN 3.5 g/dL (3.5-5.0); CALCIUM 9.5 mg/dL (8.8-10.2); CREATININE 5.4 mg/dL (0.5-0.9); PHOSPHORUS 5.1 mg/dL (2.7-4.5); POTASSIUM 4.9 mmol/L (3.5-5.1)
[2019-10-17] MEDS: ELIQUIS PO SCH ×2 (09:28→21:32)
[2019-10-17] MEDS: ASPIRIN EC PO SCH (09:28)
[2019-10-17] MEDS: LOPRESSOR PO SCH ×2 (09:28→21:32)
[2019-10-17] MEDS: LOKELMA POWDER PACKET PO SCH (09:29)
[2019-10-17] MEDS: KLOR-CON PO SCH ×2 (09:29→21:30)
[2019-10-17] MEDS: CULTURELLE PO SCH ×2 (09:29→21:32)
[2019-10-17] MEDS: LANTUS INSULIN SUBQ SCH ×2 (09:36→21:31)
--- NOTE | 2019-10-17 11:04 | NEPHROLOGY PROGRESS NOTE ---
DATE: 10/17/2019 SUBJECTIVE: The patient is sitting up in bed. She states that she just feels poorly. She states that she is nauseated. She states that she is severely fatigued and "sick and tired." OBJECTIVE: Vital Signs: Temperature 97.8 degrees, pulse 73, respiratory rate 17, blood pressure 132/66. Intake 635 mL, output 650 mL. General: This is a chronically ill- appearing, middle-aged female, resting in bed. She does not appear in acute distress, although she does appear poorly. HEENT: Normocephalic, atraumatic. Oral mucosa is dry. Neck: Supple with positive JVD. Cardiovascular: Regular rate and rhythm without murmur or gallop. Pulmonary: She is clear bilaterally. Abdomen: Soft. Positive bowel sounds. : Not inspected. Extremities: No clubbing, cyanosis. No edema. Integumentary: Skin is warm and dry. LABORATORY DATA: Potassium today is 4.9, her creatinine is 5.4. ASSESSMENT AND PLAN: 1. Acute kidney injury, likely with acute tubular necrosis. Her renal function has continued to worsen over the weekend. Urine output and intake are fairly equal, although low on both points. I did discuss with the patient that she does not have any absolute indications for intervention in the form of dialysis at this time, but that her numbers have not improved, and because of her symptoms, we may be required to use that as a bridge to recovery. The patient does not have intravenous fluids infusing at this time. Will add gentle hydration overnight, and check her labs in the morning. The patient has already eaten today, so we would not try to have any surgical intervention for access today. 2. Electrolytes and acid-base balance. Her potassium is better with Lokelma. I will go ahead and continue today's dosing. I will see what her labs look like tomorrow before I stop that. 3. Fluid volume. See above for plan. 4. Hypertension, controlled. 5. Status post bilateral pleural effusions with thoracentesis on 10/02/2019. 6. Imaging. Her chest x-ray today shows stable cardiomegaly with pulmonary vascular congestion and stable small bilateral pleural effusions with stable bilateral infiltrates. Dictated by RY Russ for Darrel Jaime MD Face to face encounter, data reviewed, discussed with Irvin Prince on 10/17/19. I agree with the above assessment and plan of care. cc: Darrel Jaime MD [facility]ERKera
[2019-10-17] MEDS: NS 1,000 ML IV SCH (11:19)
--- NOTE | 2019-10-17 16:55 | PROGRESS NOTE ---
DATE: 10/17/2019 SUBJECTIVE: She is sitting up in bed. No major complaints. OBJECTIVE: Blood pressure 125/60, heart rate 71, respiratory rate 18, and temperature was 98.3 degrees.Cardiovascular: Regular rate and rhythm. Pulmonary: Bilateral breath sounds. Clear to auscultation. GI: Soft, nontender, and nondistended. Bowel sounds are positive. LABORATORY: White count 7, hemoglobin and hematocrit 7.7, 25, and platelets of 83,000. BUN and creatinine are 75 and 5.4. Glucose in the 200s. PROBLEM LIST: 1. Acute kidney injury with underlying nephrotic syndrome. She is at stage 5. Nephrology is following. We will make a decision about possible dialysis soon. No urgent need for that at this point. 2. Pneumonia. She has completed a course of antibiotics, and is stable. 3. Diastolic heart failure. She appears to be stable. Effusions are controlled. 4. Chronic obstructive pulmonary disease is stable on current medications. DISPOSITION: I anticipate discharge home soon but, it will be kind of at the discretion of herself as far as anticipate going to discharge home. We are going to try to do fluids today, and see how she responds to that. cc: Satnam Juarez MD
[2019-10-17] MEDS: ZOCOR PO SCH (21:32)
[2019-10-17] MEDS: NORCO-7.5 PO PRN (21:45)
[2019-10-18] MEDS: NS 1,000 ML IV SCH ×2 (02:31→13:22)
--- NOTE | 2019-10-18 03:55 | PULMONOLOGY PROGRESS NOTE ---
DATE: 10/17/2019 SUBJECTIVE: The patient is awake and alert. She is sitting in her bed. She reports she is not happy because she may require dialysis. OBJECTIVE: Vital Signs: Blood pressure 139/77, heart rate 76, respiratory rate 18, oxygen saturation 98% on 3 L per nasal cannula. She has been afebrile for the last 24 hours. HEENT: Pupils are equal and reactive. Oropharynx appears clear. Neck: Supple. Chest: Reveals diminished breath sounds in both lung bases. Cardiac: S1, S2. Abdomen: Soft. Extremities: Without edema. LABORATORY DATA: Chest x-ray reveals cardiomegaly. There is an effusion right greater than left with infiltrates probable in both lung bases. IMPRESSION: 1. Bilateral pleural effusions. 2. Systolic and diastolic heart failure. 3. Acute on chronic renal failure. PLAN: 1. Continue bronchodilators. 2. Continue physical therapy. 3. DVT prophylaxis. 4. Supplemental oxygen. 5. Guarded prognosis. cc: Roc Garcia MD
[2019-10-18] MEDS: ZOFRAN IV PRN (06:50)
[2019-10-18] MEDS: SYNTHROID PO SCH (06:50)
[2019-10-18] MEDS: HUMALOG SUBQ SCH ×5 (06:52→21:39)
[2019-10-18 07:47] LABS: BASO# 0.06 X1000 (0.0-0.2); BASO% 0.9 % (0.0-0.8); EOS# 0.57 X1000 (0.0-0.7); EOS% 8.2 % (0.0-10.0); HEMATOCRIT 23.4 % (37.0-47.0); HEMOGLOBIN 7.2 g/dL (12.0-16.0); LYMPH# 1.66 X1000 (1.2-3.4); MCH 26.3 PG (27-31); MCHC 30.8 g/dL (33-37); MCV 85.4 FL (81-99); MONO# 0.83 X1000 (0.11-0.59); MPV 11.5 FL (7.4-10.4); NEUT# 3.81 X1000 (1.4-6.5); NEUT% 54.9 % (42.2-75.2); PLT 75 X1000 (130-400); RBC 2.74 XMIL (4.2-5.4); RDW 12.8 % (11.5-14.5); WBC 6.93 X1000 (4.8-10.8)
[2019-10-18 08:08] LABS: ALBUMIN 3.7 g/dL (3.5-5.0); CALCIUM 9.4 mg/dL (8.8-10.2); CREATININE 5.2 mg/dL (0.5-0.9); POTASSIUM 4.1 mmol/L (3.5-5.1)
[2019-10-18] MEDS: KLOR-CON PO SCH ×3 (10:27→21:40)
[2019-10-18] MEDS: LOPRESSOR PO SCH ×2 (10:27→21:37)
[2019-10-18] MEDS: ASPIRIN EC PO SCH (10:27)
[2019-10-18] MEDS: CULTURELLE PO SCH ×2 (10:27→21:36)
[2019-10-18] MEDS: LANTUS INSULIN SUBQ SCH ×2 (10:28→21:40)
[2019-10-18] MEDS: ELIQUIS PO SCH ×3 (10:30→21:37)
[2019-10-18] MEDS: LOKELMA POWDER PACKET PO SCH (10:30)
--- NOTE | 2019-10-18 14:29 | PROVIDER PROGRESS NOTE ---
Progress Note Subjective:She denies any specific complaints but only voices voiding once yesterday after lasix given. Objective: temperature 98.1, pulse 75, respirations 18, blood pressure 135/61, O2 sat 100% on 3 L nasal cannula. General: chronically ill White female lying in bed in no acute distress. HEENT: normocephalic, atraumatic, pupils equal and reactive, mucous membranes moist. Skin: warm and dry Neck: supple, positive JVD with hepatojugular reflux Cardiovascular: S1S2S3, regular rate and rhythm. No murmur or gallop. Respiratory: lungs clear with equal air entry anteriorly Abdomen: soft, nontender, nondistended. Bowel sounds present. : not inspected, getting up to bedside commode Extremities: no clubbing, cyanosis, or edema Neurological: alert and oriented to person place and time. Labs: ABC 6393, hemoglobin 7.2, hematocrit 23.4, platelet count 75, sodium 137, potassium 4.1, chloride 95, carbon dioxide 28, BUN 79, creatinine 5.2. Phosphorus 5.0. Intake 480, output 350. Impression: Acute kidney injury, likely acute tubular necrosis, with overlying chronic kidney disease. Her BUN and Creatinine have plateaued. She did not make adequate urine. Continues with normal saline at 75ml/hr. We discussed possible need for renal replacement therapy. No dialysis today. Blood pressure. In goal Fluid volume. Slightly expanded. Anemia. Low, does not meet transfusion criteria. Electrolytes and acid base balance. Stable. Nutrition. Adequate. Ambulation. PT in place. Medication review. No changes.
[2019-10-18] MEDS ORDERED: LASIX IV ONE (15:05)
[2019-10-18] MEDS ORDERED: NS 500 ML IV ONE (15:24)
--- NOTE | 2019-10-18 15:27 | Diag Imaging Result Doc PS360 ---
CHEST-PORTABLE - 10/18/2019 INDICATION: sob COMPARISON: 10/17/2019 FINDINGS: Stable cardiomegaly and pulmonary vascular congestion. Stable central pulmonary edema. Stable patchy infiltrate in the left lung base. Stable small right pleural effusion. IMPRESSION: No change from prior. Electronically signed by Sinan Mann 10/18/2019 3:25 PM
--- NOTE | 2019-10-18 15:39 | PROGRESS NOTE ---
DATE: 10/18/2019 SUBJECTIVE: The patient has no major complaints. OBJECTIVE: Blood pressure 142/75, heart rate 75, respiratory rate 18 98.1.Cardiovascular: Regular rate and rhythm. Pulmonary: Bilateral breath sounds, diminished at the bases. She does not look like she was in any respiratory distress. GI: Soft, nontender, nondistended. Bowel sounds are positive. LABORATORY DATA: White count 6, hemoglobin and hematocrit 7 and 23, platelets of 75,000 that has been a fairly precipitous drop. There is no heparin exposure. TTP is a possibility but unlikely. Creatinine of 5.2, glucose 163. PROBLEM LIST: 1. 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 She is stage 5. Nephrology I think is prepping for dialysis. That did not work out today. I do think she is probably developing some degree of volume overload. She is complaining of more shortness of breath. 2. History of pneumonia. We will continue antibiotics and follow. 3. Diastolic heart failure. We will continue diuretics and follow closely. 4. Effusions are stable. 5. Chronic obstructive pulmonary disease, stable currently. 6. Disposition pending resolution of her kidney function. 7. Progressive anemia with thrombocytopenia. Really not a clear etiology for that at this point, she may benefit from transfusion. 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 Again I am not quite sure when there is so much thrombocytopenia here. She has had previously normal counts and then she has just had a start decline with anemia. cc: Satnam Juarez MD [facility]ITALKera
[2019-10-18] MEDS ORDERED: LASIX 200 MG in NS 25 ML IV ONE (16:00)
[2019-10-18 17:19] LABS: RETIC% 0.12 % (0.8-2.1)
--- NOTE | 2019-10-18 17:23 | PROGRESS NOTE ---
DATE: 10/18/2019 SUBJECTIVE: The patient has chest discomfort, shortness of breath on supplemental oxygen per nasal cannula. OBJECTIVE: Vital signs: Blood pressure 142/75, heart rate 75, oxygen saturation 98% on nasal cannula oxygen. Neck: Jugular venous distention appears mildly elevated. Chest: Auscultation of the chest reveals diminished breath sounds in the right base, mcfp up and some diminished breath sounds in the left base. Cardiac: Reveals a regular rate and rhythm without appreciable murmur or gallop. Extremities: Without edema. LABORATORY DATA: Includes white blood cell count 6.93, hematocrit 23.4, hemoglobin 7.2, platelet count 75,000. Sodium 137, potassium 4.1, chloride 95, carbon dioxide 28, BUN 7, creatinine 5.2, glucose 193. IMPRESSIONS: 1. Congestive heart failure, multifactorial. The patient appears to demonstrate re-emergence of increasing volume overload. 2. Acute on chronic kidney disease in the setting of nephrotic syndrome and diabetic nephropathy. 3. Cardiomyopathy with noninvasive studies suggesting underlying atherosclerotic coronary disease. Patient continues without angina. 4. Diabetes mellitus. 5. Peripheral vascular disease. 6. Chronic ongoing cigarette use. 7. Hypothyroidism. 8. Paroxysmal atrial fibrillation. RECOMMENDATIONS: Recommend continued medical management from a cardiology standpoint. Coronary angiography to be considered in the future. However, at present, her renal function will not allow IV contrast given concerns to precipitate need for permanent dialysis. However, she will probably develop need for permanent dialysis at some point in the future and at this point, coronary angiography should be reconsidered. cc: Wilian Damian MD
[2019-10-18 17:38] LABS: IRON SATURATION 13 %; TIBC 164 ug/dL; TOTAL IRON 22 ug/dL (49-151); UNBOUND IRON 142 ug/dL (112-346)
[2019-10-18 18:24] LABS: FERRITIN 672 ng/mL (13-150)
[2019-10-18] MEDS: ZOCOR PO SCH (21:37)
[2019-10-18] MEDS: NORCO-7.5 PO PRN (21:38)
[2019-10-19] MEDS: SYNTHROID PO SCH (07:36)
[2019-10-19] MEDS: HUMALOG SUBQ SCH ×3 (07:36→16:00)
[2019-10-19] MEDS: ZOFRAN IV PRN (07:36)
[2019-10-19] MEDS: NORCO-7.5 PO PRN ×2 (07:36→22:03)
[2019-10-19] MEDS ORDERED: HEPARIN IV PRN (08:12)
[2019-10-19] MEDS ORDERED: NS 2,000 ML MISC PRN (08:12)
[2019-10-19] MEDS ORDERED: TIGHT: 0.2 ML/HR FOR DIALYSIS MISC PRN (08:12)
[2019-10-19 08:15] LABS: BASO# 0.08 X1000 (0.0-0.2); EOS# 0.62 X1000 (0.0-0.7); EOS% 7.7 % (0.0-10.0); HEMOGLOBIN 9.3 g/dL (12.0-16.0); LYMPH# 1.26 X1000 (1.2-3.4); LYMPH% 15.6 % (20.5-51.1); MCH 27.4 PG (27-31); MCHC 32.1 g/dL (33-37); MCV 85.5 FL (81-99); MONO% 8.6 % (1.7-9.3); MPV 11.8 FL (7.4-10.4); NEUT# 5.44 X1000 (1.4-6.5); NEUT% 67.1 % (42.2-75.2); PLT 97 X1000 (130-400); RBC 3.39 XMIL (4.2-5.4); RDW 13.1 % (11.5-14.5)
[2019-10-19] MEDS: ELIQUIS PO SCH (08:18)
[2019-10-19 08:50] LABS: ALBUMIN 3.8 g/dL (3.5-5.0); CALCIUM 9.4 mg/dL (8.8-10.2); CREATININE 4.8 mg/dL (0.5-0.9); PHOSPHORUS 4.7 mg/dL (2.7-4.5); POTASSIUM 4.6 mmol/L (3.5-5.1)
--- NOTE | 2019-10-19 09:09 | Diag Imaging Result Doc PS360 ---
FLAT/UPRIGHT ABD/1 VIEW CHEST - 10/19/2019 INDICATION: Abd. Pain,SOB TECHNIQUE: COMPARISON: 10/18/2019 FINDINGS: Stable cardiomegaly, pulmonary vascular congestion, and pulmonary edema. Stable multifocal infiltrate in the left lung base. Stable small right basilar pleural effusion. There is a nonobstructive bowel gas pattern. No free air or abnormal calcifications. IMPRESSION: No change from prior. Electronically signed by Sinan Mann 10/19/2019 9:07 AM
[2019-10-19] MEDS: LANTUS INSULIN SUBQ SCH (10:04)
[2019-10-19] MEDS: KLOR-CON PO SCH (10:23)
[2019-10-19] MEDS: LOPRESSOR PO SCH ×2 (10:23→22:03)
[2019-10-19] MEDS: CULTURELLE PO SCH ×2 (10:23→22:02)
[2019-10-19] MEDS ORDERED: XYLOCAINE-MPF 2% ONE (16:21)
[2019-10-19] MEDS ORDERED: DIPRIVAN 1% ONE (16:21)
[2019-10-19] MEDS ORDERED: ROBINUL ONE (16:21)
--- NOTE | 2019-10-19 16:28 | PROGRESS NOTE ---
DATE: 10/19/2019 SUBJECTIVE: Patient has no major complaints. OBJECTIVE: Vital Signs: Blood pressure 151/71, heart rate 76, respiratory rate 16, temperature 98 degrees, 97% on 3 L. Cardiovascular: Regular rate and rhythm. Pulmonary: Bilateral breath sounds clear to auscultation. Gastrointestinal: Abdomen soft, nontender, nondistended. Bowel sounds are positive. LABORATORY DATA: White count 8, hemoglobin and hematocrit 9 and 29, platelets of 97,000, creatinine of 4.8. Iron is low and iron sat is low. All this is consistent with most likely iron deficiency anemia versus other. ASSESSMENT/PLAN: 1. Acute kidney injury, nephrotic syndrome likely due to diabetes. Plan is for dialysis. She is going to get a dialysis catheter today and possibly dialyzed today. 2. Diastolic heart failure. Appears to be stable. 3. Effusions those are also stable. 4. Chronic obstructive pulmonary disease, currently stable. 5. Thrombocytopenia. Hemoglobin and hematocrit has improved with transfusion and her thrombocytopenia is improved but it is markedly decreased since admission without really a clear source. I am going to go ahead and get Dr. Hills to look things over and follow. I cannot clearly tie this to heparin at this point. 6. Diabetes. Appears to be stable. Blood sugars are still high, so we will continue her medications and follow. cc: Satnam Juarez MD
[2019-10-19] MEDS ORDERED: XYLOCAINE 1%/EPI 1:100,000 ONE (16:30)
[2019-10-19] MEDS ORDERED: NS 250 ML ONE (16:31)
[2019-10-19] MEDS ORDERED: KEFZOL 1 GM/D5W 1 GM/50 ML IVPB ONE (16:53)
--- NOTE | 2019-10-19 17:00 | PROVIDER PROGRESS NOTE ---
Progress Note Subjective: She complains of nausea and shortness of breath. She over all does not feel well. Objective: temperature 98.3, pulse 75, respirations 17, blood pressure 148/72, 02 sat 97% on 3 L nasal cannula. General: chronically ill White female lying in bed in no acute distress. HEENT: normocephalic, atraumatic, pupils equal and reactive, mucous membranes moist. Skin: warm and dry Neck: supple, positive JVD with hepatojugular reflux Cardiovascular: S1S2S3, regular rate and rhythm. No murmur or gallop. Respiratory: lungs clear with equal air entry anteriorly Abdomen: soft, nontender, nondistended. Bowel sounds present. : not inspected, getting up to bedside commode Extremities: no clubbing, cyanosis, or edema Neurological: alert and oriented to person place and time. Labs: WBC 8.10, hemoglobin 9.3, hematocrit 29.0, platelet count 97, sodium 142, potassium 4.6, chloride 99, carbon dioxide 26, BUN 78, creatinine 4.8, intake 26 30, output 600. Impression: Acute kidney injury with underlying chronic kidney disease. No recovery. Her BUN and Creatinine remain elevated and she is becoming more symptomatic with shortness of breath, n/v, and decreased urine production. We will have surgery place access and start her on a 2 hour hemodialysis treatment today as tolerated. Repeat tomorrow. Blood pressure. In goal Fluid volume. Slightly expanded. We are stopping her fluids and she is starting hemodialysis today. Anemia. Low, she received a unit of PRBCs yesterday. Electrolytes and acid base balance. Manage with hemodialysis. Nutrition. Adequate. Ambulation. PT in place. Medication review. No changes.
[2019-10-19] MEDS ORDERED: MARCAINE 0.25% PF ONE (17:04)
[2019-10-19] MEDS: DUONEB (A & A) INH PRN ×2 (17:05→21:13)
--- NOTE | 2019-10-19 19:56 | GENERAL SURGERY CONSULTATION ---
DATE: 10/19/2019 REASON FOR CONSULTATION: Hemodialysis access. HISTORY OF PRESENT ILLNESS: This is a 59-year-old female who has had worsening renal dysfunction. She is volume overloaded and in heart failure. She also has a history of peripheral vascular disease and plans to start hemodialysis. I have been consulted for access. She has been in the hospital for quite a long time. MEDICAL HISTORY: 1. Diabetes. 2. Chronic kidney disease, now end-stage. 3. Heart failure with EF 35% to 40%. 4. Peripheral vascular disease. 5. Obstructive sleep apnea. 6. Hypothyroidism. 7. Atrial fibrillation. SURGICAL HISTORY: She has had a left lower extremity endarterectomy or stents, unclear, but denies any other vascular procedures. SOCIAL HISTORY: She smoked in the past, but denies any current. FAMILY HISTORY: Reviewed and noncontributory. REVIEW OF SYSTEMS: Ten point review of systems was performed and negative other than what is mentioned in HPI. PHYSICAL EXAMINATION: Vital signs: She is afebrile. Pulse in the 80s, blood pressure 147/69, oxygen saturation 94% nasal cannula. General: She is alert, chronically ill-appearing, but in no acute distress. HEENT: No scleral icterus. No cervical mass. Cardiovascular: Normal rate. Pulmonary: No increased work of breathing. Abdomen: Soft. Integument: Warm and dry. Psychiatric: Appropriate affect. Neurologic: No gross deficits. Peripheral vascular: Upper extremities are well perfused. I do not identify any varicosities across the neck. LABORATORY STUDIES: White count is 8, hematocrit is 29, platelets 97,000. Creatinine is 4.8, potassium 5.6, glucose has been as high as 194. ASSESSMENT AND PLAN: This is a 59-year-old female progressing toward end-stage renal disease. Dr. Jaime plans to start hemodialysis to help with her electrolyte and volume overload status. We discussed risks of bleeding, infection, damage to surrounding structures, malfunction of the catheter, pneumothorax, and vascular injury. She understands all this and consents. We will go to the operating room for this today. I have given her 1 g of Ancef perioperatively. cc: Chuck Hartman MD
--- NOTE | 2019-10-19 20:13 | OPERATIVE NOTE ---
PROCEDURE DATE: 10/19/2019 PREOPERATIVE DIAGNOSIS: End-stage renal disease. POSTOPERATIVE DIAGNOSIS: End-stage renal disease. PROCEDURE PERFORMED: Ultrasound-guided right internal jugular vein PermCath placement with fluoroscopy less than 1 hour. SURGEON: Chuck Hartman MD. ESTIMATED BLOOD LOSS: 5 mL. SPECIMENS: None. ANESTHESIA: MAC with local. INDICATION: A 59-year-old female with multiple medical problems. She has progressed to end-stage renal disease and needs dialysis access. FINDINGS: 1. Ultrasound of the right neck showed a compressible internal jugular vein with no evidence of thrombus. 2. Final fluoroscopic image showed good position of the catheter in the superior vena cava-atrial junction. No kinking of the catheter. No pneumothorax. OPERATIVE NOTE: Risks, benefits, and alternatives were discussed with the patient, and she consented to the procedure. She was seen preoperatively and surgical site was confirmed. She was taken to the operating room and placed in supine position. IV anesthesia was administered. Neck was prepped with Betadine and draped in usual fashion. After time-out, focused ultrasound was performed. Local anesthetic was infiltrated. We accessed the jugular vein on first pass. Dark, nonpulsatile, venous blood was noted on return. The wire threaded easily and was confirmed to be in the right side of the heart. We also confirmed with ultrasound that the wire coursed directly into the vein and did not traverse the artery. A 13 cm tip to curve catheter was then tunneled from incision in the chest. Incision was made larger in the neck. The track was dilated and a peel-away introducer sheath was advanced. The catheter was then threaded through the sheath and was peeled away. Final fluoroscopic image was appropriate. It withdrew blood and flushed without resistance with heparinized saline. We closed the incisions with a 4-0 Monocryl, secured with a 2- 0 nylon. Sterile caps and dressing were applied. She tolerated it well. No complications. cc: Chuck Hartman MD
[2019-10-19] MEDS: ZOCOR PO SCH (22:03)
[2019-10-19] MEDS: ASPIRIN EC PO SCH (22:05)
[2019-10-20] MEDS: HUMALOG SUBQ SCH ×5 (00:15→21:20)
[2019-10-20] MEDS: LANTUS INSULIN SUBQ SCH ×3 (00:16→21:20)
--- NOTE | 2019-10-20 01:05 | PULMONOLOGY PROGRESS NOTE ---
DATE: 10/19/2019 SUBJECTIVE: The patient is currently on dialysis. She is resting comfortably. She has no increased work of breathing. OBJECTIVE: The patient has been afebrile for the last 24 hours. Blood pressure 145/65, heart rate 76, respiratory rate 20, oxygen saturation 93% on 4 L per nasal cannula. HEENT: Pupils are equal and reactive. Oropharynx appears clear. Neck is supple. Chest reveals decreased breath sounds, right base. Cardiac exam: Regular rate. Normal S1, normal S2. Abdomen is soft. Extremities without edema. IMPRESSION: A 59-year-old with: 1. Bilateral pleural effusions. 2. Systolic and diastolic heart failure. 3. [id number] renal failure. 4. Status post dialysis access catheter placement for dialysis. PLAN: 1. Continue bronchodilators. 2. Dialysis as tolerated per Nephrology. 3. Continue DVT prophylaxis. 4. Continue supplemental oxygen. 5. Followup chest x-ray tomorrow. cc: Roc Garcia MD
[2019-10-20] MEDS ORDERED: TIGHT: 0.2 ML/HR FOR DIALYSIS MISC PRN (06:20)
[2019-10-20] MEDS ORDERED: HEPARIN IV PRN (06:20)
[2019-10-20] MEDS ORDERED: NS 2,000 ML MISC PRN (06:20)
[2019-10-20] MEDS: SYNTHROID PO SCH (07:02)
--- NOTE | 2019-10-20 07:45 | Diag Imaging Result Doc PS360 ---
EXAM: CHEST-PORTABLE 10/20/2019 HISTORY: abnormal exam TECHNIQUE: AP portable upright at 0737 COMMENT: There is cardiomegaly. There are pleural fluid collections on the right and possibly in the fissure on the left. This was also present on 10/19/2019. The volume of fluid on the right appears to be greater than on the previous study. IMPRESSION: Increasing right pleural effusion. Electronically signed by Shan Piper 10/20/2019 7:43 AM
[2019-10-20 08:01] LABS: BASO# 0.04 X1000 (0.0-0.2); BASO% 0.6 % (0.0-0.8); EOS# 0.63 X1000 (0.0-0.7); EOS% 9.2 % (0.0-10.0); HEMATOCRIT 27.4 % (37.0-47.0); HEMOGLOBIN 8.8 g/dL (12.0-16.0); LYMPH# 1.72 X1000 (1.2-3.4); LYMPH% 25.1 % (20.5-51.1); MCH 27.2 PG (27-31); MCHC 32.1 g/dL (33-37); MCV 84.6 FL (81-99); MONO# 0.57 X1000 (0.11-0.59); MONO% 8.3 % (1.7-9.3); MPV 11.4 FL (7.4-10.4); NEUT# 3.88 X1000 (1.4-6.5); NEUT% 56.8 % (42.2-75.2); PLT 142 X1000 (130-400); RBC 3.24 XMIL (4.2-5.4); RDW 13.2 % (11.5-14.5); WBC 6.84 X1000 (4.8-10.8)
[2019-10-20 08:43] LABS: ALBUMIN 3.6 g/dL (3.5-5.0); CALCIUM 9.4 mg/dL (8.8-10.2); CREATININE 3.3 mg/dL (0.5-0.9); PHOSPHORUS 4.2 mg/dL (2.7-4.5); POTASSIUM 3.9 mmol/L (3.5-5.1)
[2019-10-20] MEDS: ZOFRAN IV PRN ×2 (12:58→21:14)
[2019-10-20] MEDS: ASPIRIN EC PO SCH (12:59)
[2019-10-20] MEDS: CULTURELLE PO SCH ×2 (12:59→21:17)
[2019-10-20] MEDS: LOPRESSOR PO SCH ×2 (12:59→21:17)
[2019-10-20] MEDS: NORCO-7.5 PO PRN ×2 (13:04→21:14)
[2019-10-20 14:12] LABS: HEPATITIS PROFILE ACUTE SEE COMMENTS
--- NOTE | 2019-10-20 16:28 | PROVIDER PROGRESS NOTE ---
Progress Note Subjective: she voices being able to sleep all night with the exception of getting up to urinate twice. She has less shortness of breath. She tolerated dialysis without complications. Objective: temperature 98.1, pulse 73, respirations 20, blood pressure 145/71, 02 sat 96% on 4 L nasal cannula. General: chronically ill White female lying in bed in no acute distress. HEENT: normocephalic, atraumatic, pupils equal and reactive, mucous membranes moist. Skin: warm and dry. Right chest tunneled catheter with scant bright red blood noted under the dressing. Neck: supple, positive JVD with hepatojugular reflux Cardiovascular: S1S2S3, regular rate and rhythm. No murmur or gallop. Respiratory: lungs clear with equal air entry anteriorly Abdomen: soft, nontender, nondistended. Bowel sounds present. : not inspected, getting up to bedside commode Extremities: no clubbing, cyanosis, or edema Neurological: alert and oriented to person place and time. Labs: WBCs 6.84, hemoglobin 8.8, hematocrit 27.4, platelet count 142, sodium 139, potassium 3.9, chloride 97, carbon dioxide 27, BUN 43, creatinine 3.3. intake 290, output 2605. Impression: Acute kidney injury with underlying chronic kidney disease. No recovery. She tolerated hemodialysis without complications with a 2L ultrafiltration. We will attempt a 2-3L ultrafiltration with a 3K bath again today for 3.5 hours. Blood pressure. In goal Fluid volume. Slightly expanded. Manage with hemodialysis today. Anemia. Low, but stable. Electrolytes and acid base balance. Manage with hemodialysis. Nutrition. Adequate. Ambulation. PT in place. Medication review. No changes.
--- NOTE | 2019-10-20 18:04 | HEMO/ONC CONSULTATION ---
DATE: 10/20/2019 ADMITTING PHYSICIAN: Ridge Alvarado MD REQUESTING PHYSICIAN: Ridge Alvarado MD We appreciate this consult. CHIEF COMPLAINT: Thrombocytopenia. HISTORY OF PRESENT ILLNESS: Ms. Barrett is a pleasant 59-year-old female who came in to [facility] Emergency Department with complaints of weakness for 4 days and productive cough. The patient has a history of diabetes mellitus type 2 for peripheral vascular disease, COPD, tobacco abuse, systolic congestive heart failure, immunoglobulin deficiency, hypothyroidism, atrial fibrillation, and peripheral vascular disease. The patient also reported on presentation that she had a 10-15 pounds weight gain over 2 to 3 weeks with a decrease in urine output. The patient reports that she became so weak that she could not even check her own blood sugars or administer her own medication. In the emergency department, she was found to have an elevated white blood cell count. Chest x-ray revealed congestive heart failure with right basilar pleural effusion and focal infiltrate compatible with pneumonia in the left mid lung. The patient was treated with IV Rocephin and IV fluids without much improvement and was ultimately begun on Zyvox and cefepime. The patient was treated with Zyvox and cefepime for approximately 10 days. Platelet count began to decrease and the lowest platelet count was 175,000. At that point the patient was taken off the antibiotics as pneumonia resolved. Platelet count began to improve and has improved to 142,000 today. The patient denies recent bleeding or bruising. We are consulted for thrombocytopenia. PAST MEDICAL HISTORY: As in HPI. PAST SURGICAL HISTORY: 1. Arteriogram, left lower extremity with percutaneous arthrectomy and distal superficial femoral. 2. Hernia repair. 3. Cholecystectomy. SOCIAL HISTORY: The patient is a 40 pack-year smoker. She does not use alcohol or illicit drugs. FAMILY HISTORY: Significant for pancreatic cancer in the patient's father. MEDICATIONS ON ADMISSION: Medication reconciliation is being compiled. ALLERGIES: No known drug allergies. REVIEW OF SYSTEMS: A 14 point review of systems was obtained and is negative except for mentioned in HPI. PHYSICAL EXAMINATION: General: Ms. Barrett is a pleasant 59-year-old female lying supine in bed in no immediate distress. Vital Signs: Temperature 98.1, blood pressure 145/71, heart rate 73, respirations 20, O2 saturation 96% on nasal cannula nasal cannula O2. HEENT: Normocephalic, atraumatic. Mucous membranes pale and moist. Sclerae anicteric. Extraocular movements intact. Neck: Supple. Lungs: With decreased breath sounds throughout. CV: S1, S2 is heard without murmur, rub or gallop. Abdomen: Nondistended. Extremities: No clubbing, cyanosis, or edema. Dermatologic: No rashes bruises or lesions. Neurologic: The patient is awake, alert, oriented x3. He has no focal deficit. LABORATORY DATA: Hemoglobin 8.8, hematocrit 27.4, white blood cell count is 6.84, platelets 142,000. Sodium 139, potassium 3.9, chloride 97, CO2 is 27, BUN 43, creatinine 3.3, glucose 131. Iron saturation on 10/18 is 13%. ASSESSMENT AND PLAN.: 1. Thrombocytopenia. Platelet count has improved off of antibiotics. Of note the patient was on Zyvox and cefepime for 10 days secondary to pneumonia which is resolved. Thrombocytopenia likely caused by antibiotics. We will continue to monitor. 2. Acute kidney injury. Nephrotic syndrome. Vas-Cath has been placed. The patient is for dialysis today. 3. Congestive heart failure, stable. 4. Pleural effusions, stable. 5. Pneumonia status post Zyvox and cefepime, resolved. 6. Chronic obstructive pulmonary disease, stable. 7. Diabetes mellitus, stable. 8. Iron deficiency anemia. We will give Venofer x2 doses and initiate a workup at this time. 9. We will follow along with you and make further recommendations pending outcomes. This is RY De La Rosa, dictating a consult on Lizette Barrett for Dr. Andrzej Hills. The above reflects the history, exam, assessment and plan of Dr. Hills. Dictated by RY Sharma for Andrzej Hills MD cc: RY Sharma MD
--- NOTE | 2019-10-20 19:34 | PROGRESS NOTE ---
DATE: 10/20/2019 SUBJECTIVE: Patient has no major complaints. OBJECTIVE: Blood pressure 146/67, heart rate 73, respiratory rate of 20, temperature 98.2 degrees, 97% on 2 L.Cardiovascular: Regular rate and rhythm. Pulmonary: Bilateral breath sounds, diminished at bases. GI: Soft, nontender, nondistended. Bowel sounds are positive. White count 6, hemoglobin 8.8 and hematocrit 27, platelets 142,000. BUN and creatinine 43 and 3.3. PROBLEM LIST: 1. Acute kidney injury with nephrotic syndrome, diabetic nephropathy. She is on dialysis per Dr. Jaime. She looks to be doing better. 2. Diastolic heart failure, improving with ultrafiltration. 3. Bilateral pleural effusions. They are increasing a little bit but I think probably will improve with continued dialysis. 4. Thrombocytopenia is resolving. Hematology has evaluated the patient. She had received Zyvox so probably was due to that and she had received cefepime which both can cause that. Appreciate their input. 5. Constipation. She is complaining of constipation, so we are going to start some medications for that. 6. Disposition. Kind of waiting on her kidney function to declare itself whether or not she will need long-term therapy or not. We will continue to follow closely. cc: Satnam Juarez MD
[2019-10-20] MEDS: MIRALAX PO SCH (21:13)
[2019-10-20] MEDS: LACTULOSE PO SCH (21:14)
[2019-10-20] MEDS: ZOCOR PO SCH (21:17)
--- NOTE | 2019-10-20 21:56 | PULMONOLOGY PROGRESS NOTE ---
DATE: 10/20/2019 SUBJECTIVE: The patient is awake, alert, and conversant. She has a chronically depressed affect. She denies shortness of breath. OBJECTIVE: Vital Signs: The patient has been afebrile for the last 24 hours. Blood pressure 133/76, heart rate 67, respiratory rate 13, oxygen saturation 100% on 4 L per nasal cannula. HEENT: Pupils are equal and reactive. Oropharynx appears clear. Neck: Supple. Chest: Reveals diminished breath sounds at the right base. Cardiac exam: S1-S2. Abdomen: Soft. Extremities: Without edema. LABORATORIES: White blood count 6.84, hemoglobin 8.8, platelet count 142,000. Sodium 139, potassium 3.9, chloride 97, bicarbonate 27, BUN 43, creatinine 3.3. Chest x-ray reveals some clearing behind the heart on the left. She has cardiomegaly. She has slight increased effusion on the right. IMPRESSION: A 59-year-old with: 1. Pleural effusions, right greater than left. 2. Systolic and diastolic heart failure. 3. Acute on chronic renal failure. DISCUSSION: A 59-year-old with problems outlined above. Clinically, she appears to be improving. Radiographically, her pleural effusion appears slightly bigger on the right, but she has had a negative fluid balance for the last 2 days with dialysis. I believe this will improve. Follow-up chest x-ray will be ordered for Thursday. PLAN: 1. Continue bronchodilators. 2. Continue DVT prophylaxis. 3. Dialysis with ultrafiltration as tolerated. 4. Wean oxygen as tolerated. cc: Roc Garcia MD
[2019-10-21] MEDS: HUMALOG SUBQ SCH ×4 (07:46→21:33)
[2019-10-21] MEDS: SYNTHROID PO SCH (07:47)
[2019-10-21 08:17] LABS: BASO# 0.07 X1000 (0.0-0.2); BASO% 0.9 % (0.0-0.8); EOS# 0.94 X1000 (0.0-0.7); EOS% 12.4 % (0.0-10.0); HEMATOCRIT 30.2 % (37.0-47.0); HEMOGLOBIN 9.8 g/dL (12.0-16.0); IMM GRAN# 0.02 X1000 (0.0-0.04); IMM GRAN% 0.3 % (0.0-0.5); LYMPH# 2.04 X1000 (1.2-3.4); LYMPH% 26.8 % (20.5-51.1); MCH 27.4 PG (27-31); MCHC 32.5 g/dL (33-37); MCV 84.4 FL (81-99); MONO# 0.71 X1000 (0.11-0.59); MONO% 9.3 % (1.7-9.3); MPV 10.6 FL (7.4-10.4); NEUT# 3.82 X1000 (1.4-6.5); NEUT% 50.3 % (42.2-75.2); PLT 259 X1000 (130-400); RBC 3.58 XMIL (4.2-5.4); RDW 13.7 % (11.5-14.5)
[2019-10-21 08:19] LABS: ALBUMIN 3.7 g/dL (3.5-5.0); CALCIUM 9.3 mg/dL (8.8-10.2); CREATININE 3.1 mg/dL (0.5-0.9); PHOSPHORUS 3.8 mg/dL (2.7-4.5); POTASSIUM 3.6 mmol/L (3.5-5.1)
[2019-10-21] MEDS: ASPIRIN EC PO SCH (09:26)
[2019-10-21] MEDS: LOPRESSOR PO SCH ×2 (09:26→21:31)
[2019-10-21] MEDS: CULTURELLE PO SCH ×2 (09:26→21:31)
[2019-10-21] MEDS: MIRALAX PO SCH (09:27)
[2019-10-21] MEDS: LANTUS INSULIN SUBQ SCH ×2 (09:27→21:31)
[2019-10-21] MEDS: LACTULOSE PO SCH ×2 (09:27→21:31)
[2019-10-21] MEDS: VENOFER 300 MG in NS 250 ML IV SCH (09:28)
[2019-10-21] MEDS ORDERED: NS 2,000 ML MISC PRN (13:09)
[2019-10-21] MEDS ORDERED: TIGHT: 0.2 ML/HR FOR DIALYSIS MISC PRN (13:09)
[2019-10-21] MEDS ORDERED: HEPARIN IV PRN (13:09)
--- NOTE | 2019-10-21 16:32 | PROGRESS NOTE ---
DATE: 10/21/2019 SUBJECTIVE: She looks okay. She smiled a little bit today in dialysis. Really could not comment too much on her feeling better or worse. OBJECTIVE: Vital Signs: Blood pressure 118/61, heart rate 63, respiratory rate 18, temperature 97.9 degrees, 97% on 4 L. Cardiovascular: Regular rate and rhythm. Pulmonary: Bilateral breath sounds, clear to auscultation. GI: Soft, nontender, nondistended. Bowel sounds are positive. LABORATORY DATA: White count 7, hemoglobin and hematocrit 9 and 30, platelets 259,000, basic was normal. PROBLEM LIST: 1. Acute kidney injury, acute tubular necrosis. She is getting dialysis per Dr. Jaime. I think she gets the weekend off and reassess chronicity of dialysis on Thursday. 2. Diastolic heart failure. She is improving with ultrafiltration. 3. Bilateral pleural effusions. There is some reaccumulation, but she does not seem to be symptomatic. 4. Thrombocytopenia, that is also resolved. We will continue to follow. DISPOSITION: Deciding about going home on dialysis. We will continue to follow closely. cc: Satnam Juarez MD
--- NOTE | 2019-10-21 20:29 | PULMONOLOGY PROGRESS NOTE ---
DATE: 10/21/2019 SUBJECTIVE: Ms. Barrett is awake, alert. She is sitting up at the bedside. She denies any shortness of breath. She has no complaints. OBJECTIVE: Vital Signs: Blood pressure is 118/61 with a heart rate of 63, respirations 18, temperature 97.9, with O2 saturations that are 97% to 100% on 4 L nasal cannula and 97% on room air. Eyes: Pupils are equal and round and react to light. EOMs are intact. Sclerae anicteric. Head: Normocephalic, atraumatic. Mucous membranes are moist. Neck: Supple with trachea midline. Cardiovascular: Regular rate and rhythm. S1 and S2 appreciated. No murmur. She has no lower extremity edema. Calves are nontender bilaterally with peripheral pulses palpable x4 extremities. Pulmonary: Breath sounds are diminished on the right. Chest rises and falls symmetrically with respiration. Chest wall is nontender to palpation. Gastrointestinal: Abdomen is soft, nontender, nondistended with bowel sounds in all 4 quadrants. Neurologic: She is alert and oriented. LABS: WBCs 7.6, hemoglobin 9.8, hematocrit 30.2, platelets 259. Sodium 141, potassium 3.6, BUN 29, creatinine 3.1, with blood sugars ranges from 213 to 269. IMPRESSION: This is a 59-year-old with: 1. Pleural effusions, right greater than left. 2. Systolic and diastolic heart failure. 3. Acute on chronic renal failure. PLAN: 1. continue bronchodilators. 2. Continue DVT prophylaxis. 3. Dialysis per Dr. Jaime. 4. Chest x-ray in a.m. Dictated by RY Mejía for Roc Garcia MD cc: RY Mejía MD [facility]
--- NOTE | 2019-10-21 20:37 | NEPHROLOGY PROGRESS NOTE ---
DATE: 10/21/2019 SUBJECTIVE: Her shortness of breath is a little better. She states really minimal urine output at this point. She remains weak and fatigued with malaise. OBJECTIVE: Vital Signs: Blood pressure 118/61, heart rate 63, respirations 18, afebrile. Intake 360 mL, output 3.3 L. General: No acute distress. Skin: Warm and dry. Neck: Neck veins are not appreciated. Heart: Regular. No gallops or rubs. Lungs: Equal. No crackles. Abdomen: Benign. Extremities: No edema, clubbing or cyanosis. IMPRESSION: Acute kidney injury overlying chronic kidney disease. Best measured creatinine in the last month is 1.9. I expect that she has ischemic acute tubular necrosis, overlying moderate chronic kidney disease stage 3. As such, she still does have good prognosis for recovery. Dialysis again today. cc: Darrel Jaime MD
[2019-10-21] MEDS: ZOCOR PO SCH (21:31)
[2019-10-21] MEDS: NORCO-7.5 PO PRN (21:31)
--- NOTE | 2019-10-22 05:55 | Diag Imaging Result Doc PS360 ---
EXAM: CHEST-PORTABLE HISTORY: abnormal exam TECHNIQUE: Single view COMPARISON: 10/20/2019 FINDINGS: The heart remains enlarged. There are small bilateral pleural effusions and basilar atelectasis which persists. There may be underlying infiltrates. The upper lungs are clear. No change in the right jugular line. IMPRESSION: Stable chest Electronically signed by Rasta Murphy 10/22/2019 5:53 AM
[2019-10-22] MEDS: HUMALOG SUBQ SCH ×4 (06:27→21:02)
[2019-10-22] MEDS: SYNTHROID PO SCH (06:27)
[2019-10-22 08:14] LABS: CALCIUM 9.4 mg/dL (8.8-10.2); CREATININE 3.2 mg/dL (0.5-0.9); POTASSIUM 4.3 mmol/L (3.5-5.1)
[2019-10-22 09:22] LABS: BASO# 0.07 X1000 (0.0-0.2); BASO% 0.9 % (0.0-0.8); EOS# 1.05 X1000 (0.0-0.7); HEMATOCRIT 29.6 % (37.0-47.0); HEMOGLOBIN 9.5 g/dL (12.0-16.0); IMM GRAN# 0.02 X1000 (0.0-0.04); IMM GRAN% 0.3 % (0.0-0.5); LYMPH# 2.18 X1000 (1.2-3.4); MCH 27.5 PG (27-31); MCHC 32.1 g/dL (33-37); MCV 85.8 FL (81-99); MONO# 0.79 X1000 (0.11-0.59); MONO% 10.5 % (1.7-9.3); MPV 10.7 FL (7.4-10.4); NEUT# 3.41 X1000 (1.4-6.5); NEUT% 45.3 % (42.2-75.2); PLT 300 X1000 (130-400); RBC 3.45 XMIL (4.2-5.4); WBC 7.52 X1000 (4.8-10.8)
[2019-10-22] MEDS: VENOFER 300 MG in NS 250 ML IV SCH (09:43)
[2019-10-22] MEDS: ASPIRIN EC PO SCH (09:43)
[2019-10-22] MEDS: MIRALAX PO SCH (09:44)
[2019-10-22] MEDS: LANTUS INSULIN SUBQ SCH ×2 (09:44→20:29)
[2019-10-22] MEDS: LOPRESSOR PO SCH ×2 (09:44→20:27)
[2019-10-22] MEDS: LACTULOSE PO SCH ×2 (09:44→20:29)
[2019-10-22] MEDS: CULTURELLE PO SCH ×2 (09:44→20:27)
--- NOTE | 2019-10-22 12:48 | NEPHROLOGY PROGRESS NOTE ---
DATE: 10/22/2019 SUBJECTIVE: No complaints today. Weak and tired and sleeping. States she did not sleep well last night. OBJECTIVE: Vital Signs: Blood pressure 125/60, heart rate 63, respirations 18, afebrile. General: In no acute distress. Skin: Warm and dry. Conjunctivae are pink. Neck: Neck veins are not distended. Heart: Regular. Lungs: Equal. Abdomen: Benign. Extremities: No edema. IMPRESSION: Acute kidney injury overlying chronic kidney disease. No dialysis over the weekend. Electrolytes/acid base in target. Hemoglobin is below target but stable. cc: Darrel Jaime MD
--- NOTE | 2019-10-22 16:46 | PROGRESS NOTE ---
DATE: 10/22/2019 SUBJECTIVE: The patient has no major complaints. OBJECTIVE: 119/55, heart rate of 66, respiratory rate of 17, temperature 98.1 degrees, 99% on room air.Cardiovascular: Regular rate and rhythm. Pulmonary: Bilateral breath sounds clear to auscultation. GI: Was soft, nontender, nondistended. Bowel sounds were positive. White count 7, hemoglobin and hematocrit 9 and 29, platelets are 300. Creatinine of 3.2, glucose 312. PROBLEM LIST: 1. Acute kidney injury acute tubular necrosis. Her GFR now is right at stage IV and stable without treatment so maybe she will not need chronic dialysis, but we are going to continue to monitor. 2. Diastolic heart failure is improved. Chest x-ray does not show reaccumulation of edema. 3. Bilateral pleural effusions. Also those are stable. 4. Thrombocytopenia that has also resolved probably due to antibiotic exposure. DISPOSITION: On Thursday we will decide about long-term dialysis versus other. We will continue to follow. cc: Satnam Juarez MD
--- NOTE | 2019-10-22 17:31 | PULMONOLOGY PROGRESS NOTE ---
DATE: 10/22/2019 SUBJECTIVE: Ms. Barrett is awake and alert sitting up at bedside. She denies shortness of breath. She has no complaints. OBJECTIVE: Vital Signs: Blood pressure is 125/60 with heart rate 63, respirations 18, temperature 98 degrees oral with room air saturations 98 to 100 percent. HEENT: Pupils equal, round, react to light. EOMs are intact. Sclerae anicteric. Head is normocephalic, atraumatic. Mucous membranes are moist. Neck: Is supple with trachea midline. No JVD. Cardiovascular: Regular rate and rhythm. S1 and S2 appreciated, no murmur. She has no lower extremity edema. Calves are nontender bilateral with peripheral pulses palpable x4 extremities. Pulmonary: Breath sounds are diminished on the right. Chest rises and falls symmetric with respiration. Chest wall is nontender to palpation. Gastrointestinal: Abdomen soft, nontender, nondistended with bowel sounds in all 4 quadrants. Neurologic: She is alert and oriented x3. LABS: WBC is 7.5 with hemoglobin 9.5, hematocrit 29.6 and platelets are 300,000. Sodium 139, potassium 4.3, BUN 29, creatinine 3.2 with a glucose of 144. Chest x-ray reveals stable chest. IMPRESSION: This is a 59-year-old female with 1. Pleural effusions right greater than left. 2. Systolic and diastolic heart failure. 3. Acute on chronic renal failure . PLAN: 1. Will continue bronchodilators. 2. Continue DVT prophylaxis. 3. Dialysis is per Dr. Jaime. Dictated by RY Mejía for Roc Garcia MD cc: RY Mejía MD
[2019-10-22] MEDS: ZOCOR PO SCH (20:27)
[2019-10-22] MEDS: NORCO-7.5 PO PRN (20:27)
[2019-10-23] MEDS: SYNTHROID PO SCH (06:27)
[2019-10-23] MEDS: HUMALOG SUBQ SCH ×4 (06:27→21:52)
[2019-10-23 07:30] LABS: BASO# 0.04 X1000 (0.0-0.2); BASO% 0.5 % (0.0-0.8); EOS# 1.33 X1000 (0.0-0.7); HEMATOCRIT 28.3 % (37.0-47.0); IMM GRAN# 0.02 X1000 (0.0-0.04); IMM GRAN% 0.2 % (0.0-0.5); LYMPH# 2.36 X1000 (1.2-3.4); LYMPH% 28.4 % (20.5-51.1); MCH 27.3 PG (27-31); MCHC 31.8 g/dL (33-37); MCV 85.8 FL (81-99); MONO# 0.79 X1000 (0.11-0.59); MONO% 9.5 % (1.7-9.3); MPV 10.1 FL (7.4-10.4); NEUT# 3.78 X1000 (1.4-6.5); NEUT% 45.4 % (42.2-75.2); PLT 334 X1000 (130-400); RDW 14.3 % (11.5-14.5); WBC 8.32 X1000 (4.8-10.8)
[2019-10-23 07:31] LABS: CALCIUM 8.6 mg/dL (8.8-10.2); CREATININE 4.3 mg/dL (0.5-0.9); POTASSIUM 4.5 mmol/L (3.5-5.1)
[2019-10-23] MEDS: CULTURELLE PO SCH ×2 (09:16→21:52)
[2019-10-23] MEDS: LOPRESSOR PO SCH ×2 (09:16→21:52)
[2019-10-23] MEDS: MIRALAX PO SCH (09:16)
[2019-10-23] MEDS: VENOFER 300 MG in NS 250 ML IV SCH (09:16)
[2019-10-23] MEDS: ASPIRIN EC PO SCH (09:16)
[2019-10-23] MEDS: LACTULOSE PO SCH ×2 (09:16→21:56)
[2019-10-23] MEDS: LANTUS INSULIN SUBQ SCH ×2 (09:17→21:56)
--- NOTE | 2019-10-23 10:37 | PROVIDER DOCUMENTATION ---
This chart was entered by Sita Cornejo Scribe, acting as scribe for Jonathan Angulo MD. HPI-General Adult - General Stated Complaint: weakness Time Seen by Provider: 09/29/19 12:13 Source: patient Allergies/Adverse Reactions: Patient Allergies Allergy/AdvReac Type Severity Reaction Status Date / Time No Known Allergies Allergy Verified 09/29/19 16:51 Home Medications: Home Medication List Medication Instructions Recorded Confirmed Last Taken Type Gabapentin [Neurontin] 600 mg PO QHS 03/12/19 09/29/19 3 Days Ago History ~09/26/19 Levothyroxine [Synthroid] 75 mcg PO DAILY 03/12/19 09/29/19 06/23/19 07:00 History Simvastatin 40 mg PO HS 03/12/19 09/29/19 06/23/19 21:00 History Apixaban [Eliquis] 5 mg PO BID #120 tab 06/08/19 09/29/19 3 Days Ago Rx ~09/26/19 Folic Acid 1 mg PO DAILY tab 06/08/19 09/29/19 06/23/19 08:00 Rx Hydralazine [Apresoline] 10 mg PO TID #180 tab 06/08/19 09/29/19 06/23/19 08:00 Rx Isosorbide Dinitrate [Isordil] 10 mg PO TID #180 tab 06/08/19 09/29/19 3 Days Ago Rx ~09/26/19 Metoprolol [Lopressor] 50 mg PO BID #120 tab 06/08/19 09/29/19 3 Days Ago Rx ~09/26/19 Iron Carbonyl/Ascorbic Acid 1 ea PO BID 30 Days #60 tab 07/04/19 09/29/19 Unknown Rx [Icar-C] Aspirin [Ecotrin] 1 tab PO DAILY 09/29/19 09/29/19 09/29/19 History Furosemide 40 mg PO DAILY 09/29/19 09/29/19 Unknown History Insulin Glargine [Lantus Insulin] 60 unit SUBQ BID 09/29/19 09/29/19 3 Days Ago History ~09/26/19 Losartan Potassium 50 mg PO QHS 09/29/19 09/29/19 3 Days Ago History ~09/26/19 - History of Present Illness -Gen Adult Nature of Presenting Problems: Patient is a 59 year old female who presents with weakness, mid back pain and loss of appetite. States symptoms have been present for 5 days. Report she has not taken her insulin in 4 days due to being sick. Denies fever, cough, shortness of breath and urinary symptoms. Location of Pain/Injury: reports: back (mid) Pain Radiation: reports: no radiation Quality of Pain: reports: aching Severity: reports: mild Onset/Duration: reports: 5 days ago Timing: reports: still present Context/Activities at Onset: reports: light activity Associated Symptoms: reports: loss of appetite, weakness Similar Symptoms Previously?: Yes Recently seen or treated by another doctor?: No Review of Systems - Adult - REVIEW OF SYSTEMS - ADULT Constitutional: reports: no symptoms reported Eyes: reports: no symptoms reported Ears, Nose, Mouth & Throat: reports: no symptoms reported Cardiovascular: reports: no symptoms reported Respiratory: reports: no symptoms reported Gastrointestinal: reports: see HPI, poor appetite Genitourinary: reports: no symptoms reported Musculoskeletal: reports: see HPI, back pain (mid), muscle weakness Integumentary: reports: no symptoms reported Neurological: reports: no symptoms reported Psychiatric: reports: no symptoms reported Endocrine: reports: no symptoms reported Hematologic/Lymphatic: reports: no symptoms reported Allergic/Immunologic: reports: no symptoms reported All Other Systems: Reviewed and Negative Past History - Adult - PAST MEDICAL HISTORY-ADULT Review of Records: reports: Nursing Assessment Review, Medications Reviewed, Social history reviewed & non-contributory. Major Childhood Illnesses: reports: denies history Cardiovascular: reports: CHF, HTN, hyperlipidemia, palpitations Respiratory: reports: COPD, sleep apnea Gastrointestinal: reports: IBS, other (chronic diarrhea) Obstetrical/Gynecological: reports: denies history Genitourinary: reports: denies history Musculoskeletal: reports: denies history Neurological: reports: denies history Psychiatric: reports: denies history Endocrine/Immune: reports: Diabetes, thyroid disorder Other Conditions: reports: denies history - PRIOR SURGERIES/PROCEDURES Surgical/Procedure History: reports: cholecystectomy, , hernia repair, other (D&C) - IMMUNIZATION STATUS Childhood Immunizations: See Nurse Assessment Flu Vaccine: See Nurse Assessment - FAMILY HISTORY Family History: cancer (pancreatic), other (CAD) - SOCIAL HISTORY Smoking: cigarettes, greater than 1 pack/day Provider spent 3-5 mins advising pt. on dangers of tobacco.: Discussed manners to quit use, and f/u contacts for add'l counseling. Substance Use: denies Living Situation: family Physical Exam-General - PHYSICAL EXAM-ADULT Initial Vital Signs Reviewed: Yes - CONSTITUTIONAL General Appearance: alert, no apparent distress - HEAD, EARS, NOSE, MOUTH & THROAT HENMT: normocephalic/atraumatic, other (dry mucous membranes) - RESPIRATORY Respiratory: chest non-tender, lungs clear, normal breath sounds - CARDIOVASCULAR Cardiovascular: regular rate, rhythm - GASTROINTESTINAL (ABDOMEN) Abdominal Exam: normal bowel sounds, non tender, soft - MUSCULOSKELETAL Extremity: normal range of motion, non-tender, normal inspection - SKIN Integumentary: normal color, normal turgor, warm/dry - NEUROLOGIC Neurologic: grossly normal - PSYCHIATRIC Psych/Mental Status: normal mood/affect, normal thought content, normal thought process, oriented x 3 Progress - PLAN OF CARE/RESULTS Result Diagrams: 10/23/19 06:50 10/23/19 06:50 - REASSESSMENT Reassessment #1 Time Reassessed: 13:54 Status: other (patient meets sepsis criteria. sepsis protocol ordered. patient is not in DKA.) Reassessment #2 Time Reassessed: 14:13 Status: unchanged (TROPONIN CALLED: 122 EKG W/O ST ELEV: NON-STEMI AMI) - EKG 1 Time of EKG reading by physician:: 14:07 EKG Read and Signed by:: Jonathan Angulo EKG Interpretation (*Must complete 3 of following elements*): Abnormal Rate: 93 Rhythm: NSR [place]: normal QRS: other (low voltage) [place] Interval: normal Comments: cannot rule out anterior infarct, age undetermined - XRAY 1 XRAY Study: Chest Impression: See EMR Report (CHEST-PORTABLE - 09/29/2019 INDICATION: WEAK COMPARISON: 08/16/2019 FINDINGS: There is a dense focal alveolar infiltrate in the lateral left midlung. There is cardiomegaly and pulmonary vascular congestion. The pulmonary vascularity is also rather indistinct suggesting mild interstitial pulmonary edema. There is a moderate right basilar pleural effusion, which has probably increased slightly since prior. No left-sided pleural effusion. IMPRESSION: 1. Congestive heart failure. 2. Slight increase in a chronic right basilar pleural effusion. 3. Focal infiltrate compatible with pneumonia in the left midlung. Electronically signed by Sinan Mann 09/29/2019 12:53 PM 09/29/19 1253 Interpreting Physician: Sinan Mann MD Dictated Date/Time: 09/29/19 1249 cc: Jonathan Angulo MD; Tereso Last) - CONSULTS/PCP/HOSPITALIST Notification #1 *Consult/PCP/Hospitalist*: MATT FOR DR MATHEWS Time Discussed: 14:16 Consult Disposition: Admit Departure - Departure Date of Disposition Decision: 09/29/19 Time of Disposition Decision: 14:16 DIAGNOSIS: UTI (urinary tract infection), Non-STEMI (non-ST elevated myocardial infarction) CHF (congestive heart failure) Qualifiers: Heart failure type: unspecified Heart failure chronicity: chronic Qualified Code(s): I50.9 - Heart failure, unspecified Pneumonia Qualifiers: Pneumonia type: due to unspecified organism Laterality: right Lung location: middle lobe of lung Qualified Code(s): J18.1 - Lobar pneumonia, unspecified organism Sepsis Qualifiers: Sepsis type: sepsis due to unspecified organism Severe sepsis acute organ dysfunction type: unspecified Severe sepsis shock status: without septic shock Disposition: ADMITTED INPATIENT 09 Certified Medical Emergency: Emergent Condition: Stable - Critical Care Note This patient required my direct & personal management of CC.: Yes Total Time (mins): 30 Critical Care Statement: This patient required my direct personal management to treat or rule out processes, the absence of which, could potentiallly result in sudden, clinically significant life or limb threatening deterioration. Attestation - Physician/ CLOTILDE Attestation The physician spent face to face time with patient:: Yes Advanced Practice Provider documentation review:: Supervising physician onsite and consulted in the evaluation and care of this patient. The physician did have a face to face encounter with the patient. This chart was documented by the indicated scribe, (Sita Cornejo Scribe) and accurately reflects the services I performed and decisions made by me, Jonathan Angulo MD, as attested by the provider's signature.
--- NOTE | 2019-10-23 14:29 | PULMONOLOGY PROGRESS NOTE ---
DATE: 10/23/2019 SUBJECTIVE: Ms. Barrett is sitting up at the bedside. She is awake and alert. She has no complaints. OBJECTIVE: Vital Signs: Blood pressure is 129/60 with heart rate of 68, respirations are 20, temperature is 97.9 degrees oral, with O2 saturations 98 to 100% on 2 L nasal cannula. Eyes: Eyes pupils equal, round, react to light. EOMs are intact. Sclerae are anicteric. HENT: Head is normocephalic, atraumatic. Mucous membranes are moist. Neck: Supple with trachea midline. Cardiovascular: Regular rate and rhythm. S1 and S2 appreciated. No murmur. She has no lower extremity edema. Calves are nontender bilateral with peripheral pulses palpable x4 extremities. Pulmonary: Breath sounds are diminished on the right. Chest rises and falls symmetrically with respiration. Chest wall is nontender to palpation. She has no increased work of breathing noted. Gastrointestinal: Abdomen is soft, nontender, nondistended, with bowel sounds in all 4 quadrants. Neurologic: She is alert and oriented x3. LABS: WBC is 8.3, with hemoglobin 9, hematocrit 28.3, platelets of 334,000. Sodium 136, potassium 4.5, BUN 44, creatinine 4.3, with a glucose of 215. IMPRESSION: This is a 59-year-old female with: 1. Pleural effusions, right greater than left. 2. Systolic and diastolic heart failure. 3. Acute on chronic renal failure. PLAN: 1. continue bronchodilators, incentive spirometer. 2. Continue DVT prophylaxis 3. Renal management per Dr. Jaime. 4. Wean Oxygen as tolerated. Dictated by RY Mejía for Roc Garcia MD cc: RY Mejía MD [facility]
--- NOTE | 2019-10-23 17:23 | PROGRESS NOTE ---
DATE: 10/23/2019 SUBJECTIVE: Patient has no major complaints. OBJECTIVE: Blood pressure is 122/61, heart rate is 67, respiratory rate of 18, temperature 97.7 degrees, 100% on 4 L.Cardiovascular: Regular rate and rhythm. Pulmonary: Bilateral breath sounds clear to auscultation. GI: Soft, nontender, nondistended. Bowel sounds were positive. LABORATORY DATA: White count was 8, hemoglobin and hematocrit 9 and 28, platelets 334,000. BUN and creatinine 44 and 4.3 which is definitely a rise. PROBLEM LIST: 1. Acute kidney injury, acute tubular necrosis. Her urine output has been okay but her GFR has dropped back down just kind of hovering between 4 and 5. Will see how her electrolytes look tomorrow. Her urine output has been small but is up to 500 but I am not sure if that is going to be good enough without dialysis so at the discretion of Dr. Jaime. 2. Diastolic heart failure that seems to be stable. 3. Bilateral pleural effusions. That is also improved. 4. Thrombocytopenia has also resolved. DISPOSITION: Pending her clinical status. cc: Satnam Juarez MD
[2019-10-23] MEDS: ZOCOR PO SCH (21:52)
[2019-10-23] MEDS: NORCO-7.5 PO PRN (21:52)
[2019-10-24] MEDS ORDERED: TIGHT: 0.2 ML/HR FOR DIALYSIS MISC PRN (06:26)
[2019-10-24] MEDS ORDERED: HEPARIN IV PRN (06:26)
[2019-10-24] MEDS ORDERED: NS 2,000 ML MISC PRN (06:26)
[2019-10-24] MEDS: HUMALOG SUBQ SCH ×3 (06:35→16:52)
[2019-10-24] MEDS: SYNTHROID PO SCH (06:36)
[2019-10-24 08:20] LABS: BASO# 0.04 X1000 (0.0-0.2); BASO% 0.5 % (0.0-0.8); EOS# 1.49 X1000 (0.0-0.7); EOS% 18.1 % (0.0-10.0); HEMOGLOBIN 9.1 g/dL (12.0-16.0); LYMPH# 2.32 X1000 (1.2-3.4); LYMPH% 28.2 % (20.5-51.1); MCH 27.2 PG (27-31); MCHC 31.4 g/dL (33-37); MCV 86.6 FL (81-99); MONO# 0.71 X1000 (0.11-0.59); MONO% 8.6 % (1.7-9.3); MPV 10.2 FL (7.4-10.4); NEUT# 3.66 X1000 (1.4-6.5); NEUT% 44.6 % (42.2-75.2); PLT 357 X1000 (130-400); RBC 3.35 XMIL (4.2-5.4); RDW 14.9 % (11.5-14.5); WBC 8.22 X1000 (4.8-10.8)
[2019-10-24 09:02] LABS: CALCIUM 9.5 mg/dL (8.8-10.2); POTASSIUM 4.9 mmol/L (3.5-5.1)
[2019-10-24] MEDS ORDERED: RELISTOR SUBQ ONE (10:14)
[2019-10-24] MEDS: CULTURELLE PO SCH (13:20)
[2019-10-24] MEDS: LANTUS INSULIN SUBQ SCH (13:20)
[2019-10-24] MEDS: LACTULOSE PO SCH (13:20)
[2019-10-24] MEDS: MIRALAX PO SCH (13:21)
[2019-10-24] MEDS: ASPIRIN EC PO SCH (13:21)
[2019-10-24] MEDS: VENOFER 300 MG in NS 250 ML IV SCH (13:21)
[2019-10-24] MEDS: LOPRESSOR PO SCH (13:36)
--- NOTE | 2019-10-24 15:46 | PROVIDER PROGRESS NOTE ---
Progress Note Subjective: She voices minimal urine output. Denies any shortness of breath, chest pain, n/v, or change in appetite. Objective: temperature 98.0, pulse 65, respirations 12, blood pressure 128/63, 02 sat 99% on 2 L nasal cannula. General: chronically ill White female lying in bed in no acute distress. HEENT: normocephalic, atraumatic, pupils equal and reactive, mucous membranes moist. Skin: warm and dry. Right chest tunneled catheter. Neck: supple, positive JVD Cardiovascular: S1S2, regular rate and rhythm. No murmur or gallop. Respiratory: lungs clear with equal air entry anteriorly Abdomen: soft, nontender, nondistended. Bowel sounds present. : not inspected Extremities: no clubbing, cyanosis, or edema Neurological: alert and oriented to person place and time. Labs: Wbc 8.22, hemoglobin 9.1, hematocrit 29.0, platelet count 357, sodium 138, potassium 4.9, chloride 100, carbon dioxide 23, BUN 56, creatinine 5.0. Intake 250, output 300. Impression: Acute kidney injury with underlying chronic kidney disease. No recovery. She did not receive any hemodialysis over the weekend. We will plan today for a 2K bath and 2 L ultrafiltration treatment as tolerated. Blood pressure. In goal Fluid volume. Slightly expanded. Manage with hemodialysis today. Anemia. Low, but stable. Electrolytes and acid base balance. Manage with hemodialysis. Nutrition. Adequate. Physical deconditioning. PT is in place. She is encouraged to get up and participate. Medication review. No changes.
[2019-10-24 16:20] VITALS: BP 138/67
[2019-10-24] MEDS ORDERED: SENOKOT PO SCH (21:00)
--- NOTE | 2019-10-25 10:11 | DISCHARGE SUMMARY ---
ADMISSION DATE: 09/29/2019 DISCHARGE DATE: 10/24/2019 DISCHARGE DIAGNOSES: 1. Acute kidney injury, acute tubular necrosis, now stage V disease. 2. Acute diastolic heart failure exacerbation. 3. Bilateral pleural effusions. 4. Thrombocytopenia. 5. Anemia of chronic inflammation. CONSULTATIONS: 1. Cardiology, Dr. Damian. 2. Dr. Hartman, General Surgery. 3. Dr. Hills, Hematology. 4. Dr. Jaime, Nephrology. PROCEDURES: 1. Thoracenteses x2, one the right, one on the left. One was accomplished on the , the next was on the . 2. 10/19/2019 was a dialysis catheter. BRIEF HISTORY AND HOSPITAL COURSE: This is a 59-year-old female, admitted by Dr. Alvarado I believe for weakness, volume depletion, possible pneumonia, acute on chronic renal failure with a creatinine of 2.2, mild elevation in troponin, CHF. The patient was admitted. I think she was placed on diuretics. Her diabetes was not controlled. A1c was felt to be around 12.1. EF of 40%. I think she underwent thoracentesis on the and no fluid could be removed. She then underwent thoracentesis on the with about 1200 aspirated which was felt to be transudative. She had a venous study that was negative. Pulmonary was consulted which they recommended diuresis and cycling her CPAP, and then there was some concern over possible getting a cardiac catheterization when she was more stable. Echo showed some pericardial effusion, but that improved. We continue to diurese her but the fluid was not able to be removed. She was maintained on antibiotics cefepime and Zyvox and she completed a 10 day course. Her repeat echo, though, interestingly showed an improved ejection fraction. Her kidney function despite diuretics hovered around 2.3, but did not really improve. She underwent ultrasound on the and 1.2 L was removed at that time, again was felt to be transudative. Echo showed an EF of about 40% which was about the same. Her pericardial effusion was less. Dr. Jaime was consulted and in any case, she was monitored. I think she may have been given high-dose Lasix. She also had nephrotic syndrome with 5.5 g of protein in her urine and recommended stopping her diuretics, but her kidney function continued to get worse. Eventually, the decision was made to go for dialysis and ultrafiltration and not to pursue a cardiac catheterization because of her worsening kidney function. She underwent dialysis and was improving. Eventually a dialysis catheter placed on the . She tolerated dialysis. On the , Dr. Jaime felt she was stable for discharge and she was desiring to go home. I discussed the case with Dr. Damian and he also felt that she could be discharged home, follow up with Cardiology. DISCHARGE MEDICATIONS: Neurontin 600, aspirin 81, simvastatin 40, hydralazine 10 t.i.d., Lactinex 1 p.o. b.i.d., Eliquis 5 b.i.d., folic acid 1 daily, Icar-C b.i.d., Isordil 10 t.i.d., Lantus 32 daily, Lopressor 50 b.i.d., MiraLAX 17 daily, Synthroid 88 mcg daily. He will be set up for dialysis at discharge. TIME SPENT: A 35 minute discharge. cc: MD Roc Melendrez MD William D. Denney, MD Ashish K. Basu, MD Reginald D. Gladish, MD Sammy Becdach, MD MTDD
== END 2019-10-24 18:19 | disposition home health service (06) | DRG 291 ==
LOC: SUPCPDRO → ED 11:55 → EDIPHOLD 11:56 → SUATTDRO 11:56 → EDIPHOLD 09-30 10:27 → ICU 09-30 13:08 → 2N 10-01 09:08 → 3N 10-14 10:49
PROVIDERS: ATTEND Internal Medicine